=== PATIENT | female | born 1965 | race Caucasian/White ===

== ENCOUNTER 2018-01-02 17:20 | Emergency (ER) | payer MEDICAID, SELFPAY ==
[2018-01-02 17:21] VITALS: BP 106/41; PULSE 89; RESP 17; TEMP 37; O2SAT 95; BMI 21.5
--- NOTE | 2018-01-02 17:44 | CT_ITS ---
STUDY: CT ABDOMEN AND PELVIS WITHOUT CONTRAST REASON FOR EXAM: Female, 52 years old. Abdominal pain RADIATION DOSAGE (If Supplied By Facility): CTDIvol = ( 6.05 ) mGy, DLP = ( 257.03 ) mGycm TECHNIQUE: Transaxial images were obtained from the dome of the diaphragm to the symphysis pubis without oral contrast, and without intravenous contrast. Sagittal and coronal images were reconstructed. Individualized dose optimization techniques were used for this CT. COMPARISON: August 14, 2015. FINDINGS: The visualized lung bases are unremarkable. The visualized portions of the heart are within normal limits. Normal liver. Normal gallbladder and extrahepatic biliary system. Normal spleen. Normal pancreas. Normal bilateral adrenal glands. Normal right kidney. Stable cystic 1 cm nodule with calcification is noted in the left kidney. Normal visualized stomach. Normal small intestine. Normal colon. The appendix is visualized and appears normal. Normal abdominal aorta. Normal inferior vena cava. Normal retroperitoneum. Normal urinary bladder. Normal uterus. Normal abdominal wall. Normal osseous structures. CT/Abdomen/Pelvis without Cont IMPRESSION: Stable cystic nodule of the left kidney. No bowel obstruction. Electronically Signed: Romero Calvo DO at 19:01 EST Tel [phone], Service support ,
--- NOTE | 2018-01-02 17:48 | ED.VISSUMM ---
- ER Visit Summary Date of Service: 01/02/18 Chief Complaint: Cough and abdominal pain History of Present Illness: The patient is a 52 F reports waxing and waning, intermittent abdominal pain since last summer. She has not seen her doctor about this. She also complains of recurrent cough and URI symptoms for the last 3 months. She complains of congestion, fatigue, lightheadedness. Patient states last 2 days she felt pretty good but then woke up with symptoms again this morning. She felt warm but did not measure her temperature. Is not currently taking anything at home for her symptoms. Physical Examination: Vital signs are unremarkable. Patient is afebrile. Patient's sitting upright in bed no acute distress. She is nontoxic appearing. Head neck examination is unremarkable. Heart is regular rate and rhythm. Lung sounds are clear with good air movement bilaterally. Abdomen is soft with mild diffuse tenderness. There is no guarding or rebound. Hypoactive but present bowel sounds are noted. Patient has no focal neuro deficits. Test Results: CBC and chemistry studies are normal. LFTs and lipase are normal. TSH is normal. Urinalysis is normal. Two-view chest x-ray is unremarkable. CT flank shows stable cystic nodule on the left kidney. There is no evidence of bowel obstruction. Emergency Department Course and Treatment: Patient was given Toradol, Zofran, and IV fluids. Repeat evaluation she states she had been improved but her nausea was coming back. She is given additional dose of Zofran. Test results were discussed with her and friend at bedside. Given a prescription for Zofran as needed. She is to follow-up with her primary care physician for further testing and evaluation. Treatment Plan: [] Disposition: Discharge Impression: Viral syndrome This note was generated with Spinnakr dictation software. It may contain incorrect words, spelling, and punctuation that were not noted in review of the chart prior to signing ED Disposition - Plan for ED Patient: Disposition: Home or Assisted Living Chief Complaint: Cold Sx Instructions: ED Viral Syndrome Prescriptions: Ondansetron [Zofran Odt] 4 mg PO Q8H PRN PRN #10 tablet PRN Reason: Nausea Referrals: Oseas Allan MD [Primary Care Provider] - As soon as possible
[2018-01-02] MEDS: Ondansetron 4 MG/2 ML Vial IV ×2 (18:06→20:15)
[2018-01-02] MEDS: 0.9% Normal Saline 1,000 ML 150 ML IV (18:06)
[2018-01-02] MEDS: Ketorolac 30 MG/ML Syringe IV (18:06)
--- NOTE | 2018-01-02 18:20 | RAD_ITS ---
STUDY: X-RAY CHEST REASON FOR EXAM: Female, 52 years old. Cold symptoms TECHNIQUE: Frontal and lateral views COMPARISON: August 07, 2017 FINDINGS: The lungs are clear and expanded. There is no demonstrated pleural abnormality. Normal size heart. Normal mediastinum and paul. Normal visualized pulmonary arteries. Normal visualized aortic arch and descending thoracic aorta. Normal visualized thoracic spine. Normal visualized ribs, clavicles, and shoulders. There is no demonstrated abnormality of the visualized soft tissue structures of the upper abdomen. RAD/Chest PA and Lateral IMPRESSION: Normal x-ray examination of the chest. Electronically Signed: Romero Calvo DO at 19:11 EST Tel [phone], Service support ,
[2018-01-02 18:21] LABS: Absolute Lymphocyte Count 2.89 X10^3/ul (0.83-4.51); Absolute Neutrophil Count 2.9 X10^3/uL (2.0-7.7); Basophil# 0.02 X10^3/uL; Basophil% 0.3 % (0-1); Eosinophil# 0.07 X10^3/uL; Eosinophils% 1.1 % (0-5); Hematocrit 38.2 % (37-47); Hemoglobin 12.4 g/dl (12.0-15.0); Lymphocyte # 2.89 X10^3/ul (4.0); Lymphocyte % 45.4 % (19-41); Mean Corp Hgb Conc 32.5 g/gl (32-36); Mean Corpuscular Hgb 30.8 pg (27.0-32.0); Mean Platelet Vol. 9.7 fl (6.2-12.0); Monocyte# 0.51 X10^3/uL; Neutrophil # 2.87 X10^3/uL (2.7-7.7); Neutrophil % 45.2 % (47-70); Platelet Count 276 K/mm3 (150-450); Red Blood Count 4.02 M/mm3 (4.2-5.4); White Blood Count 6.4 K/mm3 (4.4-11.0)
[2018-01-02 18:53] LABS: POSITIVE COUNT NO; POSITIVE DIFFERENTIAL NO; POSITIVE MORPHOLOGY NO
[2018-01-02 19:13] LABS: AST(SGOT) 11 U/L (15-37); Alanine Aminotransfer ALT/SGPT 19 U/L (13-56); Albumin, Serum 3.2 g/dL (3.2-5.0); Alkaline Phosphatase 63 U/L (45-117); Anion Gap 8 (5-15); BUN 21 mg/dL (7-18); BUN/Creat Ratio 23.9 RATIO (10-20); Bilirubin, Direct 0.08 mg/dL (0.00-0.30); Calcium,Total 8.3 mg/dL (8.5-10.1); Chloride 109 mmol/L (98-107); Creatinine, Serum 0.88 mg/dL (0.55-1.02); EST Glomerular Filtration Rate 71 mL/min (>60); Est Glom Filt Rate - Afr Amer 86 mL/min (>60); Globulin 3.4 g/dL (2.2-4.2); Glucose 98 mg/dL (74-106); Lipase 318 U/L (73-393); Potassium 4.1 mmol/L (3.5-5.1); Protein, Total 6.6 g/dL (6.4-8.2); Sodium Level 143 mmol/L (136-145); Thyroid Stim Hormone (TSH) 1.64 uIU/mL (0.358-3.74)
[2018-01-02 19:40] LABS: Bacteria 0 SEEN /hpf (None Seen); Mucous, Urine 0 SEEN /hpf (<or=2+); Red Blood Cells-Urine 0 SEEN /hpf (0-5); Squamous Epithelial Cells - UA 0 SEEN /hpf (5-10); White Blood Cells 0 SEEN /hpf (0-5)
[2018-01-02 19:41] LABS: Color, Urine Yellow (Yellow); Glucose, Dipstick Normal (Normal); Ketone-Dipstick Negative (Negative); Leukocyte Esterase-Dipstick Negative /ul (Negative); Nitrite-Dipstick Negative (Negative); Occult Blood-Urine Negative /ul (Negative); Protein-Dipstick Negative (Negative); Urine Bilirubin Dipstick Negative (Negative); Urine Clarity Sl. Cloudy (Clear); Urine Urobilinogen Normal (Normal)
[2018-01-02 19:47] LABS: Amorphous Sediment 1+
--- NOTE | 2018-01-02 20:10 | ED.DEP ---
ED Disposition - Plan for ED Patient: Disposition: Home or Assisted Living Chief Complaint: Cold Sx Instructions: ED Viral Syndrome Prescriptions: Ondansetron [Zofran Odt] 4 mg PO Q8H PRN PRN #10 tablet PRN Reason: Nausea Referrals: Oseas Allan MD [Primary Care Provider] - As soon as possible
[2018-01-02 20:28] VITALS: BP 105/75; PULSE 71; RESP 16; O2SAT 99
== END 2018-01-02 20:28 | disposition home or self-care (01) ==
PROVIDERS: Emergency Provider Emergency Medicine; Family Provider Family Medicine; PCP Family Medicine
DX: B34.9 Viral infection, unspecified (principal)
CPT/HCPCS: 71046; 74176; 80048; 80076; 81001; 83690; 84443; 85025; 96361; 96374; 96375; 99283; J7030; A4216; J2405

== ENCOUNTER → 2018-01-25 15:51 | Outpatient (CLI) | payer MEDICAID, SELFPAY | PROVIDERS: Family Provider Family Medicine; PCP Family Medicine; Visit Provider Otolaryngology Otolaryngology/Facial Plastic Surgery | DX: J32.9 Chronic sinusitis, unspecified (principal); J02.9 Acute pharyngitis, unspecified | CPT/HCPCS: 87070; 87205 ==

== ENCOUNTER 2019-06-27 22:08 | Emergency (ER) | payer MEDICAID, SELFPAY ==
[2019-06-27 22:10] VITALS: BP 131/90; PULSE 96; RESP 18; TEMP 36.7; O2SAT 98; BMI 24.0
--- NOTE | 2019-06-27 22:39 | RAD_ITS ---
STUDY: X-RAY CHEST REASON FOR EXAM: Female, 53 years old. Chest pain. Shortness of breath. Headache. TECHNIQUE: PA and lateral views of the chest. COMPARISON: January 02, 2018. FINDINGS: The lungs are clear and expanded. There is no demonstrated pleural abnormality. Normal size heart. Normal mediastinum and paul. Normal visualized pulmonary arteries. Normal visualized aortic arch and descending thoracic aorta. Normal visualized thoracic spine. Normal visualized ribs, clavicles, and shoulders. There is no demonstrated abnormality of the visualized soft tissue structures of the upper abdomen. RAD/Chest PA and Lateral IMPRESSION: No acute cardiopulmonary disease or interval change. Electronically Signed: Tiburcio Berg DO at 23:32 EDT Tel [phone], Service support ,
--- NOTE | 2019-06-27 22:39 | EKG12_ITS ---
Test Reason : CP Blood Pressure : / mmHG Vent. Rate : 080 BPM Atrial Rate : 080 BPM P-R Int : 164 ms QRS Dur : 072 ms QT Int : 340 ms P-R-T Axes : 055 030 067 degrees QTc Int : 392 ms Normal sinus rhythm Low voltage QRS Borderline ECG Confirmed by ALLI LI ([id number]), book or script editor JOSÉ MIGUEL HOLLAND ([id number]) on 07/02/2019 1:25:55 PM Referred By: RYAN/DREA Confirmed By:ALLI LI
--- NOTE | 2019-06-27 22:39 | CT_ITS ---
STUDY: CT BRAIN WITHOUT CONTRAST REASON FOR EXAM: Female, 53 years old. Headache. Nausea. Shaking. Shortness of breath. RADIATION DOSAGE (If Supplied By Facility): CTDIvol = ( 44.99 ) mGy, DLP = ( 796.11 ) mGycm TECHNIQUE: Transaxial CT imaging of the brain was performed without administration of intravenous contrast material. Individualized dose optimization techniques were used for this CT. COMPARISON: January 15, 2015. FINDINGS: Normal soft tissue structures. Normal calvarium. Normal size ventricles and extra-axial spaces for the patient's age. Normal white matter tracts of the cerebral hemispheres. Normal basal ganglia and thalami. Normal brainstem. Normal cerebellum. There is no intracranial hemorrhage. There are no findings of an acute ischemic infarction. Normal visualized paranasal sinuses. CT/Brain/Head without Contrast IMPRESSION: Normal unenhanced CT scan of the brain. There is no interval change. Electronically Signed: Tiburcio Berg DO at 23:32 EDT Tel [phone], Service support ,
--- NOTE | 2019-06-27 22:49 | ED.DCSUM_ITS ---
History of Present Illness Chief Complaint: Chest Pain Informant: Patient, Significant Other Onset: Days - few Narrative: Patient here with other multiple complaints. States symptoms started few days ago with headache chest pain, nonproductive cough. States that dyspnea. States waxing and waning symptoms, no medications taken at home. States that symptoms previously similar however this is worse. States photophobia and phonophobia. Nausea without vomiting. No diarrhea. No urinary symptoms. Denies any radicular symptoms with chest discomfort. Symptoms worsen with cough. Does not have a PCP, states exposure medications for cholesterol. Denies hypertension diabetes history. Subjective fevers. No sore throat or ear pain. Prior similar symptoms: Yes Past Medical History - Allergies and Home Meds Allergies/Adverse Reactions: Allergies No Known Allergies Allergy (Verified 06/27/19 22:12) Primary Care Physician: Oseas Allan MD [STAFF PHYSICIAN] - Smoking Status: Never smoker Review of Systems General: Reports: Fever. Denies: Chills, Sweats Eyes: Denies: Visual changes - bilaterally, Diplopia ENT: Denies: Rhinorrhea, Sore throat Cardiovascular: Reports: Chest pain. Denies: Palpitations Respiratory: Reports: Cough. Denies: Dyspnea, Dyspnea on exertion Gastrointestinal: Reports: Nausea. Denies: Abdominal pain, Vomiting, Diarrhea, Melena, Hematochezia Genitourinary: Denies: Dysuria, Hematuria, Frequency Musculoskeletal: Denies: Back pain, Extremity Pain Skin: Denies: Rash, Wounds Neurological: Reports: Headache. Denies: Weakness, Numbness Physical Exam Vital Signs/Narrative: Vital Signs Temp Pulse Resp BP Pulse Ox 06/27/19 22:10 98.0 F 96 18 131/90 H 98 Inital Vital Signs reviewed: Yes General: Well nourished, Well developed, - - Covering eyes with shirt Head: Normocephalic, Atraumatic Eyes: Perrl, EOMI, - - No photophobia ENT: Moist mucous membranes, No rhinorrhea, TM's clear Neck: Supple, Nontender, - - No meningismus Cardiovascular: Regular rate, Regular rhythm, No murmurs Respiratory: No distress, CTA bilaterally, Chest nontender Abdomen: Soft, Nontender, Nondistended, Normal bowel sounds Back: Nontender, Normal Inspection Extremities: Nontender, No edema Skin: Normal color, No rash Neurological: Alert, Oriented x3, Cranial nerves II-XII grossly intact, Normal Strength, Normal Sensation Psychological: Normal affect, Normal Mood Diagnostic/Tx/Re-eval Chest X-Ray - ED: 2 View, Read by Radiologist, No Acute Disease Abnormal Lab Results 06/27/19 06/27/19 23:00 23:00 WBC 9.2 RBC 4.58 Hgb 14.6 Hct 42.7 MCV 93.2 MCH 31.9 MCHC 34.2 RDW Std Deviation 43.9 RDW Coeff of Servando 12.8 Plt Count 346 MPV 8.9 Immature Gran % (Auto) 0.200 Neut % (Auto) 47.9 Lymph % (Auto) 42.[address] [place] % (Auto) 8.1 Eos % (Auto) 1.3 Baso % (Auto) 0.3 Absolute Neuts (auto) 4.4 Absolute Lymphs (auto) 3.88 Nucleated RBC % 0 Sodium 140 Potassium 4.2 Chloride 106 Carbon Dioxide 29.0 Anion Gap 5 BUN 16 Creatinine 0.89 Estim Creat Clear Calc 56.49 Est GFR (MDRD) Af Amer 84 Est GFR (MDRD) Non-Af 70 BUN/Creatinine Ratio 17.9 Glucose 102 Calcium 9.5 Troponin I < 0.015 Clinical Impression(s) from Imaging Studies Brain CT 06/27/19 22:39 IMPRESSION: Normal unenhanced CT scan of the brain. There is no interval change. Electronically Signed: Tiburcio Berg DO at 23:32 EDT Tel [phone], Service support , Chest X-Ray 06/27/19 22:39 IMPRESSION: No acute cardiopulmonary disease or interval change. Electronically Signed: Tiburcio Berg DO at 23:32 EDT Tel [phone], Service support , - EKG Initial EKG Interpretation: Sinus Rhythm, - - Sinus rate of 80, no ST or T wave changes. - Medical Decision Making Patient appeared anxious, she had no focal neurological deficits. Present with migraine noted symptoms along with chest pain symptoms. EKG cardiac work-up negative. Patient heart score is a 2. CT head was negative. Reglan and Benadryl with fluids given reevaluation was feeling better. Per the discussion per nursing reports patient was taken off her anxiety medicines by new PCP. Discussed with patient, She was on Klonopin previously for anxiety written by her initial PCP Dr. Quarles who retired. She transitioned over Dr. Allan, reports she was taken off her medications put on Prozac stating antidepressants did not help her symptoms in the past. This was stopped 2 to 3 months ago. She is seeing a new physician in the next couple weeks. She has seen a counselor and psychiatrist in the past however none recently. Discussed with patient will write for Vistaril to use as needed, she was given follow-up with [facility] for outpatient evaluation and possible restart of medications that worked for her in the past. They understand and all questions were answered. ED Disposition - Plan for ED Patient: Disposition: Home or Assisted Living Diagnosis: Migraine headache, Atypical chest pain, Anxiety Instructions: CHEST PAIN, Uncertain Cause, ED, Migraine (Classical), Anxiety Reaction Prescriptions: Hydroxyzine Pamoate [Vistaril] 50 mg PO TID PRN PRN #12 capsule PRN Reason: stress Referrals: Oseas Allan MD [STAFF PHYSICIAN] - Behavioral,Health [facility] [GROUP OF PHYSICIANS] - 5-7 Days
[2019-06-27] MEDS: Metoclopramide 10 MG/2 ML Vial IV (22:54)
[2019-06-27] MEDS: DiphenhydrAMINE 50 MG/ML Syringe 25 MG IV (22:54)
[2019-06-27] MEDS: 0.9% Normal Saline 1,000 ML 1000 ML IV (22:54)
[2019-06-27 23:05] LABS: Absolute Lymphocyte Count 3.88 X10^3/uL (0.83-4.51); Absolute Neutrophil Count 4.4 X10^3/uL (2.0-7.7); Basophil# 0.03 X10^3/uL; Basophil% 0.3 % (0-1); Eosinophil# 0.12 X10^3/uL; Eosinophils% 1.3 % (0-5); Hematocrit 42.7 % (37-47); Hemoglobin 14.6 g/dL (12.0-15.0); Lymphocyte # 3.88 X10^3/ul (4.0); Lymphocyte % 42.2 % (19-41); Mean Corp Hgb Conc 34.2 g/dL (32-36); Mean Corpuscular Hgb 31.9 pg (27.0-32.0); Mean Corpuscular Volume 93.2 fL (81-99); Mean Platelet Vol. 8.9 fl (6.2-12.0); Monocyte# 0.74 X10^3/uL; Monocyte% 8.1 % (0-10); NRBC Flagged by Analyzer 0 % (0-5); Neutrophil % 47.9 % (47-70); Platelet Count 346 K/mm3 (150-450); RBC Distribution Width CV 12.8 % (11.6-14.6); RBC Distribution Width SD 43.9 fl (35.1-43.9); Red Blood Count 4.58 M/mm3 (4.2-5.4); White Blood Count 9.2 K/mm3 (4.4-11.0)
[2019-06-27 23:26] LABS: Anion Gap 5 (5-15); BUN 16 mg/dL (7-18); BUN/Creat Ratio 17.9 RATIO (10-20); Calcium,Total 9.5 mg/dL (8.5-10.1); Chloride 106 mmol/L (98-107); Creatinine, Serum 0.89 mg/dL (0.55-1.02); EST Glomerular Filtration Rate 70 mL/min (>60); Est Glom Filt Rate - Afr Amer 84 mL/min (>60); Estimated Creatinine Clearance 56.49 ml/min; Glucose 102 mg/dL (74-106); Potassium 4.2 mmol/L (3.5-5.1); Sodium Level 140 mmol/L (136-145)
[2019-06-27 23:43] VITALS: BP 122/92; PULSE 75; RESP 13; O2SAT 100
[2019-06-28] MEDS: hydrOXYzine PAM 25 MG Capsule 50 MG PO (00:11)
--- NOTE | 2019-06-28 00:19 | ED.RN ---
pamplets given for mental health services. Emotional support given. All questions answered no further concerns.
== END 2019-06-28 00:20 | disposition home or self-care (01) ==
PROVIDERS: Emergency Provider Emergency Medicine; Family Provider Pediatrics; PCP Pediatrics
DX: G43.909 Migraine, unspecified, not intractable, without status migrainosus (principal); R07.89 Other chest pain; F41.9 Anxiety disorder, unspecified
CPT/HCPCS: 70450; 71046; 80048; 84484; 85025; 93005; 99285; J7030

== ENCOUNTER → 2020-01-08 15:20 | Outpatient (CLI) | payer MEDICAID, SELFPAY ==
[2020-01-08 17:32] LABS: Absolute Lymphocyte Count 2.33 X10^3/uL (0.83-4.51); Absolute Neutrophil Count 5.1 X10^3/uL (2.0-7.7); Basophil# 0.04 X10^3/uL; Basophil% 0.5 % (0-1); Eosinophil# 0.06 X10^3/uL; Eosinophils% 0.7 % (0-5); Hematocrit 37.9 % (37-47); Hemoglobin 12.4 g/dL (12.0-15.0); Lymphocyte # 2.33 X10^3/ul (4.0); Lymphocyte % 28.1 % (19-41); Mean Corp Hgb Conc 32.7 g/dL (32-36); Mean Corpuscular Hgb 30.8 pg (27.0-32.0); Mean Corpuscular Volume 94.3 fL (81-99); Mean Platelet Vol. 9.3 fl (6.2-12.0); Monocyte# 0.72 X10^3/uL; Monocyte% 8.7 % (0-10); NRBC Flagged by Analyzer 0 % (0-5); Neutrophil # 5.12 X10^3/uL (2.7-7.7); Neutrophil % 61.6 % (47-70); Platelet Count 348 K/mm3 (150-450); RBC Distribution Width CV 14.1 % (11.6-14.6); RBC Distribution Width SD 48.6 fl (35.1-43.9); Red Blood Count 4.02 M/mm3 (4.2-5.4); White Blood Count 8.3 K/mm3 (4.4-11.0)
[2020-01-08 17:43] LABS: ALB/GLOB Ratio 1.2 RATIO (0.9-2.4); AST(SGOT) 20 U/L (15-37); Alanine Aminotransfer ALT/SGPT 40 U/L (13-56); Alkaline Phosphatase 91 U/L (45-117); Anion Gap 6 (5-15); BUN 14 mg/dL (7-18); BUN/Creat Ratio 13.9 RATIO (10-20); Calcium,Total 9.4 mg/dL (8.5-10.1); Chloride 105 mmol/L (98-107); Creatinine, Serum 1.01 mg/dL (0.55-1.02); EST Glomerular Filtration Rate 60 mL/min (>60); Est Glom Filt Rate - Afr Amer 73 mL/min (>60); Globulin 3.3 g/dL (2.2-4.2); Glucose 100 mg/dL (74-106); Potassium 4.1 mmol/L (3.5-5.1); Protein, Total 7.3 g/dL (6.4-8.2); Sodium Level 142 mmol/L (136-145)
== END ==
PROVIDERS: PCP Family Medicine Geriatric Medicine; Visit Provider Family Medicine Geriatric Medicine
DX: R53.83 Other fatigue (principal)
CPT/HCPCS: 36415; 80053; 84443; 85025

== ENCOUNTER → 2021-03-17 14:24 | Outpatient (CLI) | payer MEDICAID, SELFPAY ==
[2021-03-17 14:24] VITALS: BMI 24.0
[2021-03-17 15:22] LABS: Absolute Lymphocyte Count 2.67 X10^3/uL (0.83-4.51); Absolute Neutrophil Count 4.3 X10^3/uL (2.0-7.7); Basophil# 0.03 X10^3/uL; Basophil% 0.4 % (0-1); Eosinophil# 0.04 X10^3/uL; Eosinophils% 0.5 % (0-5); Hematocrit 39.3 % (37-47); Hemoglobin 12.8 g/dL (12.0-15.0); Lymphocyte # 2.67 X10^3/ul (0.83-4.51); Lymphocyte % 34.4 % (19-41); Mean Corp Hgb Conc 32.6 g/dL (32-36); Mean Corpuscular Hgb 30.9 pg (27.0-32.0); Mean Corpuscular Volume 94.9 fL (81-99); Mean Platelet Vol. 9.8 fl (6.2-12.0); NRBC Flagged by Analyzer 0 % (0-5); Neutrophil # 4.31 X10^3/uL (2.7-7.7); Neutrophil % 55.4 % (47-70); Platelet Count 375 K/mm3 (150-450); RBC Distribution Width CV 13.9 % (11.6-14.6); RBC Distribution Width SD 48.4 fl (35.1-43.9); Red Blood Count 4.14 M/mm3 (4.2-5.4); White Blood Count 7.8 K/mm3 (4.4-11.0)
--- NOTE | 2021-03-17 15:36 | RAD_ITS ---
STUDY: X-RAY - RIGHT KNEE REASON FOR EXAM: Female, 55 years old. KNEE PAIN TECHNIQUE: 3 view(s) of the knee. COMPARISON: None. FINDINGS: Normal visualized distal femur. Normal visualized proximal tibia and fibula. Normal proximal tibiofibular articulation. Normal medial femorotibial compartment. Normal lateral femorotibial compartment. Normal patellofemoral articulation. The soft tissue structures are unremarkable. RAD/Knee 3 Views IMPRESSION: Normal x-ray examination of the knee. Electronically Signed: Manpreet Hernandez MD at 16:05 EDT Tel , Service support ,
--- NOTE | 2021-03-17 15:36 | RAD_ITS ---
STUDY: X-RAY - LEFT KNEE REASON FOR EXAM: Female, 55 years old. KNEE PAIN TECHNIQUE: 3 view(s) of the knee. COMPARISON: None. FINDINGS: Normal visualized distal femur. Normal visualized proximal tibia and fibula. Normal proximal tibiofibular articulation. There is mild degenerative arthrosis of the medial femorotibial compartment. Normal lateral femorotibial compartment. Normal patellofemoral articulation. The soft tissue structures are unremarkable. RAD/Knee 3 Views IMPRESSION: Degenerative arthrosis. Electronically Signed: Manpreet Hernandez MD at 16:05 EDT Tel , Service support ,
--- NOTE | 2021-03-17 15:36 | RAD_ITS ---
STUDY: X-RAY - CERVICAL SPINE REASON FOR EXAM: Female, 55 years old. NECK PAIN TECHNIQUE: 3 view(s) of the cervical spine were obtained. COMPARISON: None FINDINGS: There is straightening of the normal cervical lordosis. There is multi-level endplate spondylosis. There is multi-level degenerative disc disease with multilevel disc space narrowing. The soft tissue structures are unremarkable. RAD/Cerv Spine 2 or 3 Views IMPRESSION: Degenerative changes of the spine. Electronically Signed: Jamil Mac MD at 13:35 EDT Tel , Service support ,
== END ==
LOC: POLAB3 14:26 → RAD 15:26
PROVIDERS: PCP Family Medicine Geriatric Medicine; Referring Provider Family Medicine Geriatric Medicine; Visit Provider Family Medicine Geriatric Medicine
DX: R53.83 Other fatigue (principal); M54.2 Cervicalgia; M25.569 Pain in unspecified knee
CPT/HCPCS: 36415; 72040; 73562; 80053; 84443; 85025

== ENCOUNTER → 2021-04-16 10:39 | Outpatient (CLI) | payer MEDICAID, SELFPAY ==
[2021-03-17 14:24] VITALS: BMI 24.0
--- NOTE | 2021-04-16 10:41 | BI_ITS ---
MAMMOGRAPHY - BILATERAL SCREENING REASON FOR EXAM: Female, 55 years old. Routine annual screening examination. PERTINENT HISTORY: Non-contributory. TECHNIQUE: Digital bilateral breast asya (3D mammographic acquisition) in the CC and MLO projections. 2-D mediolateral oblique (MLO) and craniocaudad (CC) views of both breasts were obtained. CAD: Full Field Digital Mammography with Computer Added Detection was performed. COMPARISON: Comparison is made with prior outside examination 03/20/2019. FINDINGS: Breast Composition: The breasts are heterogeneously dense, which may obscure small masses. There are no dominant masses or suspicious calcifications. No other significant abnormalities are identified. There has been no significant change since the prior study. BI/SCRN MAMM (CAD)W/ASYA BILAT IMPRESSION: Stable bilateral screening mammogram. Yearly follow-up mammogram recommended. (A) ASSESSMENT CATEGORY: BIRADS Category 1: Negative. A letter regarding these results will be sent to the patient by the facility within 30 days. Approximately 10% of breast cancers are not detected by mammography. A normal mammogram should not delay biopsy of a clinically suspicious abnormality. [id number] Electronically Signed: Mukesh Cardoza MD at 12:09 EDT , Service support ,
== END ==
PROVIDERS: PCP Family Medicine Geriatric Medicine; Referring Provider Family Medicine Geriatric Medicine; Visit Provider Family Medicine Geriatric Medicine
DX: Z12.31 Encounter for screening mammogram for malignant neoplasm of breast (principal)
CPT/HCPCS: 77063; 77067

== ENCOUNTER → 2021-04-17 08:36 | Outpatient (CLI) | payer MEDICAID, SELFPAY ==
[2021-03-17 14:24] VITALS: BMI 24.0
--- NOTE | 2021-04-17 08:38 | US_ITS ---
STUDY: ABDOMINAL ULTRASOUND REASON FOR EXAM: Female, 55 years old. ABD PAIN TECHNIQUE: Transabdominal ultrasound was performed with real-time and static kenyon scale imaging. TECHNICAL QUALITY: Adequate. COMPARISON: None. FINDINGS: Liver: The liver measures 15 cm. There is normal echogenicity of the liver. The bile ducts are within normal limits. There is hepatic color flow. The direction of portal flow is hepatopetal. There is no demonstrated mass lesion. Portal vein measurement: Gallbladder: Normal distended gallbladder. The gallbladder wall measures 1.1 mm. There is a negative sonographic Byers''s sign. There is no pericholecystic fluid. There are no gallstones. Common Bile Duct (C.B.D.): The common bile duct measures 6.8 mm. Pancreas: Normal size of the head, body and tail of the pancreas. There is increased echogenicity of the pancreas. There is no demonstrated pancreatic mass or cyst. Spleen: Normal size of the spleen. The spleen measures 8.5 cm. Right Kidney: Normal size of the right kidney. The right kidney measures 9.9 x 4.8 x 3.7 cm. Normal renal cortex. The right cortex measures 1.3 cm. There is no demonstrated renal mass or cyst. There is no right hydronephrosis. Left Kidney: Normal size of the left kidney. The left kidney measures 10.0 x 4.1 x 5.2 cm. Normal renal cortex. The left cortex measures 1.2 cm. There is a 1.0 cm cyst. There is no left hydronephrosis. Aorta: Tapers normally I.V.C.: The IVC is patent. There is no ascites. US/Abdomen Complete IMPRESSION: Simple left renal cysts, no specific follow-up needed Nonspecific echogenic pancreas Electronically Signed: Richard Hobbs MD at 14:24 EDT , Service support ,
== END ==
PROVIDERS: PCP Family Medicine Geriatric Medicine; Referring Provider Family Medicine Geriatric Medicine; Visit Provider Family Medicine Geriatric Medicine
DX: R10.9 Unspecified abdominal pain (principal)
CPT/HCPCS: 76700

== ENCOUNTER → 2021-08-07 13:33 | Outpatient (CLI) | payer MEDICAID, SELFPAY ==
[2021-08-06 17:59] LABS: Absolute Lymphocyte Count 3.53 X10^3/uL (0.83-4.51); Absolute Neutrophil Count 5.3 X10^3/uL (2.0-7.7); Basophil# 0.05 X10^3/uL; Basophil% 0.5 % (0-1); Eosinophil# 0.06 X10^3/uL; Eosinophils% 0.6 % (0-5); Hematocrit 41.3 % (37-47); Hemoglobin 13.9 g/dL (12.0-15.0); Lymphocyte # 3.53 X10^3/ul (0.83-4.51); Lymphocyte % 36.6 % (19-41); Mean Corp Hgb Conc 33.7 g/dL (32-36); Mean Corpuscular Hgb 31.3 pg (27.0-32.0); Mean Platelet Vol. 9.2 fl (6.2-12.0); Monocyte# 0.71 X10^3/uL; Monocyte% 7.4 % (0-10); NRBC Flagged by Analyzer 0 % (0-5); Neutrophil # 5.27 X10^3/uL (2.7-7.7); Neutrophil % 54.7 % (47-70); Platelet Count 343 K/mm3 (150-450); RBC Distribution Width CV 13.4 % (11.6-14.6); RBC Distribution Width SD 45.9 fl (35.1-43.9); Red Blood Count 4.44 M/mm3 (4.2-5.4); White Blood Count 9.6 K/mm3 (4.4-11.0)
[2021-08-06 18:51] LABS: Vitamin B12 697 pg/mL (211-911)
[2021-08-06 19:18] LABS: ALB/GLOB Ratio 1.1 RATIO (0.9-2.4); AST(SGOT) 18 U/L (15-37); Alanine Aminotransfer ALT/SGPT 26 U/L (13-56); Alkaline Phosphatase 84 U/L (45-117); Anion Gap 6 (5-15); BUN 14 mg/dL (7-18); BUN/Creat Ratio 14.3 RATIO (10-20); Calcium,Total 9.1 mg/dL (8.5-10.1); Chloride 105 mmol/L (98-107); Cholesterol 316 mg/dL (200); Creatinine, Serum 0.98 mg/dL (0.55-1.02); EST Glomerular Filtration Rate 62 mL/min (>60); Est Glom Filt Rate - Afr Amer 75 mL/min (>60); Globulin 3.8 g/dL (2.2-4.2); Glucose 81 mg/dL (74-106); High Density Lipoprotein 62 mg/dL; Potassium 3.5 mmol/L (3.5-5.1); Protein, Total 7.8 g/dL (6.4-8.2); Sodium Level 139 mmol/L (136-145); T4 Total, Thyroxin 8.9 ug/dL (4.8-13.9); Thyroid Stim Hormone (TSH) 5.88 uIU/mL (0.358-3.74); Triglycerides 152 mg/dL; Very Low Density Lipoprotein 30 mg/dL (5-40)
== END ==
PROVIDERS: PCP Family Medicine Geriatric Medicine
DX: F31.30 Bipolar disorder, current episode depressed, mild or moderate severity, unspecified (principal); Z79.899 Other long term (current) drug therapy
CPT/HCPCS: 36415; 80053; 80061; 82607; 82746; 84436; 84443; 84480; 85025

== ENCOUNTER → 2021-08-17 14:07 | Outpatient (CLI) | payer MEDICAID, SELFPAY ==
[2021-08-17 15:21] LABS: T3 Uptake 36 % (30-39); T4 Free Direct 1.02 ng/dL (0.76-1.46); Thyroid Stim Hormone (TSH) 4.49 uIU/mL (0.358-3.74)
[2021-08-17 20:46] LABS: T7 / Free Thyroxin Index 0.4 (1.4-4.5)
== END ==
PROVIDERS: PCP Family Medicine Geriatric Medicine; Referring Provider Family Medicine Geriatric Medicine; Visit Provider Family Medicine Geriatric Medicine
DX: E03.9 Hypothyroidism, unspecified (principal)
CPT/HCPCS: 36415; 84439; 84443; 84479

== ENCOUNTER → 2021-10-05 15:38 | Outpatient (CLI) | payer MEDICAID, SELFPAY ==
[2021-10-05 17:09] LABS: Thyroid Stim Hormone (TSH) 4.21 uIU/mL (0.358-3.74)
== END ==
PROVIDERS: PCP Family Medicine Geriatric Medicine; Referring Provider Family Medicine Geriatric Medicine; Visit Provider Family Medicine Geriatric Medicine
DX: E03.9 Hypothyroidism, unspecified (principal)
CPT/HCPCS: 36415; 84443

== ENCOUNTER 2021-10-12 12:10 | Emergency (ER) | payer MEDICAID, SELFPAY ==
[2021-10-12 12:11] VITALS: BP 120/90; PULSE 89; RESP 16; TEMP 36.5; O2SAT 96; BMI 22.3
[2021-10-12 12:29] VITALS: BP 141/91; PULSE 90; RESP 16; O2SAT 98
--- NOTE | 2021-10-12 12:53 | EDS_ITS ---
HPI History of Present Illness Chief Complaint: Palpitations Informant: patient Narrative Narrative: 55-year-old female states that her doctor or therapist or someone that she had a virtual visit with from a clinic in [place] that she is not sure what type of medicine they practice told her to come to the emergency room to get an EKG for heart problems to get to the bottom of it. She uses extremely vague answers to very specific questions like what specifically are your symptoms with your heart and then she goes on a tangent regarding how they killed my sister by not giving her her nerve pills. She denies any suicidal homicidal ideation. She states that she is intermittently dizzy and fears her heart thumping. She states all of her symptoms have been present for years ever since they took my nerve pills away to. Patient is disparaging to other roviders that she has seen for not giving her what she wants. [facility] Medical History Anxiety COPD (chronic obstructive pulmonary disease) DDD (degenerative disc disease), cervical Depression Former smoker Hypothyroidism PTSD (post-traumatic stress disorder) Rheumatoid arthritis Home Medications acyclovir 400 mg PO PRN PRN 08/07/17 [History Last Taken Unknown] levothyroxine 75 mcg PO DAILY 08/07/17 [History Last Taken Unknown] multivitamin with folic acid [Thera] 1 ea PO DAILY 08/07/17 [History Last Taken Unknown] quetiapine [Seroquel] 300 mg PO QHS 08/07/17 [History Last Taken Unknown] atorvastatin 10 mg PO QHS 06/27/19 [History Last Taken Unknown] conj estrog-medroxyprogest hazel 1 tab PO DAILY 06/27/19 [History Last Taken Unknown] hydroxyzine pamoate 50 mg PO TID PRN PRN #12 cap 06/27/19 [Rx Last Taken Unknown] ranitidine HCl 150 mg PO DAILY 06/27/19 [History Last Taken Unknown] Allergy/AdvReac Type Severity Reaction Status Date / Time amitriptyline Allergy Rash Verified 10/12/21 12:14 Social History (Updated 10/12/21 @ 12:[address] Roel Walker DO) Smoking Status: Never smoker substance use type: does not use ROS ROS ED Constitutional Constitutional ED: Denies chills, fever(s) or weight loss Eyes Eyes: Denies change in vision or diplopia ENT ENT ED: Denies ear pain, rhinorrhea or sore throat Cardiovascular Cardiovascular: Reports palpitations; Denies chest pain, orthopnea or racing heartbeat Respiratory/Chest Respiratory/Chest: Denies cough, dyspnea or orthopnea Gastrointestinal Gastrointestinal: Denies abdominal pain, diarrhea, nausea or vomiting Genitourinary Genitourinary ED: Denies dysuria, hematuria or urinary frequency Musculoskeletal Musculoskeletal: Denies arthralgias or myalgias Integumentary Denies abscess or rash Neurologic Neurologic: Reports headache(s) and other Details: Dizziness ; Denies weakness Psychiatric Psychiatric: Reports anxiety and depression; Denies suicidal ideation or suicida l thoughts Endocrine Endocrinology: Denies polydipsia, polyphagia or polyuria Allergic/Immunologic Allergic/Immunologic ED: Denies mouth swelling, tongue swelling or urticaria EXAM Physical Exam Const Vital Signs: 10/12/21 12:11 10/12/21 12:29 Temperature 97.7 F L Temperature Source Temporal Pulse Rate 89 90 Respiratory Rate 16 16 Respiratory Effort Normal Respiratory Pattern Normal Blood Pressure 120/90 H 141/91 H Blood Pressure Mean 100 107 Pulse Ox 96 98 Oxygen Delivery Method Room Air Room Air Positive well nourished and well developed General Appearance ED: well developed HEENT Reports normocephalic, head/scalp atraumatic, TM's clear and moist mucous membranes normocephalic and atraumatic Tympanic Membrane ED: Yes TM's clear Eyes PERRL and EOMs intact bilaterally Neck no lymphadenopathy, supple and no JVD Resp normal respiratory effort and clear to auscultation bilaterally Cardio regular rate, regular rhythm and no murmurs GI normal to inspection, nondistended, normoactive bowel sounds and non-tender Palpation: soft Back/Spine no CVA tenderness and normal ROM Extremity normal to inspection General Extremety ED: Negative for edema General Extremity: Negative for edema Neuro oriented x3 and CN's II-XII intact bilaterally Sensorium / Orientation: alert Motor Exam: strength 5/5 throughout Psych Mood & Affect: depressed, anxious and tearful Skin no rashes or lesions noted and no wounds MDM MDM MDM Narrative Medical decision making narrative: EKG demonstrates a normal sinus rhythm. Patient I believe has underlying [place] II disorder that is significantly affect ing her. She was seen by social work and given information on IOP. The patient needs to follow-up with her therapist. I do not see evidence of a acute emergent condition. EKG Initial EKG: Attestation: I personally reviewed and interpreted this EKG as follows: Comments: Sinus rhythm with sinus arrhythmia with a ventricular rate of 76 bpm Discharge Plan Triage Chief Complaint: Palpitations ED Provider: Roel Walker Dx/Rx/DC Orders Clinical Impression: Heart palpitations Instructions: ED Palpitations Prescriptions: No Action quetiapine [Seroquel] 200 MG tablet 300 mg PO QHS RF: 0 acyclovir 400 MG tablet 400 mg PO PRN PRN (Reason: COLD SORES) RF: 0 levothyroxine 50 MCG tablet 75 mcg PO DAILY RF: 0 multivitamin with folic acid [Thera] 400 MCG tablet 1 ea PO DAILY RF: 0 atorvastatin 10 MG tablet 10 mg PO QHS RF: 0 ranitidine HCl 150 MG tablet 150 mg PO DAILY RF: 0 conj estrog-medroxyprogest hazel 1 TAB tablet 1 tab PO DAILY RF: 0 hydroxyzine pamoate 50 MG capsule 50 mg PO TID PRN PRN (Reason: stress) Qty: 12 RF: 0 Primary Care Provider: Dandy Albarado Chi Referrals: Dandy Albarado Chi, MD [Primary Care Provider] - As soon as possible Disposition Disposition: Home, Self Care
--- NOTE | 2021-10-12 12:53 | EKG12_ITS ---
Test Reason : Blood Pressure : / mmHG Vent. Rate : 076 BPM Atrial Rate : 076 BPM P-R Int : 168 ms QRS Dur : 076 ms QT Int : 370 ms P-R-T Axes : 067 003 058 degrees QTc Int : 416 ms Normal sinus rhythm with sinus arrhythmia Normal ECG Confirmed by KANDY MICHELLE, NELSY ([id number]), restaurant expeditor JOSÉ MIGUEL HOLLAND ([id number]) on 10/19/2021 9:35:12 AM Referred By: NEREIDA Confirmed By:NELSY GAITAN MD
[2021-10-12 13:56] VITALS: BP 130/93; PULSE 76; RESP 18; O2SAT 100
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
== END 2021-10-12 13:56 | disposition home or self-care (01) ==
PROVIDERS: Emergency Provider Emergency Medicine; PCP Family Medicine Geriatric Medicine
DX: R00.2 Palpitations (principal); F41.9 Anxiety disorder, unspecified; F32.A Depression, unspecified; J44.9 Chronic obstructive pulmonary disease, unspecified; M06.9 Rheumatoid arthritis, unspecified; M50.30 Other cervical disc degeneration, unspecified cervical region; F43.10 Post-traumatic stress disorder, unspecified; E03.9 Hypothyroidism, unspecified; Z87.891 Personal history of nicotine dependence; Z79.899 Other long term (current) drug therapy
CPT/HCPCS: 93005; 99282

== ENCOUNTER 2021-12-24 10:57 | Outpatient (CLI) | payer MEDICAID, SELFPAY ==
[2021-12-24 12:56] LABS: Thyroid Stim Hormone (TSH) 2.49 uIU/mL (0.358-3.74)
== END 2021-12-24 23:59 | disposition short-term general hospital (02) ==
LOC: LAB 11:00
PROVIDERS: PCP Family Medicine Geriatric Medicine; Referring Provider Family Medicine Geriatric Medicine; Visit Provider Family Medicine Geriatric Medicine
DX: E03.9 Hypothyroidism, unspecified (principal)
CPT/HCPCS: 36415; 84443

== ENCOUNTER → 2022-03-25 | Outpatient (CLI) | payer MEDICAID, SELFPAY ==
[2022-03-25 15:02] LABS: Absolute Lymphocyte Count 3.23 X10^3/uL (0.83-4.51); Absolute Neutrophil Count 7.1 X10^3/uL (2.0-7.7); Basophil# 0.04 X10^3/uL; Basophil% 0.4 % (0-1); Eosinophil# 0.07 X10^3/uL; Eosinophils% 0.6 % (0-5); Hematocrit 41.7 % (37-47); Lymphocyte # 3.23 X10^3/ul (0.83-4.51); Lymphocyte % 28.6 % (19-41); Mean Corp Hgb Conc 33.6 g/dL (32-36); Mean Corpuscular Hgb 32.3 pg (27.0-32.0); Mean Corpuscular Volume 96.3 fL (81-99); Mean Platelet Vol. 9.2 fl (6.2-12.0); Monocyte# 0.83 X10^3/uL; Monocyte% 7.3 % (0-10); NRBC Flagged by Analyzer 0 % (0-5); Neutrophil % 62.7 % (47-70); Platelet Count 404 K/mm3 (150-450); RBC Distribution Width CV 14.8 % (11.6-14.6); RBC Distribution Width SD 52.8 fl (35.1-43.9); Red Blood Count 4.33 M/mm3 (4.2-5.4); White Blood Count 11.3 K/mm3 (4.4-11.0)
[2022-03-25 15:39] LABS: ALB/GLOB Ratio 1.1 RATIO (0.9-2.4); AST(SGOT) 12 U/L (15-37); Alanine Aminotransfer ALT/SGPT 25 U/L (13-56); Albumin, Serum 3.7 g/dL (3.2-5.0); Alkaline Phosphatase 73 U/L (45-117); Anion Gap 5 (5-15); BUN 12 mg/dL (7-18); BUN/Creat Ratio 15.8 RATIO (10-20); Calcium,Total 9.2 mg/dL (8.5-10.1); Chloride 109 mmol/L (98-107); Creatinine, Serum 0.76 mg/dL (0.55-1.02); EST Glomerular Filtration Rate 83 mL/min (>60); Est Glom Filt Rate - Afr Amer 100 mL/min (>60); Globulin 3.3 g/dL (2.2-4.2); Glucose 101 mg/dL (74-106); Potassium 3.8 mmol/L (3.5-5.1); Sodium Level 141 mmol/L (136-145)
== END | disposition home or self-care (01) ==
LOC: LAB 14:28
PROVIDERS: PCP Family Medicine Geriatric Medicine; Referring Provider Family Medicine Geriatric Medicine; Visit Provider Family Medicine Geriatric Medicine
DX: R53.83 Other fatigue (principal)
CPT/HCPCS: 36415; 80053; 84443; 85025

== ENCOUNTER → 2022-09-13 | Outpatient (CLI) | payer MEDICAID, SELFPAY ==
[2022-09-13 13:05] LABS: Absolute Lymphocyte Count 2.56 X10^3/uL (0.83-4.51); Absolute Neutrophil Count 15.1 X10^3/uL (2.0-7.7); Basophil# 0.06 X10^3/uL; Basophil% 0.3 % (0-1); Eosinophil# 0.05 X10^3/uL; Eosinophils% 0.3 % (0-5); Hematocrit 43.3 % (37-47); Hemoglobin 14.5 g/dL (12.0-15.0); Lymphocyte # 2.56 X10^3/ul (0.83-4.51); Lymphocyte % 13.3 % (19-41); Mean Corp Hgb Conc 33.5 g/dL (32-36); Mean Corpuscular Hgb 32.6 pg (27.0-32.0); Mean Corpuscular Volume 97.3 fL (81-99); Mean Platelet Vol. 9.3 fl (6.2-12.0); Monocyte# 1.48 X10^3/uL; Monocyte% 7.7 % (0-10); NRBC Flagged by Analyzer 0 % (0-5); Neutrophil # 15.06 X10^3/uL (2.7-7.7); Neutrophil % 77.9 % (47-70); Platelet Count 454 K/mm3 (150-450); RBC Distribution Width CV 13.3 % (11.6-14.6); RBC Distribution Width SD 48.1 fl (35.1-43.9); Red Blood Count 4.45 M/mm3 (4.2-5.4); White Blood Count 19.3 K/mm3 (4.4-11.0)
[2022-09-13 13:52] LABS: ALB/GLOB Ratio 1.1 RATIO (0.9-2.4); AST(SGOT) 15 U/L (15-37); Alanine Aminotransfer ALT/SGPT 23 U/L (13-56); Albumin, Serum 3.9 g/dL (3.2-5.0); Alkaline Phosphatase 84 U/L (45-117); Anion Gap 7 (5-15); BUN 10 mg/dL (7-18); BUN/Creat Ratio 12.9 RATIO (10-20); Calcium,Total 9.7 mg/dL (8.5-10.1); Chloride 108 mmol/L (98-107); Cholesterol 299 mg/dL (200); Creatinine, Serum 0.78 mg/dL (0.55-1.02); EST Glomerular Filtration Rate 81 mL/min (>60); Est Glom Filt Rate - Afr Amer 98 mL/min (>60); Free T3 2.7 pg/mL (2.18-3.98); Globulin 3.4 g/dL (2.2-4.2); Glucose 112 mg/dL (74-106); High Density Lipoprotein 66 mg/dL; Potassium 3.5 mmol/L (3.5-5.1); Protein, Total 7.3 g/dL (6.4-8.2); Sodium Level 142 mmol/L (136-145); T4 Free Direct 1.46 ng/dL (0.76-1.46); Thyroid Stim Hormone (TSH) 0.19 uIU/mL (0.358-3.74); Triglycerides 125 mg/dL; Very Low Density Lipoprotein 25 mg/dL (5-40)
[2022-09-13 14:03] LABS: Vitamin D,25 Hydroxy 33.5 ng/mL
== END | disposition home or self-care (01) ==
PROVIDERS: PCP Family Medicine Geriatric Medicine; Referring Provider Internal Medicine; Visit Provider Internal Medicine
DX: E03.9 Hypothyroidism, unspecified (principal); F43.10 Post-traumatic stress disorder, unspecified; F41.9 Anxiety disorder, unspecified
CPT/HCPCS: 36415; 80053; 80061; 82306; 84439; 84443; 84481; 85025

== ENCOUNTER → 2022-12-09 | Outpatient (CLI) | payer MEDICAID, SELFPAY ==
[2022-12-09 14:51] LABS: Absolute Lymphocyte Count 4.82 X10^3/uL (0.83-4.51); Absolute Neutrophil Count 8.3 X10^3/uL (2.0-7.7); Basophil# 0.07 X10^3/uL; Basophil% 0.5 % (0-1); Eosinophil# 0.15 X10^3/uL; Hematocrit 40.4 % (37-47); Hemoglobin 13.4 g/dL (12.0-15.0); Lymphocyte # 4.82 X10^3/ul (0.83-4.51); Lymphocyte % 32.8 % (19-41); Mean Corp Hgb Conc 33.2 g/dL (32-36); Mean Corpuscular Hgb 30.9 pg (27.0-32.0); Mean Corpuscular Volume 93.1 fL (81-99); Mean Platelet Vol. 9.8 fl (6.2-12.0); Monocyte# 1.29 X10^3/uL; Monocyte% 8.8 % (0-10); NRBC Flagged by Analyzer 0 % (0-5); Neutrophil # 8.31 X10^3/uL (2.7-7.7); Neutrophil % 56.6 % (47-70); POSITIVE MORPHOLOGY YES; Platelet Count 449 K/mm3 (150-450); RBC Distribution Width CV 14.4 % (11.6-14.6); RBC Distribution Width SD 49.2 fl (35.1-43.9); Red Blood Count 4.34 M/mm3 (4.2-5.4); White Blood Count 14.7 K/mm3 (4.4-11.0)
[2022-12-09 15:27] LABS: Reactive Lymphocyte RARE
[2022-12-09 15:30] LABS: Differential Indicated SCAN CRITERIA MET
[2022-12-09 15:39] LABS: Free T3 2.3 pg/mL (2.18-3.98); T4 Free Direct 1.21 ng/dL (0.76-1.46); Thyroid Stim Hormone (TSH) 1.86 uIU/mL (0.358-3.74)
== END | disposition home or self-care (01) ==
LOC: LAB 14:04
PROVIDERS: PCP Family Medicine Geriatric Medicine; Visit Provider Internal Medicine
DX: D72.829 Elevated white blood cell count, unspecified (principal); R79.89 Other specified abnormal findings of blood chemistry
CPT/HCPCS: 84439; 84443; 84481; 85025

== ENCOUNTER → 2023-02-02 | Outpatient (CLI) | payer MEDICAID, SELFPAY ==
[2023-02-02 12:20] LABS: Bacteria 0 SEEN /hpf (None Seen); Mucous, Urine 0 SEEN /hpf (<or=2+); Red Blood Cells-Urine 0 SEEN /hpf (0-5); Squamous Epithelial Cells - UA 0 SEEN /hpf (5-10); White Blood Cells 0 SEEN /hpf (0-5)
--- NOTE | 2023-02-02 12:32 | US_ITS ---
STUDY: RENAL ULTRASOUND - COMPLETE REASON FOR EXAM: Female, 57 years old. Flank pain TECHNIQUE: Ultrasound evaluation of the kidneys was performed with real-time and static jimenes-scale imaging. Study limited due to overlying bowel gas COMPARISON: None. FINDINGS: RIGHT KIDNEY: Normal location of the right kidney, which is normal in size. The right kidney measures 10.2 x 5.1 x 3.8 cm. There is a normal cortex of the right kidney. The renal cortex measures 1.4 cm. There is no right renal mass or cyst. There are no right renal calculi. There is no right hydronephrosis. DISTAL RIGHT URETER: There is non-visualization of the distal right ureter. There is no demonstrated right ureterovesical junction calculus. There is a visualized right ureteral jet. LEFT KIDNEY: Normal location of the left kidney, which is normal in size. The left kidney measures 10.1 x 4.3 x 5.1 cm. There is a normal cortex of the left kidney. The renal cortex measures 1.9 cm. There is no left renal mass or cyst. There are no left renal calculi. There is no left hydronephrosis. DISTAL LEFT URETER: There is non-visualization of the distal left ureter. There is no demonstrated left ureterovesical junction calculus. There is a visualized left ureteral jet. AORTA: There is no elongation or tortuosity of the abdominal aorta. I.V.C.: The IVC is patent. BLADDER: The bladder is sonographically normal US/Kidney and Bladder IMPRESSION: No suspicious sonographic findings Electronically Signed: Richard Hobbs MD at 14:53 EDT ,
[2023-02-02 12:39] LABS: Color, Urine Yellow (Yellow); Glucose, Dipstick Normal (Normal); Ketone-Dipstick Negative (Negative); Leukocyte Esterase-Dipstick Negative /ul (Negative); Nitrite-Dipstick Negative (Negative); Occult Blood-Urine Negative /ul (Negative); Protein-Dipstick Negative (Negative); Urine Bilirubin Dipstick Negative (Negative); Urine Clarity Clear (Clear); Urine Urobilinogen Normal (Normal)
--- NOTE | 2023-02-02 12:57 | BI_ITS ---
MAMMOGRAPHY - BILATERAL SCREENING 3-D TOMOSYNTHESIS REASON FOR EXAM: Female, 57 years old. Routine screening PERTINENT HISTORY: No significant family history. TECHNIQUE: 2-D mammograms and 3-D Tomosynthesis of the breast (s) were performed. CAD was performed. COMPARISON: 04/16/2021 FINDINGS: The breast composition is heterogeneously dense that can obscure small breast masses. Scattered benign calcifications are seen. No dense spiculated masses or suspicious microcalcifications are identified. No architectural distortion is identified. There is no skin thickening or retraction. There has been no significant change since the prior study. BI/SCRN MAMM (CAD)W/ASYA BILAT IMPRESSION: No mammographic signs of malignancy. Routine yearly mammograms recommended. ASSESSMENT CATEGORY: BIRADS Category 2: Benign. A letter regarding these results will be sent to the patient by the facility within 30 days. FOLLOW UP RECOMMENDATION: Yearly follow up mammogram recommended. (A) Approximately 10% of breast cancers are not detected by mammography. A normal mammogram should not delay biopsy of a clinically suspicious abnormality. Electronically Signed: Richard Hobbs MD at 14:03 EDT ,
[2023-02-02 13:03] LABS: ALB/GLOB Ratio 1.2 RATIO (0.9-2.4); AST(SGOT) 16 U/L (15-37); Alanine Aminotransfer ALT/SGPT 19 U/L (13-56); Albumin, Serum 3.8 g/dL (3.2-5.0); Alkaline Phosphatase 95 U/L (45-117); Anion Gap 9 (5-15); BUN 19 mg/dL (7-18); BUN/Creat Ratio 21.2 RATIO (10-20); Calcium,Total 9.6 mg/dL (8.5-10.1); Chloride 104 mmol/L (98-107); EST Glomerular Filtration Rate 69 mL/min (>60); Est Glom Filt Rate - Afr Amer 83 mL/min (>60); Globulin 3.2 g/dL (2.2-4.2); Glucose 124 mg/dL (74-106); Potassium 3.8 mmol/L (3.5-5.1); Sodium Level 140 mmol/L (136-145)
== END | disposition home or self-care (01) ==
PROVIDERS: PCP Internal Medicine; Referring Provider Internal Medicine; Visit Provider Internal Medicine
DX: Z12.31 Encounter for screening mammogram for malignant neoplasm of breast (principal); R10.9 Unspecified abdominal pain
CPT/HCPCS: 36415; 76770; 77063; 77067; 80053; 81001

== ENCOUNTER 2023-02-20 19:20 | Emergency (ER) | payer MEDICAID, SELFPAY ==
[2023-02-20 19:21] VITALS: BP 153/97; PULSE 95; RESP 15; TEMP 36.8; O2SAT 98; BMI 21.4
[2023-02-20 19:27] VITALS: O2SAT 98
--- NOTE | 2023-02-20 19:45 | CT_ITS ---
INDICATION: headache EXAMINATION: CT BRAIN - CT Head or Brain W/O Contrast Injection TECHNIQUE: Multiple axial images were obtained of the head without intravenous contrast. A radiation dose optimization technique was used for this scan. IV Contrast dosage and agent: None. COMPARISON: June 27, 2019 CT head FINDINGS: BRAIN PARENCHYMA: No intra- or extra-axial hemorrhage. No intracranial mass or mass effect. Nuñez/white matter differentiation is maintained and there is no blurring of the basal ganglia. There is no hyperdense vessel. Posterior fossa structures are unremarkable. CSF SPACES: Appropriate for age. No hydrocephalus. Basal cisterns are patent. CALVARIUM, SKULL BASE, PARANASAL SINUSES AND MASTOID AIR CELLS: Intact calvarium and skull base. No fracture or osseous lesion. Paranasal sinuses are clear. Mastoid air cells and middle ears are clear. ORBITS: Both globes, extraocular muscles, optic nerves and retrobulbar fat appear unremarkable. ASPECTS Score for Acute Strokes: 10 CT/Brain/Head without Contrast IMPRESSION: Negative Brain CT without contrast. Electronically Signed: Kei La DO at 20:39 EDT ,
--- NOTE | 2023-02-20 19:46 | EKG12_ITS ---
Test Reason : MENTAL STATUS CHANGE Blood Pressure : / mmHG Vent. Rate : 092 BPM Atrial Rate : 000 BPM P-R Int : 000 ms QRS Dur : 064 ms QT Int : 346 ms P-R-T Axes : 000 005 057 degrees QTc Int : 427 ms Sinus rhythm Abnormal ECG Confirmed by JESSIKA MICHELLE, CARLA ([id number]), editor department JOSÉ MIGUEL HOLLAND ([id number]) on 02/23/2023 10:01:57 AM Referred By: Confirmed By:HUANG ROSEN MD
--- NOTE | 2023-02-20 19:49 | EX.ED.DYSGE1 ---
HPI History of Present Illness Chief Complaint: Mental Status Change Narrative Narrative: Patient presenting with headache. She states she has had headaches for years. She states this was been present for most of the day. She states that Tuesday she had elevated carbon oxide in her house. Today it was tested and was negative but she still has headaches. She states has been smelling gas for 5 years or so. She has not had a fever or cough. She does feel short of breath sometimes. She is not coughing or producing sputum. She also states that her right great toe has been spasming. She states she drinks plenty of water, but not too much. She not have any chest pain. [facility] Medical History Anxiety Bleeding disorder Bone fracture Breast lump COPD (chronic obstructive pulmonary disease) DDD (degenerative disc disease), cervical Depression Ectopic Former smoker GERD (gastroesophageal reflux disease) Heart murmur Hypothyroidism Migraines PTSD (post-traumatic stress disorder) Rheumatoid arthritis Stroke Thyroid disease Home Medications acyclovir 400 mg tablet 400 mg PO PRN PRN COLD SORES 08/07/17 [History Last Taken Unknown] cholecalciferol (vitamin D3) 25 mcg (1,000 unit) capsule 25 mcg PO DAILY 06/09/22 [History Last Taken Unknown] melatonin 10 mg capsule 10 mg PO HS PRN 06/09/22 [History Last Taken Unknown] tumeric 100 mg-glenn 150 mg-olive 50 mg-oreg 150 mg-caprylate capsule cap PO 06/09/22 [History Last Taken Unknown] vitamin B complex 1 tab PO DAILY 06/09/22 [History Last Taken Unknown] albuterol sulfate 90 mcg/actuation aerosol inhaler 2 puff inhalation Q6H PRN shortness of breath or wheezing #8.5 grams 09/13/22 [Rx Last Taken Unknown] gabapentin 100 mg capsule 300 mg PO TID #270 caps 09/13/22 [Rx Last Taken Unknown] hydroxyzine pamoate 50 mg capsule 50 mg PO QHS PRN stress #30 caps 09/13/22 [Rx Last Taken Unknown] multivitamin with folic acid 400 mcg tablet (Thera) 1 tab PO DAILY #90 tabs 09/13/22 [Rx Last Taken Unknown] omeprazole 40 mg capsule,delayed release 40 mg PO DAILY #90 caps 09/13/22 [Rx Last Taken Unknown] levothyroxine 75 mcg tablet 75 mcg PO DAILY #90 tabs 12/22/22 [Rx Last Taken Unknown] Allergy/AdvReac Type Severity Reaction Status Date / Time amitriptyline Allergy Rash Verified 02/20/23 19:24 cigarette smoke AdvReac Upset Verified 02/20/23 19:24 Stomach perfumes Allergy Intermediate Other Uncoded 02/20/23 19:24 anitdepressants AdvReac Severe Other Uncoded 02/20/23 19:24 Family History Other Alcoholism Arthritis Cancer Colon cancer High cholesterol Mental disorder Parkinsons Surgical History H/O skin graft Social History Smoking Status: Never smoker substance use type: does not use ROS ROS ED Constitutional Constitutional ED: Denies chills or fever(s) Eyes Eyes: Denies change in vision or diplopia ENT ENT ED: Denies rhinorrhea or sore throat Cardiovascular Cardiovascular: Denies chest pain or palpitations Respiratory/Chest Respiratory/Chest: Reports dyspnea Gastrointestinal Gastrointestinal: Reports nausea; Denies abdominal pain or vomiting Genitourinary Genitourinary ED: Denies dysuria or hematuria Musculoskeletal Musculoskeletal: Denies arthralgias or back pain Integumentary Denies abscess Neurologic Neurologic: Reports headache(s); Denies paresthesias or weakness Psychiatric Psychiatric: Denies suicidal ideation or suicidal thoughts EXAM Physical Exam Const Vital Signs: 02/20/23 19:21 02/20/23 19:27 02/20/23 20:05 Temperature 98.2 F Temperature Source Temporal Pulse Rate 95 88 Respiratory Rate 15 17 Respiratory Effort Short of Breath Labored Respiratory Depth Shallow Respiratory Pattern Irregular Blood Pressure 153/97 H 127/84 H Blood Pressure Mean 115 98 Pulse Ox 98 97 Oxygen Delivery Method Room Air Room Air Room Air 02/20/23 21:36 Temperature Temperature Source Pulse Rate Respiratory Rate 16 Respiratory Effort Respiratory Depth Respiratory Pattern Blood Pressure 113/79 Blood Pressure Mean Pulse Ox Oxygen Delivery Method Positive well nourished General Appearance ED: NAD HEENT Reports moist mucous membranes Eyes PERRL and EOMs intact bilaterally Chest Wall inspection of chest normal Resp normal respiratory effort and clear to auscultation bilaterally Auscultation: Negative for rales, rhonchi or wheezes Cardio regular rate and regular rhythm GI normal to inspection, nondistended, normoactive bowel sounds Neuro oriented x3 and CN's II-XII intact bilaterally Motor Exam: strength 5/5 throughout Psych mental status grossly normal Skin no rashes or lesions noted and no wounds MDM MDM MDM Narrative Medical decision making narrative: 57-year-old female presenting with multiple complaints. She stated that she short of breath. She was concerned that that her CO2 might be high at home even though she had tested and it was negative. Obtained a chest x-ray because he was complaining of dyspnea this is negative for acute findings on my interpretation. EKG was not interpretable myself and shows sinus rhythm with a ventricular of 92 bpm outside of ischemic change or dysrhythmia. CBC and CMP Are unremarkable. EtOH negative. Drug abuse screen positive for cannabinoids and benzodiazepine. Urinalysis negative. CT brain shows no acute intracranial process. Patient's headache improved with Reglan and Benadryl. I did also do a carboxyhemoglobin today and this is 3.7. I do not believe this is the issue. Patient states she had her home checked today and her carbon oxide levels are normal. At this point feel the patient is safe for discharge. Return precautions discussed. Impression: 1. Headache 2. Dyspnea Lab Data Labs: Laboratory Results - last 24 hr 02/20/23 02/20/23 02/20/23 20:00 20:00 20:00 WBC 7.9 RBC 4.71 Hgb 14.1 Hct 42.6 MCV 90.4 MCH 29.9 MCHC 33.1 RDW Std Deviation 47.2 H RDW Coeff of Servando 14.4 Plt Count 447 MPV 8.9 Immature Gran % (Auto) 0.300 Neut % (Auto) 54.5 Lymph % (Auto) 34.5 Ritchie % (Auto) 9.6 Eos % (Auto) 0.6 Baso % (Auto) 0.5 Absolute Neuts (auto) 4.3 Absolute Lymphs (auto) 2.73 Nucleated RBC % 0 Sodium 139 Potassium 3.6 Chloride 107 Carbon Dioxide 27.0 Anion Gap 5 BUN 15 Creatinine 0.91 Estim Creat Clear Calc 52.65 Est GFR (MDRD) Af Amer 81 Est GFR (MDRD) Non-Af 67 BUN/Creatinine Ratio 16.5 Glucose 132 H Calcium 9.5 Total Bilirubin 0.40 AST 15 ALT 24 Alkaline Phosphatase 86 Troponin I High Sens 3 Total Protein 7.4 Albumin 4.2 Globulin 3.2 Albumin/Globulin Ratio 1.3 Urine Color Urine Clarity Urine pH Ur Specific [place] Urine Protein Urine Glucose (UA) Urine Ketones Urine Occult Blood Urine Nitrite Urine Bilirubin Urine Urobilinogen Ur Leukocyte Esterase Urine RBC Urine WBC Ur Squamous Epith Cells Urine Bacteria Urine Mucus Urine Opiates Screen Urine Methadone Screen Ur Barbiturates Screen Ur Phencyclidine Scrn Ur Amphetamines Screen MDMA (Ecstasy) Screen U Benzodiazepines Scrn Urine Cocaine Screen U Cannabinoids Screen Ur Drug Screen Comment Ethyl Alcohol < 3.0 02/20/23 02/20/23 20:40 20:40 WBC RBC Hgb Hct MCV MCH MCHC RDW Std Deviation RDW Coeff of Servando Plt Count MPV Immature Gran % (Auto) Neut % (Auto) Lymph % (Auto) Ritchie % (Auto) Eos % (Auto) Baso % (Auto) Absolute Neuts (auto) Absolute Lymphs (auto) Nucleated RBC % Sodium Potassium Chloride Carbon Dioxide Anion Gap BUN Creatinine Estim Creat Clear Calc Est GFR (MDRD) Af Amer Est GFR (MDRD) Non-Af BUN/Creatinine Ratio Glucose Calcium Total Bilirubin AST ALT Alkaline Phosphatase Troponin I High Sens Total Protein Albumin Globulin Albumin/Globulin Ratio Urine Color Yellow Urine Clarity Clear Urine pH 6.0 Ur Specific [place] 1.010 Urine Protein Negative Urine Glucose (UA) Normal Urine Ketones Negative Urine Occult Blood Negative Urine Nitrite Negative Urine Bilirubin Negative Urine Urobilinogen Normal Ur Leukocyte Esterase Negative Urine RBC 0 SEEN Urine WBC 0 SEEN Ur Squamous Epith Cells 0-5 SEEN Urine Bacteria 0 SEEN Urine Mucus 0 SEEN Urine Opiates Screen NEGATIVE Urine Methadone Screen NEGATIVE Ur Barbiturates Screen NEGATIVE Ur Phencyclidine Scrn NEGATIVE Ur Amphetamines Screen NEGATIVE MDMA (Ecstasy) Screen NEGATIVE U Benzodiazepines Scrn POSITIVE H Urine Cocaine Screen NEGATIVE U Cannabinoids Screen POSITIVE H Ur Drug Screen Comment Ethyl Alcohol ABG Data ABG results: ABG 02/20/23 20:00 VBG Carboxyhemoglobin 3.7 H Radiography Diagnostic Testing: Clinical Impression(s) from Imaging Studies Brain CT 02/20/23 19:45 IMPRESSION: Negative Brain CT without contrast. Electronically Signed: Kei La DO at 20:39 EDT , Chest X-Ray 02/20/23 20:25 IMPRESSION: 1. No radiographic evidence of acute cardiopulmonary disease. Electronically Signed: Kei Abhinav, at 20:40 EDT , Discharge Plan Triage Chief Complaint: Mental Status Change ED Provider: Aj Roper Dx/Rx/DC Orders Prescriptions: No Action cholecalciferol (vitamin D3) 25 mcg (1,000 unit) capsule 25 mcg PO DAILY vitamin B complex Tablet 1 tab PO DAILY zxtsezi-mnpd-oojnl-oreg-capryl 100 mg-150 mg- 50 mg-150 mg capsule PO melatonin 10 mg capsule 10 mg PO HS PRN omeprazole 40 mg capsule,delayed release(DR/EC) 40 mg PO DAILY Qty: 90 1RF albuterol sulfate 90 mcg/actuation HFA aerosol inhaler 2 puff inhalation Q6H PRN (Reason: shortness of breath or wheezing) Qty: 8.5 0RF gabapentin 100 mg capsule 300 mg PO TID Qty: 270 1RF hydroxyzine pamoate 50 mg capsule 50 mg PO QHS PRN (Reason: stress) Qty: 30 1RF multivitamin with folic acid [Thera] 400 mcg tablet 1 tab PO DAILY Qty: 90 3RF acyclovir 400 MG tablet 400 mg PO PRN PRN (Reason: COLD SORES) levothyroxine 75 mcg tablet 75 mcg PO DAILY Qty: 90 3RF Primary Care Provider: Jasmyn Phillips Referrals: Jasmyn Phillips MD [Primary Care Provider] -
[2023-02-20 20:05] VITALS: BP 127/84; PULSE 88; RESP 17; O2SAT 97
[2023-02-20] MEDS: 0.9% Normal Saline 1,000 ML 1000 ML IV (20:05)
[2023-02-20] MEDS: DiphenhydrAMINE 50 MG/ML Syringe 25 MG IV (20:06)
[2023-02-20] MEDS: Metoclopramide 10 MG/2 ML Vial IV (20:11)
--- NOTE | 2023-02-20 20:17 | ED.RN ---
PT TOLD THIS RN THAT SHE HAS MARIJUANA IN HER SYSTEM AND HAS HER LEGAL MARIJUANA CARD. THIS RN TOLD DR. JAMES PRIOR TO ADMINISTERING MEDICATONS (BENADRYL AND REGLAN). PER DR. JAMES OKAY TO GIVE MEDICATIONS.
[2023-02-20 20:18] LABS: Absolute Lymphocyte Count 2.73 X10^3/uL (0.83-4.51); Absolute Neutrophil Count 4.3 X10^3/uL (2.0-7.7); Basophil# 0.04 X10^3/uL; Basophil% 0.5 % (0-1); Eosinophil# 0.05 X10^3/uL; Eosinophils% 0.6 % (0-5); Hematocrit 42.6 % (37-47); Hemoglobin 14.1 g/dL (12.0-15.0); Lymphocyte # 2.73 X10^3/ul (0.83-4.51); Lymphocyte % 34.5 % (19-41); Mean Corp Hgb Conc 33.1 g/dL (32-36); Mean Corpuscular Hgb 29.9 pg (27.0-32.0); Mean Corpuscular Volume 90.4 fL (81-99); Mean Platelet Vol. 8.9 fl (6.2-12.0); Monocyte# 0.76 X10^3/uL; Monocyte% 9.6 % (0-10); NRBC Flagged by Analyzer 0 % (0-5); Neutrophil # 4.31 X10^3/uL (2.7-7.7); Neutrophil % 54.5 % (47-70); Platelet Count 447 K/mm3 (150-450); RBC Distribution Width CV 14.4 % (11.6-14.6); RBC Distribution Width SD 47.2 fl (35.1-43.9); Red Blood Count 4.71 M/mm3 (4.2-5.4); White Blood Count 7.9 K/mm3 (4.4-11.0)
--- NOTE | 2023-02-20 20:25 | RAD_ITS ---
INDICATION: cough EXAMINATION/TECHNIQUE: X-RAY - XR Chest 1 View COMPARISON: June 27, 2019 chest x-ray FINDINGS: LINES/DEVICES: None. LUNGS: Symmetric normal lung volumes. No airspace opacity or abnormal interstitial pattern. No nodule or mass. No pleural effusion or pneumothorax. MEDIASTINUM AND CARDIOVASCULAR STRUCTURES: Normal size and contour of the cardiomediastinal silhouette. No evidence of pulmonary vascular congestion. BONES AND SOFT TISSUES: No fracture or focal osseous lesion. RAD/Chest 1 View (Portable) IMPRESSION: 1. No radiographic evidence of acute cardiopulmonary disease. Electronically Signed: Kei La DO at 20:40 EDT ,
[2023-02-20 20:43] LABS: Bacteria 0 SEEN /hpf (None Seen); Mucous, Urine 0 SEEN /hpf (<or=2+); Red Blood Cells-Urine 0 SEEN /hpf (0-5); White Blood Cells 0 SEEN /hpf (0-5)
[2023-02-20 20:44] LABS: Color, Urine Yellow (Yellow); Glucose, Dipstick Normal (Normal); Ketone-Dipstick Negative (Negative); Leukocyte Esterase-Dipstick Negative /ul (Negative); Nitrite-Dipstick Negative (Negative); Occult Blood-Urine Negative /ul (Negative); Protein-Dipstick Negative (Negative); Urine Bilirubin Dipstick Negative (Negative); Urine Clarity Clear (Clear); Urine Urobilinogen Normal (Normal)
[2023-02-20 20:54] LABS: Alcohol, Blood (Medical)-Serum < 3.0 mg/dL
[2023-02-20 20:59] LABS: ALB/GLOB Ratio 1.3 RATIO (0.9-2.4); AST(SGOT) 15 U/L (15-37); Alanine Aminotransfer ALT/SGPT 24 U/L (13-56); Albumin, Serum 4.2 g/dL (3.2-5.0); Alkaline Phosphatase 86 U/L (45-117); Anion Gap 5 (5-15); BUN 15 mg/dL (7-18); BUN/Creat Ratio 16.5 RATIO (10-20); Calcium,Total 9.5 mg/dL (8.5-10.1); Chloride 107 mmol/L (98-107); Creatinine, Serum 0.91 mg/dL (0.55-1.02); EST Glomerular Filtration Rate 67 mL/min (>60); Est Glom Filt Rate - Afr Amer 81 mL/min (>60); Estimated Creatinine Clearance 52.65 ml/min; Globulin 3.2 g/dL (2.2-4.2); Glucose 132 mg/dL (74-106); Potassium 3.6 mmol/L (3.5-5.1); Protein, Total 7.4 g/dL (6.4-8.2); Sodium Level 139 mmol/L (136-145); Troponin-I HS 3 pg/mL (3.0-54.0)
[2023-02-20 21:00] LABS: Squamous Epithelial Cells - UA 0-5 SEEN /hpf (5-10)
[2023-02-20 21:18] LABS: Carboxyhemoglobin Frac (CO) 3.7 % (0.0-1.5)
[2023-02-20 21:24] LABS: Amphetamine Urine VISTA NEGATIVE (<1000 ng/mL); Barbiturate Urine VISTA NEGATIVE (< 200 ng/mL); Benzodiazepine Urine VISTA POSITIVE (< 200 ng/mL); Cocaine Urine VISTA NEGATIVE (< 300 ng/mL); Ecstacy Urine VISTA NEGATIVE (< 500 ng/mL); Methadone Urine VISTA NEGATIVE (< 300 ng/mL); PCP Urine VISTA NEGATIVE (< 25 ng/mL); THC Urine VISTA POSITIVE (< 50 ng/mL); Vista UDS pH Range 6
[2023-02-20 21:36] VITALS: BP 113/79; RESP 16
--- NOTE | 2023-02-20 21:51 | ED.RN ---
PATIENT HIT CALL LIGHT MULTIPLE TIMES REQUESTING TO BE DISCHARGED. PATIENT STATES SHE DOES NOT HAVE MONEY FOR A CAB AT THIS TIME. RN INFORMED PATIENT HER BROTHER HAS BEEN CALLED BUT DID NOT ANSWER. PT ALSO INFORMED THERE IS A CELL PHONE CHARGING STATION IN THE WAITING ROOM. PT GIVEN DISCHARGE PAPERWORK
== END 2023-02-20 21:54 | disposition home or self-care (01) ==
PROVIDERS: Emergency Provider Student in an Organized Health Care Education/Training Program; PCP Internal Medicine; Visit Provider Student in an Organized Health Care Education/Training Program
DX: R51.9 Headache, unspecified (principal); J44.9 Chronic obstructive pulmonary disease, unspecified; R41.82 Altered mental status, unspecified; R06.00 Dyspnea, unspecified; E03.9 Hypothyroidism, unspecified; K21.9 Gastro-esophageal reflux disease without esophagitis; Z79.899 Other long term (current) drug therapy
CPT/HCPCS: 70450; 71045; 80053; 80307; 81001; 82077; 82375; 84484; 85025; 93005; 96361; 96374; 96375; 99285; J7030

== ENCOUNTER → 2023-03-21 | Outpatient (CLI) | payer MEDICAID, SELFPAY ==
[2023-03-21 12:53] LABS: Absolute Lymphocyte Count 2.96 X10^3/uL (0.83-4.51); Absolute Neutrophil Count 4.5 X10^3/uL (2.0-7.7); Basophil# 0.05 X10^3/uL; Basophil% 0.6 % (0-1); Eosinophil# 0.07 X10^3/uL; Eosinophils% 0.8 % (0-5); Hemoglobin 13.5 g/dL (12.0-15.0); Lymphocyte # 2.96 X10^3/ul (0.83-4.51); Lymphocyte % 35.3 % (19-41); Mean Corp Hgb Conc 32.1 g/dL (32-36); Mean Corpuscular Hgb 29.6 pg (27.0-32.0); Mean Corpuscular Volume 92.1 fL (81-99); Mean Platelet Vol. 9.1 fl (6.2-12.0); Monocyte# 0.75 X10^3/uL; Monocyte% 8.9 % (0-10); NRBC Flagged by Analyzer 0 % (0-5); Neutrophil # 4.53 X10^3/uL (2.7-7.7); Neutrophil % 54.2 % (47-70); Platelet Count 373 K/mm3 (150-450); RBC Distribution Width CV 15.3 % (11.6-14.6); RBC Distribution Width SD 51.7 fl (35.1-43.9); Red Blood Count 4.56 M/mm3 (4.2-5.4); White Blood Count 8.4 K/mm3 (4.4-11.0)
[2023-03-21 13:40] LABS: Vitamin D,25 Hydroxy 47.4 ng/mL
[2023-03-21 13:45] LABS: ALB/GLOB Ratio 1.2 RATIO (0.9-2.4); AST(SGOT) 17 U/L (15-37); Alanine Aminotransfer ALT/SGPT 29 U/L (13-56); Alkaline Phosphatase 99 U/L (45-117); Anion Gap 6 (5-15); BUN 15 mg/dL (7-18); BUN/Creat Ratio 17.6 RATIO (10-20); Calcium,Total 9.4 mg/dL (8.5-10.1); Chloride 106 mmol/L (98-107); Cholesterol 288 mg/dL (200); Creatinine, Serum 0.85 mg/dL (0.55-1.02); EST Glomerular Filtration Rate 73 mL/min (>60); Est Glom Filt Rate - Afr Amer 88 mL/min (>60); Free T3 2.3 pg/mL (2.18-3.98); Globulin 3.3 g/dL (2.2-4.2); Glucose 112 mg/dL (74-106); High Density Lipoprotein 63 mg/dL; Potassium 3.9 mmol/L (3.5-5.1); Protein, Total 7.3 g/dL (6.4-8.2); Sodium Level 140 mmol/L (136-145); T4 Free Direct 0.95 ng/dL (0.76-1.46); Thyroid Stim Hormone (TSH) 6.84 uIU/mL (0.358-3.74); Triglycerides 160 mg/dL; Very Low Density Lipoprotein 32 mg/dL (5-40)
[2023-03-21 14:14] LABS: Hemoglobin A1c 5.3 % (3.8-5.6)
== END | disposition home or self-care (01) ==
LOC: LAB 12:36
PROVIDERS: PCP Internal Medicine; Referring Provider Internal Medicine; Visit Provider Internal Medicine
DX: R73.9 Hyperglycemia, unspecified (principal); E03.9 Hypothyroidism, unspecified; F43.10 Post-traumatic stress disorder, unspecified; F41.9 Anxiety disorder, unspecified; M54.2 Cervicalgia; E55.9 Vitamin D deficiency, unspecified
CPT/HCPCS: 36415; 80053; 80061; 82306; 83036; 84439; 84443; 84481; 85025

== ENCOUNTER 2023-05-28 16:39 | Emergency (ER) | payer MEDICAID, SELFPAY ==
[2023-05-28 16:39] VITALS: BP 144/91; PULSE 100; RESP 18; TEMP 36.7; O2SAT 98; BMI 19.5
--- NOTE | 2023-05-28 16:52 | ED.RN ---
Pt. insisted on walking back to her room from triage rather than taking a wheelchair. Pt. observed leaning onto mother and nearly falling several times, again pt. insisted on walking. Mother states pt. has been extremely anxious at home and not eating. Pt. tearful in room.
--- NOTE | 2023-05-28 16:54 | EKG12_ITS ---
Test Reason : CP Blood Pressure : / mmHG Vent. Rate : 095 BPM Atrial Rate : 095 BPM P-R Int : 164 ms QRS Dur : 066 ms QT Int : 336 ms P-R-T Axes : 075 014 070 degrees QTc Int : 422 ms Normal sinus rhythm Normal ECG Confirmed by JESSIKA MICHELLE, CARLA ([id number]), makeup editor JOSÉ MIGUEL HOLLAND ([id number]) on 05/30/2023 11:28:59 A M Referred By: [place] Confirmed By:HUANG ROSEN MD
--- NOTE | 2023-05-28 16:54 | EDS_ITS ---
HPI History of Present Illness Chief Complaint: Chest Pain Narrative Narrative: 57-year-old female past medical history of anxiety, PTSD, states she had a stroke when she was 13 years old presents with chest pain that she has had relatively constantly for the last few weeks. She states its getting worse. She does admit that it may be stress related and she is concerned about her heart because her sister 3 years ago from heart problems. She states that she has pain over her left chest and that her heart hurts. She denies any exacerbating or alleviating factors. She has had nausea and vomiting intermittently over the last few weeks, but none in the last 24 hours. She describes it as a sharp pain on the left side of her chest. No shortness of breath or diaphoresis. [facility] Medical History Anxiety Bleeding disorder Bone fracture Breast lump COPD (chronic obstructive pulmonary disease) DDD (degenerative disc disease), cervical Depression Ectopic Former smoker GERD (gastroesophageal reflux disease) Heart murmur Hypothyroidism Migraines PTSD (post-traumatic stress disorder) Rheumatoid arthritis Stroke Thyroid disease Home Medications tumeric 100 mg-glenn 150 mg-olive 50 mg-oreg 150 mg-caprylate capsule cap PO 06/09/22 [History Last Taken Unknown] vitamin B complex 1 tab PO DAILY 06/09/22 [History Last Taken Unknown] hydroxyzine pamoate 50 mg capsule 50 mg PO QHS PRN stress #30 caps 09/13/22 [Rx Last Taken Unknown] multivitamin with folic acid 400 mcg tablet (Thera) 1 tab PO DAILY #90 tabs 09/13/22 [Rx Last Taken Unknown] levothyroxine 75 mcg tablet 75 mcg PO DAILY #90 tabs 12/22/22 [Rx Last Taken Unknown] acyclovir 400 mg tablet 400 mg PO PRN PRN COLD SORES #30 tabs 03/21/23 [Rx Last Taken Unknown] albuterol sulfate 90 mcg/actuation aerosol inhaler 2 puff inhalation Q6H PRN shortness of breath or wheezing #8.5 grams 03/21/23 [Rx Last Taken Unknown] cholecalciferol (vitamin D3) 25 mcg (1,000 unit) capsule 25 mcg PO DAILY #90 caps 03/21/23 [Rx Last Taken Unknown] melatonin 10 mg capsule 10 mg PO HS 03/21/23 [History Last Taken Unknown] omeprazole 40 mg capsule,delayed release 40 mg PO DAILY #90 caps 03/21/23 [Rx Last Taken Unknown] rosuvastatin 40 mg tablet 40 mg PO DAILY #90 tabs 03/21/23 [Rx Last Taken Unknown] ondansetron 4 mg disintegrating tablet 4 mg PO Q6H PRN nausea and vomiting #12 tabs 05/28/23 [Rx Last Taken Unknown] Allergy/AdvReac Type Severity Reaction Status Date / Time amitriptyline Allergy Rash Verified 05/28/23 16:42 cigarette smoke AdvReac Upset Verified 05/28/23 16:42 Stomach perfume AdvReac Other Verified 05/28/23 16:42 Phenylpiperazine AdvReac PT UNABLE Verified 05/28/23 16:42 Antidepressant TO RESPOND-NEEDS F/U Tetracyclic Antidepressants AdvReac PT UNABLE Verified 05/28/23 16:42 TO RESPOND-NEEDS F/U Tricyclic Antidepressants AdvReac PT UNABLE Verified 05/28/23 16:42 and Tricy TO RESPOND-NEEDS F/U muscle relaxers Allergy Intermediate other Uncoded 03/21/23 11:03 Family History Other Alcoholism Arthritis Cancer Colon cancer High cholesterol Mental disorder Parkinsons Surgical History H/O skin graft Social History Smoking Status: Never smoker substance use type: does not use ROS ROS ED ROS Narrative Constitutional: No fever, no chills. HEENT: No sore throat. No neck pain. No loss of vision. No rhinorrhea. Cardiovascular: Left-sided chest pain. No palpitations. No pedal edema. Respiratory: No cough, no shortness of breath. Abdominal: No abdominal pain. Positive nausea and vomiting. Genitourinary: No dysuria. No hematuria. Musculoskeletal: No myalgias. No arthralgias. Neurologic: No headaches. No dizziness. No lightheadedness. Skin: No rash. No change in color. Psychiatric: No depression. No anxiety. Positive stress. EXAM Physical Exam Narrative Exam Narrative: Afebrile. Vital signs noted. HEENT: Normocephalic. Atraumatic. PERRL, EOMI. Neck soft and supple. No point tenderness or step off. Cardiovascular: Regular rate and rhythm with intermittent tachycardia. No murmurs, rubs, or gallops appreciated. Respiratory: No tachypnea. Lungs clear to auscultation bilaterally. Gastrointestinal: Abdomen soft, nontender, with normoactive bowel sounds. No rebound or guarding. Neurological: Awake. Alert. Nonfocal, nonlateralizing. Skin: No rash. Normal color. No pallor. Musculoskeletal: No pedal edema. Full range of motion extremities. Psychiatric: Tearful on examination. Const Vital Signs: 05/28/23 16:39 Temperature 98.0 F Temperature Source Temporal Pulse Rate 100 Respiratory Rate 18 Blood Pressure 144/91 H Blood Pressure Mean 108 Pulse Ox 98 Oxygen Delivery Method Room Air Heart Score History: Slightly/Non-Suspicious ECG: Normal Age: >45 - <65 years Risk Factors: 1 or 2 Risk Factors Score: 2 MDM MDM MDM Narrative Medical decision making narrative: I reviewed the patient's prior records. She has been seen previously for heart palpitations which she has had in the past. There was no signs of ischemia. I have low suspicion for acute coronary syndrome. I do feel that some of her chest pain may be related to anxiety. Regardless, comprehensive work-up was pursued to help with rule out ACS with serial troponins. Pulse ox is 98% on room air and I have low suspicion for pulmonary embolism as her history is not consistent with this. EKG was obtained and interpreted by myself independently as normal sinus rhythm at 95 bpm without ectopy or acute ST changes. No STEMI. I reviewed her l aboratory work and she has slightly elevated white count of 16.5 which I think may be demargination from her reported vomiting. Hemoglobin slightly hemoconcentrated at 15.2 with hematocrit 45.4 normal. Platelet count normal at 435. Review of her electrolytes show normal sodium of 136 with normal potassium of 4.1, chloride normal at 105, BUN slightly elevated at 20 with a normal creatinine of 0.9, while glucose is appropriately elevated at 128, she has a normal anion gap of 8, D-dimer normal at 0.36 and I have low suspicion for pulmonary embolism. High-sensitivity troponin initially is less than 3. Repeat is normal at 4 for a delta less than 7. I interpreted her x-ray independently and see no evidence of pneumothorax or pneumonia. I reviewed the radiology report which confirms my independent interpretation. I do not feel that she requires observation. She was reassured. She states she started having nausea again so she was written for Zofran and given a dose of Zofran 4 mg here in the emergency department. She states that she is stressed, so she will be given Ativan 0.5 mg intravenously here prior to discharge. I feel she be discharged safely home with follow-up. I feel a lot of her pain may be related to anxiety and PTSD. Regardless, she was referred to the threshing machine operator on-call for further outpatient evaluation and work-up. Return instructions to the emergency de partment were reviewed. Disposition is discharged home in stable condition. History & Record Review Discussion w/independent historian: Patient and Family Additional record(s) reviewed:: Prior ED visit and Prior labs Lab Data Attestation: I reviewed the patient's lab results. Labs: Laboratory Results - last 24 hr 05/28/23 05/28/23 16:50 19:05 WBC 16.5 H RBC 4.93 Hgb 15.2 H Hct 45.4 MCV 92.1 MCH 30.8 MCHC 33.5 RDW Std Deviation 55.1 H RDW Coeff of Servando 16.1 H Plt Count 435 MPV 9.2 Immature Gran % (Auto) 0.300 Neut % (Auto) 63.6 Lymph % (Auto) 26.9 [place] % (Auto) 8.4 Eos % (Auto) 0.4 Baso % (Auto) 0.4 Absolute Neuts (auto) 10.5 H Absolute Lymphs (auto) 4.45 Nucleated RBC % 0 D-Dimer Quant (PE/DVT) 0.36 Sodium 136 Potassium 4.1 Chloride 107 Carbon Dioxide 21.0 Anion Gap 8 BUN 20 H Creatinine 0.92 Estim Creat Clear Calc 50.41 Est GFR (MDRD) Af Amer 81 Est GFR (MDRD) Non-Af 67 BUN/Creatinine Ratio 21.8 H Glucose 128 H Calcium 9.6 Troponin I High Sens < 3 L 4 Radiography Diagnostic Testing: Clinical Impression(s) from Imaging Studies Chest X-Ray 05/28/23 16:55 IMPRESSION: Nonacute portable x-ray examination of the chest. Electronically Signed: Thaddeus Vargas ([place]oks), at 17:20 EDT , Discharge Plan Triage Chief Complaint: Chest Pain ED Provider: Dominguez Osman Dx/Rx/DC Orders Clinical Impression: Chest pain, Anxiety, Nausea Instructions: ED Anxiety Reaction, ED Chest Pain, Uncertain Cause, ED Pain, Acute, Uncertain Cause Prescriptions: New ondansetron 4 mg tablet,disintegrating 4 mg PO Q6H PRN (Reason: nausea and vomiting) Qty: 12 0RF No Action vitamin B complex Tablet 1 tab PO DAILY [id number]-oreg-capryl 100 mg-150 mg- 50 mg-150 mg capsule PO melatonin 10 mg capsule 10 mg PO HS hydroxyzine pamoate 50 mg capsule 50 mg PO QHS PRN (Reason: stress) Qty: 30 1RF multivitamin with folic acid [Thera] 400 mcg tablet 1 tab PO DAILY Qty: 90 3RF cholecalciferol (vitamin D3) 25 mcg (1,000 unit) capsule 25 mcg PO DAILY Qty: 90 3RF albuterol sulfate 90 mcg/actuation HFA aerosol inhaler 2 puff inhalation Q6H PRN (Reason: shortness of breath or wheezing) Qty: 8.5 3RF omeprazole 40 mg capsule,delayed release(DR/EC) 40 mg PO DAILY Qty: 90 3RF rosuvastatin 40 mg tablet 40 mg PO DAILY Qty: 90 3RF acyclovir 400 mg tablet 400 mg PO PRN PRN (Reason: COLD SORES) Qty: 30 1RF Rx Instructions: Take two tabs at the onset of cold sores, then one tab 8 hours later. levothyroxine 75 mcg tablet 75 mcg PO DAILY Qty: 90 3RF Primary Care Provider: Jasmyn Phillips Referrals: Jasmyn Phillips MD [Primary Care Provider] - 3-5 Days Taylor Sanchez MD [Med Staff - Active Staff] - As soon as possible Disposition Disposition: Home, Self Care
--- NOTE | 2023-05-28 16:55 | RAD_ITS ---
STUDY: X-RAY CHEST REASON FOR EXAM: Female, 57 years old. chest pain TECHNIQUE: AP COMPARISON: 02/20/2023 FINDINGS: The lungs are clear and expanded. There is no demonstrated pleural abnormality. Normal size heart. Normal mediastinum and paul. Normal visualized pulmonary arteries. Normal visualized aortic arch and descending thoracic aorta. Nonacute pulmonary process. There is no demonstrated abnormality of the visualized soft tissue structures of the upper abdomen. RAD/Chest 1 View (Portable) IMPRESSION: Nonacute portable x-ray examination of the chest. Electronically Signed: Thaddeus Vargas ([place]), at 17:20 EDT ,
[2023-05-28] MEDS: 0.9% Normal Saline 1,000 ML 1000 ML IV (17:03)
[2023-05-28] MEDS: Aspirin 81 MG TAB.CHEW 324 MG PO (17:03)
[2023-05-28 17:04] LABS: Absolute Lymphocyte Count 4.45 X10^3/uL (0.83-4.51); Absolute Neutrophil Count 10.5 X10^3/uL (2.0-7.7); Basophil# 0.07 X10^3/uL; Basophil% 0.4 % (0-1); Eosinophil# 0.06 X10^3/uL; Eosinophils% 0.4 % (0-5); Hematocrit 45.4 % (37-47); Hemoglobin 15.2 g/dL (12.0-15.0); Lymphocyte # 4.45 X10^3/ul (0.83-4.51); Lymphocyte % 26.9 % (19-41); Mean Corp Hgb Conc 33.5 g/dL (32-36); Mean Corpuscular Hgb 30.8 pg (27.0-32.0); Mean Corpuscular Volume 92.1 fL (81-99); Mean Platelet Vol. 9.2 fl (6.2-12.0); Monocyte# 1.39 X10^3/uL; Monocyte% 8.4 % (0-10); NRBC Flagged by Analyzer 0 % (0-5); Neutrophil % 63.6 % (47-70); Platelet Count 435 K/mm3 (150-450); RBC Distribution Width CV 16.1 % (11.6-14.6); RBC Distribution Width SD 55.1 fl (35.1-43.9); Red Blood Count 4.93 M/mm3 (4.2-5.4); White Blood Count 16.5 K/mm3 (4.4-11.0)
[2023-05-28 17:11] LABS: D-Dimer Quantitative (DVT/PE) 0.36 FEU/ug/m (0.27-0.49)
[2023-05-28 17:45] LABS: Anion Gap 8 (5-15); BUN 20 mg/dL (7-18); BUN/Creat Ratio 21.8 RATIO (10-20); Calcium,Total 9.6 mg/dL (8.5-10.1); Chloride 107 mmol/L (98-107); Creatinine, Serum 0.92 mg/dL (0.55-1.02); EST Glomerular Filtration Rate 67 mL/min (>60); Est Glom Filt Rate - Afr Amer 81 mL/min (>60); Estimated Creatinine Clearance 50.41 ml/min; Glucose 128 mg/dL (74-106); Potassium 4.1 mmol/L (3.5-5.1); Sodium Level 136 mmol/L (136-145); Troponin-I HS (w/2H Reflex) < 3 pg/mL (3.0-54.0)
[2023-05-28 19:00] LABS: Reflex Troponin-HS? (from REC) Y
[2023-05-28 19:36] LABS: Troponin-I HS 4 pg/mL (3.0-54.0)
[2023-05-28] MEDS: Ondansetron 4 MG/2 ML Vial IV (20:07)
[2023-05-28] MEDS: LORazepam 2 MG/ML Syringe 0.5 MG IV (20:08)
[2023-05-28 20:11] VITALS: BP 111/85; PULSE 83; RESP 18; O2SAT 99
== END 2023-05-28 20:51 | disposition home or self-care (01) ==
PROVIDERS: Emergency Provider Emergency Medicine; PCP Internal Medicine; Visit Provider Emergency Medicine
DX: R07.9 Chest pain, unspecified (principal); M06.9 Rheumatoid arthritis, unspecified; J44.9 Chronic obstructive pulmonary disease, unspecified; R11.0 Nausea; F41.9 Anxiety disorder, unspecified; Z86.73 Personal history of transient ischemic attack (TIA), and cerebral infarction without residual deficits; Z82.49 Family history of ischemic heart disease and other diseases of the circulatory system; E03.9 Hypothyroidism, unspecified; Z87.891 Personal history of nicotine dependence; F43.10 Post-traumatic stress disorder, unspecified
CPT/HCPCS: 71045; 80048; 84484; 85025; 85379; 93005; 96361; 96374; 96375; 99283; J7030; A4216; J2405

== ENCOUNTER → 2023-08-29 | Outpatient (CLI) | payer MEDICAID, SELFPAY ==
--- NOTE | 2023-08-29 14:30 | RAD_ITS ---
INDICATION: [id number] EXAMINATION/TECHNIQUE: X-RAY - XR Spine Cervical 2 or 3 Views COMPARISON: 03/17/2021 FINDINGS: No acute fracture or traumatic malalignment. Vertebral body heights maintained. There is straightening of the cervical spine. Small endplate osteophyte is present throughout the cervical spine with a complete loss of disc space height at C5-6 and C6-7, [id number]. Bulky hypertrophic facet arthropathy throughout the cervical spine. Paraspinal soft tissues unremarkable. RAD/Cerv Spine 2 or 3 Views IMPRESSION: No evidence of acute fracture or spondylolisthesis. Cervical spondylosis as described. Electronically Signed: Jr David MD at 19:47 EDT ,
== END | disposition home or self-care (01) ==
LOC: RAD 14:23
PROVIDERS: PCP Internal Medicine; Referring Provider Anesthesiology Pain Medicine; Visit Provider Anesthesiology Pain Medicine
DX: M47.12 Other spondylosis with myelopathy, cervical region (principal)
CPT/HCPCS: 72040

== ENCOUNTER 2023-11-02 02:28 | Emergency (ER) | payer MEDICAID, SELFPAY ==
[2023-11-02 02:28] VITALS: BP 142/95; PULSE 109; RESP 16; TEMP 36.5; O2SAT 98; BMI 21.2
--- NOTE | 2023-11-02 02:39 | EDS_ITS ---
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 They brought her to the emergency department after they had to intervene when she was out in the parking lot with her car, having a hallucination according to police that she saw somebody around her car that was not there and she was going to move her car to a different parking lot entirely in order to avoid the hallucination. There is a small hole in her wall, she states that is one of the cameras that they are using to spy on her. History is very limited from the patient due to her being very tangential, paranoid, and having flight of ideas. She has a hard time answering direct questions appropriately due to her thoughts being very tangential. [facility] Medical History Anxiety Bleeding disorder Bone fracture Breast cancer screening Breast lump Cervical cancer screening Colon cancer screening COPD (chronic obstructive pulmonary disease) DDD (degenerative disc disease), cervical Depression Ectopic Elevated WBC count Flank pain Former smoker Frequent headaches GERD (gastroesophageal reflux disease) Heart murmur History of abnormality of cervix History of colon polyps Hyperlipidemia Hypothyroidism Low TSH level Migraines Neck pain PTSD (post-traumatic stress disorder) Rheumatoid arthritis Stroke Thyroid disease Vitamin D deficiency Home Medications vitamin B complex 1 tab PO DAILY 06/09/22 [History Last Taken Unknown] multivitamin with folic acid 400 mcg tablet (Thera) 1 tab PO DAILY #90 tabs 09/13/22 [Rx Last Taken Unknown] levothyroxine 75 mcg tablet 75 mcg PO DAILY #90 tabs 12/22/22 [Rx Last Taken Unknown] acyclovir 400 mg tablet 400 mg PO PRN PRN COLD SORES #30 tabs 03/21/23 [Rx Last Taken Unknown] albuterol sulfate 90 mcg/actuation aerosol inhaler 2 puff inhalation Q6H PRN shortness of breath or wheezing #8.5 grams 03/21/23 [Rx Last Taken Unknown] cholecalciferol (vitamin D3) 25 mcg (1,000 unit) capsule 25 mcg PO DAILY #90 caps 03/21/23 [Rx Last Taken Unknown] melatonin 10 mg capsule 10 mg PO HS 03/21/23 [History Last Taken Unknown] omeprazole 40 mg capsule,delayed release 40 mg PO DAILY #90 caps 03/21/23 [Rx Last Taken Unknown] rosuvastatin 40 mg tablet 40 mg PO DAILY #90 tabs 03/21/23 [Rx Last Taken Unknown] ondansetron 4 mg disintegrating tablet 4 mg PO Q6H PRN nausea and vomiting #12 tabs 05/28/23 [Rx Last Taken Unknown] clonazepam 1 mg tablet 1 mg PO 4X/DAY PRN 06/20/23 [History Last Taken Unknown] tumeric 100 mg-glenn 150 mg-olive 50 mg-oreg 150 mg-caprylate capsule 1 cap PO DAILY 06/20/23 [History Last Taken Unknown] Allergy/AdvReac Type Severity Reaction Status Date / Time amitriptyline Allergy Rash Verified 11/02/23 02:29 cigarette smoke AdvReac Upset Verified 11/02/23 02:29 Stomach perfume AdvReac Other Verified 11/02/23 02:29 Phenylpiperazine AdvReac PT UNABLE Verified 11/02/23 02:29 Antidepressant TO RESPOND-NEEDS F/U Tetracyclic Antidepressants AdvReac PT UNABLE Verified 11/02/23 02:29 TO RESPOND-NEEDS F/U Tricyclic Antidepressants AdvReac PT UNABLE Verified 11/02/23 02:29 and Tricy TO RESPOND-NEEDS F/U muscle relaxers Allergy Intermediate other Uncoded 06/20/23 14:38 Family History Other Alcoholism Arthritis Cancer Colon cancer High cholesterol Mental disorder Parkinsons Surgical History H/O skin graft Social History Smoking Status: Never smoker substance use type: does not use ROS ROS ED Constitutional Constitutional ED: Denies chills or fever(s) Eyes Eyes: Denies change in vision or diplopia ENT ENT ED: Denies rhinorrhea or sore throat Cardiovascular Cardiovascular: Denies chest pain or palpitations Respiratory/Chest Respiratory/Chest: Denies cough or dyspnea Gastrointestinal Gastrointestinal: Denies abdominal pain, diarrhea, nausea or vomiting Genitourinary Genitourinary ED: Denies dysuria or hematuria Musculoskeletal Musculoskeletal: Denies back pain or neck pain Integumentary Denies abscess or rash Neurologic Neurologic: Denies headache(s), paresthesias or weakness Psychiatric Psychiatric: Reports as per HPI, anxiety and paranoia; Denies suicidal thoughts EXAM Physical Exam Const Vital Signs: 11/02/23 02:28 Temperature 97.7 F L Temperature Source Temporal Pulse Rate 109 H Respiratory Rate 16 Blood Pressure 142/95 H Blood Pressure Mean 110 Pulse Ox 98 Oxygen Delivery Method Room Air Positive well nourished and well developed General Appearance ED: well developed and NAD HEENT Reports moist mucous membranes normocephalic and atraumatic Eyes PERRL and EOMs intact bilaterally Neck full ROM, no lymphadenopathy and supple Neck Narrative: no thyromegaly or thyroid tenderness General: Negative for tenderness Resp normal respiratory effort and clear to auscultation bilaterally Cardio regular rate, regular rhythm and no murmurs GI non-tender and non-distended Auscultation: normoactive bowel sounds Palpation: soft Back/Spine no CVA tenderness General Back: other FROM Extremity normal to inspection General Extremety ED: Negative for edema, pulses abnormal or tenderness General Extremity: Negative for edema or pulses abnormal Neuro oriented x3, CN's II-XII intact bilaterally and no sensory deficits noted Sensorium / Orientation: awake and alert Motor Exam: strength 5/5 throughout Psych Attitude: paranoid Activity / Motor Behavior: appropriate eye contact Speech: normal speech Thought Process: flight of ideas, loose associations and tangential Thought Content: No suicidality, No homicidality and hallucination(s) Insight: poor Judgement: questionable Skin no rashes or lesions noted and no wounds MDM MDM MDM Narrative Medical decision making narrative: Patient seems to be having likely psychiatric illness. In ruling out medical/organic causes, basic labs, head CT, alcohol, drug screen, TSH were obtained. Her TSH is high, suggesting that she is hypothyroid, not hyperthyroid, the latter of which more commonly causes acute psychosis. Alcohol and drugs noted, she is medically cleared and I asked crisis to evaluate her. They agree she needs to be placed for urgent evaluation and treatment. Will seek psychiatric placement. Lab Data Attestation: I reviewed the patient's lab results. Labs: Laboratory Results - last 24 hr 11/02/23 11/02/23 02:49 04:25 WBC 10.1 RBC 4.50 Hgb 13.8 Hct 41.5 MCV 92.2 MCH 30.7 MCHC 33.3 RDW Std Deviation 46.4 H RDW Coeff of Servando 13.7 Plt Count 425 MPV 9.0 Immature Gran % (Auto) 0.200 Neut % (Auto) 38.2 L Lymph % (Auto) 50.5 H Will % (Auto) 9.3 Eos % (Auto) 1.2 Baso % (Auto) 0.6 Absolute Neuts (auto) 3.9 Absolute Lymphs (auto) 5.12 H Nucleated RBC % 0 Differential Comment SCANNED Sodium 140 Potassium 3.5 Chloride 106 Carbon Dioxide 25.0 Anion Gap 9 BUN 27 H Creatinine 1.04 H Estim Creat Clear Calc 46.07 Est GFR (MDRD) Af Amer 70 Est GFR (MDRD) Non-Af 58 L BUN/Creatinine Ratio 26.0 H Glucose 144 H Calcium 9.1 Total Bilirubin 0.40 AST 14 L ALT 23 Alkaline Phosphatase 97 Total Protein 7.2 Albumin 3.9 Globulin 3.3 Albumin/Globulin Ratio 1.2 TSH 12.50 H Urine Opiates Screen NEGATIVE Urine Methadone Screen NEGATIVE Ur Barbiturates Screen NEGATIVE Ur Phencyclidine Scrn NEGATIVE Ur Amphetamines Screen POSITIVE H MDMA (Ecstasy) Screen NEGATIVE U Benzodiazepines Scrn POSITIVE H Urine Cocaine Screen NEGATIVE U Cannabinoids Screen POSITIVE H Ur Drug Screen Comment Ethyl Alcohol < 3.0 Radiography Diagnostic Testing: Clinical Impression(s) from Imaging Studies Brain CT 11/02/23 02:39 IMPRESSION: No CT evidence for mass or acute intracranial hemorrhage. Electronically Signed: Julianna Sloan MD at 3:30 EST Reading Location ID and State: [facility] / [place] , Service support , CT of the head was obtained in order to rule out intracranial injury, I reviewed the images and report which I agree with, negative for anything acute. 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 Discharge Plan Triage Chief Complaint: Mental Health ED Provider: Juwan Lane Dx/Rx/DC Orders Clinical Impression: Acute psychogenic paranoid psychosis Prescriptions: No Action vitamin B complex Tablet 1 tab PO DAILY melatonin 10 mg capsule 10 mg PO HS [id number]-rbxp-mlspl-oreg-capryl 100 mg-150 mg- 50 mg-150 mg capsule 1 cap PO DAILY multivitamin with folic acid [Thera] 400 mcg tablet 1 tab PO DAILY Qty: 90 3RF cholecalciferol (vitamin D3) 25 mcg (1,000 unit) capsule 25 mcg PO DAILY Qty: 90 3RF albuterol sulfate 90 mcg/actuation HFA aerosol inhaler 2 puff inhalation Q6H PRN (Reason: shortness of breath or wheezing) Qty: 8.5 3RF omeprazole 40 mg capsule,delayed release(DR/EC) 40 mg PO DAILY Qty: 90 3RF rosuvastatin 40 mg tablet 40 mg PO DAILY Qty: 90 3RF acyclovir 400 mg tablet 400 mg PO PRN PRN (Reason: COLD SORES) Qty: 30 1RF Rx Instructions: Take two tabs at the onset of cold sores, then one tab 8 hours later. clonazepam 1 mg tablet 1 mg PO 4X/DAY PRN Patient Comments: TAKE 1 TABLET BY MOUTH up to FOUR TIMES DAILY NEEDED FOR ANXIETY ondansetron 4 mg tablet,disintegrating 4 mg PO Q6H PRN (Reason: nausea and vomiting) Qty: 12 0RF levothyroxine 75 mcg tablet 75 mcg PO DAILY Qty: 90 3RF Primary Care Provider: Jasmyn Phillips Referrals: Jasmyn Phillips MD [Primary Care Provider] - Disposition Disposition: Psychiatric Hospital or Unit
--- NOTE | 2023-11-02 02:39 | CT_ITS ---
STUDY: CT BRAIN WITHOUT CONTRAST REASON FOR EXAM: Female, 57 years old patient with change in mental status. RADIATION DOSAGE (If Supplied By Facility): CTDIvol = ( 44.99 ) mGy, DLP = ( 796.11 ) mGycm TECHNIQUE: Transaxial CT imaging of the brain was performed without administration of intravenous contrast material. Multiplanar reformations are submitted for interpretation. Individualized dose optimization techniques were used for this CT. COMPARISON: No relevant priors. FINDINGS: Normal soft tissue structures. Normal calvarium. Normal size ventricles and extra-axial spaces for the patient''s age. Normal white matter tracts of the cerebral hemispheres. Normal basal ganglia and thalami. Normal brainstem. Normal cerebellum. There is no intracranial hemorrhage. There are no findings of an acute ischemic infarction. Normal visualized paranasal sinuses. CT/Brain/Head without Contrast IMPRESSION: No CT evidence for mass or acute intracranial hemorrhage. Electronically Signed: Julianna Sloan MD at 3:30 EST ,
[2023-11-02 02:57] LABS: Absolute Lymphocyte Count 5.12 X10^3/uL (0.83-4.51); Absolute Neutrophil Count 3.9 X10^3/uL (2.0-7.7); Basophil# 0.06 X10^3/uL; Basophil% 0.6 % (0-1); Eosinophil# 0.12 X10^3/uL; Eosinophils% 1.2 % (0-5); Hematocrit 41.5 % (37-47); Hemoglobin 13.8 g/dL (12.0-15.0); Lymphocyte # 5.12 X10^3/ul (0.83-4.51); Lymphocyte % 50.5 % (19-41); Mean Corp Hgb Conc 33.3 g/dL (32-36); Mean Corpuscular Hgb 30.7 pg (27.0-32.0); Mean Corpuscular Volume 92.2 fL (81-99); Monocyte# 0.94 X10^3/uL; Monocyte% 9.3 % (0-10); NRBC Flagged by Analyzer 0 % (0-5); Neutrophil # 3.87 X10^3/uL (2.7-7.7); Neutrophil % 38.2 % (47-70); POSITIVE DIFFERENTIAL YES; Platelet Count 425 K/mm3 (150-450); RBC Distribution Width CV 13.7 % (11.6-14.6); RBC Distribution Width SD 46.4 fl (35.1-43.9); White Blood Count 10.1 K/mm3 (4.4-11.0)
[2023-11-02 03:02] LABS: Differential Indicated SCAN CRITERIA MET
[2023-11-02 03:23] LABS: ALB/GLOB Ratio 1.2 RATIO (0.9-2.4); AST(SGOT) 14 U/L (15-37); Alanine Aminotransfer ALT/SGPT 23 U/L (13-56); Albumin, Serum 3.9 g/dL (3.2-5.0); Alkaline Phosphatase 97 U/L (45-117); Anion Gap 9 (5-15); BUN 27 mg/dL (7-18); Calcium,Total 9.1 mg/dL (8.5-10.1); Chloride 106 mmol/L (98-107); Creatinine, Serum 1.04 mg/dL (0.55-1.02); EST Glomerular Filtration Rate 58 mL/min (>60); Est Glom Filt Rate - Afr Amer 70 mL/min (>60); Estimated Creatinine Clearance 46.07 ml/min; Globulin 3.3 g/dL (2.2-4.2); Glucose 144 mg/dL (74-106); Potassium 3.5 mmol/L (3.5-5.1); Protein, Total 7.2 g/dL (6.4-8.2); Sodium Level 140 mmol/L (136-145)
[2023-11-02 03:27] LABS: Alcohol, Blood (Medical)-Serum < 3.0 mg/dL
[2023-11-02 03:36] LABS: Differential Comment SCANNED
[2023-11-02 04:28] VITALS: RESP 15
[2023-11-02 05:00] LABS: Amphetamine Urine VISTA POSITIVE (<1000 ng/mL); Barbiturate Urine VISTA NEGATIVE (< 200 ng/mL); Benzodiazepine Urine VISTA POSITIVE (< 200 ng/mL); Cocaine Urine VISTA NEGATIVE (< 300 ng/mL); Ecstacy Urine VISTA NEGATIVE (< 500 ng/mL); Methadone Urine VISTA NEGATIVE (< 300 ng/mL); PCP Urine VISTA NEGATIVE (< 25 ng/mL); THC Urine VISTA POSITIVE (< 50 ng/mL); Vista UDS pH Range 4
[2023-11-02 06:00] VITALS: RESP 15
[2023-11-02] MEDS: Famotidine 20 MG Tablet 40 MG PO (07:58)
[2023-11-02 08:20] VITALS: RESP 18
[2023-11-02 09:28] VITALS: RESP 18
[2023-11-02 10:29] VITALS: BP 119/85; PULSE 82; RESP 14; O2SAT 96
--- NOTE | 2023-11-02 10:29 | NURSING ---
CALLED [facility], ETA IS 20 MIN
== END 2023-11-02 11:14 ==
PROVIDERS: Emergency Provider Emergency Medicine; PCP Internal Medicine; Visit Provider Emergency Medicine
DX: F23 Brief psychotic disorder (principal); M06.9 Rheumatoid arthritis, unspecified; J44.9 Chronic obstructive pulmonary disease, unspecified; E78.5 Hyperlipidemia, unspecified; F41.9 Anxiety disorder, unspecified; F32.9 Major depressive disorder, single episode, unspecified; E55.9 Vitamin D deficiency, unspecified; K21.9 Gastro-esophageal reflux disease without esophagitis; E03.9 Hypothyroidism, unspecified; F43.10 Post-traumatic stress disorder, unspecified; M50.30 Other cervical disc degeneration, unspecified cervical region; Z79.899 Other long term (current) drug therapy; Z87.891 Personal history of nicotine dependence; Z86.73 Personal history of transient ischemic attack (TIA), and cerebral infarction without residual deficits
CPT/HCPCS: 70450; 80053; 80307; 82077; 84443; 85025; 87811; 99284; A4216

== ENCOUNTER → 2024-01-09 | Outpatient (CLI) | payer MEDICAID, SELFPAY ==
--- OUTSIDE RECORDS SUMMARY | 2024-01-09 12:52 | XMS RPT_ITS | CCD ---
Demographics Address [address] [place] [address] Home Phone Mobile Phone Phone Preferred Language en Marital Status Single Uatsdin Affiliation Unknown Race White Ethnic Group Not or Lati no Author Name Unknown Address [address] [place] [address] Organization [facility] Care Team Providers Care Sales Development Associate Name Role Phone PerDandy [place]cho Primary Care Provider [phone] Allergies Allergy Classification Reported Allergen(s) Allergy Type Date of Onset Reaction(s) Facility (1 source) Amitriptyline Drug Allergy 9 Other: See Comments [facility] Medications Completed/Discontinued Medications Medication Drug Class(es) Dates Sig (Normalized) Sig (Original) [id number] 200 actuat albuterol 0.09 mg/actuat metered dose inhaler (1 source) beta2-Adrenergic Agonist Start: 04-28-2020 take 2 puff(s) by inhalation every six hours as needed albuterol HFA (PROVENTIL HFA, VENTOLIN HFA) 90 mcg/actuation inhaler Inhale 2 Puffs as instructed every 6 hours as needed. 2 Inhaler 3 04/28/2020 Active Problems Active Problems Problem Classification Problem Date Documented Date Episodic/Chronic Anxiety disorders (3 sources) Generalized anxiety disorder; Translations: [Generalized anxiety disorder] Onset: 06-06-2016 07-13-2019 Chronic Chronic obstructive pulmonary disease and bronchiectasis (1 source) Mild chronic obstructive pulmonary disease; Translations: [Chronic obstructive pulmonary disease, unspecified] Onset: 07-23-2019 07-23-2019 Chronic Disorders of lipid metabolism (2 sources) Mixed hyperlipidemia; Translations: [Mixed hyperlipidemia] Onset: 08-21-2010 07-13-2019 Chronic Esophageal disorders (1 source) Gastroesophageal reflux disease without esophagitis; Translations: [Gastro-esophageal reflux disease without esophagitis] Onset: 07-13-2019 07-13-2019 Chronic Mood disorders (4 sources) Depressive disorder; Translations: [Other specified depressive episodes] Onset: 12-09-2005 07-13-2019 Chronic Spondylosis; intervertebral disc disorders; other back problems (1 source) Degeneration of lumbar intervertebral disc; Translations: [Other intervertebral disc degeneration, lumbar region] Onset: 06-29-2013 07-13-2019 Chronic Thyroid disorders (1 source) Acquired hypothyroidism; Translations: [Hypothyroidism, unspecified] Onset: 03-08-2007 07-13-2019 Chronic Past or Other Problems Problem Classification Problem Date Documented Da te Episodic/Chronic Diabetes mellitus without complication (1 source) High hemoglobin A1c level; Translations: [Other abnormal glucose] Onset: 12-14-2019 12-14-2019 Episodic Headache; including migraine (1 source) Headache; Translations: [Headaches] Onset: 07-13-2019 07-13-2019 Episodic Other aftercare (1 source) Patient encounter status; Translations: [Other longterm (current) drug therapy] Onset: 07-13-2019 12-06-2019 Episodic Other and unspecified benign neoplasm (1 source) History of polyp of colon; Translations: [Personal history of colonic polyps] Onset: 02-27-2018 07-13-2019 Episodic Other connective tissue disease (1 source) Fibromyalgia; Translations: [Fibromyalgia] Onset: 02-22-2018 07-13-2019 Episodic Other screening for suspected conditions (not mental disorders or infectious disease) (1 source) Abnormal finding on screening procedure; Translations: [Abnormal level of other drugs, medicaments and biological substances in specimens from other organs, systems and tissues] Onset: 01-08-2019 12-06-2019 Episodic Residual codes; unclassified (1 source) Insomnia; Translations: [Insomnia, unspecified] Onset: 12-09-2005 07-13-2019 Episodic Screening and history of mental health and substance abuse codes (1 source) Ex-smoker; Translations: [Personal history of nicotine dependence] Onset: 07-13-2019 07-13-2019 Episodic Substance-related disorders (1 source) Marijuana user; Translations: [Cannabis use, unspecified, uncomplicated] Onset: 01-06-2017 07-13-2019 Episodic Viral infection (1 source) Recurrent herpes simplex labialis; Translations: [Herpesviral vesicular dermatitis] Onset: 02-06-2014 07-13-2019 Episodic Results Test Name Value Interpretation Reference Range Facil ity Encounters Encounter Date Encounter Type Care Provider Facility Start: 01-06-2024 Telephone encounter Josey Schlechty M SW Navigation Procedures Date Procedure Procedure Detail Performing Clinician Start: 08-20-2020 Lipid 1996 panel - S moose or Plasma Joseykirk Soto [facility] Start: 03-07-2018 Colonoscopy Jsoey Kevin aguirrebonny [facility] Plan of Treatment Date Care Activity Detail Author Start: 08-20-2025 Lipid panel Lipid Screening [facility] Start: 11-21-2023 Depression Assessment Depression Ass essment [facility] Start: 2023 RSV Vaccine (1 - 1-d ose 60+ series) RSV Vaccine (1 - 1-dose 60+ series) [facility] Start: 08-20-2023 Diabetes Screening Diabetes Screenin g [facility] Start: 07-22-2023 Influenza vaccination Influenza Vacc ine (#1) [facility] Start: 03-07-2021 Screening for malign ant neoplasm of colon [facility] Start: 03-20-2020 Screening for malign ant neoplasm of breast Mammogram Screening [facility] Start: 01-11-2020 Screening for malign ant neoplasm of cervix HPV Testing [facility] Start: 01-10-2020 Screening for malign ant neoplasm of cervix Pap Testing [facility] Start: 03-31-2019 Urine microalbumin profile DTa P,Tdap,Td Vaccine (2 - Td or Tdap) [facility] Start: 04-18-2018 Shingrix Vaccine (2 of 2) Arora grix Vaccine (2 of 2) [facility] Start: 2008 Screening for malign ant neoplasm of colon [facility] Start: 1981 Hepatitis C screening Hepatitis C Ok edil [facility] Start: 05-11-1964 Covid-19 Vaccine (#1) Covid-19 Vacci ne (#1) [facility] Immunizations Immunization Date Immunization Notes Care Provider Jose sharpe 08-13-2019 influenza, injectabl e, quadrivalent, contains preservative Josey Stoo [facility] 08-13-2019 influenza virus vacc ine, unspecified formulation Josey Soto [facility] 02-21-2018 pneumococcal polysaccharide vaccine, 23 valent Josey Soto [facility] 02-21-2018 zoster vaccine recombinant Josey Soto [facility] 09-26-2017 influenza, injectabl e, quadrivalent, contains preservative Josey Soto [facility] 09-14-2016 influenza, injectabl e, quadrivalent, contains preservative Josey Schlechty [facility] 09-29-2013 influenza virus vacc ine, unspecified formulation Josey Schleccarlosy [facility] 09-07-2012 influenza virus vacc ine, unspecified formulation Josey Schleccarlosy [facility] 08-21-2011 influenza virus vacc ine, unspecified formulation Josey Larrylecy [facility] 08-21-2010 influenza virus vacc ine, unspecified formulation Josey Schleccarlosy [facility] 03-31-2009 tetanus toxoid, redu alonzo diphtheria toxoid, and acellular pertussis vaccine, adsorbed [facility] 10-20-2007 influenza virus vacc ine, unspecified formulation [facility] Payers Date Payer Category Payer Medicaid [employer] [id number] 2022-Present [phone] [address] [place] [address] Medicaid [id number] Social History Date Type Detail Facility Start: 02-21-2018 Tobacco smoking stat us NHIS Ex-smoker [facility] End: 11-21-1998 History of tobacco use Current smoker [facility] End: 11-21-1998 History of tobacco use Cigarette Smoker [facility] Start: 02-21-2018 Tobacco use and exposure Smokeless tobacco non-user [facility] Start: 12-14-2019 Alcohol intake Current drinke r of alcohol (finding) [facility] Start: 12-14-2019 End: 10-26-2020 History of Social function [facility] Work Phone: Start: 12-14-2019 End: 10-26-2020 Tobacco use panel [facility] Work Phone: Adult Depression Screening Assessment 5 [facility] Work Phone: Start: 02-21-2018 Tobacco Comment States that luther edmonds quit when she was a teenager. [facility] Start: 06-11-2009 Alcohol Comment Occasionally ( to kill the pain of breast sore). [facility] Start: 1965 Sex Assigned At Not on file [facility] Note 01-06-2024 Telephone Encounter - Josey Soto MSW - 01/06/2024 3:02 PM EST Note Date & Type Note Facility 01-06-2024 Miscellaneous Notes Formattin g of this note is different from the original. Geno-SANDRA,MARTY called this Sw as above patient had called her and said that she sees [facility] [place] provider. Geno noted that above individual would not tell her who or what doctor she sees. This Sw did not confirm or deny patient seeing any [facility] provider. Geno notes below concerns of above individual thinking people are checking in on her and or watching her. Reports people watching her constantly on camera and they can even see through blankets. Thinks her messages go to daughters phone and not receiving them. Used gorilla glue to secure curtains/doors. Thinks people are seeing her messages and texts to daughter s phone. Can only take cold showers due to voices telling her that and now has colds. Does not want to contact police as she says they are not helpful and has been hog tied and taken out of home. Geno noted that she wanted us to be aware of this information. documented in this encounter [facility] History of Past illness Narrative 10-26-2013 Note Date & Type Note Facility documented as of this encounter (statuses as of 01/06/2024) [facility] Summary Purpose Family History No Family History Records FoundNo Family History Records FoundNo Family History Records Found Advance Directives No Advanced Directives Records FoundNo Advanced Directives Records FoundNo Advanced Directives Records Found Additional Source Comments INFORMATION SOURCE (unrecogn ized section and content) DATE CREATED AUTHOR AUTHOR'S ORGANIZ ATION 2019 [facility] DATE CREATED AUTHOR AUTHOR'S ORGANIZ ATION 01/08/2024 [facility] Source Comments (unrecognize d section and content) In the event this informatio n is protected by the Federal Confidentiality of Alcohol and Drug Abuse Patient Records regulations: The Federal rules restrict any use of the information to criminally investigate or prosecute any alcohol or drug abuse patient.[facility] Care Teams (unrecognized sec tion and content) FOR RECORDS PERTAINING TO PATIENTS WHO ARE OR HAVE BEEN ENROLLED IN A CHEMICAL DEPENDENCY/SUBSTANCEABUSE PROGRAM, SOME INFORMATION MAY BE OMITTED. This clinical summary was aggregated from multiple sources. Caution should be exercised in using it in the provision of clinical care. This summary normalizes information from multiple sources, and as a consequence, information in this document may materially change the coding, format and clinical context of patient data. In addition, data may be omitted in some cases. CLINICAL DECISIONS SHOULD BE BASED ON THE PRIMARY CLINICAL RECORDS. [facility]. provides no warranty or guarantee of the accuracy or completeness of information in this document.
[2024-01-09 13:03] LABS: Absolute Lymphocyte Count 3.45 X10^3/uL (0.83-4.51); Absolute Neutrophil Count 4.5 X10^3/uL (2.0-7.7); Basophil# 0.05 X10^3/uL; Basophil% 0.5 % (0-1); Eosinophil# 0.06 X10^3/uL; Eosinophils% 0.7 % (0-5); Hematocrit 44.2 % (37-47); Hemoglobin 14.4 g/dL (12.0-15.0); Lymphocyte # 3.45 X10^3/ul (0.83-4.51); Lymphocyte % 37.6 % (19-41); Mean Corp Hgb Conc 32.6 g/dL (32-36); Mean Corpuscular Hgb 30.3 pg (27.0-32.0); Mean Corpuscular Volume 93.1 fL (81-99); Mean Platelet Vol. 9.4 fl (6.2-12.0); Monocyte# 1.08 X10^3/uL; Monocyte% 11.8 % (0-10); NRBC Flagged by Analyzer 0 % (0-5); Neutrophil # 4.48 X10^3/uL (2.7-7.7); Neutrophil % 48.9 % (47-70); Platelet Count 461 K/mm3 (150-450); RBC Distribution Width CV 13.4 % (11.6-14.6); RBC Distribution Width SD 45.8 fl (35.1-43.9); Red Blood Count 4.75 M/mm3 (4.2-5.4); White Blood Count 9.2 K/mm3 (4.4-11.0)
[2024-01-09 13:33] LABS: Vitamin D,25 Hydroxy 36.2 ng/mL
[2024-01-09 13:41] LABS: ALB/GLOB Ratio 1.2 RATIO (0.9-2.4); AST(SGOT) 15 U/L (15-37); Alanine Aminotransfer ALT/SGPT 24 U/L (13-56); Albumin, Serum 4.2 g/dL (3.2-5.0); Alkaline Phosphatase 88 U/L (45-117); Anion Gap 4 (5-15); BUN 19 mg/dL (7-18); Calcium,Total 9.5 mg/dL (8.5-10.1); Chloride 107 mmol/L (98-107); Cholesterol 281 mg/dL (200); Creatinine, Serum 0.95 mg/dL (0.55-1.02); EST Glomerular Filtration Rate 64 mL/min (>60); Est Glom Filt Rate - Afr Amer 77 mL/min (>60); Free T3 2.1 pg/mL (2.18-3.98); Globulin 3.5 g/dL (2.2-4.2); Glucose 95 mg/dL (74-106); High Density Lipoprotein 61 mg/dL; Potassium 3.7 mmol/L (3.5-5.1); Protein, Total 7.7 g/dL (6.4-8.2); Sodium Level 139 mmol/L (136-145); T4 Free Direct 1.21 ng/dL (0.76-1.46); Thyroid Stim Hormone (TSH) 3.81 uIU/mL (0.358-3.74); Triglycerides 110 mg/dL; Very Low Density Lipoprotein 22 mg/dL (5-40)
[2024-01-09 15:35] LABS: Rheumatoid Factor < 10.0 IU/mL (<15)
== END | disposition home or self-care (01) ==
PROVIDERS: PCP Internal Medicine; Referring Provider Internal Medicine; Visit Provider Internal Medicine
DX: Z13.220 Encounter for screening for lipoid disorders (principal); M06.9 Rheumatoid arthritis, unspecified; E03.9 Hypothyroidism, unspecified; E78.5 Hyperlipidemia, unspecified; F43.10 Post-traumatic stress disorder, unspecified; F41.9 Anxiety disorder, unspecified; E55.9 Vitamin D deficiency, unspecified
CPT/HCPCS: 36415; 80053; 80061; 82306; 84439; 84443; 84481; 85025; 86431

== ENCOUNTER 2024-01-17 16:53 | Emergency (ER) | payer MEDICAID, SELFPAY ==
[2024-01-17 16:54] VITALS: BP 143/91; PULSE 97; RESP 16; TEMP 36.6; O2SAT 97; BMI 20.2
--- NOTE | 2024-01-17 17:59 | EX.ED.VIS.PS ---
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 Narrative Narrative: 58-year-old female history of COPD, PTSD marijuana use and mental health problems. She was admitted within the last several months to [facility] in [place]. Patient has been calling the police 5 times in the last 24 hours with paranoia and hallucinations and delusions of people getting in her apartment. She believes that her landlord has been part of this plan to get people in her apartment. She denies being suicidal or homicidal. She denies recent illness. Prior similar symptoms: Yes Recent Illness/Hospitalization: Yes PFSH PFS Medical History Anxiety Bleeding disorder Bone fracture Breast cancer screening Breast lump Cervical cancer screening Colon cancer screening COPD (chronic obstructive pulmonary disease) DDD (degenerative disc disease), cervical Depression Ectopic Elevated WBC count Flank pain Former smoker Frequent headaches GERD (gastroesophageal reflux disease) Heart murmur History of abnormality of cervix History of colon polyps Hyperlipidemia Hypothyroidism Low TSH level Migraines Neck pain PTSD (post-traumatic stress disorder) Rheumatoid arthritis Stroke Thyroid disease Vitamin D deficiency Home Medications vitamin B complex 1 tab PO DAILY 06/09/22 [History Last Taken Unknown] multivitamin with folic acid 400 mcg tablet (Thera) 1 tab PO DAILY #90 tabs 09/13/22 [Rx Last Taken Unknown] acyclovir 400 mg tablet 400 mg PO PRN PRN COLD SORES #30 tabs 03/21/23 [Rx Last Taken Unknown] albuterol sulfate 90 mcg/actuation aerosol inhaler 2 puff inhalation Q6H PRN shortness of breath or wheezing #8.5 grams 03/21/23 [Rx Last Taken Unknown] cholecalciferol (vitamin D3) 25 mcg (1,000 unit) capsule 25 mcg PO DAILY #90 caps 03/21/23 [Rx Last Taken Unknown] melatonin 10 mg capsule 10 mg PO HS 03/21/23 [History Last Taken Unknown] omeprazole 40 mg capsule,delayed release 40 mg PO DAILY #90 caps 03/21/23 [Rx Last Taken Unknown] ondansetron 4 mg disintegrating tablet 4 mg PO Q6H PRN nausea and vomiting #12 tabs 05/28/23 [Rx Last Taken Unknown] clonazepam 1 mg tablet 1 mg PO 4X/DAY PRN anxiety 06/20/23 [History Last Taken Unknown] turmeric 100 mg-glenn 150 mg-olive 50 mg-oreg 150 mg-capryl capsule 1 cap PO DAILY 06/20/23 [History Last Taken Unknown] duloxetine 30 mg capsule,delayed release 30 mg PO DAILY 01/09/24 [History Last Taken Unknown] hydroxyzine pamoate 50 mg capsule 50 mg PO TID PRN anxiety 01/09/24 [History Last Taken Unknown] levothyroxine 88 mcg tablet 88 mcg PO DAILY #90 tabs 01/09/24 [Rx Last Taken Unknown] meloxicam 7.5 mg tablet 7.5 mg PO DAILY 01/09/24 [History Last Taken Unknown] Allergy/AdvReac Type Severity Reaction Status Date / Time amitriptyline Allergy Rash Verified 01/17/24 16:58 cigarette smoke AdvReac Upset Verified 01/17/24 16:58 Stomach perfume AdvReac Other Verified 01/17/24 16:58 Phenylpiperazine AdvReac PT UNABLE Verified 01/17/24 16:58 Antidepressant TO RESPOND-NEEDS F/U Tetracyclic Antidepressants AdvReac PT UNABLE Verified 01/17/24 16:58 TO RESPOND-NEEDS F/U Tricyclic Antidepressants AdvReac PT UNABLE Verified 01/17/24 16:58 and Tricy TO RESPOND-NEEDS F/U Family History Other Alcoholism Arthritis Cancer Colon cancer High cholesterol Mental disorder Parkinsons Surgical History H/O skin graft Social History Smoking Status: Never smoker substance use type: does not use ROS ROS ED ROS Narrative Patient denies recent illness. Review of Systems ROS Unobtainable: Denies due to encephalopathy Constitutional Constitutional ED: Denies chills or fever(s) Eyes Eyes: Denies blurry vision ENT ENT ED: Denies ear pain Cardiovascular Cardiovascular: Denies chest pain Respiratory/Chest Respiratory/Chest: Denies cough or dyspnea Gastrointestinal Gastrointestinal: Denies abdominal pain Genitourinary Genitourinary ED: Denies dysuria Musculoskeletal Musculoskeletal: Denies arthralgias Integumentary Denies abscess Neurologic Neurologic: Denies headache(s) Psychiatric Psychiatric: Denies anxiety Endocrine Endocrinology: Denies polydipsia Hematologic/Lymphatic Hematologic/Lymphatic: Denies easy bleeding, easy bruising or lymphadenopathy Allergic/Immunologic Allergic/Immunologic ED: Denies mouth swelling, tongue swelling or urticaria EXAM Physical Exam Narrative Exam Narrative: 58-year-old female no acute distress vital signs stable afebrile. HEENT exam unremarkable atraumatic. Pupils round reactive light. No signs of trauma. Neck nontender no lymphadenopathy. Lungs clear to auscultation bilaterally. Heart regular rhythm no murmur. Rate about 90. Chest wall and ribs nontender. Abdomen soft nontender. Moving all 4 extremities. Nontender no edema. No signs of trauma. Neurologically she is awake and alert with no focal motor deficits. Const Vital Signs: 01/17/24 16:54 01/17/24 19:05 Temperature 98 F Temperature Source Temporal Pulse Rate 97 Respiratory Rate 16 16 Blood Pressure 143/91 H Blood Pressure Mean 108 Pulse Ox 97 Oxygen Delivery Method Room Air Positive well nourished and well developed; Negative for obese, cachectic, contractures or unkempt General Appearance ED: well developed and NAD; Negative for unkempt, cachectic, contractures or pallor Nutritional Appearance: Negative for cachectic or obese HEENT Reports moist mucous membranes normocephalic and atraumatic; Negative for trauma or tenderness Eyes PERRL and EOMs intact bilaterally General Eye ED: Negative for pale conjunctiva or scleral icterus Neck no lymphadenopathy, supple and no JVD General: Negative for tenderness Resp normal respiratory effort and clear to auscultation bilaterally Effort and Inspection: Negative for retractions Auscultation: Negative for rales, rhonchi, wheezes or diminished lung sounds Cardio S1 normal heart sound, S2 normal heart sound and no murmurs Palpation: Negative for other Rate: regular rate; Negative for bradycardia or tachycardic Rhythm: regular rhythm GI non-tender, non-distended and no masses Inspection: Negative for abdominal distention Auscultation: normoactive bowel sounds Palpation: soft; Negative for tender or guarding Back/Spine no CVA tenderness General Back: Negative for CVA tenderness Cervical Spine: Negative for cervical spine tenderness Thoracic Spine / Upper Back: Negative for thoracic spinal tenderness Lumbar Spine / Lower Back: Negative for lumbar spinal tenderness Coccyx: Negative for other Extremity normal to inspection General Extremety ED: Negative for edema or tenderness General Extremity: Negative for edema Neuro oriented x3 and CN's II-XII intact bilaterally Sensorium / Orientation: alert, oriented to person, oriented to place and oriented to time; Negative for orientation impaired, confused, lethargic or stuporous Motor Exam: strength 5/5 throughout Psych cooperative, affect normal, speech normal, denies homicidal ideation and denies suicidal ideation; Negative for mental status grossly normal, thought process normal, activity/motor behavior normal or denies hallucinations Appearance: grossly normal; Negative for unkempt Attitude: calm, engaged, paranoid, No withdrawn, No bizarre, No uncooperative, No evasive, No guarded, No belligerent and No agitated Activity / Motor Behavior: appropriate eye contact Speech: normal speech Mood & Affect: euthymic mood Thought Process: normal thought process Thought Content: normal thought content Attention / Concentration: attention grossly intact Memory / Cognition: memory grossly intact Insight: insight good Skin General Skin Exam: Negative for jaundice or pallor Lesions: no lesions Rashes: no rashes Trauma: Negative for abrasion Wounds: Negative for amputation MDM MDM MDM Narrative Medical decision making narrative: 58-year-old female underlying psychiatric illness has been calling the police multiple times today. Thinks was people getting into her apartment. Having hallucinations and delusions. ED mental health evaluation labs. She is clinically medically cleared at this time by myself. Our social workers evaluated her. spout worker evaluated the patient. She is not suicidal or homicidal but she is very paranoid and she is already called the police 5 times recently. spout worker is attempting at the patient admitted to mental health facility. Lab Data Attestation: I reviewed the patient's lab results. Lab results narrative: CBC normal. Chemistries unremarkable. Glucose 128. Urine tox screen positive for cannabis only. Alcohol level negative. Labs: Laboratory Results - last 24 hr 01/17/24 01/17/24 01/17/24 18:45 18:45 18:45 WBC RBC Hgb Hct MCV MCH MCHC RDW Std Deviation RDW Coeff of Servando Plt Count MPV Immature Gran % (Auto) Neut % (Auto) Lymph % (Auto) Republic % (Auto) Eos % (Auto) Baso % (Auto) Absolute Neuts (auto) Absolute Lymphs (auto) Nucleated RBC % Sodium Potassium Chloride Carbon Dioxide Anion Gap BUN Creatinine Estim Creat Clear Calc Est GFR (MDRD) Af Amer Est GFR (MDRD) Non-Af BUN/Creatinine Ratio Glucose Calcium Urine Opiates Screen Cancelled NEGATIVE Urine Methadone Screen Cancelled NEGATIVE Ur Barbiturates Screen Cancelled Ur Phencyclidine Scrn Ur Amphetamines Screen MDMA (Ecstasy) Screen U Benzodiazepines Scrn Urine Cocaine Screen U Cannabinoids Screen Ur Drug Screen Comment Ethyl Alcohol 01/17/24 01/17/24 01/17/24 18:45 18:45 18:45 WBC RBC Hgb Hct MCV MCH MCHC RDW Std Deviation RDW Coeff of Servando Plt Count MPV Immature Gran % (Auto) Neut % (Auto) Lymph % (Auto) Republic % (Auto) Eos % (Auto) Baso % (Auto) Absolute Neuts (auto) Absolute Lymphs (auto) Nucleated RBC % Sodium Potassium Chloride Carbon Dioxide Anion Gap BUN Creatinine Estim Creat Clear Calc Est GFR (MDRD) Af Amer Est GFR (MDRD) Non-Af BUN/Creatinine Ratio Glucose Calcium Urine Opiates Screen Urine Methadone Screen Ur Barbiturates Screen NEGATIVE Ur Phencyclidine Scrn Cancelled NEGATIVE Ur Amphetamines Screen Cancelled NEGATIVE MDMA (Ecstasy) Screen Cancelled U Benzodiazepines Scrn Urine Cocaine Screen U Cannabinoids Screen Ur Drug Screen Comment Ethyl Alcohol 01/17/24 01/17/24 01/17/24 18:45 18:45 18:45 WBC RBC Hgb Hct MCV MCH MCHC RDW Std Deviation RDW Coeff of Servando Plt Count MPV Immature Gran % (Auto) Neut % (Auto) Lymph % (Auto) Republic % (Auto) Eos % (Auto) Baso % (Auto) Absolute Neuts (auto) Absolute Lymphs (auto) Nucleated RBC % Sodium Potassium Chloride Carbon Dioxide Anion Gap BUN Creatinine Estim Creat Clear Calc Est GFR (MDRD) Af Amer Est GFR (MDRD) Non-Af BUN/Creatinine Ratio Glucose Calcium Urine Opiates Screen Urine Methadone Screen Ur Barbiturates Screen Ur Phencyclidine Scrn Ur Amphetamines Screen MDMA (Ecstasy) Screen NEGATIVE U Benzodiazepines Scrn Cancelled NEGATIVE Urine Cocaine Screen Cancelled NEGATIVE U Cannabinoids Screen Cancelled Ur Drug Screen Comment Ethyl Alcohol 01/17/24 01/17/24 01/17/24 18:45 18:45 19:17 WBC 11.3 H RBC 4.44 Hgb 13.5 Hct 40.5 MCV 91.2 MCH 30.4 MCHC 33.3 RDW Std Deviation 46.1 H RDW Coeff of Servando 13.7 Plt Count 486 H MPV 8.8 Immature Gran % (Auto) 0.300 Neut % (Auto) 68.4 Lymph % (Auto) 22.7 Republic % (Auto) 8.1 Eos % (Auto) 0.1 Baso % (Auto) 0.4 Absolute Neuts (auto) 7.7 Absolute Lymphs (auto) 2.56 Nucleated RBC % 0 Sodium 139 Potassium 3.7 Chloride 110 H Carbon Dioxide 22.0 Anion Gap 7 BUN 11 Creatinine 0.88 Estim Creat Clear Calc 53.77 Est GFR (MDRD) Af Amer 84 Est GFR (MDRD) Non-Af 69 BUN/Creatinine Ratio 12.4 Glucose 128 H Calcium 10.2 H Urine Opiates Screen Urine Methadone Screen Ur Barbiturates Screen Ur Phencyclidine Scrn Ur Amphetamines Screen MDMA (Ecstasy) Screen U Benzodiazepines Scrn Urine Cocaine Screen U Cannabinoids Screen POSITIVE H Ur Drug Screen Comment Cancelled Ethyl Alcohol 7.0 Discharge Plan Triage Chief Complaint: Mental Health ED Provider: Gonzalo Sorensen Dx/Rx/DC Orders Clinical Impression: Acute paranoia, Delusions, History of marijuana use, Hallucinations Prescriptions: No Action vitamin B complex Tablet 1 tab PO DAILY melatonin 10 mg capsule 10 mg PO HS [id number] 100 mg-150 mg- 50 mg-150 mg capsule 1 cap PO DAILY multivitamin with folic acid [Thera] 400 mcg tablet 1 tab PO DAILY Qty: 90 3RF cholecalciferol (vitamin D3) 25 mcg (1,000 unit) capsule 25 mcg PO DAILY Qty: 90 3RF albuterol sulfate 90 mcg/actuation HFA aerosol inhaler 2 puff inhalation Q6H PRN (Reason: shortness of breath or wheezing) Qty: 8.5 3RF omeprazole 40 mg capsule,delayed release(DR/EC) 40 mg PO DAILY Qty: 90 3RF acyclovir 400 mg tablet 400 mg PO PRN PRN (Reason: COLD SORES) Qty: 30 1RF Rx Instructions: Take two tabs at the onset of cold sores, then one tab 8 hours later. clonazepam 1 mg tablet 1 mg PO 4X/DAY PRN (Reason: anxiety) Patient Comments: TAKE 1 TABLET BY MOUTH up to FOUR TIMES DAILY NEEDED FOR ANXIETY meloxicam 7.5 mg tablet 7.5 mg PO DAILY Patient Comments: TAKE 1 TABLET BY MOUTH DAILY duloxetine 30 mg capsule,delayed release(DR/EC) 30 mg PO DAILY Patient Comments: TAKE 1 CAPSULE BY MOUTH ONCE DAILY hydroxyzine pamoate 50 mg capsule 50 mg PO TID PRN (Reason: anxiety) Patient Comments: Take 1 Capsule By Oral Route 3 times per day as needed,for anxiety ondansetron 4 mg tablet,disintegrating 4 mg PO Q6H PRN (Reason: nausea and vomiting) Qty: 12 0RF levothyroxine 88 mcg tablet 88 mcg PO DAILY Qty: 90 1RF Primary Care Provider: Jasmyn Phillips Referrals: Jasmyn Phillips MD [Primary Care Provider] - Disposition Disposition: Psychiatric Hospital or Unit
[2024-01-17 19:05] VITALS: RESP 16
[2024-01-17 19:07] LABS: Amphetamine Urine VISTA NEGATIVE (<1000 ng/mL); Barbiturate Urine VISTA NEGATIVE (< 200 ng/mL); Benzodiazepine Urine VISTA NEGATIVE (< 200 ng/mL); Cocaine Urine VISTA NEGATIVE (< 300 ng/mL); Ecstacy Urine VISTA NEGATIVE (< 500 ng/mL); Methadone Urine VISTA NEGATIVE (< 300 ng/mL); PCP Urine VISTA NEGATIVE (< 25 ng/mL); THC Urine VISTA POSITIVE (< 50 ng/mL); Vista UDS pH Range 5
[2024-01-17 19:23] LABS: Absolute Lymphocyte Count 2.56 X10^3/uL (0.83-4.51); Absolute Neutrophil Count 7.7 X10^3/uL (2.0-7.7); Basophil# 0.05 X10^3/uL; Basophil% 0.4 % (0-1); Eosinophil# 0.01 X10^3/uL; Eosinophils% 0.1 % (0-5); Hematocrit 40.5 % (37-47); Hemoglobin 13.5 g/dL (12.0-15.0); Lymphocyte # 2.56 X10^3/ul (0.83-4.51); Lymphocyte % 22.7 % (19-41); Mean Corp Hgb Conc 33.3 g/dL (32-36); Mean Corpuscular Hgb 30.4 pg (27.0-32.0); Mean Corpuscular Volume 91.2 fL (81-99); Mean Platelet Vol. 8.8 fl (6.2-12.0); Monocyte# 0.91 X10^3/uL; Monocyte% 8.1 % (0-10); NRBC Flagged by Analyzer 0 % (0-5); Neutrophil # 7.71 X10^3/uL (2.7-7.7); Neutrophil % 68.4 % (47-70); Platelet Count 486 K/mm3 (150-450); RBC Distribution Width CV 13.7 % (11.6-14.6); RBC Distribution Width SD 46.1 fl (35.1-43.9); Red Blood Count 4.44 M/mm3 (4.2-5.4); White Blood Count 11.3 K/mm3 (4.4-11.0)
[2024-01-17 19:43] LABS: Anion Gap 7 (5-15); BUN 11 mg/dL (7-18); BUN/Creat Ratio 12.4 RATIO (10-20); Calcium,Total 10.2 mg/dL (8.5-10.1); Chloride 110 mmol/L (98-107); Creatinine, Serum 0.88 mg/dL (0.55-1.02); EST Glomerular Filtration Rate 69 mL/min (>60); Est Glom Filt Rate - Afr Amer 84 mL/min (>60); Estimated Creatinine Clearance 53.77 ml/min; Glucose 128 mg/dL (74-106); Potassium 3.7 mmol/L (3.5-5.1); Sodium Level 139 mmol/L (136-145)
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
--- NOTE | 2024-01-17 20:28 | CM.ED ---
Social Work Patient accepted to [facility] by Dr. Orellana to [facility]. Nurse to nurse info given to nursing. Santiago slip made to facility will need faxed. Taisha Keane PEELER OPERATOR, GENERAL UTILITY MAINTENANCE REPAIRER
[2024-01-17 23:05] VITALS: BP 129/102; PULSE 92; RESP 16; TEMP 36.7; O2SAT 95
[2024-01-17] MEDS: clonazePAM 1 MG Tablet PO (23:51)
[2024-01-17] MEDS: MELATONIN 10 MG TABLET PO (23:51)
[2024-01-17] MEDS: hydrOXYzine PAM 25 MG Capsule 50 MG PO (23:51)
[2024-01-17] MEDS: Ondansetron ODT 4 MG Tablet PO (23:52)
[2024-01-18 04:30] VITALS: BP 110/75; PULSE 67; RESP 14; TEMP 36.4; O2SAT 98
--- NOTE | 2024-01-18 05:39 | ED.RN ---
Attempted to call report at this time. Nurse received voicemail and unable to give report.
--- NOTE | 2024-01-18 07:07 | NURSING ---
Nurse attempted to call provided number of . The number went to voicemail and the nurse was not able to call report at this time.
[2024-01-18 07:51] VITALS: BP 135/74; PULSE 62; RESP 15; TEMP 36.4; O2SAT 99
== END 2024-01-18 08:01 ==
PROVIDERS: Emergency Provider Emergency Medicine; PCP Internal Medicine; Visit Provider Emergency Medicine
DX: F22 Delusional disorders (principal); J44.9 Chronic obstructive pulmonary disease, unspecified; R44.3 Hallucinations, unspecified; Z86.73 Personal history of transient ischemic attack (TIA), and cerebral infarction without residual deficits; Z87.891 Personal history of nicotine dependence; K21.9 Gastro-esophageal reflux disease without esophagitis
CPT/HCPCS: 80048; 80307; 80320; 85025; 99285; G0480

== ENCOUNTER 2024-04-05 11:47 | Emergency (ER) | payer MEDICAID, SELFPAY ==
[2024-04-05 11:48] VITALS: BP 155/107; PULSE 94; RESP 16; TEMP 37.1; O2SAT 98; BMI 21.0
--- NOTE | 2024-04-05 12:08 | CT_ITS ---
STUDY: CT ABDOMEN AND PELVIS WITH CONTRAST REASON FOR EXAM: Female, 58 years old. Abdominal pain. RADIATION DOSAGE (If Supplied By Facility): CTDIvol = ( 4.47 ) mGy, DLP = ( 293.14 ) mGycm TECHNIQUE: Transaxial images were obtained from the dome of the diaphragm to the symphysis pubis without oral contrast. IV 85mL Isovue-300 was administered. Sagittal and coronal images were reconstructed. The study is limited due to patient motion. Individualized dose optimization techniques were used for this CT. COMPARISON: Comparison is made with prior study January 02, 2018. FINDINGS: The visualized lung bases are unremarkable. The visualized portions of the heart are within normal limits. There is decreased attenuation of the liver consistent with steatosis. Normal gallbladder and extrahepatic biliary system. Normal spleen. Normal pancreas. Normal bilateral adrenal glands. Normal right kidney. Normal left kidney. Normal visualized stomach. Normal small intestine. Normal colon. The appendix is visualized and appears normal. Normal abdominal aorta. Normal inferior vena cava. Normal retroperitoneum. Normal urinary bladder. Normal abdominal wall. Normal osseous structures. CT/Abdomen/Pelvis W IV Cont ONLY IMPRESSION: Fatty infiltration of the liver. Electronically Signed: Mukesh Cardoza MD at 13:34 EDT ,
--- NOTE | 2024-04-05 12:10 | EX.ED.VIS.PS ---
HPI HPI - Psych History of Present Illness Chief Complaint: Mental Health Detail of Chief Complaint: Hallucinations and delusions and paranoia Informant: patient Narrative Narrative: Patient presents to the emergency department via police escort. Patient was seen by the counseling center earlier this morning and was apparently lying on the floor screaming complaining of abdominal pain. Apparently she has been having a hard time caring for herself and not eating and sleeping. Patient was pink slipped however she fled and police had to track her down and bring her to the ER. Patient somewhat of a poor historian but does complain of abdominal pain has been caused by electric shocks that she is getting from walking at times across the floor. Complains of a difficult time starting her urine stream at times. She denies fevers or chills or sweats. She denies feeling suicidal or homicidal. To me she denied auditory or visual hallucinations. PFSH [facility] Medical History Anxiety Bleeding disorder Bone fracture Breast cancer screening Breast lump Cervical cancer screening Colon cancer screening COPD (chronic obstructive pulmonary disease) DDD (degenerative disc disease), cervical Depression Ectopic Elevated WBC count Flank pain Former smoker Frequent headaches GERD (gastroesophageal reflux disease) Heart murmur History of abnormality of cervix History of colon polyps Hyperlipidemia Hypothyroidism Low TSH level Migraines Neck pain PTSD (post-traumatic stress disorder) Rheumatoid arthritis Stroke Thyroid disease Vitamin D deficiency Home Medications ?Medication ?Instructions ?Recorded ?Last Taken ?Type vitamin B complex 1 tab PO DAILY 06/09/22 Unknown History multivitamin with folic acid 400 1 tab PO DAILY #90 tabs 09/13/22 Unknown Rx mcg tablet (Thera) albuterol sulfate 90 mcg/actuation 2 puff inhalation Q6H PRN 03/21/23 Unknown Rx aerosol inhaler shortness of breath or wheezing #8.5 grams cholecalciferol (vitamin D3) 25 25 mcg PO DAILY #90 caps 03/21/23 Unknown Rx mcg (1,000 unit) capsule melatonin 10 mg capsule 10 mg PO HS 03/21/23 Unknown History omeprazole 40 mg capsule,delayed 40 mg PO DAILY #90 caps 03/21/23 Unknown Rx release ondansetron 4 mg disintegrating 4 mg PO Q6H PRN nausea and 05/28/23 Unknown Rx tablet vomiting #12 tabs clonazepam 1 mg tablet 1 mg PO 4X/DAY PRN anxiety 06/20/23 Unknown History turmeric 100 mg-glenn 150 1 cap PO DAILY 06/20/23 Unknown History mg-olive 50 mg-oreg 150 mg-capryl capsule hydroxyzine pamoate 50 mg capsule 50 mg PO TID PRN anxiety 01/09/24 Unknown History levothyroxine 88 mcg tablet 88 mcg PO DAILY #90 tabs 01/09/24 Unknown Rx meloxicam 7.5 mg tablet 7.5 mg PO DAILY 01/09/24 Unknown History Allergy/AdvReac Type Severity Reaction Status Date / Time amitriptyline Allergy Rash Verified 04/05/24 11:48 cigarette smoke AdvReac Upset Verified 04/05/24 11:48 Stomach perfume AdvReac Other Verified 04/05/24 11:48 Phenylpiperazine AdvReac PT UNABLE Verified 04/05/24 11:48 Antidepressant TO RESPOND-NEEDS F/U Tetracyclic Antidepressants AdvReac PT UNABLE Verified 04/05/24 11:48 TO RESPOND-NEEDS F/U Tricyclic Antidepressants AdvReac PT UNABLE Verified 04/05/24 11:48 and Tricy TO RESPOND-NEEDS F/U Family History Other Alcoholism Arthritis Cancer Colon cancer High cholesterol Mental disorder Parkinsons Surgical History H/O skin graft Social History Smoking Status: Never smoker substance use type: does not use ROS ROS ED Review of Systems ROS Unobtainable: other Constitutional Constitutional ED: Reports lethargy; Denies chills, fever(s), sweats or weight loss Eyes Eyes: Denies blurry vision, change in vision or diplopia ENT ENT ED: Denies rhinorrhea or sore throat Cardiovascular Cardiovascular: Denies chest pain, orthopnea or racing heartbeat Respiratory/Chest Respiratory/Chest: Denies cough, dyspnea, dyspnea on exertion, orthopnea or sputum Gastrointestinal Gastrointestinal: Reports abdominal pain; Denies diarrhea, nausea or vomiting Genitourinary Genitourinary ED: Reports other Details: Difficulty starting urine stream ; Denies dysuria, hematuria or urinary frequency Musculoskeletal Musculoskeletal: Denies arthralgias, back pain, myalgias or neck pain Integumentary Denies abscess, Abrasions or rash Neurologic Neurologic: Denies headache(s) or weakness Psychiatric Psychiatric: Denies anxiety, depression or suicidal thoughts Endocrine Endocrinology: Denies polydipsia, polyphagia or polyuria Hematologic/Lymphatic Hematologic/Lymphatic: Denies easy bleeding, easy bruising or lymphadenopathy Allergic/Immunologic Allergic/Immunologic ED: Denies mouth swelling, tongue swelling or urticaria EXAM Physical Exam Const Vital Signs: 04/05/24 11:48 04/05/24 13:00 Temperature 98.7 F Temperature Source Temporal Pulse Rate 94 80 Respiratory Rate 16 20 H Blood Pressure 155/107 H 128/91 H Blood Pressure Mean 123 103 Pulse Ox 98 98 Oxygen Delivery Method Room Air Room Air Positive well nourished and well developed General Appearance ED: well developed and NAD HEENT Reports TM's clear and moist mucous membranes normocephalic and atraumatic; Negative for trauma or tenderness Tympanic Membrane ED: Yes TM's clear Eyes PERRL and EOMs intact bilaterally General Eye ED: Negative for pale conjunctiva or scleral icterus Neck no lymphadenopathy, supple and no JVD General: Negative for tenderness Chest Wall inspection of chest normal and palpation of chest normal Chest: Negative for tenderness Resp normal respiratory effort and clear to auscultation bilaterally Effort and Inspection: Negative for respiratory distress or pain with movement Auscultation: Negative for rhonchi, wheezes or diminished lung sounds Cardio regular rate, regular rhythm, S1 normal heart sound, S2 normal heart sound and no murmurs Peripheral Pulses: pulses 2+ throughout GI normal to inspection, nondistended, normoactive bowel sounds, soft to palpation, non-distended and no masses GI Narrative: Mild diffuse tenderness on exam. There is no rebound, rigidity, or pineal signs. No mass palpated. Back/Spine no CVA tenderness and no thoracic nor lumbar tenderness Extremity normal to inspection General Extremety ED: Negative for edema General Extremity: Negative for edema Neuro oriented x3, CN's II-XII intact bilaterally, no sensory deficits noted and gait normal Sensorium / Orientation: awake, alert, oriented to person, oriented to place and oriented to time Motor Exam: strength 5/5 throughout and strength abnormal Psych mental status grossly normal Skin no rashes or lesions noted and no wounds MDM MDM MDM Narrative Medical decision making narrative: Patient presents with complaint of abdominal pain and at request of counseling center who pink slipped patient for concern of severe delusions and hallucinations. Patient had an IV line established. CBC with differential white count of 8.4 with hemoglobin 13.4 and platelet count of 412. Chemistries unremarkable. LFTs were normal. Urinalysis normal. CT scan of the abdomen pelvis was unremarkable. Toxicology screen positive for marijuana and alcohol was less than 3. Patient became increasingly agitated and she was given Ativan 1 mg IV. Initially did get did give her morphine and Zofran for her abdominal pain. Patient continued to escalate and would not stay in her room and became somewhat combative and belligerent and therefore she was given Geodon 20 mg IM. Discussed with [facility] who will attempt to find placement to [facility] facility for definitive care. Care of patient will be turned over to evening physician awaiting placement and final disposition. Lab Data Attestation: I reviewed the patient's lab results. Labs: Laboratory Results - last 24 hr 04/05/24 04/05/24 12:16 12:25 WBC 8.4 RBC 4.33 Hgb 13.4 Hct 40.3 MCV 93.1 MCH 30.9 MCHC 33.3 RDW Std Deviation 47.8 H RDW Coeff of Servando 13.9 Plt Count 412 MPV 9.1 Immature Gran % (Auto) 0.200 Neut % (Auto) 66.7 Lymph % (Auto) 24.1 Harmon % (Auto) 8.1 Eos % (Auto) 0.2 Baso % (Auto) 0.7 Absolute Neuts (auto) 5.6 Absolute Lymphs (auto) 2.03 Nucleated RBC % 0 Sodium 138 Potassium 3.4 L Chloride 104 Carbon Dioxide 25.0 Anion Gap 9 BUN 10 Creatinine 0.76 Estim Creat Clear Calc 62.26 Est GFR (MDRD) Af Amer 100 Est GFR (MDRD) Non-Af 83 BUN/Creatinine Ratio 13.2 Glucose 107 H Calcium 9.5 Total Bilirubin 0.70 AST 35 ALT 36 Alkaline Phosphatase 94 Total Protein 7.4 Albumin 4.4 Globulin 3.0 Albumin/Globulin Ratio 1.5 Urine Color Straw Urine Clarity Clear Urine pH 6.0 Ur Specific Dexter 1.010 Urine Protein Negative Urine Glucose (UA) Normal Urine Ketones 50 H Urine Occult Blood Negative Urine Nitrite Negative Urine Bilirubin Negative Urine Urobilinogen Normal Ur Leukocyte Esterase Negative Urine RBC 0 SEEN Urine WBC 0 SEEN Ur Squamous Epith Cells 0 SEEN Urine Bacteria 0 SEEN Urine Mucus 0 SEEN Urine Opiates Screen NEGATIVE Urine Methadone Screen NEGATIVE Ur Barbiturates Screen NEGATIVE Ur Phencyclidine Scrn NEGATIVE Ur Amphetamines Screen NEGATIVE MDMA (Ecstasy) Screen NEGATIVE U Benzodiazepines Scrn NEGATIVE Urine Cocaine Screen NEGATIVE U Cannabinoids Screen POSITIVE H Ur Drug Screen Comment Ethyl Alcohol < 3.0 Radiography Diagnostic Testing: Clinical Impression(s) from Imaging Studies Abdomen/Pelvis CT 04/05/24 12:08 IMPRESSION: Fatty infiltration of the liver. Electronically Signed: Mukesh Cardoza MD at 13:34 EDT , Discharge Plan Triage Chief Complaint: Mental Health ED Provider: Imelda Zheng Dx/Rx/DC Orders Clinical Impression: Abdominal pain, Psychosis, Agitation Prescriptions: No Action vitamin B complex Tablet 1 tab PO DAILY melatonin 10 mg capsule 10 mg PO HS wzyduuoz-joxr-mcici-oreg-capry 100 mg-150 mg- 50 mg-150 mg capsule 1 cap PO DAILY multivitamin with folic acid [Thera] 400 mcg tablet 1 tab PO DAILY Qty: 90 3RF cholecalciferol (vitamin D3) 25 mcg (1,000 unit) capsule 25 mcg PO DAILY Qty: 90 3RF albuterol sulfate 90 mcg/actuation HFA aerosol inhaler 2 puff inhalation Q6H PRN (Reason: shortness of breath or wheezing) Qty: 8.5 3RF omeprazole 40 mg capsule,delayed release(DR/EC) 40 mg PO DAILY Qty: 90 3RF clonazepam 1 mg tablet 1 mg PO 4X/DAY PRN (Reason: anxiety) Patient Comments: TAKE 1 TABLET BY MOUTH up to FOUR TIMES DAILY NEEDED FOR ANXIETY meloxicam 7.5 mg tablet 7.5 mg PO DAILY Patient Comments: TAKE 1 TABLET BY MOUTH DAILY hydroxyzine pamoate 50 mg capsule 50 mg PO TID PRN (Reason: anxiety) Patient Comments: Take 1 Capsule By Oral Route 3 times per day as needed,for anxiety ondansetron 4 mg tablet,disintegrating 4 mg PO Q6H PRN (Reason: nausea and vomiting) Qty: 12 0RF levothyroxine 88 mcg tablet 88 mcg PO DAILY Qty: 90 1RF Primary Care Provider: Jasmyn Phillips Referrals: Jasmyn Phillips MD [Primary Care Provider] - Print Language: Micronesian
[2024-04-05 12:29] LABS: Absolute Lymphocyte Count 2.03 X10^3/uL (0.83-4.51); Absolute Neutrophil Count 5.6 X10^3/uL (2.0-7.7); Basophil# 0.06 X10^3/uL; Basophil% 0.7 % (0-1); Eosinophil# 0.02 X10^3/uL; Eosinophils% 0.2 % (0-5); Hematocrit 40.3 % (37-47); Hemoglobin 13.4 g/dL (12.0-15.0); Lymphocyte # 2.03 X10^3/ul (0.83-4.51); Lymphocyte % 24.1 % (19-41); Mean Corp Hgb Conc 33.3 g/dL (32-36); Mean Corpuscular Hgb 30.9 pg (27.0-32.0); Mean Corpuscular Volume 93.1 fL (81-99); Mean Platelet Vol. 9.1 fl (6.2-12.0); Monocyte# 0.68 X10^3/uL; Monocyte% 8.1 % (0-10); NRBC Flagged by Analyzer 0 % (0-5); Neutrophil # 5.62 X10^3/uL (2.7-7.7); Neutrophil % 66.7 % (47-70); Platelet Count 412 K/mm3 (150-450); RBC Distribution Width CV 13.9 % (11.6-14.6); RBC Distribution Width SD 47.8 fl (35.1-43.9); Red Blood Count 4.33 M/mm3 (4.2-5.4); White Blood Count 8.4 K/mm3 (4.4-11.0)
[2024-04-05 12:31] LABS: Bacteria 0 SEEN /hpf (None Seen); Mucous, Urine 0 SEEN /hpf (<or=2+); Red Blood Cells-Urine 0 SEEN /hpf (0-5); Squamous Epithelial Cells - UA 0 SEEN /hpf (5-10); White Blood Cells 0 SEEN /hpf (0-5)
[2024-04-05 12:32] LABS: Color, Urine Straw (Yellow); Glucose, Dipstick Normal (Normal); Ketone-Dipstick 50 mg/dl (Negative); Leukocyte Esterase-Dipstick Negative /ul (Negative); Nitrite-Dipstick Negative (Negative); Occult Blood-Urine Negative /ul (Negative); Protein-Dipstick Negative (Negative); Urine Bilirubin Dipstick Negative (Negative); Urine Clarity Clear (Clear); Urine Urobilinogen Normal (Normal)
[2024-04-05 12:46] LABS: Alcohol, Blood (Medical)-Serum < 3.0 mg/dL
[2024-04-05 12:48] LABS: ALB/GLOB Ratio 1.5 RATIO (0.9-2.4); AST(SGOT) 35 U/L (15-37); Alanine Aminotransfer ALT/SGPT 36 U/L (13-56); Albumin, Serum 4.4 g/dL (3.2-5.0); Alkaline Phosphatase 94 U/L (45-117); Anion Gap 9 (5-15); BUN 10 mg/dL (7-18); BUN/Creat Ratio 13.2 RATIO (10-20); Calcium,Total 9.5 mg/dL (8.5-10.1); Chloride 104 mmol/L (98-107); Creatinine, Serum 0.76 mg/dL (0.55-1.02); EST Glomerular Filtration Rate 83 mL/min (>60); Est Glom Filt Rate - Afr Amer 100 mL/min (>60); Estimated Creatinine Clearance 62.26 ml/min; Glucose 107 mg/dL (74-106); Potassium 3.4 mmol/L (3.5-5.1); Protein, Total 7.4 g/dL (6.4-8.2); Sodium Level 138 mmol/L (136-145)
[2024-04-05 12:58] LABS: Amphetamine Urine VISTA NEGATIVE (<1000 ng/mL); Barbiturate Urine VISTA NEGATIVE (< 200 ng/mL); Benzodiazepine Urine VISTA NEGATIVE (< 200 ng/mL); Cocaine Urine VISTA NEGATIVE (< 300 ng/mL); Ecstacy Urine VISTA NEGATIVE (< 500 ng/mL); Methadone Urine VISTA NEGATIVE (< 300 ng/mL); PCP Urine VISTA NEGATIVE (< 25 ng/mL); THC Urine VISTA POSITIVE (< 50 ng/mL); Vista UDS pH Range 6
[2024-04-05 13:00] VITALS: BP 128/91; PULSE 80; RESP 20; O2SAT 98
[2024-04-05] MEDS: Ondansetron 4 MG/2 ML Vial IV (13:39)
[2024-04-05] MEDS: Morphine 4 MG/ML Syringe IV (13:40)
[2024-04-05] MEDS: LORazepam 2 MG/ML Syringe 1 MG IV (13:40)
--- NOTE | 2024-04-05 14:02 | NURSING ---
FAXED CHART TO [facility]
[2024-04-05] MEDS: Ziprasidone IM 20 MG/ML VIAL IM (14:07)
--- NOTE | 2024-04-05 14:19 | EKG12_ITS ---
Test Reason : [facility] [place] Blood Pressure : / mmHG Vent. Rate : 104 BPM Atrial Rate : 104 BPM P-R Int : 168 ms QRS Dur : 074 ms QT Int : 350 ms P-R-T Axes : 078 -12 049 degrees QTc Int : 460 ms Sinus tachycardia Otherwise normal ECG Confirmed by Kei Viveros ([id number]), editor magazine JOSÉ MIGUEL HOLLAND ([id number]) on 04/09/2024 10:21:58 AM Referred By: JUANIS Confirmed By:Kei Viveros
--- NOTE | 2024-04-05 16:02 | NURSING ---
[facility] UNIT 1 NURSE TO NURSE [phone]
[2024-04-05 17:00] VITALS: BP 131/88; PULSE 91; RESP 18; O2SAT 92
[2024-04-05 19:56] VITALS: BP 127/81; PULSE 88; RESP 18; TEMP 36.2; O2SAT 95
== END 2024-04-05 20:05 ==
PROVIDERS: Emergency Provider Emergency Medicine; PCP Internal Medicine; Visit Provider Emergency Medicine
DX: R10.9 Unspecified abdominal pain (principal); F29 Unspecified psychosis not due to a substance or known physiological condition; J44.9 Chronic obstructive pulmonary disease, unspecified; E78.5 Hyperlipidemia, unspecified; Z86.73 Personal history of transient ischemic attack (TIA), and cerebral infarction without residual deficits; K21.9 Gastro-esophageal reflux disease without esophagitis; Z79.899 Other long term (current) drug therapy; F41.9 Anxiety disorder, unspecified; E03.9 Hypothyroidism, unspecified; R45.1 Restlessness and agitation
CPT/HCPCS: 74177; 80053; 80307; 80320; 81001; 85025; 93005; 96372; 96374; 96375; 99284; Q9967; A4216; G0480; J2405; J3486

== ENCOUNTER → 2024-04-20 | Outpatient (CLI) | payer MEDICAID, SELFPAY ==
[2024-04-20 15:23] LABS: Free T3 2.3 pg/mL (2.18-3.98); T4 Free Direct 0.99 ng/dL (0.76-1.46); Thyroid Stim Hormone (TSH) 1.76 uIU/mL (0.358-3.74)
== END | disposition home or self-care (01) ==
LOC: LAB 14:34
PROVIDERS: PCP Internal Medicine; Referring Provider Internal Medicine; Visit Provider Internal Medicine
DX: E03.9 Hypothyroidism, unspecified (principal)
CPT/HCPCS: 36415; 84439; 84443; 84481

== ENCOUNTER → 2024-04-30 | Outpatient (CLI) | payer MEDICAID, SELFPAY ==
--- NOTE | 2024-04-30 16:20 | RAD_ITS ---
STUDY: X-RAY - LUMBAR SPINE REASON FOR EXAM: Female, 58 years old. Spondylosis without myelopathy or radiculopathy, lumbar region TECHNIQUE: 3 view(s) of the lumbar spine were obtained. COMPARISON: None FINDINGS: Normal lumbar lordosis. There is no substantial scoliosis. Minimal anterior listhesis of L4 on L5 without spondylolysis. Normal vertebral bodies and endplates. Moderate degree of disc space narrowing at the L5-S1 level. The soft tissue structures are unremarkable. RAD/Lumbar Spine 2 or 3 Views IMPRESSION: Disc space narrowing at the L5-S1 level. Minimal anterior listhesis of L4 on L5 without spondylolysis. Most likely secondary to facet joint osteoarthritis. Electronically Signed: Mukesh Cardoza MD at 9:51 EDT ,
== END | disposition home or self-care (01) ==
LOC: RAD 16:06
PROVIDERS: PCP Internal Medicine; Referring Provider Anesthesiology Pain Medicine; Visit Provider Anesthesiology Pain Medicine
DX: M47.816 Spondylosis without myelopathy or radiculopathy, lumbar region (principal)
CPT/HCPCS: 72100

== ENCOUNTER 2024-07-04 14:06 | Outpatient (CLI) | payer MEDICAID, SELFPAY ==
[2024-07-04 15:24] LABS: Absolute Neutrophil Count 5.1 X10^3/uL (2.0-7.7); Basophil# 0.04 X10^3/uL; Basophil% 0.5 % (0-1); Eosinophil# 0.04 X10^3/uL; Eosinophils% 0.5 % (0-5); Hemoglobin 12.5 g/dL (12.0-15.0); Lymphocyte % 30.5 % (19-41); Mean Corp Hgb Conc 32.9 g/dL (32-36); Mean Corpuscular Hgb 29.9 pg (27.0-32.0); Mean Corpuscular Volume 90.9 fL (81-99); Mean Platelet Vol. 9.3 fl (6.2-12.0); Monocyte# 0.74 X10^3/uL; Monocyte% 8.7 % (0-10); NRBC Flagged by Analyzer 0 % (0-5); Neutrophil # 5.08 X10^3/uL (2.7-7.7); Neutrophil % 59.6 % (47-70); Platelet Count 487 K/mm3 (150-450); RBC Distribution Width CV 14.5 % (11.6-14.6); RBC Distribution Width SD 48.2 fl (35.1-43.9); Red Blood Count 4.18 M/mm3 (4.2-5.4); White Blood Count 8.5 K/mm3 (4.4-11.0)
[2024-07-04 15:51] LABS: Vitamin D,25 Hydroxy 36.7 ng/mL
[2024-07-04 15:54] LABS: ALB/GLOB Ratio 1.2 RATIO (0.9-2.4); AST(SGOT) 39 U/L (15-37); Alanine Aminotransfer ALT/SGPT 41 U/L (13-56); Alkaline Phosphatase 126 U/L (45-117); Anion Gap 8 (5-15); BUN 12 mg/dL (7-18); BUN/Creat Ratio 16.6 RATIO (10-20); Calcium,Total 9.5 mg/dL (8.5-10.1); Chloride 101 mmol/L (98-107); Creatinine, Serum 0.72 mg/dL (0.55-1.02); EST Glomerular Filtration Rate 87 mL/min (>60); Est Glom Filt Rate - Afr Amer 106 mL/min (>60); Free T3 2.4 pg/mL (2.18-3.98); Globulin 3.3 g/dL (2.2-4.2); Glucose 182 mg/dL (74-106); Magnesium 2.2 mg/dL (1.6-2.6); Potassium 3.5 mmol/L (3.5-5.1); Protein, Total 7.3 g/dL (6.4-8.2); Sodium Level 137 mmol/L (136-145); T4 Free Direct 1.22 ng/dL (0.76-1.46)
== END 2024-07-04 23:59 | disposition home or self-care (01) ==
LOC: LAB 14:14
PROVIDERS: PCP Internal Medicine; Referring Provider Internal Medicine; Visit Provider Internal Medicine
DX: R10.9 Unspecified abdominal pain (principal); R10.2 Pelvic and perineal pain; E55.9 Vitamin D deficiency, unspecified
CPT/HCPCS: 36415; 80053; 82306; 83735; 84439; 84443; 84481; 85025

== ENCOUNTER → 2024-08-03 | Outpatient (CLI) | payer MEDICAID, SELFPAY ==
--- NOTE | 2024-08-03 10:45 | US_ITS ---
STUDY: ABDOMINAL ULTRASOUND REASON FOR EXAM: Female, 58 years old. Diffuse abdominal pain TECHNIQUE: Transabdominal ultrasound was performed with real-time and static kenyon scale imaging. TECHNICAL QUALITY: Adequate. COMPARISON: None. FINDINGS: Liver: The liver measures 15.6 cm. There is increased echogenicity consistent with fatty infiltration. The bile ducts are within normal limits. There is hepatic color flow. The direction of portal flow is hepatopetal. There is no demonstrated mass lesion. Portal vein measurement: Gallbladder: Normal distended gallbladder. The gallbladder wall measures 1.5 mm. There is a negative sonographic Byers''s sign. There is no pericholecystic fluid. There are no gallstones. Common Bile Duct (C.B.D.): The common bile duct measures 6.5 mm. Pancreas: Normal size of the head, body and tail of the pancreas. There is normal echogenicity of the pancreas. There is no demonstrated pancreatic mass or cyst. Spleen: Normal size of the spleen. The spleen measures 7.7 cm. Right Kidney: Normal size of the right kidney. The right kidney measures 10.0 x 4.1 x 3.8 cm. Normal renal cortex. The right cortex measures 1.0 cm. There is no demonstrated renal mass or cyst. There is no right hydronephrosis. Left Kidney: Normal size of the left kidney. The left kidney measures 9.5 x 3.7 x 4.7 cm. Normal renal cortex. The left cortex measures 1.2 cm. There is no demonstrated renal mass or cyst. There is no left hydronephrosis. Aorta: Tapers normally I.V.C.: The IVC is patent. There is no ascites. US/Abdomen Complete IMPRESSION: Fatty liver, no discrete lesion Electronically Signed: Richard Hobbs MD at 13:39 EDT ,
--- NOTE | 2024-08-03 11:32 | BI_ITS ---
MAMMOGRAPHY - BILATERAL SCREENING REASON FOR EXAM: Female, 58 years old. Routine annual screening examination. PERTINENT HISTORY: Non-contributory. History of prior left excisional breast biopsy. TECHNIQUE: Digital bilateral breast asya (3D mammographic acquisition) in the CC and MLO projections. 2-D mediolateral oblique (MLO) and craniocaudad (CC) views of both breasts were obtained. CAD: Full Field Digital Mammography with Computer Added Detection was performed. COMPARISON: Comparison is made with prior study February 02, 2023 and April 16, 2021. FINDINGS: Breast Composition: The breasts are heterogeneously dense, which may obscure small masses. There are no dominant masses or suspicious calcifications. No other significant abnormalities are identified. There has been no significant change since the prior study. BI/SCRN MAMM (CAD)W/ASYA BILAT IMPRESSION: Stable bilateral screening mammogram. Yearly follow-up mammogram recommended. (A) ASSESSMENT CATEGORY: BIRADS Category 1: Negative. A letter regarding these results will be sent to the patient by the facility within 30 days. Approximately 10% of breast cancers are not detected by mammography. A normal mammogram should not delay biopsy of a clinically suspicious abnormality. [id number] Electronically Signed: Mukesh Cardoza MD at 8:21 EDT ,
== END | disposition home or self-care (01) ==
LOC: US 10:45 → OPBI 11:31
PROVIDERS: PCP Internal Medicine; Referring Provider Internal Medicine; Visit Provider Internal Medicine
DX: Z12.31 Encounter for screening mammogram for malignant neoplasm of breast (principal)
CPT/HCPCS: 76700; 77063; 77067

== ENCOUNTER 2025-01-14 12:53 | Outpatient (RCR) | payer MEDICAID, SELFPAY ==
--- NOTE | 2025-01-14 13:49 | HP.PTEVAL_ITS ---
Patient's Visit Information Visit Information Visit Information: DARYA DODD is a 59 year old F referred to Physical Therapy by Dr. Jasmyn Phillips MD with a diagnosis of RA Neck pain. Date of Evaluation: 01/14/25 Physical Therapist: Maximilian Panda, DPT, OCS, CSCS Visit Plan Frequency: 2x /Week Duration: 4-6 Weeks Plan: 2x/week for 4-6 weeks , I attempted to get aquatic therapy but she rfused and wants to try gymhome program first. Please teach gym ex for shoulder, back, abs, LE adn complement with home exercises so patient has choice with mcc compliance. Tach technique and progressions, get list, and get to I. Pt is anxiety prone. 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 Has been painful for long time. Worsening lately for no apparent reason. Has RA. Asked for referral to gt therapy. Pool therapy helped in the past. Shoulders Pain up to 10 with pulling cover over her and small movements. B R>L Knees both hurt, intrmittent without warning, stepping out of car 08/30 Neck hurts, 06/30, causes tension and stiffness ovr whole body. LB hurts also and for no apparent reason. No ortho, Geet injections from [facility] every 6 months but not lately. Ovrdue, they seem to help. Sleep is not great due to pain, 3-5 hours out of normal 7 Unemployed due to pain, diasability, mcc neck pain. Lives with a friend in one story no steps. Basic ADLS all I. Spends day coping , no activities given. used to love to swim and camp, not in a long time. No regualr exercises. Walks alot she says. Feels weak. Most walking is in house or yard. Objective Objective: Walks slowly back to PT with her friend. Hesitant and anxious. Transfrs beed and chair I. Walks I but slow. Posture is Forward head and kyphoitc thoracic spine. Flat lordosis. cervical AROM 55 ext and 60 B rotation with end range discomfort ipsilaterally. Flexion is full. Lumbar ROM is min limited ext and no limits flexion adn no limited SB, some pain with extension. hesitant and tearful to let me check patella reflexes but achilles, bi and tri are 1/3 and symmetrical. Sensation UE and LE WNL to gross light touch. strength ankles 4, knes 4-, hips 3 abd and ext and 3 flexion with ipsilateral pain. core is weak and unstable with LE testing. UE strength 3+/5, AROM shoulders 110 limited with discomfort R >L. elbows and wrists WFL. - slump adn - SLR, - c/s compression. 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 Balance/Special Test Scores Oswestry Neck Score: 25 Goals Goal 1:: I appropriate gym or home program for whole body to minimize pain Goal Time Frame: 4-6 Weeks Goal 2:: Pain 2-4/10 at worst and 50% better overall Goal Time Frame: 4-6 Weeks Goal 3:: 5 or less osweestry Goal Time Frame: 4-6 Weeks Goal 4:: Sleep 6 hours without waking Goal Time Frame: 4-6 Weeks Rehabilitation Potential Physical Therapy Diagnosis: widespread degenerative pain poorly managed Rehabilitation Potential: Questionable Anticipated Interventions Patient/Client Instruction: Educate patient on: Condition and Plan of Care For the Purpose of:: To decrease pain, To increase ROM, To improve nutrient delivery to tissue, To improve muscle performance and motor function and To increase tolerance to activity/condition/position Therapeutic Exercise to Include: Strength training and Postural training For the Purpose of:: To decrease pain, To increase ROM, To improve nutrient delivery to tissue and To increase tolerance to activity/condition/position Text: Thank you for the opportunity to evaluate your patient. For Medicare and Medicare HMO plans, please review the plan of care and approve it. It will need to be FAXED BACK to us at [phone] for Medicare purposes. For Medicare only, by signing this I certify the plan of care. Please let me know if there are questions or concerns regarding this plan of care. Physician Signature: Date:
--- NOTE | 2025-02-22 14:35 | HP.PT.NRP ---
Patient Information Patient Information: DARYA DODD was seen in my office for initial evaluation on 01/14/25. The following Plan of Care was established for this patient: POC Established Initial Frequency: 2x /Week Initial Duration: 4-6 Weeks Anticipated Interventions Patient/Client Instruction: Educate patient on: Condition and Plan of Care For the Purpose of:: To decrease pain, To increase ROM, To improve nutrient delivery to tissue, To improve muscle performance and motor function and To increase tolerance to activity/condition/position Therapeutic Exercise to Include: Strength training and Postural training For the Purpose of:: To decrease pain, To increase ROM, To improve nutrient delivery to tissue and To increase tolerance to activity/condition/position Last Seen Last Seen: This patient was last seen in our office 01/14/25. Pertinent comments regarding their Physical therapy will appear below: Pt seen for IE and POC established. Pt did not schedule or return for any further visits. At this point, it has been over 4 weeks and I will discontinue from my care. At this point I will be discontinuing this patient from physical therapy. I would be happy to see this patient again in the future if found appropriate by the physician. Thank you! Maximilian Panda, DPT, OCS, CSCS Balance/Gait/Functional tests Balance/Special Test Scores Oswestry Neck Score: 25
== END 2025-01-14 19:00 | disposition home or self-care (01) ==
LOC: PT 12:53
PROVIDERS: PCP Internal Medicine; Referring Provider Internal Medicine; Visit Provider Internal Medicine
DX: M54.2 Cervicalgia (principal); M06.9 Rheumatoid arthritis, unspecified
CPT/HCPCS: 97162

== ENCOUNTER → 2025-03-25 | Outpatient (CLI) | payer MEDICAID, SELFPAY ==
[2025-03-25 15:42] LABS: Absolute Neutrophil Count 7.1 X10^3/uL (2.0-7.7); Basophil# 0.05 X10^3/uL; Basophil% 0.4 % (0-1); Eosinophil# 0.05 X10^3/uL; Eosinophils% 0.4 % (0-5); Hematocrit 40.8 % (37-47); Hemoglobin 13.9 g/dL (12.0-15.0); Mean Corp Hgb Conc 34.1 g/dL (32-36); Mean Corpuscular Hgb 31.2 pg (27.0-32.0); Mean Corpuscular Volume 91.5 fL (81-99); Mean Platelet Vol. 9.8 fl (6.2-12.0); Monocyte# 0.84 X10^3/uL; Monocyte% 7.4 % (0-10); NRBC Flagged by Analyzer 0 % (0-5); Neutrophil # 7.12 X10^3/uL (2.7-7.7); Neutrophil % 62.5 % (47-70); Platelet Count 420 K/mm3 (150-450); RBC Distribution Width CV 13.6 % (11.6-14.6); RBC Distribution Width SD 46.3 fl (35.1-43.9); Red Blood Count 4.46 M/mm3 (4.2-5.4); White Blood Count 11.4 K/mm3 (4.4-11.0)
--- NOTE | 2025-03-25 16:15 | RAD_ITS ---
PROCEDURE: CERV SPINE 2 OR 3 VIEWS 03/25/2025 REASON FOR EXAM: SPONDYLOSIS WITHOUT MYELOPATHY OR RADICULOPATHY, CERVICAL REGION TECHNIQUE: 3 views of the cervical spine. COMPARISON: 08/29/2023 FINDINGS: The cervical spine is visualized on the lateral view from the skull base to T1. Straightening. No prevertebral soft tissue swelling. No fracture. Mild anterolisthesis C3 on C4 now seen. Moderate disc space narrowing C5-6 and severe at C6-7 again noted. There is appearance of disc space narrowing on the left side of C1-2 on the open-mouth odontoid view now seen. Visualized apices appear clear. RAD/Cerv Spine 2 or 3 Views IMPRESSION: Mild anterolisthesis C3 on C4 now seen. Moderate disc space narrowing C5-6 and severe at C6-7 again noted. There is appearance of disc space narrowing on the left side of C1-2 on the ope n-mouth odontoid view now seen. Reading Location: [id number]
[2025-03-25 16:24] LABS: ALB/GLOB Ratio 1.7 RATIO (0.9-2.4); AST(SGOT) 22 U/L (<=31); Alanine Aminotransfer ALT/SGPT 13 U/L (<=34); Albumin, Serum 4.4 g/dL (3.4-4.8); Alkaline Phosphatase 108 U/L (35-104); Anion Gap 13 (5-15); BUN 14 mg/dL (4-19); BUN/Creat Ratio 17.8 RATIO (10-20); Calcium,Total 9.6 mg/dL (7.6-11.0); Carbon Dioxide 23.5 mmol/L (21.0-32.0); Chloride 103 mmol/L (98-108); Cholesterol 242 mg/dL (<=200); EST Glomerular Filtration Rate 84 (>60); Globulin 2.7 g/dL (2.2-4.2); Glucose 122 mg/dL (70-99); High Density Lipoprotein 58 mg/dL; Low Density Lipoprotein Calc. 143 mg/dL; Potassium 3.7 mmol/L (3.3-5.1); Protein, Total 7.1 g/dL (5.9-8.4); Sodium Level 139 mmol/L (133-145); Total Bilirubin 0.16 mg/dL (0.00-1.30); Triglycerides 207 mg/dL; Very Low Density Lipoprotein 41 mg/dL (5-40); cholesterol:hdl ratio screen 4.21
[2025-03-25 17:39] LABS: Free T3 2.9 pg/mL (2.18-3.98); Vitamin B12 441 pg/mL (180-914); Vitamin D,25 Hydroxy 37.8 ng/mL (30-100)
== END | disposition home or self-care (01) ==
PROVIDERS: PCP Internal Medicine; Referring Provider Anesthesiology Pain Medicine; Visit Provider Anesthesiology Pain Medicine
DX: M47.812 Spondylosis without myelopathy or radiculopathy, cervical region (principal); M06.9 Rheumatoid arthritis, unspecified; K21.9 Gastro-esophageal reflux disease without esophagitis; E78.5 Hyperlipidemia, unspecified; F41.9 Anxiety disorder, unspecified; E03.9 Hypothyroidism, unspecified; E55.9 Vitamin D deficiency, unspecified
CPT/HCPCS: 36415; 72040; 80053; 80061; 82306; 82607; 84439; 84443; 84481; 85025

== ENCOUNTER 2025-05-07 09:48 | Day surgery (SDC) | payer MEDICAID, SELFPAY ==
--- NOTE | 2025-05-03 12:57 | PAT.ANESEVAL ---
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 When Was Last Pacemaker Check QUESTION #4 FULL TEXT: You/Your Family Experience fever (hyperthermia) with Anesthesia Last Oral Intake Last Oral intake: Last Oral Intake NPO since Meds taken in AM with sips of water? Meds patient instructed to take am of surgery PONV PONV - respiratory therapy manager: PONV - respiratory therapy manager Female HX of Motion Sickness HX of N/V After Surgery Non-Smoker Duration of Surgery greater than 60 minutes Number of Risk Factors PONV Score Height & Weight Height & Weight: Anesthesia: Height & Weight Height 5 ft 2 in 04/10/25 13:50 Respiratory Assessment Respiratory Assessment - respiratory therapy manager: Respiratory Tract Infection Hx - respiratory therapy manager Hx Respiratory Tract Infection STOP Sleep Apnea STOP Sleep Apnea - respiratory therapy manager: STOP Sleep Apnea - respiratory therapy manager Hx Hypertension No 01/14/25 12:56 Hx Sleep Apnea No 12/04/24 11:50 CPAP BIPAP Do you snore loudly (louder than talking or can be heard Do you often feel tired/ fatigued/ sleepy during daytime? Has anyone observed you stop breathing during sleep? STOP Results QUESTION #5 FULL TEXT : Do you snore loudly (louder than talking or can be heard through closed doors)? Tobacco Use History Tobacco Use History - respiratory therapy manager: Tobacco Use History - respiratory therapy manager Tobacco Use Smoking Status Never smoker 12/04/24 11:50 Hx Tobacco Use No 12/04/24 11:50 Years Smoking Packs Smoked per Day Smoking Cessation Date was within the last 15 years Hx Smoking Cessation Date Hx Smoking Cessation Counseling Hematologic Medial History Hematologic Hx - respiratory therapy manager: Hematologic Medical Hx - rn clinical documentation specialist Hx of Blood Transfusion Hx of Transfusion in last 3 Months Date of Last Transfusion (if within last 3 months) Ever experience any problems with transfusion(s)? Specify any problems Hx of Preganancy in last 3 Months Nurse Filling Out Transfusion & Questions: Date: Time: Patient unable to answer at this time (ie. confused, unrespo /Reproduction History /Reproductive History - respiratory therapy manager: /Reproductive Hx- respiratory therapy manager Hx Now Gestational Age (in weeks): EDC: Hx Hx Para Hx Section SAB No 12/04/24 11:50 PFSH Medical History Upper abdominal pain Vitamin D deficiency Hyperlipidemia Cervical cancer screening History of colon polyps Flank pain Elevated WBC count Low TSH level Frequent headaches Neck pain Colon cancer screening History of abnormality of cervix Breast cancer screening Ectopic Heart murmur Thyroid disease Stroke GERD (gastroesophageal reflux disease) Migraines Breast lump Bleeding disorder Bone fracture Hypothyroidism DDD (degenerative disc disease), cervical Rheumatoid arthritis Former smoker COPD (chronic obstructive pulmonary disease) PTSD (post-traumatic stress disorder) Anxiety Depression Home Medications ?Medication ?Instructions ?Recorded ?Last Taken ?Type clonazepam 1 mg tablet 1 mg PO 4X/DAY PRN anxiety 06/20/23 Unknown History turmeric 100 mg-glenn 150 1 cap PO DAILY 06/20/23 Unknown History mg-olive 50 mg-oreg 150 mg-capryl capsule hydroxyzine pamoate 50 mg capsule 50 mg PO TID PRN anxiety 01/09/24 Unknown History cholecalciferol (vitamin D3) 25 25 mcg PO DAILY #90 caps 09/27/24 Unknown Rx mcg (1,000 unit) capsule albuterol sulfate 90 mcg/actuation 2 puff inhalation Q6H PRN 12/04/24 Unknown Rx aerosol inhaler shortness of breath or wheezing #8.5 grams multivitamin with folic acid 400 1 tab PO DAILY #90 tabs 12/04/24 Unknown Rx mcg tablet (Thera) omeprazole 40 mg capsule,delayed 40 mg PO DAILY #90 caps 12/04/24 Unknown Rx release levothyroxine 88 mcg tablet 88 mcg PO DAILY #90 tabs 04/01/25 Unknown Rx melatonin 10 mg capsule 10 mg PO HS #90 caps 04/01/25 Unknown Rx meloxicam 7.5 mg tablet 7.5 mg PO DAILY #90 tabs 04/01/25 Unknown Rx ondansetron 4 mg disintegrating 4 mg PO Q6H PRN nausea and 04/01/25 Unknown Rx tablet vomiting #12 tabs vitamin B complex 1 tab PO DAILY #90 tabs 04/01/25 Unknown Rx acyclovir 400 mg tablet 400 mg PO PRN PRN COLD SORES #30 04/04/25 Unknown Rx tabs omega 2-jxu-uli-fish oil 1,200 mg 1 cap PO DAILY 05/03/25 Unknown History (144 mg-216 mg) capsule (Fish Oil) Allergy/AdvReac Type Severity Reaction Status Date / Time amitriptyline Allergy Rash Verified 05/03/25 11:36 cigarette smoke AdvReac Upset Verified 05/03/25 11:36 Stomach perfume AdvReac Other Verified 05/03/25 11:36 Phenylpiperazine AdvReac PT UNABLE Verified 05/03/25 11:36 Antidepressant TO RESPOND-NEEDS F/U Tetracyclic Antidepressants AdvReac PT UNABLE Verified 05/03/25 11:36 TO RESPOND-NEEDS F/U Tricyclic Antidepressants AdvReac PT UNABLE Verified 05/03/25 11:36 and Tricy TO RESPOND-NEEDS F/U Family History Other Alcoholism Arthritis Cancer Colon cancer High cholesterol Mental disorder Parkinsons Surgical History H/O skin graft Social History Smoking Status: Never smoker substance use type: does not use Audit: Pertinent Findings Pertinent Findings EKG Perinent findings: 04/05/2024. Sinus rhythm 104 bpm otherwise normal EKG Recommendation Anesthesia Recommendation Anesthesia recommendation: OPTIMIZED for anesthesia
[2025-05-07] VITALS (8 sets, daily range): BP systolic 93–117; BP diastolic 63–87; PULSE 67–80; RESP 16–18; TEMP 36.4–36.9; O2SAT 95–98; BMI 22.1
--- NOTE | 2025-05-07 10:10 | PCM.HP.BLA ---
History and Physical Date of Admission: 05/07/25 Intake Vital Signs 12/04/2510:50 04/10/2513:50 Height 5 ft 2 in 5 ft 2 in Weight: 116 lb BMI 21.2 BP 103/62 Blood Pressure Location Rt brachial Position Sitting Respiration 17 Pulse 79 Pulse Source Monitor Pulse Oximetry (%) 98 Oxygen Delivery Method room air Intake Visit Reasons: Gastroesophageal reflux disease (GERD) Chief Complaint: gerd/abdominal pain/bloatin Is patient in pain?: No Allergies amitriptyline Allergy (Verified 04/10/25 13:51) Rashcigarette smoke Adverse Reaction (Verified 04/10/25 13:51) Upset Stomachperfume Adverse Reaction (Verified 04/10/25 13:51) OtherPhenylpiperazine Antidepressant Adverse Reaction (Verified 04/10/25 13:51) PT UNABLE TO RESPOND-NEEDS F/UTetracyclic Antidepressants Adverse Reaction (Verified 04/10/25 13:51) PT UNABLE TO RESPOND-NEEDS F/UTricyclic Antidepressants and Tricy Adverse Reaction (Verified 04/10/25 13:51) PT UNABLE TO RESPOND-NEEDS F/U Medications ?Medication ?Instructions ?Recorded ?Confirmed ?Type clonazepam 1 mg tablet 1 mg PO 4X/DAY PRN anxiety 06/20/23 04/10/25 History turmeric 100 mg-glenn 150 1 cap PO DAILY 06/20/23 04/10/25 History mg-olive 50 mg-oreg 150 mg-capryl capsule hydroxyzine pamoate 50 mg capsule 50 mg PO TID PRN anxiety 01/09/24 04/10/25 History cholecalciferol (vitamin D3) 25 25 mcg PO DAILY #90 caps 09/27/24 04/10/25 Rx mcg (1,000 unit) capsule albuterol sulfate 90 mcg/actuation 2 puff inhalation Q6H PRN 12/04/24 04/10/25 Rx aerosol inhaler shortness of breath or wheezing #8.5 grams multivitamin with folic acid 400 1 tab PO DAILY #90 tabs 12/04/24 04/10/25 Rx mcg tablet (Thera) omeprazole 40 mg capsule,delayed 40 mg PO DAILY #90 caps 12/04/24 04/10/25 Rx release levothyroxine 88 mcg tablet 88 mcg PO DAILY #90 tabs 04/01/25 04/10/25 Rx melatonin 10 mg capsule 10 mg PO HS #90 caps 04/01/25 04/10/25 Rx meloxicam 7.5 mg tablet 7.5 mg PO DAILY #90 tabs 04/01/25 04/10/25 Rx ondansetron 4 mg disintegrating 4 mg PO Q6H PRN nausea and 04/01/25 04/10/25 Rx tablet vomiting #12 tabs vitamin B complex 1 tab PO DAILY #90 tabs 04/01/25 04/10/25 Rx acyclovir 400 mg tablet 400 mg PO PRN PRN COLD SORES #30 04/04/25 04/10/25 Rx tabs PFSH Medical History Upper abdominal pain Vitamin D deficiency Hyperlipidemia Cervical cancer screening History of colon polyps Flank pain Elevated WBC count Low TSH level Frequent headaches Neck pain Colon cancer screening History of abnormality of cervix Breast cancer screening Ectopic Heart murmur Thyroid disease Stroke GERD (gastroesophageal reflux disease) Migraines Breast lump Bleeding disorder Bone fracture Hypothyroidism DDD (degenerative disc disease), cervical Rheumatoid arthritis Former smoker COPD (chronic obstructive pulmonary disease) PTSD (post-traumatic stress disorder) Anxiety Depression Surgical History H/O skin graft Family History Other Alcoholism Arthritis Cancer Colon cancer High cholesterol Mental disorder Parkinsons Social History Smoking Status: Never smoker substance use type: does not use HPI HPI HPI: Patient is a 59-year-old female here for the epigastric pain. The patient reports that it is continuous. She reports that she has been on a PPI which help with the reflux but is not helping with her abdominal pain. ROS General General: Yes fatigue; No weight change, appetite, colon cancer, breast cancer or weakness HEENT HEENT: Yes difficulty swallowing and swollen glands; No eye injury, eye surgery or hoarseness Endo Endocrine: Yes thyroid disease; No diabetes mellitus, thyroid cancer, Hair loss, heat intolerance or cold intolerance Skin Skin: Yes changing moles; No rash Musc Musculoskeletal: Yes back problems, arthritis and rheumatoid arthritis; No gout or joint pain Cardio Cardiovascular: No murmur, pacemaker, heart disease, atrial fibrillation, high blood pressure, heart attack, heart stent, palpitations, shortness of breath with exertion or chest pain Psych Psychiatric: Yes anxiety; No depression or hearing voices Resp Respiratory: No shortness of breath, Yes sleep apnea, Yes cough, Yes COPD, No asthma, No emphysema and No wheezing Gastro Gastrointestinal: Yes abdominal pain, Yes nausea or vomiting, No diarrhea, No constipation, Yes blood in stool, Yes acid reflux, No hemorrhoids, Yes ulcers, No gallbladder problem and No black,tarry stools [place] Hematologic: No blood thinners, No blood disorders, No bleeding, No anemia and No blood clots Neuro Neurologic: No system reviewed and no additional complaints, except as documented, No as per HPI, No abnormal gait, No abnormal hearing, No abnormal movements, No abnormal speech, No behavioral changes, No burning sensations, No confusion, No convulsions, No disequilibrium, No dizziness, No localized weakness, No frequent falls, No headache(s), No lack of coordination, No loss of vision, No memory loss, No numbness, No other visual disturbances, No radicular pain, No restless legs, No sensory deficit, No syncope, No tingling, No tremor(s), No weakness and No other Exam Const General: cooperative Orientation: alert and oriented x3 HENMT Head: normal to inspection Neck Neck: normal visual inspection and full ROM Chest Chest palpation & inspection: normal inspection of the chest Resp Effort & Inspection: normal respiratory effort Auscultation: clear to auscultation bilaterally Cardio Rate: regular rate Rhythm: regular rhythm GI Inspection: non-distended Palpation: soft and nontender Skin General: no rashes or lesions noted Neuro General: patient alert and patient oriented x3 Extrem General: full ROM Psych Appearance: grossly normal Mental Status: mental status grossly normal Assessment and Plan Assessment and Plan (1) GERD (gastroesophageal reflux disease): Status: Acute Plan: The patient is having epigastric pain which she is concerned for stomach issues. She would like an EGD to evaluate. I discussed this with her in detail. I explained endoscopy in detail to the patient. I explained the risks including but not limited to stroke or heart attack with anesthesia, perforation of the GI tract, bleeding, infection. I explained that any of these could necessitate further emergency surgery. The patient understands and all questions were answered sufficiently. The patient wishes to proceed with procedure. Shahid Fontaine MD Pager: [facility] [address] [place] [address], [address] [place] [address] Office: I have examined the patient and the H&P has been reviewed. There are no clinical changes since date of exam.
--- NOTE | 2025-05-07 10:49 | PCM.PRE.AN2 ---
ASA Classification* ASA Classification ASA Classification: 2 (ACTIVE schizophrenic. RA, Thyroid, PTSD, depression, GERD) Assessment & Plan Anesthesia* Anesthesia Assessment Anesthesia Assessment: Discussed sedation and/or anesthesia options, risks, benefits, and alternatives with patient/parents/legal guardian/POA. Questions invited. The patient/parents/legal guardian/POA seems to understand and agrees to proceed with anesthesia plan. Reviewed the physical assessment, medical history, allergy history and patient home medications list prior to surgery/procedure/anesthetic and documented any changes. Performed airway and anesthesia risk assessments. Anesthesia Type Anesthesia Type: General History Source History Obtained from:: Patient and Chart Anesthesia Focused Assessment* Temperature: 98.4 F Pulse Rate: 80 Blood Pressure: 117/87 Respiratory Rate: 18 Pulse Ox: 98 Oxygen Delivery Method: Room Air Airway Assessment Mouth opens: >3 cm Mallampati Score: II Teeth Condition: Dentures Neck Range of motion (ROM): Full ROM Labs Anesthesia Preop lab: CBC WBC 11.4 K/mm3 (4.4-11.0) H 03/25/25 14:18 03/25/25 RBC 4.46 M/mm3 (4.2-5.4) 03/25/25 14:18 03/25/25 Hgb 13.9 g/dL (12.0-15.0) 03/25/25 14:18 03/25/25 Hct 40.8 % (37-47) 03/25/25 14:18 03/25/25 Plt Count 420 K/mm3 (150-450) 03/25/25 14:18 03/25/25 CHEMISTRY Potassium 3.7 mmol/L (3.3-5.1) 03/25/25 14:18 03/25/25 Sodium 139 mmol/L (133-145) 03/25/25 14:18 03/25/25 Magnesium 2.2 mg/dL (1.6-2.6) 07/04/24 14:16 07/04/24 BUN 14 mg/dL (4-19) 03/25/25 14:18 03/25/25 Creatinine 0.80 mg/dL (0.70-1.20) 03/25/25 14:18 03/25/25 Glucose 122 mg/dL (70-99) H 03/25/25 14:18 03/25/25 TSH 8.460 uIU/mL (0.300-4.200) H 03/25/25 14:18 03/25/25 COAG Pre-Assessment Diagnosis/Proposed Procedure Planned Operative Procedure(s): EGD Anesthesia History 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 When Was Last Pacemaker Check QUESTION #4 FULL TEXT: You/Your Family Experience fever (hyperthermia) with Anesthesia Last Oral Intake Last Oral intake: Last Oral Intake NPO since 00:00 05/07/25 10:44 Meds taken in AM with sips of No 05/07/25 10:44 water? Meds patient instructed to take am of surgery PONV PONV - construction technician: PONV - construction technician Female Yes 05/07/25 10:39 HX of Motion Sickness Yes 05/07/25 10:39 HX of N/V After Surgery No 05/07/25 10:39 Non-Smoker Yes 05/07/25 10:39 Duration of Surgery greater No 05/07/25 10:39 than 60 minutes Number of Risk Factors 3 05/07/25 10:39 PONV Score Moderate Risk 05/07/25 10:39 Height & Weight Height & Weight: Anesthesia: Height & Weight Height 5 ft 2 in 05/07/25 10:44 Weight: 55 kg 05/07/25 10:44 Body Mass Index (BMI) 22.1 05/07/25 10:44 Respiratory Assessment Respiratory Assessment - construction technician: Respiratory Tract Infection Hx - construction technician Hx Respiratory Tract Infection No 05/07/25 10:39 STOP Sleep Apnea STOP Sleep Apnea - construction technician: STOP Sleep Apnea - construction technician Hx Hypertension No 05/07/25 10:39 Hx Sleep Apnea No 05/07/25 10:39 CPAP BIPAP Do you snore loudly (louder No 05/07/25 10:39 than talking or can be heard Do you often feel tired/ Yes 05/07/25 10:39 fatigued/ sleepy during daytime? Has anyone observed you stop No 05/07/25 10:39 breathing during sleep? STOP Results Negative 05/07/25 10:39 QUESTION #5 FULL TEXT : Do you snore loudly (louder than talking or can be heard through closed doors)? Tobacco Use History Tobacco Use History - construction technician: Tobacco Use History - construction technician Tobacco Use Smoking Status Never smoker 05/07/25 10:39 Hx Tobacco Use No 05/07/25 10:39 Years Smoking Packs Smoked per Day Smoking Cessation Date was within the last 15 years Hx Smoking Cessation Date Hx Smoking Cessation Counseling Hematologic Medial History Hematologic Hx - construction technician: Hematologic Medical Hx - patient carrier Hx of Blood Transfusion No 05/07/25 10:39 Hx of Transfusion in last 3 No 05/07/25 10:39 Months Date of Last Transfusion (if within last 3 months) Ever experience any problems No 05/07/25 10:39 with transfusion(s)? Specify any problems Hx of Preganancy in last 3 No 05/07/25 10:39 Months Nurse Filling Out Transfusion [id number] 05/07/25 10:39 & Questions: Date: 05/07/25 05/07/25 10:39 Time: 10:42 05/07/25 10:39 Patient unable to answer at this time (ie. confused, unrespo /Reproduction History /Reproductive History - construction technician: /Reproductive Hx- construction technician Hx Now No 05/07/25 10:39 Gestational Age (in weeks): EDC: Hx Hx Para Hx Section SAB No 05/07/25 10:39 Active Medications Active Medications: Current Medications Generic Name Dose Route Start Last Admin Trade Name Freq PRN Reason Stop Dose Admin Lactated Ringer's 1,000 mls @ 15 mls/hr 05/07/25 10:15 IV .Q48H JEANETTE PFSH Medical History Upper abdominal pain Vitamin D deficiency Hyperlipidemia Cervical cancer screening History of colon polyps Flank pain Elevated WBC count Low TSH level Frequent headaches Neck pain Colon cancer screening History of abnormality of cervix Breast cancer screening Ectopic Heart murmur Thyroid disease Stroke GERD (gastroesophageal reflux disease) Migraines Breast lump Bleeding disorder Bone fracture Hypothyroidism DDD (degenerative disc disease), cervical Rheumatoid arthritis Former smoker COPD (chronic obstructive pulmonary disease) PTSD (post-traumatic stress disorder) Anxiety Depression Home Medications ?Medication ?Instructions ?Recorded ?Last Taken ?Type clonazepam 1 mg tablet 1 mg PO 4X/DAY PRN anxiety 06/20/23 Unknown History turmeric 100 mg-glenn 150 1 cap PO DAILY 06/20/23 Unknown History mg-olive 50 mg-oreg 150 mg-capryl capsule hydroxyzine pamoate 50 mg capsule 50 mg PO TID PRN anxiety 01/09/24 Unknown History cholecalciferol (vitamin D3) 25 25 mcg PO DAILY #90 caps 09/27/24 Unknown Rx mcg (1,000 unit) capsule albuterol sulfate 90 mcg/actuation 2 puff inhalation Q6H PRN 12/04/24 Unknown Rx aerosol inhaler shortness of breath or wheezing #8.5 grams multivitamin with folic acid 400 1 tab PO DAILY #90 tabs 12/04/24 Unknown Rx mcg tablet (Thera) omeprazole 40 mg capsule,delayed 40 mg PO DAILY #90 caps 12/04/24 Unknown Rx release levothyroxine 88 mcg tablet 88 mcg PO DAILY #90 tabs 04/01/25 Unknown Rx melatonin 10 mg capsule 10 mg PO HS #90 caps 04/01/25 Unknown Rx meloxicam 7.5 mg tablet 7.5 mg PO DAILY #90 tabs 04/01/25 Unknown Rx ondansetron 4 mg disintegrating 4 mg PO Q6H PRN nausea and 04/01/25 05/03/25 Rx tablet vomiting #12 tabs vitamin B complex 1 tab PO DAILY #90 tabs 04/01/25 Unknown Rx acyclovir 400 mg tablet 400 mg PO PRN PRN COLD SORES #30 04/04/25 Unknown Rx tabs omega 7-gkf-iex-fish oil 1,200 mg 1 cap PO DAILY 05/03/25 Unknown History (144 mg-216 mg) capsule (Fish Oil) Allergy/AdvReac Type Severity Reaction Status Date / Time amitriptyline Allergy Rash Verified 05/07/25 10:37 cigarette smoke AdvReac Upset Verified 05/07/25 10:37 Stomach perfume AdvReac Other Verified 05/07/25 10:37 Phenylpiperazine AdvReac PT UNABLE Verified 05/07/25 10:37 Antidepressant TO RESPOND-NEEDS F/U Tetracyclic Antidepressants AdvReac PT UNABLE Verified 05/07/25 10:37 TO RESPOND-NEEDS F/U Tricyclic Antidepressants AdvReac PT UNABLE Verified 05/07/25 10:37 and Tricy TO RESPOND-NEEDS F/U Family History Other Alcoholism Arthritis Cancer Colon cancer High cholesterol Mental disorder Parkinsons Surgical History H/O skin graft Social History Smoking Status: Never smoker substance use type: does not use Review of Systems (Anesthesia) ROS Narrative System reviewed and no additional complaints, except as documented. Physical Exam Const alert, oriented x3 and average body habitus Resp normal respiratory effort, normal air movement and clear to auscultation bilaterally Cardio regular rate, regular rhythm, no murmurs and diaphoretic
[2025-05-07] MEDS: Lactated Ringers 1,000 ML 15 ML IV (10:50)
--- NOTE | 2025-05-07 11:05 | OP.EGD_ITS ---
Patient Name: Tianna Mays Procedure Date: 05/07/2025 10:20 AM Date of : 1965 Age: 59 Procedure: Upper GI endoscopy Indications: Epigastric abdominal pain Providers: Shahid Fontaine MD Referring MD: Jasmyn Phillips Medicines: Propofol per Anesthesia Patient Profile: This is a 59 year old female. Refer to note in patient chart for documentation of history and physical. Complications: No immediate complications. Procedure: Pre-Anesthesia Assessment: - Prior to the procedure, a History and Physical was performed, and patient medications and allergies were reviewed. The patient's tolerance of previous anesthesia was also reviewed. The risks and benefits of the procedure and the sedation options and risks were discussed with the patient. All questions were answered, and informed consent was obtained. Prior Anticoagulants: The patient has taken no anticoagulant or antiplatelet agents. After reviewing the risks and benefits, the patient was deemed in satisfactory condition to undergo the procedure. After obtaining informed consent, the endoscope was passed under direct vision. Throughout the procedure, the patient's blood pressure, pulse, and oxygen saturations were monitored continuously. The gastroscope was introduced through the mouth, and advanced to the third part of duodenum. The upper GI endoscopy was accomplished without difficulty. The patient tolerated the procedure well. Scope In: 11:00:51 AM Scope Out: 11:03:10 AM Total Procedure Duration Time 0 hours 2 minutes 19 seconds Findings: The esophagus was normal. The stomach was normal. The examined duodenum was normal. Impression: - Normal esophagus. - Normal stomach. - Normal examined duodenum. - No specimens collected. Recommendation: - Discharge patient to home. - Resume previous diet. - Continue present medications. Procedure Code(s): --- Professional --- 91438, Esophagogastroduodenoscopy, flexible, transoral; diagnostic, including collection of specimen(s) by brushing or washing, when performed (separate procedure) Diagnosis Code(s): --- Professional --- R10.13, Epigastric pain CPT copyright 2021 [employer]. All rights reserved. The codes documented in this report are preliminary and upon industrial ecology technician review may be revised to meet current compliance requirements. Shahid Fontaine MD 05/07/2025 11:05:15 AM This report has been signed electronically. Number of Addenda: 0 Note Initiated On: 05/07/2025 10:20 AM
--- NOTE | 2025-05-07 11:06 | OP.CCLET_ITS ---
05/07/2025 Jasmyn Phillips [facility] [address] [place] [address] Re : Upper GI endoscopy procedure for Tiannanadeem Sultanaws Dear Dr. Phillips This procedure was performed on Wednesday, May 07, 2025. My impressions and recommendations are as follows: Impressions : - Normal esophagus. - Normal stomach. - Normal examined duodenum. - No specimens collected. Recommendations : - Discharge patient to home. - Resume previous diet. - Continue present medications. My findings are described in the full procedure note, which is enclosed. If I can be of further assistance, please feel free to contact me at Doctor phone number(s): , Work: . Sincerely, Shahid Fontaine MD 05/07/2025 11:05:15 AM This report has been signed electronically.
--- NOTE | 2025-05-07 11:12 | PCM.POST.ANE ---
Anesthesia: Postop Eval I Current Vital Signs Temperature: 97.7 F Pulse Rate: 67 Blood Pressure: 105/72 Respiratory Rate: 16 Pulse Ox: 97 Oxygen Delivery Method: Room Air Assessment Airway patent: Yes Spontaneous unlabored respirations: Yes Mental status: Asleep nausea: No Vomiting: No Anesthesia Complication: No Fluid Hydration Crystalloid volume administer (ml): 300 Total IV fluid infused: 300 Progress Note Anesthesia document: Postop Eval 1 completed: Yes
--- NOTE | 2025-05-07 11:53 | SUR.PHASEII ---
Phase 2: Patient sharing information during discharge process. Exhibiting paranoid conversations/ thoughts. Patient agrees to discharge instructions.
--- NOTE | 2025-05-07 18:34 | PCM.POSTANE2 ---
Anesthesia Postop Eval I Sum Postop Eval Completion status Anesthesia document: Postop Eval 1 completed: Yes Anesthesia Postop Eval I Summary Anesthesia Postop Eval I Summary: Anesthesia Postop Eval I: Assessment Summary Airway patent Yes 05/07/25 11:12 [email or web address] Spontaneous unlabored Yes 05/07/25 11:12 [email or web address] respirations Mental status Asleep 05/07/25 11:12 [email or web address] nausea No 05/07/25 11:12 [email or web address] Vomiting No 05/07/25 11:12 [email or web address] Anesthesia Postop Eval I: Fluid Summary Crystalloid volume administer 300 05/07/25 11:12 [email or web address] (ml) Colloids volume administered ( ml) Blood Product volume administered (ml) Total IV fluid infused 300 05/07/25 11:12 [email or web address] Anesthesia Postop Eval I: Summary Notes Anesthesia Complication No 05/07/25 11:12 [email or web address] Anesthesia Complication Comment: Post-operative progress note Anesthesia: Postop Eval II Evaluation Mental status: Awake Pain Level: 0 nausea: No Vomiting: No Complications Anesthesia Complication: No
== END 2025-05-07 11:59 | disposition home or self-care (01) ==
LOC: EN 09:51 → AC 09:53
PROVIDERS: PCP Internal Medicine; Referring Provider Internal Medicine; Visit Provider Surgery
PROC: 0DJ08ZZ Inspection of Upper Intestinal Tract, Via Natural or Artificial Opening Endoscopic (ICD-10-PCS; CPT 43235; principal; 2025-05-07 10:55)
DX: R10.13 Epigastric pain (principal); J44.9 Chronic obstructive pulmonary disease, unspecified; K21.9 Gastro-esophageal reflux disease without esophagitis; E78.5 Hyperlipidemia, unspecified; E03.9 Hypothyroidism, unspecified; Z86.0100 Personal history of colon polyps, unspecified; Z86.73 Personal history of transient ischemic attack (TIA), and cerebral infarction without residual deficits; R53.83 Other fatigue
CPT/HCPCS: 43235; 36415; 84439; 84443; 84481; J2405

== ENCOUNTER → 2025-05-07 | Outpatient (CLI) | payer MEDICAID, SELFPAY ==
[2025-05-07 13:46] LABS: Free T3 2.1 pg/mL (2.18-3.98)
[2025-05-10 09:08] LABS: Arsenic 7245 3 ug/L (0-9); Lead, Blood 1.1 ug/dL (0.0-3.4); Mercury, Blood 85324 < 1.0 ug/L (0.0-14.9)
== END | disposition home or self-care (01) ==
LOC: LAB 12:05
PROVIDERS: PCP Internal Medicine; Referring Provider Internal Medicine; Visit Provider Internal Medicine
DX: E03.9 Hypothyroidism, unspecified (principal)
CPT/HCPCS: 36415; 84439; 84443; 84481

== ENCOUNTER 2025-06-24 23:56 | Emergency (ER) | payer MEDICAID, SELFPAY ==
[2025-06-24 23:57] VITALS: BP 135/94; PULSE 72; RESP 16; TEMP 36.5; O2SAT 100; BMI 22.1
--- OUTSIDE RECORDS SUMMARY | 2025-06-25 00:32 | XMS RPT_ITS | CCD ---
Author Organization [facility] Care Team Providers Care Cartography Teacher Name Role Phone Dr. Dandy Albarado Chi Primary Care Provider [phone] Dr. Jasmyn Phillips Attending Provider Dr. Jasmyn Phillips Primary Care Provider Dr. Jasmyn Phillips Attending Provider [phone] Dr. Jasmyn Phillips Primary Care Provider Dr. Jasmyn Phillips Attending Provider [phone] Dandy Albarado Chi Primary Care Provider [phone] Dr. Jasmyn Phillips Primary Care Provider Dr. Jasmyn Phillips Attending Provider [phone] Jasmyn Phillips MD Primary Care Provider [phone] Dr. Jasmyn Phillips MD Attending Provider Dr. Jasmyn Phillips MD Referring Provider Travis MICHELLE, Dr. High Attending Provider Travis MICHELLE, Dr. High Referring Provider [phone] Minal MICHELLE, Dr. Key Attending Provider Minal MICHELLE, Dr. Key Other Provider Jasmyn Phillips Attending Unavailable Jasmyn Phillips Referring Unavailable Jasmyn Phillips Primary Care Unavailable Lennox Robles Referring Unavailable Lennox Robles Attending Unavailable Jasmyn Phillips Primary Care Unavailable Jasmyn Phillips Attending Unavailable Jasmyn Phillips Referring Unavailable Jasmyn Phillips Primary Care Unavailable Jacqueline, Jasmyn Primary Care Unavailable Jacqueline, Jasmyn Attending Unavailable Jacqueline, Jasmyn Referring Unavailable Jacqueline, Jasmyn Attending Unavailable Jacqueline, Jasmyn Referring Unavailable Jacqueline, Jasmyn Primary Care Unavailable Calabretta, Shahid Attending Unavailable Jacqueline, Jasmyn Primary Care Unavailable Jacqueline, Jasmyn Referring Unavailable Calabretta, Shahid Attending Unavailable Jacqueline, Jasmyn Primary Care Unavailable Jacqueline, Jasmyn Referring Unavailable Jacqueline, Jasmyn Primary Care Unavailable Jacqueline, Jasmyn Attending Unavailable Rhys Fontaineony Consulting Unavailable Calabretta, Shahid Attending Unavailable Jacqueline, Jasmyn Referring Unavailable Jacqueline, Jasmyn Primary Care Unavailable Jacqueline, Jasmyn Primary Care Unavailable Jacqueline, Jasmyn Attending Unavailable Wanek, Ronnie A Attending Unavailable Jacqueline, Jasmyn Referring Unavailable Jacqueline, Jasmyn Primary Care Unavailable Wanek, Ronnie A Attending Unavailable Jacqueline, Jasmyn Referring Unavailable Jacqueline, Jasmyn Primary Care Unavailable Jacqueline, Jasmyn Attending Unavailable Jacqueline, Jasmyn Primary Care Unavailable Allergies Allergy Classification Reported Allergen(s) Allergy Type Date of Onset Reaction(s) Facility (17 sources) Amitriptyline Drug Allergy 03-07-20 19 Other: See Comments [facility] (16 sources) cigarette smoke; Translations: [cigarette smoke] Propensity to adverse reactions 09-13-20 22 Upset Stomach [facility] (4 sources) perfumes Allergy to substance 09-13-20 22 Other [facility] (4 sources) anitdepressants Propensity to adverse reactions 09-13-20 22 Other [facility] (11 sources) traZODone Drug Allergy 03-21-20 23 PT UNABLE TO RESPOND-NEEDS F/U [facility] (12 sources) perfume; Translations: [perfume] Propensity to adverse reactions 03-21-20 23 Other [facility] Comment on above: headache (11 sources) Tetracyclic Antidepressants Propensity to adverse reactions 03-21-20 23 PT UNABLE TO RESPOND-NEEDS F/U [facility] (11 sources) Tricyclic Antidepressants and Tricy Propensity to adverse reactions 03-21-20 23 PT UNABLE TO RESPOND-NEEDS F/U [facility] (5 sources) muscle relaxers Allergy to substance 03-21-20 23 other [facility] (1 source) Amitriptyline Drug Allergy 05-07-20 [facility] (1 source) Tricyclic Antidepressants and Tricy Drug allergy (disorder) 05-07-20 [facility] (1 source) Tetracyclic Antidepressants Drug allergy (disorder) 05-07-20 [facility] (1 source) Phenylpiperazine Antidepressant Drug allergy (disorder) 05-07-20 [facility] Medications Current Medications Medication Drug Class(es) Dates Sig (Normalized) Sig (Original) acyclovir 400 mg oral tablet (20 sources) Herpesvirus Nucleoside Analog DNA Polymerase Inhibitor, Herpes Simplex Virus Nucleoside Analog DNA Polymerase Inhibitor, Herpes Zoster Virus Nucleoside Analog DNA Polymerase Inhibitor Start: 12-04-2024 End: 04-04-2025 Acyclovir 400 mg tablet Active 400 mg PO NEEDED as needed for COLD SORES April 04, 2025 9:58am Take two tabs at the onset of cold sores, then one tab 8 hours later. Start: 03-21-2023 End: 04-05-2024 Acyclovir 400 mg tablet Disc ontinued 400 mg PO NEEDED as needed for COLD SORES March 21, 2023 11:35am April 05, 2024 12:00pm Take two tabs at the onset of cold sores, then one tab 8 hours later. Start: 08-07-2017 End: 03-21-2023 Acyclovir 400 MG tablet Disc ontinued 400 mg PO NEEDED as needed for COLD SORES August 07, 2017 12:00am March 21, 2023 11:38am clonazePAM 1 mg oral tablet (20 sources) Benzodiazepine Start: 06-20-2023 take 1 tablet by mouth four times daily as needed for anxiety Clonazepam 1 mg tablet Active 1 mg PO 4 TIMES DAILY as needed for anxiety June 20, 2023 12:00am Start: 06-09-2022 End: 09-13-2022 take 1 tablet by mouth four times daily Clonazepam (Klonopin) 1 mg tablet Discontinued 1 mg PO .QID June 09, 2022 12:00am September 13, 2022 11:21am Start: 03-08-2019 clonazePAM (KL ONOPIN) 2 mg tablet Indications: Anxiety state Take no tablets of Klonopin during the day and only take 2 tablets prior to bedtime 60 tablet 0 03/08/2019 Active Comment on above: Take no tablets of K lonopin during the day and only take 2 tablets prior to bedtime hydrOXYzine pamoate 50 mg oral capsule (20 sources) Antihistamine Start: take 1 capsule by mouth three times daily as needed for anxiety Hydroxyzine Pamoate 50 mg capsule Active 50 mg PO THREE TIMES A DAY as needed for anxiety January 09, 2024 1:00am Start: 06-27-2019 End: 06-20-2023 take 1 capsule by mouth at bedtime as needed Hydroxyzine Pamoate 50 mg capsule Discontinued 50 mg PO AT BEDTIME as needed for stress September 13, 2022 11:30am June 20, 2023 2:45pm Multivitamin With Folic Acid (Thera) 400 MCG tablet (16 sources) Start: 08-07-2017 Multivitamin W ith Folic Acid (Thera) 400 MCG tablet Active 1 EACH PO DAILY August 07, 2017 6:14pm Start: 08-07-2017 End: 09-13-2022 Multivitamin With Folic Acid (Thera) 400 MCG tablet Discontinued 1 NMA PO DAILY August 07, 2017 12:00am September 13, 2022 11:35am Start: 08-07-2017 End: 09-13-2022 Multivitamin With Folic Acid (Thera) 400 MCG tablet Discontinued 1 EACH PO DAILY August 06, 2017 11:00pm September 13, 2022 10:35am Start: 08-07-2017 End: 09-13-2022 Multivitamin With Folic Acid (Thera) 400 MCG tablet Discontinued 1 EACH PO DAILY August 07, 2017 12:00am September 13, 2022 11:35am Multivitamin With Folic Acid (Thera) 400 mcg tablet (20 sources) Start: 12-04-2024 Multivitamin W ith Folic Acid (Thera) 400 mcg tablet Active 1 {tbl} PO DAILY December 04, 2024 11:37am Start: 09-27-2024 End: 12-04-2024 Multivitamin With Folic Acid (Thera) 400 mcg tablet Discontinued 1 {tbl} PO DAILY September 27, 2024 2:59pm December 04, 2024 11:37am Start: 07-17-2024 End: 09-27-2024 Multivitamin With Folic Acid (Thera) 400 mcg tablet Discontinued 1 {tbl} PO DAILY July 17, 2024 5:41pm September 27, 2024 2:59pm Start: 09-13-2022 End: 07-17-2024 Multivitamin With Folic Acid (Thera) 400 mcg tablet Discontinued 1 {tbl} PO DAILY September 13, 2022 11:30am July 17, 2024 5:41pm Start: 09-13-2022 take 1 tablet by marnie th once daily Multivitamin With Folic Acid (Thera) 400 mcg tablet Active 1 TABLET PO DAILY September 13, 2022 10:30am Start: 09-13-2022 take 1 tablet by marnie th once daily Multivitamin With Folic Acid (Thera) 400 mcg tablet Active 1 TABLET PO DAILY September 13, 2022 11:30am [place] 8-Oma-Otr-Fish Oil (Fish Oil) 1,200 (144-216) mg capsule (2 sources) Start: 05-03-2025 [place] 3-Dha-Ep a-Fish Oil (Fish Oil) 1,200 (144-216) mg capsule Active 1 NMA PO DAILY May 03, 2025 12:00am Mnmjqtl-Lole-Lweyc-Oreg- Capryl (10 sources) Start: 06-20-2023 take 1 capsule by mouth once daily Lbdmrht-Ncjt-Aaimg-Oreg- Capryl Active 1 CAP PO DAILY June 20, 2023 1:38pm Start: 06-20-2023 take 1 capsule by mouth once daily Oeknuvi-Jrdd-Mnrhz-Oreg-Capryl Active 1 CAP PO DAILY June 20, 2023 2:38pm Start: 06-09-2022 End: 06-20-2023 Vdsvhxx-Gdsv-Jfngz-Oreg-Capr yl Discontinued CAP PO June 08, 2022 11:00pm June 20, 2023 1:40pm Start: 06-09-2022 End: 06-20-2023 Ogidvzo-Qcdm-Kqnqe-Oreg-Capr yl Discontinued CAP PO June 09, 2022 12:00am June 20, 2023 2:40pm Start: 06-09-2022 Yuhctzq-Wafn-O nwed-Rbnl-Kvmykd Active CAP PO June 08, 2022 11:00pm Start: 06-09-2022 Jrzdngs-Bzmv-V xvdi-Nmah-Uoqctz Active CAP PO June 09, 2022 12:00am Annsvfbn-Tmqq-Cequx-Oreg-Cap ry (4 sources) Start: 06-20-2023 take 1 capsule by mouth once daily Kxiimtem-Nqzr-Lacjj-Oreg-Capry Active 1 CAP PO DAILY June 20, 2023 1:38pm Start: 06-09-2022 End: 06-20-2023 Zbrdthah-Frxx-Ldpzs-Oreg-Cap ry Discontinued CAP PO June 08, 2022 11:00pm June 20, 2023 1:40pm Nfnmwmzy-Oisg-Wxjlz-Oreg-Cap ry 100 mg-150 mg- 50 mg-150 mg capsule (10 sources) Start: 06-20-2023 take 1 capsule by mouth once daily Tfztsamp-Swfc-Avcln-Oreg-Capry 100 mg-150 mg- 50 mg-150 mg capsule Active 1 NMA PO DAILY June 20, 2023 2:38pm Start: 06-09-2022 End: 06-20-2023 Ngziyhoz-Onhg-Ttyfd-Oreg-Cap ry 100 mg-150 mg- 50 mg-150 mg capsule Discontinued NMA PO June 09, 2022 12:00am June 20, 2023 2:40pm Vitamin B Complex (10 sources) Start: 06-09-2022 take 1 tablet by marnie th once daily Vitamin B Complex Active 1 TABLET PO DAILY June 08, 2022 11:00pm Start: 06-09-2022 take 1 tablet by mouth once da teresa Vitamin B Complex Active 1 TABLET PO DAILY June 09, 2022 12:00am Vitamin B Complex tablet (20 sources) Start: 04-01-2025 Vitamin B Comp josiah tablet Active 1 {tbl} PO DAILY April 01, 2025 2:46pm Start: 12-04-2024 End: 04-01-2025 Vitamin B Complex tablet Dis continued 1 {tbl} PO DAILY December 04, 2024 11:37am April 01, 2025 2:47pm Start: 12-04-2024 Vitamin B Comp josiah tablet Active 1 {tbl} PO DAILY December 04, 2024 11:37am Start: 09-27-2024 End: 12-04-2024 Vitamin B Complex tablet Dis continued 1 {tbl} PO DAILY September 27, 2024 2:59pm December 04, 2024 11:37am Start: 07-17-2024 End: 09-27-2024 Vitamin B Complex tablet Dis continued 1 {tbl} PO DAILY July 17, 2024 5:41pm September 27, 2024 2:59pm Start: 06-09-2022 End: 07-17-2024 Vitamin B Complex tablet Dis continued 1 {tbl} PO DAILY June 09, 2022 12:00am July 17, 2024 5:41pm Completed/Discontinued Medications Medication Drug Class(es) Dates Sig (Normalized) Sig (Original) [id number] 200 actuat albuterol 0.09 mg/actuat metered dose inhaler (20 sources) beta2-Adrenergic Agonist Start: 09-13-2022 End: 12-04-2024 Albuterol Sulfate 90 mcg/actuation HFA aerosol inhaler Discontinued 2 NMA INHALATION EVERY 6 HOURS as needed for shortness of breath or wheezing 8.5 September 27, 2024 2:58pm December 04, 2024 11:37am Start: 09-13-2022 End: 03-21-2023 take 1 puff(s) by inhalation every six hours Albuterol Sulfate Active 2 PUFF INHALATION EVERY 6 HOURS 8.5 March 21, 2023 10:34am Start: 04-28-2020 take 2 puff(s) by in halation every six hours as needed albuterol HFA (PROVENTIL HFA, VENTOLIN HFA) 90 mcg/actuation inhaler Inhale 2 Puffs as instructed every 6 hours as needed. 2 Inhaler 3 04/28/2020 Active Comment on above: Inhale 2 Puffs as in structed every 6 hours as needed. atorvastatin 10 mg oral tablet (17 sources) HMG-CoA Reductase Inhibitor Start: 2018 End: 2021 take 1 tablet by mouth at bedtime Atorvastatin 10 MG tablet Discontinued 10 mg PO AT BEDTIME June 27, 2019 12:00am September 13, 2022 11:20am Comment on above: Take 1 tablet by marnie th once daily. cholecalciferol 0.025 mg oral capsule (20 sources) Vitamin D Start: 2021 End: 2023 take 1 capsule by mouth once daily Cholecalciferol (Vitamin D3) 25 mcg (1,000 unit) capsule Discontinued 25 ug PO DAILY 90 July 17, 2024 5:40pm September 27, 2024 2:59pm DULoxetine 30 mg delayed release oral capsule (7 sources) Serotonin and Norepinephrine Reuptake Inhibitor Start: 2023 End: 2023 take 1 capsule by mouth once daily Duloxetine 30 mg capsule,delayed release(DR/EC) Discontinued 30 mg PO DAILY January 09, 2024 1:00am April 05, 2024 12:01pm Estrogens, Conjugated (SKILLED NURSING) / medroxyPROGESTERone (17 sources) Progestin, Estrogen Start: 2019 PREMPRO 0.625-2.5 mg per tablet TAKE 1 TABLET ONCE DAILY 90 tablet 0 07/03/2020 Active Start: 06-27-2019 take 1 tablet by marnie th once daily Conj Estrog-Medroxyprogest Sunday Active 1 TABLET PO DAILY June 27, 2019 10:23pm Start: 06-27-2019 End: 06-09-2022 Conj Estrog-Medroxyprogest A ce 1 TAB tablet Discontinued 1 {tbl} PO DAILY June 27, 2019 12:00am June 09, 2022 1:32pm Start: 06-27-2019 End: 06-09-2022 take 1 tablet by mouth once daily Conj Estrog-Medroxyprogest Sunday Discontinued 1 TABLET PO DAILY June 26, 2019 11:00pm June 09, 2022 12:32pm Start: 06-27-2019 End: 06-09-2022 take 1 tablet by mouth once daily Conj Estrog-Medroxyprogest Sunday Discontinued 1 TABLET PO DAILY June 27, 2019 12:00am June 09, 2022 1:32pm Comment on above: TAKE 1 TABLET ONCE D AILY fluticasone (1 source) Corticosteroid Start: 11-08-20 take 1 puff(s) by inhalation once daily, then take 1 puff(s) by inhalation once daily fluticasone furoate (ARNUITY ELLIPTA) 100 mcg/actuation dsdv Inhale 1 Puff as instructed once daily. Inhale one puff once daily. DO NOT CLICK OPEN UNTIL READY FOR DOSE 1 Inhaler 0 11/08/2019 Active Comment on above: Inhale 1 Puff as ins tructed once daily. Inhale one puff once daily. DO NOT CLICK OPEN UNTIL READY FOR DOSE gabapentin 100 mg oral capsule (20 sources) Anti-epileptic Agent Start: 09-13-20 End: 03-21-20 take 3 capsules by mouth three times daily Gabapentin 100 mg capsule Discontinued 300 mg PO THREE TIMES A DAY September 13, 2022 11:29am March 21, 2023 11:05am Start: 09-13-2022 End: 03-21-2023 take 300 mg by mouth three times daily Gabapentin Discontinued 300 MG PO THREE TIMES A DAY September 13, 2022 10:29am March 21, 2023 10:05am Start: 06-09-2022 End: 09-13-2022 take 1 capsule by mouth three times daily Gabapentin 100 mg capsule Discontinued 100 mg PO THREE TIMES A DAY June 09, 2022 12:00am September 13, 2022 11:03am 12 hr guaiFENesin 600 mg extended release oral tablet (1 source) Start: 01-08-2020 take 1 tablet by mouth twice daily as needed guaiFENesin (MUCINEX) 600 mg 12 hr tablet Take 1 tablet by mouth twice daily. As needed for sinus 60 tablet 5 01/08/2020 Active Comment on above: Take 1 tablet by marnie twice daily. As needed for sinus levothyroxine sodium 0.088 mg oral tablet (20 sources) l-Thyroxine Start: 01-09-2024 End: 04-01-2025 take 1 tablet by mouth once daily Levothyroxine 88 mcg tablet Discontinued 88 ug PO DAILY December 04, 2024 11:36am April 01, 2025 2:47pm Start: 12-06-2019 End: 01-09-2024 take 1 tablet by mouth once daily Levothyroxine 75 mcg tablet Discontinued 75 ug PO DAILY December 22, 2022 1:55pm January 09, 2024 2:44pm Start: 08-07-2017 End: 09-13-2022 Levothyroxine 50 mcg tablet Discontinued 75 ug PO DAILY September 13, 2022 11:30am September 13, 2022 12:04pm Start: 08-07-2017 End: 09-13-2022 take 75 ug by mouth once daily Levothyroxine Discontin ued 75 MCG PO DAILY September 13, 2022 10:30am September 13, 2022 11:04am Comment on above: [facility] mel[facility] 10 mg oral capsule (20 sources) Start: 06-09-20 End: 04-01-20 take 1 capsule by mouth at bedtime Melatonin 10 mg capsule Discontinued 10 mg PO BEDTIME December 04, 2024 11:36am April 01, 2025 2:47pm meloxicam 7.5 mg oral tablet (20 sources) Nonsteroidal Anti-inflammatory Drug Start: 01-09-20 End: 04-01-20 take 1 tablet by mouth once daily Meloxicam 7.5 mg tablet Discontinued 7.5 mg PO DAILY December 04, 2024 11:36am April 01, 2025 2:47pm mirtazapine 7.5 mg oral tablet (15 sources) Start: 06-09-20 End: 09-13-20 take 1 tablet by mouth at bedtime Mirtazapine 7.5 mg tablet Discontinued 7.5 mg PO AT BEDTIME June 09, 2022 12:00am September 13, 2022 11:26am multivitamin with folic acid (THERA) 400 mcg (1 source) Start: 02-06-20 take 1 tablet by mouth once daily multivitamin with folic acid (THERA) 400 mcg Take 1 tablet by mouth once daily. 90 tablet 3 02/06/2020 Active Comment on above: Take 1 tablet by [facility] once daily. omeprazole 40 mg delayed release oral capsule (20 sources) Proton Pump Inhibitor Start: 01-08-20 End: 12-04-19 take 1 capsule by mouth once daily Omeprazole 40 mg capsule,delayed release(DR/EC) Discontinued 40 mg PO DAILY September 27, 2024 2:59pm December 04, 2024 11:37am Comment on above: Take 1 capsule by mo [facility] once daily. ondansetron 4 mg disintegrating oral tablet (20 sources) Serotonin-3 Receptor Antagonist Start: 05-28-20 End: 04-01-20 take 1 tablet by mouth every six hours as needed for nausea and vomiting Ondansetron 4 mg tablet,disintegrati ng Discontinued 4 mg PO EVERY 6 HOURS as needed for nausea and vomiting December 04, 2024 11:37am April 01, 2025 2:47pm QUEtiapine 100 mg oral tablet (17 sources) Atypical Antipsychotic Start: 08-08-20 19 take 3 tablets by mouth once daily at bedtime QUEtiapine (SEROQUEL) 100 mg tablet Indications: Anxiety state , SIOBHAN (generalized anxiety disorder) Take 3 tablets by mouth daily at bedtime. 90 tablet 0 08/08/2019 Active Start: 08-07-2017 End: 06-09-2022 Quetiapine (Seroquel) 200 MG tablet Discontinued 300 mg PO AT BEDTIME August 07, 2017 12:00am June 09, 2022 1:32pm Comment on above: Take 3 tablets by mo [facility] daily at bedtime. raNITIdine 150 mg oral tablet (16 sources) Histamine-2 Receptor Antagonist Start: 9 End: 2 take 1 tablet by mouth once daily Ranitidine Hcl 150 MG tablet Discontinued 150 mg PO DAILY June 27, 2019 12:00am June 09, 2022 1:33pm rosuvastatin calcium 40 mg oral tablet (20 sources) HMG-CoA Reductase Inhibitor Start: 3 End: 4 take 1 tablet by mouth once daily Rosuvastatin 40 mg tablet Discontinued 40 mg PO DAILY March 21, 2023 11:35am January 09, 2024 12:34pm sucralfate 1000 mg oral tablet (10 sources) Aluminum Complex Start: 4 End: 4 take 1 tablet by mouth at bedtime Sucralfate (Carafate) 1 gram tablet Discontinued 1 g PO before meals and at bedtime July 17, 2024 5:41pm September 27, 2024 2:59pm valACYclovir 1000 mg oral tablet (1 source) Herpesvirus Nucleoside Analog DNA Polymerase Inhibitor, Herpes Simplex Virus Nucleoside Analog DNA Polymerase Inhibitor, Herpes Zoster Virus Nucleoside Analog DNA Polymerase Inhibitor Start: 0 take 1 tablet by mouth once daily valACYclovir (VALTREX) 1 gram Take 1 tablet by mouth once daily. 30 tablet 2 05/09/2020 Active Comment on above: Take 1 tablet by marnie once daily. Problems Active Problems Problem Classification Problem Date Documented Date Episodic/Chronic Abdominal pain (20 sources) Flank pain; Translations: [Unspecified abdominal pain] Onset: 07-26-2024 01-27-2023 Episodic Anxiety disorders (20 sources) Anxiety; Translations: [Anxiety disorder, unspecified] Onset: 06-06-2016 Chronic Cardiac dysrhythmias (16 sources) Palpitations; Translations: [Palpitations] 10-20-2021 Episodic Chronic obstructive pulmonary disease and bronchiectasis (1 source) Mild chronic obstructive pulmonary disease; Translations: [Chronic obstructive pulmonary disease, unspecified] Onset: 07-23-2019 07-23-2019 Chronic Diseases of white blood cells (15 sources) Leukocytosis; Translations: [Elevated white blood cell count, unspecified] 09-15-2022 Chronic Disorders of lipid metabolism (17 sources) Hyperlipidemia; Translations: [Hyperlipidemia, unspecified] Onset: 08-21-2010 03-21-2023 Chronic Esophageal disorders (10 sources) Gastroesophageal reflux disease without esophagitis; Translations: [Gastro-esophageal reflux disease without esophagitis] Onset: 07-13-2019 07-13-2019 Chronic Headache; including migraine (16 sources) Migraine; Translations: [Migraine, unspecified, not intractable, without status migrainosus] 06-29-2019 Chronic Headache; including migraine (16 sources) Frequent headache; Translations: [Frequent headaches] Onset: 07-13-2019 09-13-2022 Episodic Mood disorders (4 sources) Depressive disorder; Translations: [Other specified depressive episodes] Onset: 12-09-2005 07-13-2019 Chronic Nausea and vomiting (10 sources) Nausea; Translations: [Nausea] 05-28-2023 Episodic Nonspecific chest pain (20 sources) Atypical chest pain; Translations: [Other chest pain] 06-29-2019 Episodic Nutritional deficiencies (13 sources) Vitamin D deficiency; Translations: [Vitamin D deficiency, unspecified] 03-21-2023 Chronic Other and unspecified benign neoplasm (12 sources) History of polyp of colon; Translations: [Personal history of colonic polyps] Onset: 02-27-2018 03-21-2023 Episodic Other female genital disorders (15 sources) H/O: Disorder; Translations: [Personal history of other diseases of the female genital tract] 09-13-2022 Episodic Residual codes; unclassified (5 sources) Restlessness and agitation; Translations: [Restlessness and agitation] 04-13-2024 Chronic Residual codes; unclassified (6 sources) Hallucinations; Translations: [Hallucinations, unspecified] 01-17-2024 Episodic Rheumatoid arthritis and related disease (7 sources) Rheumatoid arthritis; Translations: [Rheumatoid arthritis, unspecified] 01-09-2024 Chronic Schizophrenia and other psychotic disorders (17 sources) Paranoid disorder; Translations: [Delusional disorders] 01-17-2024 Chronic Schizophrenia and other psychotic disorders (8 sources) Psychogenic paranoid psychosis; 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] 11-02-2023 Episodic Spondylosis; intervertebral disc disorders; other back problems (2 sources) Degeneration of lumbar intervertebral disc; Translations: [Other intervertebral disc degeneration, lumbar region] Onset: 06-29-2013 07-13-2019 Chronic Spondylosis; intervertebral disc disorders; other back problems (20 sources) Neck pain; Translations: [Cervicalgia] 09-13-2022 Episodic Substance-related disorders (6 sources) History of clinical finding in subject; Translations: [History of marijuana use] 01-17-2024 Chronic Thyroid disorders (20 sources) Hypothyroidism; Translations: [Hypothyroidism, unspecified] Onset: 03-08-2007 Chronic Past or Other Problems Problem Classification Problem Date Documented Da te Episodic/Chronic Diabetes mellitus without complication (1 source) High hemoglobin A1c level; Translations: [Other abnormal glucose] Onset: 12-14-2019 12-14-2019 Episodic Other connective tissue disease (1 source) Fibromyalgia; Translations: [Fibromyalgia] Onset: 02-22-2018 07-13-2019 Episodic Other screening for suspected conditions (not mental disorders or infectious disease) (20 sources) Patient encounter status; Translations: [Encounter for screening for malignant neoplasm of colon] Onset: 01-08-2019 Episodic Residual codes; unclassified (1 source) Insomnia; [...] Results Test Name Value Interpretation Reference Range Facility WC Heavy Metals Bld Profileo n 05-10-2025 ARSENIC,BLOOD 3 ug/L Normal 0-9 [facility] Comment on above: Order Comment: Test( s) [id number], Blood; [id number], Blood; [id number], Blood; [id number], Bloodwas developed and its performance characteristicsdetermined by [employer]. It has not been cleared or approvedby the Food and Drug Administration. Result Comment: Dete ction Limit = 1 Performed By: #### L 500.4050, L501.5200, L506.0400, L100.0100, L501.82823, L501.9520, L506.1000 #### [facility] [address] [place], [address] CADMIUM BLOOD < 0.5 Normal 0.0-1.2 [facility] Comment on above: Order Comment: Test( s) [id number], Blood; [id number], Blood; [id number], Blood; [id number], Bloodwas developed and its performance characteristicsdetermined by [facility]. It has not been cleared or approvedby the Food and Drug Administration. Result Comment: Envi ronmental Exposure: Nonsmokers 0.3 - 1.2 Smokers 0.6 - 3.9 Occupational Exposure: OSHA Cadmium Std 5.0 CATHRYN 5.0 Detection Limit = 0.5 Performed at: [address] [id number] Citizenship Teacher: Bartolome Sandoval MD, Phone: [phone] Performed By: #### L 500.4050, L501.5200, L506.0400, L100.0100, L501.03016, L501.9520, L506.1000 #### [facility] [address] [facility] [place], [address] LEAD, BLOOD 1.1 ug/dL Normal 0.0-3.4 [facility] Comment on above: Order Comment: Test( s) 679082-Zhnh, Blood; 284870-Puivnwn, Blood; 593464-Ulsmpht, Blood; 545713-Vxlefiy, Bloodwas developed and its performance characteristicsdetermined by [employer]. It has not been cleared or approvedby the Food and Drug Administration. Result Comment: Test ing performed by Inductively coupled plasma/Mass Spectrometry. Environmental Exposure: WHO Recommendation <5.0 Occupational Exposure: OSHA Lead Std 40.0 CATHRYN 30.0 Detection Limit = 1.0 Performed By: #### L 500.4050, L501.5200, L506.0400, L100.0100, L501.60593, L501.9520, L506.1000 #### [facility] [address] [place], [place], [id number] MERCURY,BLOOD < 1.0 Normal 0.0-14.9 [facility] Comment on above: Order Comment: Test( s) 406459-Rsrh, Blood; 105885-Znsleqs, Blood; 960232-Uvtuwqx, Blood; 567202-Xwbnpkz, Bloodwas developed and its performance characteristicsdetermined by [employer]. It has not been cleared or approvedby the Food and Drug Administration. Result Comment: Dete ction Limit = 1.0 Performed By: #### L 500.4050, L501.5200, L506.0400, L100.0100, L501.98659, L501.9520, L506.1000 #### [facility] [address] [facility] [place], [place], [id number] Blood cadmium measurement (m ass/volume)Ordered By: Jasmyn Phillips on 05-07-2025 Cadmium (Bld) [Mass/Vol] < 0.5 ug/L 0.0-1.2 [facility] Comment on above: Environmental Exposu re: Nonsmokers 0.3 - 1.2 Smokers 0.6 - 3.9 Occupational Exposure: OSHA Cadmium Std 5.0 CATHRYN 5.0 Detection Limit = 0.5Performed at: [address] [id number] Director: Bartolome Sandoval MD, Phone: [phone] Blood mercury measurement (m ass/volume)Ordered By: Jasmyn Phillips on 05-07-2025 Mercury (Bld) [Mass/Vol] < 1.0 ug/L 0.0-14.9 [facility] Comment on above: Detection Limit = 1. 0 EGD Reporton 05-07-2025 EGD Report [facility] Medical Records Department [address] [place] [address] EGD Report MR#: [id number] Acct: [id number] Name: TIANNA MAYS Rep #: [id number] : 1965 59 From: Shahid Fontaine MD PCP: Dr. Jasmyn Phillips MD Status:REG [facility] Patient Name: Tianna Mays Procedure Date: 05/07/2025 10:20 AM Date of : 1965 Age: 59 Procedure: Upper GI endoscopy Indications: Epigastric abdominal pain Providers: Shahid Fontaine MD Referring MD: Jasmyn Phillips Medicines: Propofol per Anesthesia Patient Profile: This is a 59 year old female. Refer to note in patient chart for documentation of history and physical. Complications: No immediate complications. Procedure: Pre-Anesthesia Assessment: - Prior to the procedure, a History and Physical was performed, and patient medications and allergies were reviewed. The patient's tolerance of previous anesthesia was also reviewed. The risks and benefits of the procedure and the sedation options and risks were discussed with the patient. All questions were answered, and informed consent was obtained. Prior Anticoagulants: The patient has taken no anticoagulant or antiplatelet agents. After reviewing the risks and benefits, the patient was deemed in satisfactory condition to undergo the procedure. After obtaining informed consent, the endoscope was passed under direct vision. Throughout the procedure, the patient's blood pressure, pulse, and oxygen saturations were monitored continuously. The gastroscope was introduced through the mouth, and advanced to the third part of duodenum. The upper GI endoscopy was accomplished without difficulty. The patient tolerated the procedure well. Scope In: 11:00:51 AM Scope Out: 11:03:10 AM Total Procedure Duration Time 0 hours 2 minutes 19 seconds Findings: The esophagus was normal. The stomach was normal. The examined duodenum was normal. Impression: - Normal esophagus. - Normal stomach. - Normal examined duodenum. - No specimens collected. Recommendation: - Discharge patient to home. - Resume previous diet. - Continue present medications. Procedure Code(s): --- Professional --- 59552, Esophagogastroduodenoscop y, flexible, transoral; diagnostic, including collection of specimen(s) by brushing or washing, when performed (separate procedure) Diagnosis Code(s): --- Professional --- R10.13, Epigastric pain CPT copyright 2021 [employer]. All rights reserved. The codes documented in this report are preliminary and upon pig casting machine operator review may be revised to meet current compliance requirements. Shahid Fontaine MD 05/07/2025 11:05:15 AM This report has been signed electronically. Number of Addenda: 0 Note Initiated On: 05/07/2025 10:20 AM 05/07/25 1105 Date Shahid Fontaine MD Cosigner Signature: Date (if indicated) CC: Dr. Shahid Fontaine MD; Dr. Jasmyn Phillips MD Date Dictated: 05/07/25 1020 Date Transcribed: Hot Room Attendant: NILESH Signed Normal [facility] Free T3on 05-07-2025 Free T3 [Mass/Vol] 2.1 pg/mL Low 2.18-3.98 [facility] Comment on above: Order Comment: PT KED ME NOT TO BRUISE HER, I EXPLAINED TO PT I DONT HAVECONTROL ON IF YOU BRUISE OR NOT IT CAN HAPPEN TO ANYONE.-SWRIGHT Performed By: #### L 501.9520, L3100.6427, L506.0400, L501.60181 ####[facility] [id number] [place], [address] Free [id number] By: Jasmyn brannon on 05-07-2025 Free T3 [Mass/Vol] 2.1 pg/mL Low 2.18-3.98 [facility] MR/POSTOP.ANEon 05-07-2025 MR/POSTOP.[facility] Medical Records Department [address] [place] [address] Anesthesia Postop Eval I 05/07/25 1112 MR#: [id number] Acct: [id number] Name: TIANNA MAYS Rep #: [id number] : 1965 59 From: Delroy Marquez PCP: Dr. Jasmyn Phillips MD Status:[facility] Y Race: C Location: [place] [address] Anesthesia: Postop Eval I Current Vital Signs Temperature: 97.7 F Pulse Rate: 67 Blood Pressure: 105/72 Respiratory Rate: 16 Pulse Ox: 97 Oxygen Delivery Method: Room Air Assessment Airway patent: Yes Spontaneous unlabored respirations: Yes Mental status: Asleep nausea: No Vomiting: No Anesthesia Complication: No Fluid Hydration Crystalloid volume administer (ml): 300 Total IV fluid infused: 300 Progress Note Anesthesia document: Postop Eval 1 completed: Yes 05/07/25 111 Date Delroy Montesinos Signature: Date CC: Signed Normal [facility] MR/[id number] 05-07-2025 /POST[address] Medical Records Department [address] [place] [address] Anesthesia Postop Eval II 05/07/25 1834 MR#: [id number] Acct: [id number] Name: TIANNA MAYS Rep #: [id number] : 1965 59 From: Aubrey Duran MD PCP: Dr. Jasmyn Phillips MD Status:[facility] Y Race: C Location: [place] Anesthesia Postop Eval I Sum Postop Eval Completion status Anesthesia document: Postop Eval 1 completed: Yes Anesthesia Postop Eval I Summary Anesthesia Postop Eval I Summary: Anesthesia Postop Eval I: Assessment Summary Airway patent Yes 05/07/25 11:12 [email or web address] Spontaneous unlabored Yes 05/07/25 11:12 [email or web address] respirations Mental status Asleep 05/07/25 11:12 [email or web address] nausea No 05/07/25 11:12 [email or web address] Vomiting No 05/07/25 11:12 [email or web address] Anesthesia Postop Eval I: Fluid Summary Crystalloid volume administer 300 05/07/25 11:12 [email or web address] (ml) Colloids volume administered ( ml) Blood Product volume administered (ml) Total IV fluid infused 300 05/07/25 11:12 [email or web address] Anesthesia Postop Eval I: Summary Notes Anesthesia Complication No 05/07/25 11:12 [email or web address] Anesthesia Complication Comment: Post-operative progress note Anesthesia: Postop Eval II Evaluation Mental status: Awake Pain Level: 0 nausea: No Vomiting: No Complications Anesthesia Complication: No 05/07/251834 Date Aubrey Duran MD Cosigner Signature: Date CC: Signed Normal [facility] T4 Free Directon 05-07-2025 T4 FREE DIRECT 1.10 ng/dL Normal 0.76-1.46 [facility] Comment on above: Order Comment: PT KED ME NOT TO BRUISE HER, I EXPLAINED TO PT I DONT HAVECONTROL ON IF YOU BRUISE OR NOT IT CAN HAPPEN TO ANYONE.-SWRIGHT Performed By: #### L 501.9520, L3100.6427, L506.0400, L501.29152 ####[facility] [id number] [place], [address] T4 freeOrdered By: Jasmyn brannon on 05-07-2025 Free T4 [Mass/Vol] 1.10 ng/dL 0.76-1.46 [facility] TSH DL <= 0.005 mIU/L QnOrde red By: Jasmyn Phillips on 05-07-2025 TSH Qn 1.740 uIU/mL 0.300-4.20 0 [facility] Thyroid Stim Hormone (TSH)on 05-07-2025 TSH 1.740 uIU/mL Normal 0.300-4.20 0 [facility] Comment on above: Order Comment: PT KED ME NOT TO BRUISE HER, I EXPLAINED TO PT I DONT HAVECONTROL ON IF YOU BRUISE OR NOT IT CAN HAPPEN TO ANYONE.-SWRIGHT Performed By: #### L 501.9520, L3100.6427, L506.0400, L501.12474 ####[facility] [address] [place], [address] Whole blood lead detectionOr dered By: Jasmyn Phillips on 05-07-2025 Lead Ql (Bld) 1.1 ug/dL 0.0-3.4 [facility] Comment on above: Testing performed by Inductively coupled plasma/MassSpectrometry. Environmental Exposure: WHO Recommendation <5.0 Occupational Exposure: OSHA Lead Std 40.0 CATHRYN 30.0 Detection Limit = 1.0 MR/PATPRATIMAon 05-03-2025 MR/PAT.ANE [facility] Medical Records Department [address] [place] [address] PAT - Anesthesia 05/03/25 1257 MR#: [id number] Acct: [id number] Name: TIANNA MAYS Rep #: [id number] : 1965 59 From: Pedro Norton MD PCP: Dr. 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 When Was Last Pacemaker Check QUESTION #4 FULL TEXT: You/Your Family Experience fever (hyperthermia) with Anesthesia Last Oral Intake Last Oral intake: Last Oral Intake NPO since Meds taken in AM with sips of water? Meds patient instructed to take am of surgery PONV PONV - ground wood supervisor: PONV - ground wood supervisor Female HX of Motion Sickness HX of N/V After Surgery Non-Smoker Duration of Surgery greater than 60 minutes Number of Risk Factors PONV Score Height Weight Height Weight: Anesthesia: Height Weight Height 5 ft 2 in 04/10/25 13:50 Respiratory Assessment Respiratory Assessment - ground wood supervisor: Respiratory Tract Infection Hx - ground wood supervisor Hx Respiratory Tract Infection STOP Sleep Apnea STOP Sleep Apnea - ground wood supervisor: STOP Sleep Apnea - ground wood supervisor Hx Hypertension No 01/14/25 12:56 Hx Sleep Apnea No 12/04/24 11:50 CPAP BIPAP Do you snore loudly (louder than talking or can be heard Do you often feel tired/ fatigued/ sleepy during daytime? Has anyone observed you stop breathing during sleep? STOP Results QUESTION #5 FULL TEXT : Do you snore loudly (louder than talking or can be heard through closed doors)? 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 Specify any problems Hx of Preganancy in last 3 Months Nurse Filling Out Transfusion Questions: Date: Time: Patient unable to answer at this time (ie. confused, unrespo /Reproduction History /Reproductive History - ground wood supervisor: /Reproductive Hx- ground wood supervisor Hx Now Gestational Age (in weeks): EDC: Hx Hx Para Hx Section SAB No 12/04/24 11:50 PFSH Medical History Upper abdominal pain Vitamin D deficiency Hyperlipidemia Cervical cancer screening History of colon polyps Flank pain Elevated WBC count Low TSH level Frequent headaches Neck pain Colon cancer screening History of abnormality of cervix Breast cancer screening Ectopic Heart murmur Thyroid disease Stroke GERD (gastroesophageal reflux disease) Migraines Breast lump Bleeding disorder Bone fracture Hypothyroidism DDD (degenerative disc disease), cervical Rheumatoid arthritis Former smoker COPD (chronic obstructive pulmonary disease) PTSD (post-traumatic stress disorder) Anxiety Depression Home Medications ???Medication ???Instructions ???Recorded ???Last Taken ???Type clonazepam 1 mg tablet 1 mg PO 4X/DAY PRN anxiety 3 Unknown History turmeric 100 mg-glenn 150 1 cap PO DAILY 06/20/23 Unknown Hi story mg-olive 50 mg-oreg 150 mg-capryl capsule hydroxyzine pamoate 50 mg capsule 50 mg PO TID PRN anxiety 01/09/24 Unknown History cholecalciferol (vitamin D3) 25 25 mcg PO DAILY #90 caps 09/27/24 Unknown Rx mcg (1,000 unit) capsule albuterol sulfate 90 mcg/actuation 2 puff inhalation Q6H PRN Unknown Rx aerosol inhaler shortness of breath or wheezing #8.5 grams multivitamin with folic acid 400 1 tab PO DAILY #90 tabs 12/04/24 U nknown Rx mcg tablet (Thera) omeprazole 40 mg capsule,delayed 40 mg (more content not included)... Normal [facility] Surgery Visit Reporton 04-10 Surgery Visit Report [facility] [address] [place] [address]. [address] [place] [address] OFFICE VISIT Date of Service: 04/10/25 MR#: [id number] Acct: [id number] Name: TIANNA MAYS Rep #: [id number] : 1965 Provider: Dr. Shahid martinez MD Age/Sex: 59/F Location: [facility] Status: Signed Intake Vital Signs 12/04/24 11:50 04/10/25 13:50 Height 5 ft 2 in 5 ft 2 in Weight: 116 lb BMI 21.2 BP 103/62 Blood Pressure Location Rt brachial Position Sitting Respiration 17 Pulse 79 Pulse Source Monitor Pulse Oximetry (%) 98 Oxygen Delivery Method room air Intake Visit Reasons: Gastroesophageal reflux disease (GERD) Chief Complaint: gerd/abdominal pain/bloatin Is patient in pain?: No Allergies amitriptyline Allergy (Verified 04/10/25 13:51) Rash cigarette smoke Adverse Reaction (Verified 04/10/25 13:51) Upset Stomach perfume Adverse Reaction (Verified 04/10/25 13:51) Other Phenylpiperazine Antidepressant Adverse Reaction (Verified 04/10/25 13:51) PT UNABLE TO RESPOND-NEEDS F/U Tetracyclic Antidepressants Adverse Reaction (Verified 04/10/25 13:51) PT UNABLE TO RESPOND-NEEDS F/U Tricyclic Antidepressants and Tricy Adverse Reaction (Verified 04/10/25 13:51) PT UNABLE TO RESPOND-NEEDS F/U Medications ???Medication ???Instructions ???Recorded ???Confirmed ???Type clonazepam 1 mg tablet 1 mg PO 4X/DAY PRN anxiety 3 04/10/25 History turmeric 100 mg-glenn 150 1 cap PO DAILY 06/20/23 04/10/25 H istory mg-olive 50 mg-oreg 150 mg-capryl capsule hydroxyzine pamoate 50 mg capsule 50 mg PO TID PRN anxiety 01/09/24 04/10/25 History cholecalciferol (vitamin D3) 25 25 mcg PO DAILY #90 caps 09/27/24 04/10/25 Rx mcg (1,000 unit) capsule albuterol sulfate 90 mcg/actuation 2 puff inhalation Q6H PRN 04/10/25 Rx aerosol inhaler shortness of breath or wheezing #8.5 grams multivitamin with folic acid 400 1 tab PO DAILY #90 tabs 12/04/24 0 04/10/25 Rx mcg tablet (Thera) omeprazole 40 mg capsule,delayed 40 mg PO DAILY #90 caps 12/04/24 0 04/10/25 Rx release levothyroxine 88 mcg tablet 88 mcg PO DAILY #90 tabs 04/01/25 04/10/25 Rx melatonin 10 mg capsule 10 mg PO HS #90 caps 04/01/2503/22 Rx meloxicam 7.5 mg tablet 7.5 mg PO DAILY #90 tabs 04/01/25 04/10/25 Rx ondansetron 4 mg disintegrating 4 mg PO Q6H PRN nausea and 5 04/10/25 Rx tablet vomiting #12 tabs vitamin B complex 1 tab PO DAILY #90 tabs 04/01/25 0 04/10/25 Rx acyclovir 400 mg tablet 400 mg PO PRN PRN COLD SORES #30 0 04/04/25 04/10/25 Rx tabs PFSH Medical History Upper abdominal pain Vitamin D deficiency Hyperlipidemia Cervical cancer screening History of colon polyps Flank pain Elevated WBC count Low TSH level Frequent headaches Neck pain Colon cancer screening History of abnormality of cervix Breast cancer screening Ectopic Heart murmur Thyroid disease Stroke GERD (gastroesophageal reflux disease) Migraines Breast lump Bleeding disorder Bone fracture Hypothyroidism DDD (degenerative disc disease), cervical Rheumatoid arthritis Former smoker COPD (chronic obstructive pulmonary disease) PTSD (post-traumatic stress disorder) Anxiety Depression Surgical History H/O skin graft Family History Other Alcoholism Arthritis Cancer Colon cancer High cholesterol Mental disorder Parkinsons Social History Smoking Status: Never smoker substance use type: does not use HPI HPI HPI: Patient is a 59-year-old female here for the epigastric pain. The patient reports that it is continuous. She reports that she has been on a PPI which help with the reflux but is not helping with her abdominal pain. ROS General General: Yes fatigue; No weight change, appetite, colon cancer, breast cancer or weakness HEENT HEENT: Yes difficulty swallowing and swollen glands; No eye injury, eye surgery or hoarseness Endo Endocrine: Yes thyroid disease; No diabetes mellitus, thyroid cancer, Hair loss, heat intolerance or cold intolerance Skin Skin: Yes changing moles; No rash Musc Musculoskeletal: Yes back problems, arthritis and rheumatoid arthritis; No gout or joint pain Cardio Cardiovascular: No murmur, pacemaker, heart disease, atrial fibrillation, high blood pressure, heart attack, heart stent, palpitations, shortness of breath with exertion or chest pain Psych Psychiatric: Yes anxiety; No depression or hearing voices Resp Respiratory: No shortness of breath, Yes sleep apnea, Yes cough, Yes COPD, No asthma, N (more content not included)... Normal [facility] Absolute lymphocyte countOrd ered By: Jasmyn Phillips on 03-25-2025 Lymphocytes Auto (Unsp spec) [#/Vol] 3.30 10*3/uL 0.83-4.51 [facility] Absolute neutrophil countOrd ered By: Jasmyn Phillips on 03-25-2025 Neutrophils (Bld) [#/Vol] 7.1 10*3/uL 2.0-7.7 [facility] Anion gap in Serum or Plasma Ordered By: Jasmyn Phillips on 03-25-2025 Anion gap [Moles/Vol] 13 mmol/L 5- [facility] Automated lymphocyte count a s percentage of total leukocytesOrdered By: Jasmyn Phillips on 03-25-2025 Lymphocytes/100 WBC Auto (Unsp spec) 29.0 % - [facility] BUN/creatinine ratioOrdered By: Jasmyn Phillips on 03-25-2025 Urea nitrogen/Creatinine [Mass ratio] 17.8 mg/mg 10- [facility] Basophil percentageOrdered B y: Jasmyn Phillips on 03-25-2025 Basophils/100 WBC (Bld) 0.4 % 0-[address] [facility] Bilirubin, totalOrdered By: Jasmyn Phillips on 03-25-2025 Bilirubin [Mass/Vol] 0.16 mg/dL 0.00-1.30 [facility] CBC W/Diff, Automatedon Absolute Lymph 3.30 X10 3/uL Normal 0.83-4.51 [facility] Comment on above: Performed By: #### L 501.72327, L503.0106, L501.9520, L506.0400, L500.4100, L506.1001, L500.4050, L100.0100 #### [facility] [address] [place], [address] Absolute Neut 7.1 X10 3/uL Normal 2.0-7.7 [facility] Comment on above: Performed By: #### L 501.61369, L503.0106, L501.9520, L506.0400, L500.4100, L506.1001, L500.4050, L100.0100 #### [facility] [address] [place], [address] Basophils/100 WBC (Bld) 0.4 % Normal 0-[address] [facility] Comment on above: Performed By: #### L 501.96355, L503.0106, L501.9520, L506.0400, L500.4100, L506.1001, L500.4050, L100.0100 #### [facility] [address] [place], [address] Eosinophils/100 WBC (Bld) 0.4 % Normal 0-5 [facility] Comment on above: Performed By: #### L 501.11680, L503.0106, L501.9520, L506.0400, L500.4100, L506.1001, L500.4050, L100.0100 #### [facility] [address] [place], [address] Erythrocyte distribution width (RBC) [Ratio] 13.6 % Normal 11.6-14.6 [facility] Comment on above: Performed By: #### L 501.90754, L503.0106, L501.9520, L506.0400, L500.4100, L506.1001, L500.4050, L100.0100 #### [facility] [address] [place], [address] Hematocrit (Bld) [Volume fraction] 40.8 % Normal 37-47 [facility] Comment on above: Performed By: #### L 501.38011, L503.0106, L501.9520, L506.0400, L500.4100, L506.1001, L500.4050, L100.0100 #### [facility] [address] [place], [address] Hemoglobin (Bld) [Mass/Vol] 13.9 g/dL Normal 12.0-15.0 [facility] Comment on above: Performed By: #### L 501.40858, L503.0106, L501.9520, L506.0400, L500.4100, L506.1001, L500.4050, L100.0100 #### [facility] [address] [place], [address] IG% 0.300 Normal 0.0-0.9 [facility] Comment on above: Result Comment: IG% - Immature Granulocytes (promyelocytes, myelocytes and metamyelocytes) > 1% indicates that a LEFT SHIFT is Present. Performed By: #### L 501.91275, L503.0106, L501.9520, L506.0400, L500.4100, L506.1001, L500.4050, L100.0100 #### [facility] [address] [place], [address] Lymphocytes/100 WBC (Bld) 29.0 % Normal 19-41 [facility] Comment on above: Performed By: #### L 501.57295, L503.0106, L501.9520, L506.0400, L500.4100, L506.1001, L500.4050, L100.0100 #### [facility] [address] [place], [address] MCH (RBC) [Entitic mass] 31.2 pg Normal 27.0-32.0 [facility] Comment on above: Performed By: #### L 501.23267, L503.0106, L501.9520, L506.0400, L500.4100, L506.1001, L500.4050, L100.0100 #### [facility] [address] [place], [address] MCHC (RBC) [Mass/Vol] 34.1 g/dL Normal 32-36 [facility] Comment on above: Performed By: #### L 501.00122, L503.0106, L501.9520, L506.0400, L500.4100, L506.1001, L500.4050, L100.0100 #### [facility] [address] [place], [address] MCV (RBC) [Entitic vol] 91.5 fL Normal 81-[address] [facility] Comment on above: Performed By: #### L 501.83966, L503.0106, L501.9520, L506.0400, L500.4100, L506.1001, L500.4050, L100.0100 #### [facility] [address] [place], [address] Monocytes/100 WBC (Bld) 7.4 % Normal 0-[address] [facility] Comment on above: Performed By: #### L 501.07143, L503.0106, L501.9520, L506.0400, L500.4100, L506.1001, L500.4050, L100.0100 #### [facility] [address] [place], [place], [address] Neutrophils/100 WBC (Bld) 62.5 % Normal 47-70 [facility] Comment on above: Performed By: #### L 501.59226, L503.0106, L501.9520, L506.0400, L500.4100, L506.1001, L500.4050, L100.0100 #### [facility] Laboratory [address] [place], [address] Nucleated RBC (Bld) [#/Vol] 0 10*3/uL Normal 0-5 [facility] Comment on above: Performed By: #### L 501.70453, L503.0106, L501.9520, L506.0400, L500.4100, L506.1001, L500.4050, L100.0100 #### [facility] Laboratory [address] [place], [address] Platelet mean volume (Bld) [Entitic vol] 9.8 fL Normal 6.2-12.0 [facility] Comment on above: Performed By: #### L 501.53530, L503.0106, L501.9520, L506.0400, L500.4100, L506.1001, L500.4050, L100.0100 #### [facility] [address] [place], [address] Platelets (Bld) [#/Vol] 420 10*3/uL Normal 150-450 [facility] Comment on above: Performed By: #### L 501.46358, L503.0106, L501.9520, L506.0400, L500.4100, L506.1001, L500.4050, L100.0100 #### [facility] [address] [place], [address] RBC (Bld) [#/Vol] 4.46 10*6/uL Normal 4.2-5.4 [facility] Comment on above: Performed By: #### L 501.89676, L503.0106, L501.9520, L506.0400, L500.4100, L506.1001, L500.4050, L100.0100 #### [facility] [address] [place], [address] RDW SD 46.3 fl High 35.1-43.9 [facility] Comment on above: Performed By: #### L 501.81764, L503.0106, L501.9520, L506.0400, L500.4100, L506.1001, L500.4050, L100.0100 #### [facility] [address] [place], [address] WBC (Bld) [#/Vol] 11.4 10*3/uL High 4.4-11.0 [facility] Comment on above: Performed By: #### L 501.55613, L503.0106, L501.9520, L506.0400, L500.4100, L506.1001, L500.4050, L100.0100 #### [facility] [address] [facility] [place], [place], [address] Calculated very low density lipoprotein (VLDL) cholesterol measurementOrdered By: Jasmyn Phillips on 03-25-2025 Calculated very low density lipoprotein (VLDL) cholesterol measurement 41 mg/dL High 5-40 [facility] Carbon dioxide, total [Moles /volume] in Central venous bloodOrdered By: Jasmyn Phillips on 03-25-2025 CO2 [Moles/Vol] 23.5 mmol/L 21.0-32.0 [facility] Cerv Spine 2 or 3 Viewson Cerv Spine 2 or 3 Views [facility] Imaging Services [address] [place], [place] [address] Cerv Spine 2 or 3 Views MR#: [id number] Acct: [id number] Name: TIANNA MAYS Rep #: [id number] : 1965 F 59 From: Justus Pritchard MD PCP: Dr. Jasmyn Phillips MD Status: REG CLI Study: Cerv Spine 2 or 3 Views Date of Exam: 03/25/25 Exam# [id number] Ordering Dr: Jasmyn Phillips MD PROCEDURE: CERV SPINE 2 OR 3 VIEWS 03/25/2025 REASON FOR EXAM: SPONDYLOSIS WITHOUT MYELOPATHY OR RADICULOPATHY, CERVICAL REGION TECHNIQUE: 3 views of the cervical spine. COMPARISON: 08/29/2023 FINDINGS: The cervical spine is visualized on the lateral view from the skull base to T1. Straightening. No prevertebral soft tissue swelling. No fracture. Mild anterolisthesis C3 on C4 now seen. Moderate disc space narrowing C5-6 and severe at C6-7 again noted. There is appearance of disc space narrowing on the left side of C1-2 on the open-mouth odontoid view now seen. Visualized apices appear clear. RAD/Cerv Spine 2 or 3 Views IMPRESSION: Mild anterolisthesis C3 on C4 now seen. Moderate disc space narrowing C5-6 and severe at C6-7 again noted. There is appearance of disc space narrowing on the left side of C1-2 on the open-mouth odontoid view now seen. Reading Location: [id number] CC: Dr. Jasmyn Phillips MD Hot Room Attendant: Signed Normal [facility] Chloride assayOrdered By: Deborah Phillips on 03-25-2025 Chloride [Moles/Vol] 103 mmol/L 98-108 [facility] Comprehensive Metabolic Prof ilon 03-25-2025 Albumin [Mass/Vol] 4.4 g/dL Normal 3.4-4.8 [facility] Comment on above: Performed By: #### L 501.52108, L503.0106, L501.9520, L506.0400, L500.4100, L506.1001, L500.4050, L100.0100 ####[facility] [address] [place], [address] Albumin/Globulin [Mass ratio] 1.7 {ratio} Normal 0.9-2.4 [facility] Comment on above: Performed By: #### L 501.48080, L503.0106, L501.9520, L506.0400, L500.4100, L506.1001, L500.4050, L100.0100 ####[facility] [address] [place], [address] ALK PHOS 108 U/L High 35-104 [facility] Comment on above: Performed By: #### L 501.33976, L503.0106, L501.9520, L506.0400, L500.4100, L506.1001, L500.4050, L100.0100 ####[facility] [address] [place], [address] ALT [Catalytic activity/Vol] 13 U/L Normal <=34 [facility] Comment on above: Performed By: #### L 501.93191, L503.0106, L501.9520, L506.0400, L500.4100, L506.1001, L500.4050, L100.0100 ####[facility] [address] [place], [address] AST [Catalytic activity/Vol] 22 U/L Normal <=31 [facility] Comment on above: Performed By: #### L 501.02626, L503.0106, L501.9520, L506.0400, L500.4100, L506.1001, L500.4050, L100.0100 ####[facility] [address] [place], [place], [phone]) Bilirubin [Mass/Vol] 0.16 mg/dL Normal 0.00-1.30 [facility] Comment on above: Performed By: #### L 501.65245, L503.0106, L501.9520, L506.0400, L500.4100, L506.1001, L500.4050, L100.0100 ####[facility] [address] [place], [address] BUN/CRE 17.8 RATIO Normal 10-20 [facility] Comment on above: Performed By: #### L 501.52292, L503.0106, L501.9520, L506.0400, L500.4100, L506.1001, L500.4050, L100.0100 ####[facility] [address] [place], [address] Calcium [Mass/Vol] 9.6 mg/dL Normal 7.6-11.0 [facility] Comment on above: Performed By: #### L 501.49085, L503.0106, L501.9520, L506.0400, L500.4100, L506.1001, L500.4050, L100.0100 ####[facility] [address] [place], [address] Chloride [Moles/Vol] 103 mmol/L Normal 98-108 [facility] Comment on above: Performed By: #### L 501.75735, L503.0106, L501.9520, L506.0400, L500.4100, L506.1001, L500.4050, L100.0100 ####[facility] [address] [place], [address] CO2 [Moles/Vol] 23.5 mmol/L Normal 21.0-32.0 [facility] Comment on above: Performed By: #### L 501.42250, L503.0106, L501.9520, L506.0400, L500.4100, L506.1001, L500.4050, L100.0100 ####[facility] [address] [place], [address] Creatinine [Mass/Vol] 0.80 mg/dL Normal 0.70-1.20 [facility] Comment on above: Performed By: #### L 501.59003, L503.0106, L501.9520, L506.0400, L500.4100, L506.1001, L500.4050, L100.0100 ####[facility] [address] [place], [address] GAP 13 Normal 5-15 [facility] Comment on above: Performed By: #### L 501.04173, L503.0106, L501.9520, L506.0400, L500.4100, L506.1001, L500.4050, L100.0100 ####[facility] [address] [place], [address] GFR/1.73 sq M.predicted among non-blacks MDRD (S/P/Bld) [Vol rate/Area] 84 mL/min/{1.73_m2} Normal >60 [facility] Comment on above: Result Comment: mL/m in/1.73m2 CKD-EPI Creatinine Equation (2020) Performed By: #### L 501.23017, L503.0106, L501.9520, L506.0400, L500.4100, L506.1001, L500.4050, L100.0100 ####[facility] [address] [place], [address] Globulin (S) [Mass/Vol] 2.7 g/dL Normal 2.2-4.2 [facility] Comment on above: Performed By: #### L 501.89796, L503.0106, L501.9520, L506.0400, L500.4100, L506.1001, L500.4050, L100.0100 ####[facility] [address] [place], [place], [phone] Glucose [Mass/Vol] 122 mg/dL High 70-99 [facility] Comment on above: Performed By: #### L 501.21011, L503.0106, L501.9520, L506.0400, L500.4100, L506.1001, L500.4050, L100.0100 ####[facility] [address] [place], [address] Potassium [Moles/Vol] 3.7 mmol/L Normal 3.3-5.1 [facility] Comment on above: Performed By: #### L 501.09637, L503.0106, L501.9520, L506.0400, L500.4100, L506.1001, L500.4050, L100.0100 ####[facility] [address] [place], [place], [phone] Sodium [Moles/Vol] 139 mmol/L Normal 133-145 [facility] Comment on above: Performed By: #### L 501.05672, L503.0106, L501.9520, L506.0400, L500.4100, L506.1001, L500.4050, L100.0100 ####[facility] [address] [place], [place], [phone] T PROT 7.1 g/dL Normal 5.9-8.4 [facility] Comment on above: Performed By: #### L 501.56591, L503.0106, L501.9520, L506.0400, L500.4100, L506.1001, L500.4050, L100.0100 ####[facility] [address] [place], [place], [phone] Urea nitrogen [Mass/Vol] 14 mg/dL Normal 4-19 [facility] Comment on above: Performed By: #### L 501.54238, L503.0106, L501.9520, L506.0400, L500.4100, L506.1001, L500.4050, L100.0100 ####[facility] [address] [place], [place], [phone] Eosinophil percentageOrdered By: Jasmyn Phillips on 03-25-2025 Eosinophils/100 WBC (Bld) 0.4 % 0-5 [facility] Erythrocyte distribution wid th ratioOrdered By: Jasmyn Phillips on 03-25-2025 Erythrocyte distribution width (RBC) [Ratio] 13.6 % 11.6-14.6 [facility] Erythrocyte distribution wid th standard deviationOrdered By: Jasmyn Phillips on 03-25-2025 Erythrocyte distribution width (RBC) [Ratio] 46.3 fl High 35.1-43.9 [facility] Free T3on 03-25-2025 Free T3 [Mass/Vol] 2.9 pg/mL Normal 2.18-3.98 [facility] Comment on above: Performed By: #### L 501.36955, L503.0106, L501.9520, L506.0400, L500.4100, L506.1001, L500.4050, L100.0100 ####[facility] [address] [place], [address] Free H2Wmikqhn By: Jasmyn brannon on 03-25-2025 Free T3 [Mass/Vol] 2.9 pg/mL 2.18-3.98 [facility] Glomerular filtration rate ( GFR) estimation/1.73 sq m using serum, plasma, or whole bOrdered By: Jasmyn Phillips on 03-25-2025 GFR/1.73 sq M.predicted among non-blacks MDRD (S/P/Bld) [Vol rate/Area] 84 mL/min/{1.73_m2} >60 [facility] Comment on above: mL/min/1.73m2 CKD-EP I Creatinine Equation (2020) Hematocrit Auto (Bld) [Volum e fraction]Ordered By: Jasmyn Phillips on 03-25-2025 Hematocrit (Bld) [Volume fraction] 40.8 % 37-47 [facility] Hemoglobin measurementOrdere d By: Jasmyn Phillips on 03-25-2025 Hemoglobin (Bld) [Mass/Vol] 13.9 g/dL 12.0-15.0 [facility] Immature granulocytes/100 WB C Auto (Bld)Ordered By: Jasmyn Phillips on 03-25-2025 Immature granulocytes/100 WBC (Bld) 0.300 % 0.0-0.9 [facility] Comment on above: IG% - Immature Granu locytes (promyelocytes, myelocytes and metamyelocytes) > 1% indicates that a LEFT SHIFT is Present. LDL calc ser/plasOrdered By: Jasmyn Phillips on 03-25-2025 Cholesterol in LDL [Mass/Vol] 143 mg/dL [facility] Comment on above: Bmpvhvjokd=525-520 m g/dL & Higher Sjkp=754 mg/dL or greater Laboratory - Chemistry and C hemistry - challengeOrdered By: Jasmyn Phillips on 03-25-2025 AST [Catalytic activity/Vol] 22 U/L <32 [facility] Lipid Profileon 03-25-2025 CHOL:HDL 4.21 Normal [facility] Comment on above: Performed By: #### L 501.68496, L503.0106, L501.9520, L506.0400, L500.4100, L506.1001, L500.4050, L100.0100 ####[facility] [address] [place], [address] Cholesterol [Mass/Vol] 242 mg/dL High <=200 [facility] Comment on above: Result Comment: Chol esterol level, Desirable <200 mg/dL Borderline high cholesterol 200-239 mg/dL High cholesterol >=240 mg/dL Recommendations of the NCEP Adult Treatment Panel for the following risk-cutoff thresholds for the [place] population. Performed By: #### L 501.74898, L503.0106, L501.9520, L506.0400, L500.4100, L506.1001, L500.4050, L100.0100 ####[facility] [address] [place], [address] Cholesterol in HDL [Mass/Vol] 58 mg/dL Normal [facility] Comment on above: Result Comment: Halima onal Cholesterol Education Program (NCEP) guidelines: <40 mg/dL: Low HDL-cholesterol (major risk factor for CHD) >= 60 mg/dL: High HDL-cholesterol (negative risk factor for CHD) HDL-cholesterol is affected by a number of factors, e.g. smoking, exercise, hormones, sex and age. Performed By: #### L 501.43031, L503.0106, L501.9520, L506.0400, L500.4100, L506.1001, L500.4050, L100.0100 ####[facility] [address] [place], [address] Cholesterol in LDL [Mass/Vol] 143 mg/dL Normal [facility] Comment on above: Result Comment: Bord ktfwje=906-953 mg/dL Higher Cfbp=063 mg/dL or greater Performed By: #### L 501.20777, L503.0106, L501.9520, L506.0400, L500.4100, L506.1001, L500.4050, L100.0100 ####[facility] [address] [place], [place], [phone]) Cholesterol in VLDL [Mass/Vol] 41 mg/dL High 5-40 [facility] Comment on above: Performed By: #### L 501.31134, L503.0106, L501.9520, L506.0400, L500.4100, L506.1001, L500.4050, L100.0100 ####[facility] [address] [place], [place], [phone]) Triglyceride [Mass/Vol] 207 mg/dL High [facility] Comment on above: Result Comment: The drugs N-Acetylcysteine and Metamizole may falsely depress this assay. Normal range: <150 mg/dL Borderline High: 150-199 mg/dL High: 200-499 mg/dL Very High: >500 mg/dL Performed By: #### L 501.29481, L503.0106, L501.9520, L506.0400, L500.4100, L506.1001, L500.4050, L100.0100 ####[facility] [address] [place], [place], [id number] MCV (mean corpuscular volume ) determinationOrdered By: Jasmyn Phillips on 03-25-2025 MCV (RBC) [Entitic vol] 91.5 fL 81-[address] [facility] Mean corpuscular hemoglobin (MCH) determinationOrdered By: Jasmyn Phillips on 03-25-2025 MCH (RBC) [Entitic mass] 31.2 pg 27.0-32.0 [facility] Mean corpuscular hemoglobin concentration (MCHC) determinationOrdered By: Jasmyn Phillips on 03-25-2025 MCHC (RBC) [Mass/Vol] 34.1 g/dL 32-36 [facility] Mean platelet volume determi nationOrdered By: Jasmyn Phillips on 03-25-2025 Platelet mean volume (Bld) [Entitic vol] 9.8 fL 6.2-12.0 [facility] Monocyte percentageOrdered B y: Jasmyn Phillips on 03-25-2025 Monocytes/100 WBC (Bld) 7.4 % 0-[address] [facility] Neutrophil percentageOrdered By: Jasmyn Phillips on 03-25-2025 Neutrophils/100 WBC (Bld) 62.5 % 47-70 [facility] Nucleated red blood cell per centageOrdered By: Jasmyn Phillips on 03-25-2025 Nucleated RBC/100 WBC (Bld) [Ratio] 0 % 0-5 [facility] Platelet countOrdered By: Deborah Phillips on 03-25-2025 Platelets (Bld) [#/Vol] 420 10*3/uL 150-450 [facility] Potassium measurement (mass/ volume)Ordered By: Jasmyn Phillips on 03-25-2025 Potassium (Unsp spec) [Mass/Vol] 3.7 mmol/L 3.3-5.1 [facility] RBC Auto (Bld) [#/Vol]Ordere d By: Jasmyn Phillips on 03-25-2025 RBC (Bld) [#/Vol] 4.46 10*6/uL 4.2-5.4 [facility] Screening total cholesterol/ high density lipoprotein (HDL) cholesterol ratioOrdered By: Jasmyn Phillips on 03-25-2025 Cholesterol.total/Cholest manuela in HDL [Mass ratio] 4.21 {ratio} [facility] Serum creatinine measurement (mass/volume)Ordered By: Jasmyn Phillips on 03-25-2025 Creatinine [Mass/Vol] 0.80 mg/dL 0.70-1.20 [facility] Serum globulin measurementOr dered By: Jasmyn Phillips on 03-25-2025 Globulin (S) [Mass/Vol] 2.7 g/dL 2.2-4.[address] [facility] Serum glucose measurement (m ass/volume)Ordered By: Jasmyn Phillips on 03-25-2025 Glucose [Mass/Vol] 122 mg/dL High 70-99 [facility] Serum or plasma alanine quintana otransferase (ALT) measurementOrdered By: Jasmyn Phillips on 03-25-2025 ALT [Catalytic activity/Vol] 13 U/L <35 [facility] Serum or plasma albumin leon urement (mass/volume)Ordered By: Jasmyn Phillips on 03-25-2025 Albumin [Mass/Vol] 4.4 g/dL 3.4-4.8 [facility] Serum or plasma albumin/glob ulin mass ratioOrdered By: Jasmyn Phillips on 03-25-2025 Albumin/Globulin [Mass ratio] 1.7 {ratio} 0.9-2.4 [facility] Serum or plasma alkaline kwan sphatase measurementOrdered By: Jasmyn Phillips on 03-25-2025 ALP [Catalytic activity/Vol] 108 U/L High 35-104 [facility] Serum or plasma calcium leon urement (mass/volume)Ordered By: Jasmyn Phillips on 03-25-2025 Calcium [Mass/Vol] 9.6 mg/dL 7.6-11.0 [facility] Serum or plasma cholesterol in HDL measurement (mass/volume)Ordered By: Jasmyn Phillips on 03-25-2025 Cholesterol in HDL [Mass/Vol] 58 mg/dL >40 [facility] Comment on above: National Cholesterol Education Program (NCEP) guidelines:<40 mg/dL: Low HDL-cholesterol (major risk factor for CHD)>= 60 mg/dL: High HDL-cholesterol (negative risk factor for CHD)HDL-cholesterol is affected by a number of factors, e.g. smoking, exercise, hormones, sex and age. Serum or plasma cholesterol measurement (mass/volume)Ordered By: Jasmyn Phillips on 03-25-2025 Cholesterol [Mass/Vol] 242 mg/dL High <201 [facility] Comment on above: Cholesterol level, D esirable <200 mg/dLBorderline high cholesterol 200-239 mg/dLHigh cholesterol >=240 mg/dLRecommendations of the NCEP Adult Treatment Panel for the following risk-cutoff thresholds for the [place] population. Serum or plasma urea nitroge n measurement (mass/volume)Ordered By: Jasmyn Phillips on 03-25-2025 Urea nitrogen [Mass/Vol] 14 mg/dL 4-19 [facility] Sodium levelOrdered By: Yaritza Phillips on 03-25-2025 Sodium [Moles/Vol] 139 mmol/L 133-145 [facility] T4 Free Directon 03-25-2025 T4 FREE DIRECT 0.90 ng/dL Normal 0.76-1.46 [facility] Comment on above: Performed By: #### L 501.94944, L503.0106, L501.9520, L506.0400, L500.4100, L506.1001, L500.4050, L100.0100 ####[facility] [address] [place], [address] T4 freeOrdered By: Jasmyn brannon on 03-25-2025 Free T4 [Mass/Vol] 0.90 ng/dL 0.76-1.46 [facility] TSH DL <= 0.005 mIU/L QnOrde red By: Jasmyn Phillips on 03-25-2025 TSH Qn 8.460 uIU/mL High 0.300-4.20 0 [facility] Thyroid Stim Hormone (TSH)on 03-25-2025 TSH 8.460 uIU/mL High 0.300-4.20 0 [facility] Comment on above: Performed By: #### L 501.48846, L503.0106, L501.9520, L506.0400, L500.4100, L506.1001, L500.4050, L100.0100 ####[facility] [address] [place], [address] Total proteinOrdered By: Berta Phillips on 03-25-2025 Protein [Mass/Vol] 7.1 g/dL 5.9-8.4 [facility] Triglycerides measurementOrd ered By: Jasmyn Phillips on 03-25-2025 Triglyceride [Mass/Vol] 207 mg/dL High <[address] [facility] Comment on above: The drugs N-Acetylcy steine and Metamizole may falsely depress this assay. Normal range: <150 mg/dLBorderline High: 150-199 mg/dLHigh: 200-499 mg/dLVery High: >500 mg/dL Vitamin B12on 03-25-2025 Cobalamin (Vitamin B12) [Mass/Vol] 441 pg/mL Normal 180-914 [facility] Comment on above: Performed By: #### L 501.35826, L503.0106, L501.9520, L506.0400, L500.4100, L506.1001, L500.4050, L100.0100 ####[facility] [address] [place], [address] Vitamin B12 ser/plasOrdered By: Jasmyn Phillips on 03-25-2025 Cobalamin (Vitamin B12) [Mass/Vol] 441 pg/mL 180-914 [facility] Vitamin D,25 Hydroxyon 03-25 Vitamin D 25-OH 37.8 ng/mL Normal 30-100 [facility] Comment on above: Result Comment: Lore min D Status Deficiency: <20 ng/mL (50nmol/L) Insufficiency: 20-30 ng/mL (50-75 nmol/L) Sufficiency: 30-100 ng/mL (75-250 nmol/L) Toxicity: >100 ng/mL (>250 nmol/L) Performed By: #### L 501.21637, L503.0106, L501.9520, L506.0400, L500.4100, L506.1001, L500.4050, L100.0100 ####[facility] [address] [place], [address] White blood cell (WBC) count Ordered By: Jasmyn Phillips on 03-25-2025 WBC (Bld) [#/Vol] 11.4 10*3/uL High 4.4-11.0 [facility] Inital Evaluation (1) - PTon 01-14-2025 Inital Evaluation (1) - PT [facility] Physical Therapy [address] [place] [address] / REHABILITATION SERVICES INITIAL EVALUATION MR#: [id number] Acct: [id number] Name: TIANNA MAYS Rep #: [id number] : 1965 59 From: Maximilian Panda DPT, OCS, CSCS Referring Dr.: Dr. Jasmyn Phillips MD Status: R EG RCR Insurance: [facility] S[employer]URANCE Patient's Visit Information Visit Information Visit Information: TIANNA MAYS is a 59 year old F referred to Physical Therapy by Dr. Jasmyn Phillips MD with a diagnosis of RA Neck pain. Date of Evaluation: 01/14/25 Physical Therapist: Maximilian Panda DPT, OCS, CSCS Visit Plan Frequency: 2x /Week Duration: 4-6 Weeks Plan: 2x/week for 4-6 weeks , I attempted to get aquatic therapy but she rfused and wants to try gymhome program first. 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 Tach technique and progressions, get list, and get to I. Pt is anxiety prone. 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 Has been painful for long time. Worsening lately for no apparent reason. Has RA. Asked for referral to gt therapy. Pool therapy helped in the past. Shoulders Pain up to 10 with pulling cover over her and small movements. B R>L Knees both hurt, intrmittent without warning, stepping out of car 08/30 Neck hurts, /, causes tension and stiffness ovr whole body. LB hurts also and for no apparent reason. No ortho, Geet injections from [facility] every 6 months but not lately. Ovrdue, they seem to help. Sleep is not great due to pain, 3-5 hours out of normal 7 Unemployed due to pain, diasability, [facility] neck pain. Lives with a friend in one story no steps. Basic ADLS all I. Spends day coping , no activities given. used to love to swim and camp, not in a long time. No regualr exercises. Walks alot she says. Feels weak. Most walking is in house or yard. Objective Objective: Walks slowly back to PT with her friend. Hesitant and anxious. Transfrs beed and chair I. Walks I but slow. Posture is Forward head and kyphoitc thoracic spine. Flat lordosis. cervical AROM 55 ext and 60 B rotation with end range discomfort ipsilaterally. Flexion is full. Lumbar ROM is min limited ext and no limits flexion adn no limited SB, some pain with extension. hesitant and tearful to let me check patella reflexes but achilles, bi and tri are 1/3 and symmetrical. Sensation UE and LE WNL to gross light touch. strength ankles 4, knes 4-, hips 3 abd and ext and 3 flexion with ipsilateral pain. core is weak and unstable with LE testing. UE strength 3+/5, AROM shoulders 110 limited with discomfort R >L. elbows and wrists WFL. - slump adn - SLR, - c/s compression. Overall poorly managed widespread pain that may benefit from some ex but [place] [facility] compliance will be questionable Balance/Special Test Scores Oswestry Neck Score: 25 Goals Goal 1:: I appropriate gym or home program for whole body to minimize pain Goal Time Frame: 4-6 Weeks Goal 2:: Pain 2-4/10 at worst and 50% better overall Goal Time Frame: 4-6 Weeks Goal 3:: 5 or less osweestry Goal Time Frame: 4-6 Weeks Goal 4:: Sleep 6 hours without waking Goal Time Frame: 4-6 Weeks Rehabilitation Potential Physical Therapy Diagnosis: widespread degenerative pain poorly managed Rehabilitation Potential: Questionable Anticipated Interventions Patient/Client Instruction: Educate patient on: Condition and Plan of Care For the Purpose of:: To decrease pain, To increase ROM, To improve nutrient delivery to tissue, To improve muscle performance and motor function and To increase tolerance to activity/condition/positi on Therapeutic Exercise to Include: Strength training and Postural training For the Purpose of:: To decrease pain, To increase ROM, To improve nutrient delivery to tissue and To increase tolerance to activity/condition/positi on Text: Thank you for the opportunity to evaluate your patient. For Medicare and Medicare HMO plans, please review the plan of care and approve it. It will need to be FAXED BACK to us at [phone] for Medicare purposes. For Medicare only, by signing this I certify the plan of care. Please let me know if there are questions or concerns regarding this plan of care. Physician Signature: Date: _ 01/14/25 1349 CC: Dr. Jasmyn Phillips MD EBG Signed Normal [facility] Abdomen Completeon 4 Abdomen Complete [facility] Imaging Services [address] [place] [address] Abdomen Complete MR#: [id number] Acct: [id number] Name: TIANNA MAYS Rep #: [id number] : 1965 F 58 From: Asael Hobbs MD PCP: Dr. Jasmyn Phillips MD Status: REG CLI Study: Abdomen Complete Date of Exam: 08/03/24 Exam# [id number] Ordering Dr: Jasmyn Phillips MD [id number] STUDY: ABDOMINAL ULTRASOUND REASON FOR EXAM: Female, 58 years old. Diffuse abdominal pain TECHNIQUE: Transabdominal ultrasound was performed with real-time and static kenyon scale imaging. TECHNICAL QUALITY: Adequate. COMPARISON: None. FINDINGS: Liver: The liver measures 15.6 cm. There is increased echogenicity consistent with fatty infiltration. The bile ducts are within normal limits. There is hepatic color flow. The direction of portal flow is hepatopetal. There is no demonstrated mass lesion. Portal vein measurement: Gallbladder: Normal distended gallbladder. The gallbladder wall measures 1.5 mm. There is a negative sonographic Byers''s sign. There is no pericholecystic fluid. There are no gallstones. Common Bile Duct (C.B.D.): The common bile duct measures 6.5 mm. Pancreas: Normal size of the head, body and tail of the pancreas. There is normal echogenicity of the pancreas. There is no demonstrated pancreatic mass or cyst. Spleen: Normal size of the spleen. The spleen measures 7.7 cm. Right Kidney: Normal size of the right kidney. The right kidney measures 10.0 x 4.1 x 3.8 cm. Normal renal cortex. The right cortex measures 1.0 cm. There is no demonstrated renal mass or cyst. There is no right hydronephrosis. Left Kidney: Normal size of the left kidney. The left kidney measures 9.5 x 3.7 x 4.7 cm. Normal renal cortex. The left cortex measures 1.2 cm. There is no demonstrated renal mass or cyst. There is no left hydronephrosis. Aorta: Tapers normally I.V.C.: The IVC is patent. There is no ascites. US/Abdomen Complete IMPRESSION: Fatty liver, no discrete lesion Electronically Signed: Richard Hobbs MD at 13:39 EDT Reading Location ID and State: [facility] / [place] , Service support , CC: Dr. Jasmyn Phillips MD Hot Room Attendant: Signed Normal [facility] SCRN MAMM (CAD)W/ASYA BILATo n 08-03-2024 SCRN MAMM (CAD)W/ASYA BILAT [facility] Imaging Services [address] [place] [address] [id number] SCRN MAMM (CAD)W/ASYA BILAT MR#: [id number] Acct: [id number] Name: TIANNA MAYS Rep #: [id number] : 1965 F 58 From: Mukesh beaver MD PCP: Dr. Jasmyn Phillips MD Status: REG [facility] Study: SCRN MAMM (CAD)W/ASYA BILAT Date of Exam: 07/22 02/11 Exam# [id number] Ordering Dr: Jasmyn Phillips MD [id number] MAMMOGRAPHY - BILATERAL SCREENING REASON FOR EXAM: Female, 58 years old. Routine annual screening examination. PERTINENT HISTORY: Non-contributory. History of prior left excisional breast biopsy. TECHNIQUE: Digital bilateral breast asya (3D mammographic acquisition) in the CC and MLO projections. 2-D mediolateral oblique (MLO) and craniocaudad (CC) views of both breasts were obtained. CAD: Full Field Digital Mammography with Computer Added Detection was performed. COMPARISON: Comparison is made with prior study February 02, 2023 and April 16, 2021. FINDINGS: Breast Composition: The breasts are heterogeneously dense, which may obscure small masses. There are no dominant masses or suspicious calcifications. No other significant abnormalities are identified. There has been no significant change since the prior study. BI/SCRN MAMM (CAD)W/ASYA BILAT IMPRESSION: Stable bilateral screening mammogram. Yearly follow-up mammogram recommended. (A) ASSESSMENT CATEGORY: BIRADS Category 1: Negative. A letter regarding these results will be sent to the patient by the facility within 30 days. Approximately 10% of breast cancers are not detected by mammography. A normal mammogram should not delay biopsy of a clinically suspicious abnormality. [id number] Electronically Signed: Mukesh Cardoza MD at 8:21 EDT Reading Location ID and State: [facility] / [place] , Service support , CC: Dr. Jasmyn Phillips MD Hot Room Attendant: Signed Normal [facility] MR/BMS.Hua 07-26-2024 MR/MOHAN.CHIN [facility] [facility] [place] [address] OFFICE VISIT Date of Service: 07/26/24 MR#: [id number] Acct: [id number] Name: TIANNA MAYS Rep #: [id number] : 1965 Provider: Dr. 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: No Accompanied by: Self Is patient in pain?: Yes Allergies amitriptyline Allergy (Verified 07/26/24 11:27) Rash cigarette smoke Adverse Reaction (Verified 07/26/24 11:27) Upset Stomach perfume Adverse Reaction (Verified 07/26/24 11:27) Other Phenylpiperazine Antidepressant Adverse Reaction (Verified 07/26/24 11:27) PT UNABLE TO RESPOND-NEEDS F/U Tetracyclic Antidepressants Adverse Reaction (Verified 07/26/24 11:27) PT UNABLE TO RESPOND-NEEDS F/U Tricyclic Antidepressants and Tricy Adverse Reaction (Verified 07/26/24 11:27) PT UNABLE TO RESPOND-NEEDS F/U Medications ???Medication ???Instructions ???Recorded ???Confirmed ???Type clonazepam 1 mg tablet 1 mg PO 4X/DAY PRN anxiety 06/20/23 07/26/24 History turmeric 100 mg-glenn 150 1 cap PO DAILY 06/20/23 07/26/24 History mg-olive 50 mg-oreg 150 mg-capryl capsule hydroxyzine pamoate 50 mg capsule 50 mg PO TID PRN anxiety 01/09/24 07/26/24 History albuterol sulfate 90 mcg/actuation 2 puff inhalation Q6H PRN 07/17/24 07/26/24 Rx aerosol inhaler shortness of breath or wheezing #8.5 grams cholecalciferol (vitamin D3) 25 25 mcg PO DAILY #90 caps 07/17/24 07/26/24 Rx mcg (1,000 unit) capsule levothyroxine 88 mcg tablet 88 mcg PO DAILY #90 tabs 07/17/24 07/26/24 Rx melatonin 10 mg capsule 10 mg PO HS #90 caps 07/17/24 07/26/24 Rx meloxicam 7.5 mg tablet 7.5 mg PO DAILY #90 tabs 07/17/24 07/26/24 Rx multivitamin with folic acid 400 1 tab PO DAILY #90 tabs 07/17/24 07/26/24 Rx mcg tablet (Thera) omeprazole 40 mg capsule,delayed 40 mg PO DAILY #90 caps 07/17/24 07/26/24 Rx release ondansetron 4 mg disintegrating 4 mg PO Q6H PRN nausea and 07/17/24 07/26/24 Rx tablet vomiting #12 tabs sucralfate 1 gram tablet (Carafate) 1 g PO QACHS #30 tabs 07/17/24 07/26/24 Rx vitamin B complex 1 tab PO DAILY #90 tabs 07/17/24 07/26/24 Rx Nurse's Note: reconciled pt medications twice , pt asking for all medications to be refilled. attempted to show pt her med list along with reading them off to her pt refused. when going over medications pt did not want me to say the mg or dosing instruction. pt states there is an impersonator trying to make and take her apt times PFSH Medical History (Updated 07/26/24 @ 12:[address] Jasmyn Phillips MD) Upper abdominal pain Vitamin D deficiency Hyperlipidemia Cervical cancer screening History of colon polyps Flank pain Elevated WBC count Low TSH level Frequent headaches Neck pain Colon cancer screening History of abnormality of cervix Breast cancer screening Ectopic Heart murmur Thyroid disease Stroke GERD (gastroesophageal reflux disease) Migraines Breast lump Bleeding disorder Bone fracture Hypothyroidism DDD (degenerative disc disease), cervical Rheumatoid arthritis Former smoker COPD (chronic obstructive pulmonary disease) PTSD (post-traumatic stress disorder) Anxiety Depression Surgical History H/O skin graft Family History Other Alcoholism Arthritis Cancer Colon cancer High cholesterol Mental disorder Parkinsons Social History Smoking Status: Never smoker substance use type: does not use HPI HPI Chief Complaint: abd pain Details: TIANNA MAYS, is a 58 F who presents to the office today for short-term follow-up. At last visit we tried to do a CAT scan of the abdomen and pelvis due to abdominal pain that was both upper and lower. CAT scan was denied by her insurance company as she had a CAT scan that was done in March of this year that did not show any significant findings. This was ordered through the ER. We reviewed that in detail that visit but due to the change of condition is why we opted for CAT scan and given that the abdominal pain was more diffuse, not localized that made the most sense. She continues to have abdominal pain, largely upper abdomen, at t (more content not included)... Normal [facility] CBC W/Diff, Automatedon 06-21 Absolute Lymph 2.60 X10 3/uL Normal 0.83-4.51 [facility] Comment on above: Performed By: #### L 500.4050, L501.5200, L506.0400, L100.0100, L501.84632, L501.9520, L506.1000 #### [facility] Laboratory [address] [place], [address] Absolute Neut 5.1 X10 3/uL Normal 2.0-7.7 [facility] Comment on above: Performed By: #### L 500.4050, L501.5200, L506.0400, L100.0100, L501.69667, L501.9520, L506.1000 #### [facility] [address] [place], [address] Basophils/100 WBC (Bld) 0.5 % Normal 0-[address] [facility] Comment on above: Performed By: #### L 500.4050, L501.5200, L506.0400, L100.0100, L501.67911, L501.9520, L506.1000 #### [facility] [address] [place], [address] Eosinophils/100 WBC (Bld) 0.5 % Normal 0-5 [facility] Comment on above: Performed By: #### L 500.4050, L501.5200, L506.0400, L100.0100, L501.32985, L501.9520, L506.1000 #### [facility] [address] [place], [address] Erythrocyte distribution width (RBC) [Ratio] 14.5 % Normal 11.6-14.6 [facility] Comment on above: Performed By: #### L 500.4050, L501.5200, L506.0400, L100.0100, L501.87381, L501.9520, L506.1000 #### [facility] [address] [facility] [place], [address] Hematocrit (Bld) [Volume fraction] 38.0 % Normal 37-47 [facility] Comment on above: Performed By: #### L 500.4050, L501.5200, L506.0400, L100.0100, L501.98242, L501.9520, L506.1000 #### [facility] [address] [place], [address] Hemoglobin (Bld) [Mass/Vol] 12.5 g/dL Normal 12.0-15.0 [facility] Comment on above: Performed By: #### L 500.4050, L501.5200, L506.0400, L100.0100, L501.67060, L501.9520, L506.1000 #### [facility] [address] [place], [address] IG% 0.200 Normal 0.0-0.9 [facility] Comment on above: Result Comment: IG% - Immature Granulocytes (promyelocytes, myelocytes and metamyelocytes) > 1% indicates that a LEFT SHIFT is Present. Performed By: #### L 500.4050, L501.5200, L506.0400, L100.0100, L501.04048, L501.9520, L506.1000 #### [facility] [address] [place], [address] Lymphocytes/100 WBC (Bld) 30.5 % Normal 19-41 [facility] Comment on above: Performed By: #### L 500.4050, L501.5200, L506.0400, L100.0100, L501.98166, L501.9520, L506.1000 #### [facility] [address] [place], [address] MCH (RBC) [Entitic mass] 29.9 pg Normal 27.0-32.0 [facility] Comment on above: Performed By: #### L 500.4050, L501.5200, L506.0400, L100.0100, L501.34656, L501.9520, L506.1000 #### [facility] [address] [place], [address] MCHC (RBC) [Mass/Vol] 32.9 g/dL Normal 32-36 [facility] Comment on above: Performed By: #### L 500.4050, L501.5200, L506.0400, L100.0100, L501.32441, L501.9520, L506.1000 #### [facility] [address] [place], [address] MCV (RBC) [Entitic vol] 90.9 fL Normal 81-[address] [facility] Comment on above: Performed By: #### L 500.4050, L501.5200, L506.0400, L100.0100, L501.03371, L501.9520, L506.1000 #### [facility] [address] [place], [address] Monocytes/100 WBC (Bld) 8.7 % Normal 0-[address] [facility] Comment on above: Performed By: #### L 500.4050, L501.5200, L506.0400, L100.0100, L501.85423, L501.9520, L506.1000 #### [facility] [address] [place], [address] Neutrophils/100 WBC (Bld) 59.6 % Normal 47-70 [facility] Comment on above: Performed By: #### L 500.4050, L501.5200, L506.0400, L100.0100, L501.14859, L501.9520, L506.1000 #### [facility] [address] [place], [address] Nucleated RBC (Bld) [#/Vol] 0 10*3/uL Normal 0-5 [facility] Comment on above: Performed By: #### L 500.4050, L501.5200, L506.0400, L100.0100, L501.73126, L501.9520, L506.1000 #### [facility] [address] [facility] [place], [address] Platelet mean volume (Bld) [Entitic vol] 9.3 fL Normal 6.2-12.0 [facility] Comment on above: Performed By: #### L 500.4050, L501.5200, L506.0400, L100.0100, L501.66083, L501.9520, L506.1000 #### [facility] [address] [place], [address] Platelets (Bld) [#/Vol] 487 10*3/uL High 150-450 [facility] Comment on above: Performed By: #### L 500.4050, L501.5200, L506.0400, L100.0100, L501.86559, L501.9520, L506.1000 #### [facility] [address] [place], [address] RBC (Bld) [#/Vol] 4.18 10*6/uL Low 4.2-5.4 [facility] Comment on above: Performed By: #### L 500.4050, L501.5200, L506.0400, L100.0100, L501.65816, L501.9520, L506.1000 #### [facility] [address] [place], [address] RDW SD 48.2 fl High 35.1-43.9 [facility] Comment on above: Performed By: #### L 500.4050, L501.5200, L506.0400, L100.0100, L501.50535, L501.9520, L506.1000 #### [facility] [address] [place], [address] WBC (Bld) [#/Vol] 8.5 10*3/uL Normal 4.4-11.0 [facility] Comment on above: Performed By: #### L 500.4050, L501.5200, L506.0400, L100.0100, L501.90480, L501.9520, L506.1000 #### [facility] [address] [place], [address] Comprehensive Metabolic [facility] 07-04-2024 Albumin [Mass/Vol] 4.0 g/dL Normal 3.2-5.0 [facility] Comment on above: Performed By: #### L 500.4050, L501.5200, L506.0400, L100.0100, L501.56582, L501.9520, L506.1000 #### [facility] [address] [place], [address] Albumin/Globulin [Mass ratio] 1.2 {ratio} Normal 0.9-2.4 [facility] Comment on above: Performed By: #### L 500.4050, L501.5200, L506.0400, L100.0100, L501.04532, L501.9520, L506.1000 #### [facility] [address] [place], [address] ALK P 126 U/L High 45-117 [facility] Comment on above: Performed By: #### L 500.4050, L501.5200, L506.0400, L100.0100, L501.03021, L501.9520, L506.1000 #### [facility] [address] [place], [address] ALT [Catalytic activity/Vol] 41 U/L Normal 13-56 [facility] Comment on above: Performed By: #### L 500.4050, L501.5200, L506.0400, L100.0100, L501.65358, L501.9520, L506.1000 #### [facility] [address] [place], [address] AST [Catalytic activity/Vol] 39 U/L High 15-37 [facility] Comment on above: Performed By: #### L 500.4050, L501.5200, L506.0400, L100.0100, L501.81755, L501.9520, L506.1000 #### [facility] [address] [place], [address] Bilirubin [Mass/Vol] 0.50 mg/dL Normal 0.20-1.00 [facility] Comment on above: Result Comment: For patients on eltrombopag therapy, use of Dimension [place] TBIL is not recommended. Performed By: #### L 500.4050, L501.5200, L506.0400, L100.0100, L501.66755, L501.9520, L506.1000 #### [facility] [address] [place], [address] BUN/CRE 16.6 RATIO Normal 10-20 [facility] Comment on above: Performed By: #### L 500.4050, L501.5200, L506.0400, L100.0100, L501.56426, L501.9520, L506.1000 #### [facility] [address] [place], [address] CA,Total 9.5 mg/dL Normal 8.5-10.1 [facility] Comment on above: Performed By: #### L 500.4050, L501.5200, L506.0400, L100.0100, L501.21850, L501.9520, L506.1000 #### [facility] [address] [place], [address] Chloride [Moles/Vol] 101 mmol/L Normal 98-107 [facility] Comment on above: Performed By: #### L 500.4050, L501.5200, L506.0400, L100.0100, L501.24180, L501.9520, L506.1000 #### [facility] [address] [place], [address] CO2 [Moles/Vol] 28.0 mmol/L Normal 21.0-32.0 [facility] Comment on above: Performed By: #### L 500.4050, L501.5200, L506.0400, L100.0100, L501.82012, L501.9520, L506.1000 #### [facility] [address] [place], [address] Creatinine [Mass/Vol] 0.72 mg/dL Normal 0.55-1.02 [facility] Comment on above: Result Comment: The validity of the calculated GFR GFRAA in patients over 70 years has not been determined. Clinical correlation is essential. Performed By: #### L 500.4050, L501.5200, L506.0400, L100.0100, L501.01726, L501.9520, L506.1000 #### [facility] [address] [place], [address] EST GFR - AA 106 mL/min Normal >60 [facility] Comment on above: Result Comment: Afri can Norwegian GFR Calc Performed By: #### L 500.4050, L501.5200, L506.0400, L100.0100, L501.15982, L501.9520, L506.1000 #### [facility] [address] [place], [address] GAP 8 Normal 5-15 [facility] Comment on above: Performed By: #### L 500.4050, L501.5200, L506.0400, L100.0100, L501.20038, L501.9520, L506.1000 #### [facility] [address] [place], [address] GFR/1.73 sq M.predicted among non-blacks MDRD (S/P/Bld) [Vol rate/Area] 87 mL/min/{1.73_m2} Normal >60 [facility] Comment on above: Result Comment: Non- GFR Calc Performed By: #### L 500.4050, L501.5200, L506.0400, L100.0100, L501.57831, L501.9520, L506.1000 #### [facility] [address] [place], [address] Globulin (S) [Mass/Vol] 3.3 g/dL Normal 2.2-4.[address] [facility] Comment on above: Performed By: #### L 500.4050, L501.5200, L506.0400, L100.0100, L501.79803, L501.9520, L506.1000 #### [facility] [address] [place], [address] Glucose [Mass/Vol] 182 mg/dL High 74-106 [facility] Comment on above: Result Comment: Fast ing Glucose result greater than or equal to 126 mg/dL suggests DIABETES MELLITUS per A.D.A. criteria. Performed By: #### L 500.4050, L501.5200, L506.0400, L100.0100, L501.46687, L501.9520, L506.1000 #### [facility] [address] [place], [address] Potassium [Moles/Vol] 3.5 mmol/L Normal 3.5-5.1 [facility] Comment on above: Performed By: #### L 500.4050, L501.5200, L506.0400, L100.0100, L501.84513, L501.9520, L506.1000 #### [facility] [address] [place], [address] Sodium [Moles/Vol] 137 mmol/L Normal 136-145 [facility] Comment on above: Performed By: #### L 500.4050, L501.5200, L506.0400, L100.0100, L501.72210, L501.9520, L506.1000 #### [facility] [address] [place], [address] T PROT 7.3 g/dL Normal 6.4-8.2 [facility] Comment on above: Performed By: #### L 500.4050, L501.5200, L506.0400, L100.0100, L501.82217, L501.9520, L506.1000 #### [facility] [address] [place], [address] Urea nitrogen [Mass/Vol] 12 mg/dL Normal 7-18 [facility] Comment on above: Performed By: #### L 500.4050, L501.5200, L506.0400, L100.0100, L501.88172, L501.9520, L506.1000 #### [facility] [address] [place], [address] Free T3on 07-04-2024 Free T3 [Mass/Vol] 2.4 pg/mL Normal 2.18-3.98 [facility] Comment on above: Performed By: #### L 500.4050, L501.5200, L506.0400, L100.0100, L501.27947, L501.9520, L506.1000 #### [facility] [address] [place], [address] MR/Elio 07-04-2024 MR/MOHAN.Rick [facility] [address] [facility] [address] [place], [place] [address] OFFICE VISIT Date of Service: 07/04/24 MR#: [id number] Acct: [id number] Name: TIANNA MAYS Rep #: [id number] : 1965 Provider: Dr. Jasmyn sarkar MD Age/Sex: 58/F Location: [facility] Status: Signed Intake Vital Signs 04/05/24 11:48 07/04/24 12:56 Height 5 ft 2 in 5 ft 2 in Weight: 124 lb BMI 22.6 BP 138/84 H Blood Pressure Location Lt brachial Position Sitting Respiration 18 Pulse 104 H Pulse Source Monitor Temp 98.7 F Temp Source Temporal Pulse Oximetry (%) 94 Oxygen Delivery Method room air Intake Visit Reasons: 6 M FU Chief Complaint: Routine FU Accompanied by: Mother Is patient in pain?: Yes (abdomen, coccyx) Pain scale (1-10): 10 Allergies amitriptyline Allergy (Verified 07/04/24 12:53) Rash cigarette smoke Adverse Reaction (Verified 07/04/24 12:53) Upset Stomach perfume Adverse Reaction (Verified 07/04/24 12:53) Other Phenylpiperazine Antidepressant Adverse Reaction (Verified 07/04/24 12:53) PT UNABLE TO RESPOND-NEEDS F/U Tetracyclic Antidepressants Adverse Reaction (Verified 07/04/24 12:53) PT UNABLE TO RESPOND-NEEDS F/U Tricyclic Antidepressants and Tricy Adverse Reaction (Verified 07/04/24 12:53) PT UNABLE TO RESPOND-NEEDS F/U Medications ???Medication ???Instructions ???Recorded ???Confirmed ???Type vitamin B complex 1 tab PO DAILY 06/09/22 07/04/24 History multivitamin with folic acid 400 1 tab PO DAILY #90 tabs 09/13/22 07/04/24 Rx mcg tablet (Thera) albuterol sulfate 90 mcg/actuation 2 puff inhalation Q6H PRN 03/21/23 07/04/24 Rx aerosol inhaler shortness of breath or wheezing #8.5 grams cholecalciferol (vitamin D3) 25 25 mcg PO DAILY #90 caps 03/21/23 07/04/24 Rx mcg (1,000 unit) capsule melatonin 10 mg capsule 10 mg PO HS 03/21/23 07/04/24 History omeprazole 40 mg capsule,delayed 40 mg PO DAILY #90 caps 03/21/23 07/04/24 Rx release ondansetron 4 mg disintegrating 4 mg PO Q6H PRN nausea and 05/28/23 07/04/24 Rx tablet vomiting #12 tabs clonazepam 1 mg tablet 1 mg PO 4X/DAY PRN anxiety 06/20/23 07/04/24 History turmeric 100 mg-glenn 150 1 cap PO DAILY 06/20/23 07/04/24 History mg-olive 50 mg-oreg 150 mg-capryl capsule hydroxyzine pamoate 50 mg capsule 50 mg PO TID PRN anxiety 01/09/24 07/04/24 History levothyroxine 88 mcg tablet 88 mcg PO DAILY #90 tabs 01/09/24 07/04/24 Rx meloxicam 7.5 mg tablet 7.5 mg PO DAILY 01/09/24 07/04/24 History sucralfate 1 gram tablet (Carafate) 1 g PO QACHS #30 tabs 07/04/24 07/04/24 Rx PFSH Medical History Vitamin D deficiency Hyperlipidemia Cervical cancer screening History of colon polyps Flank pain Elevated WBC count Low TSH level Frequent headaches Neck pain Colon cancer screening History of abnormality of cervix Breast cancer screening Ectopic Heart murmur Thyroid disease Stroke GERD (gastroesophageal reflux disease) Migraines Breast lump Bleeding disorder Bone fracture Hypothyroidism DDD (degenerative disc disease), cervical Rheumatoid arthritis Former smoker COPD (chronic obstructive pulmonary disease) PTSD (post-traumatic stress disorder) Anxiety Depression Surgical History H/O skin graft Family History Other Alcoholism Arthritis Cancer Colon cancer High cholesterol Mental disorder Parkinsons Social History Smoking Status: Never smoker substance use type: does not use HPI HPI Chief Complaint: Routine FU Details: TIANNA MAYS, is a 58 F who presents to the office today for an acute care follow-up visit. 58-year-old female. Has a history of chronic anxiety, PTSD, hypothyroidism. She follows with psychiatry.. She has been on long-term benzodiazepine. She states she has been having a lot of low to mid abdominal pain, some upper. She has chronic reflux. She states this is clearly different. She has not had black stool or blood in the stool. No dysuria, urgency or frequency. Denies vaginal discharge. Remote history of tubal with surgical treatment remotely. She describes having a couple of falls recently in the bathtub because of the pain. She landed on her buttocks a couple of times she states and has coccyx area pain. No nausea or vomiting. Has been able to eat. Denies shortness of breath or chest pain or chest tightness. Pretty much lifelong non-smoker. Review of systems per chart. Physical exam. Vital signs on chart. Sclera are clear. No cervical or supraclavicular lymph nodes enlarged or tender. No clear thyromegaly. No thyroid nodules readily palpa (more content not included)... Normal [facility] Magnesiumon 07-04-2024 Magnesium [Mass/Vol] 2.2 mg/dL Normal 1.6-2.6 [facility] Comment on above: Performed By: #### L 500.4050, L501.5200, L506.0400, L100.0100, L501.07685, L501.9520, L506.1000 #### [facility] [address] [place], [address] T4 Free Directon 07-04-2024 T4 FREE DIRECT 1.22 ng/dL Normal 0.76-1.46 [facility] Comment on above: Performed By: #### L 500.4050, L501.5200, L506.0400, L100.0100, L501.43347, L501.9520, L506.1000 #### [facility] [address] [place], [address] Thyroid Stim Hormone (TSH)on 07-04-2024 TSH 4.010 uIU/mL High 0.358-3.74 0 [facility] Comment on above: Performed By: #### L 500.4050, L501.5200, L506.0400, L100.0100, L501.12119, L501.9520, L506.1000 #### [facility] [address] [place], [address] Vitamin D,25 Hydroxyon 07-04 Vitamin D 25-OH 36.7 ng/mL Normal [facility] Comment on above: Result Comment: Lore min D 25(OH) Status Range Deficiency <20 ng/mL (50nmol/L) Insufficiency 20 - 30 ng/mL (50 - 75 nmol/L) Sufficiency 30 - 100 ng/mL (75 - 250 nmol/L) Toxicity >100 ng/mL (>250 nmol/L) Performed By: #### L 500.4050, L501.5200, L506.0400, L100.0100, L501.23080, L501.9520, L506.1000 #### [facility] [address] [place], [address] Absolute lymphocyte countOrd ered By: Gonzalo Sorensen on 01-17-2024 Lymphocytes Auto (Unsp spec) [#/Vol] 2.56 10*3/uL 0.83-4.51 [facility] Automated lymphocyte count a s percentage of total leukocytesOrdered By: Gonzalo Sorensen on 01-17-2024 Lymphocytes/100 WBC Auto (Unsp spec) 22.7 % 19-41 [facility] Basophil percentageOrdered B y: Gonzalo Sorensen on 01-17-2024 Basophils/100 WBC (Bld) 0.4 % 0-[address] [facility] Chloride [Moles/Vol] 110 mmol/L 98-107 [facility] Eosinophils/100 WBC (Bld) 0.1 % 0-5 [facility] Glucose [Mass/Vol] 128 mg/dL 74-106 [facility] Comment on above: Fasting Glucose resu lt greater than or equal to 126 mg/dL suggests DIABETES MELLITUS per A.D.A. criteria. Hemoglobin (Bld) [Mass/Vol] 13.5 g/dL 12.0-15.0 [facility] Monocytes/100 WBC (Bld) 8.1 % 0-[address] [facility] Neutrophils (Bld) [#/Vol] 7.7 10*3/uL 2.0-7.7 [facility] Neutrophils/100 WBC (Bld) 68.4 % 47-70 [facility] Potassium [Moles/Vol] 3.7 mmol/L 3.5-5.1 [facility] Sodium [Moles/Vol] 139 mmol/L 136-145 [facility] WBC (Bld) [#/Vol] 11.3 10*3/uL 4.4-11.0 [facility] Determination of erythrocyte mean corpuscular volume (MCV)Ordered By: Gonzalo Sorensen on 01-17-2024 MCV (RBC) [Entitic vol] 91.2 fL 81-[address] [facility] Erythrocyte distribution wid th ratioOrdered By: Gonzalo Sorensen on 01-17-2024 Erythrocyte distribution width (RBC) [Ratio] 13.7 % 11.6-14.6 [facility] Erythrocyte distribution wid th standard deviationOrdered By: Gonzalo Sorensen on 01-17-2024 Erythrocyte distribution width (RBC) [Entitic vol] 46.1 fL 35.1-43.9 [facility] Hematocrit Auto (Bld) [Volum e fraction]Ordered By: Gonzalo Sorensen on 01-17-2024 Hematocrit (Bld) [Volume fraction] 40.5 % 37-47 [facility] Immature granulocytes/100 WB C Auto (Bld)Ordered By: Gonzalo Sorensen on 01-17-2024 Immature granulocytes/100 WBC (Bld) 0.300 % 0.0-0.9 [facility] Comment on above: IG% - Immature Granu locytes (promyelocytes, myelocytes and metamyelocytes) > 1% indicates that a LEFT SHIFT is Present. Laboratory - Chemistry and C hemistry - challengeOrdered By: Gonzalo Sorensen on 01-17-2024 CO2 [Moles/Vol] 22.0 mmol/L 21.0-32.0 [facility] Urea nitrogen/Creatinine [Mass ratio] 12.4 mg/mg 10-20 [facility] Laboratory - Drug toxicology Ordered By: Gonzalo Sorensen on 01-17-2024 Amphetamines Ql (U) Negative <1000 ng/mL [facility] Benzodiazepines Ql (U) Negative < 200 ng/mL [facility] Cannabinoids Screen Ql (U) Positive < 50 ng/mL [facility] Cocaine Ql (U) Negative < 300 ng/mL [facility] Opiates Ql (U) Negative < 300 ng/mL [facility] Laboratory - Hematology and Cell countsOrdered By: Gonzalo Sorensen on 01-17-2024 MCH (RBC) [Entitic mass] 30.4 pg 27.0-32.0 [facility] MCHC (RBC) [Mass/Vol] 33.3 g/dL 32-36 [facility] Nucleated RBC/100 WBC (Bld) [Ratio] 0 % 0-5 [facility] Platelet mean volume (Bld) [Entitic vol] 8.8 fL 6.2-12.0 [facility] Platelets (Bld) [#/Vol] 486 10*3/uL 150-450 [facility] No Panel InformationOrdered By: Gonzalo Sorensen on 01-17-2024 Estimated Creatinine Clearance Calc 53.77 ml/min [facility] Estimated GFR (MDRD) Amer 84 mL/min >60 [facility] Comment on above: GFR Calc Estimated GFR (MDRD) Non-Af Amer 69 mL/min >60 [facility] Comment on above: Non- GFR Calc Ethyl Alcohol Level 7.0 mg/dL [facility] Comment on above: The serum:whole bloo d ethanol ratio is approximately 1.14and varies slightly with hematocrit. Medical Alcohol reference interval and critical value innon-tolerant individuals; 50 - 100 Impairment 100 Intoxication 100 - 250 Severe Poisoning 250 - 400 Deep/possible fatal coma MDMA (Ecstasy) Screen Negative < 500 ng/mL [facility] Urine Barbiturates Screen Negative < 200 ng/mL [facility] Urine Drug Screen Comment [facility] Comment on above: CONFIRMATORY TESTING FOR ALL POSITIVE URINE DRUG SCREENRESULTS WILL ONLY BE SENT OUT UPON PHYSICIAN ORDER. VISTA Urine Drug Screen methods provide only preliminaryanalytical test results. A more specific alternate chemicalmethod must be used in order to obtain a confirmedanalytical result. Gas chromatography/mass spectrometery(GC/MS) is the preferred confirmatory method. Clinicalconsideration and professional judgement should be appliedto any drug of abuse test result, particularly whenpreliminary positive results are used. URINE TCA TESTING MUST BE ORDERED SEPARATELY. USE TESTMNEMONIC: [facility] Urine Methadone Screen Negative < 300 ng/mL [facility] RBC Auto (Bld) [#/Vol]Ordere d By: Gonzalo Sorensen on 01-17-2024 RBC (Bld) [#/Vol] 4.44 10*6/uL 4.2-5.4 [facility] Serum or plasma calcium leon urement (mass/volume)Ordered By: Gonzalo Sorensen on 01-17-2024 Calcium [Mass/Vol] 10.2 mg/dL 8.5-10.1 [facility] Serum or plasma creatinine m easurement (mass/volume)Ordered By: Gonzalo Sorensen on 01-17-2024 Creatinine [Mass/Vol] 0.88 mg/dL 0.55-1.02 [facility] Comment on above: The validity of the calculated GFR & GFRAA in patients over 70 years has not been determined. Clinical correlation is essential. Serum or plasma urea nitroge n measurement (mass/volume)Ordered By: Gonzalo Sorensen on 01-17-2024 Urea nitrogen [Mass/Vol] 11 mg/dL 7-18 [facility] Thin prep Papanicolaou smear with manual screeningOrdered By: Gonzalo Sorensen on 01-17-2024 Thin prep Papanicolaou smear with manual screening 7 5-15 [facility] Urine phencyclidine (PCP) de tectionOrdered By: Gonzalo Sorensen on 01-17-2024 Phencyclidine Ql (U) Negative < 25 ng/mL [facility] Absolute lymphocyte countOrd ered By: Jasmyn Sanderschner on 01-09-2024 Lymphocytes Auto (Unsp spec) [#/Vol] 3.45 10*3/uL 0.83-4.51 [facility] Automated lymphocyte count a s percentage of total leukocytesOrdered By: Jasmyn Phillips on 01-09-2024 Lymphocytes/100 WBC Auto (Unsp spec) 37.6 % 19-41 [facility] Basophil percentageOrdered B y: Jasmyn Phillips on 01-09-2024 Basophil percentage < 10.0 IU/mL <15 [facility] Basophils/100 WBC (Bld) 0.5 % 0-[address] [facility] Bilirubin [Mass/Vol] 0.50 mg/dL 0.20-1.00 [facility] Comment on above: For patients on eltr ombopag therapy, use of Dimension [place] TBIL is not recommended. Chloride [Moles/Vol] 107 mmol/L 98-107 [facility] Cholesterol [Mass/Vol] 281 mg/dL <200 [facility] Comment on above: <200 mg/dL Desirable 200-240 mg/dL Borderline >240 mg/dL High Risk Eosinophils/100 WBC (Bld) 0.7 % 0-5 [facility] Glucose [Mass/Vol] 95 mg/dL 74-106 [facility] Hemoglobin (Bld) [Mass/Vol] 14.4 g/dL 12.0-15.0 [facility] Monocytes/100 WBC (Bld) 11.8 % 0-[address] [facility] Neutrophils (Bld) [#/Vol] 4.5 10*3/uL 2.0-7.7 [facility] Neutrophils/100 WBC (Bld) 48.9 % 47-70 [facility] Potassium [Moles/Vol] 3.7 mmol/L 3.5-5.1 [facility] Protein [Mass/Vol] 7.7 g/dL 6.4-8.2 [facility] Sodium [Moles/Vol] 139 mmol/L 136-145 [facility] Triglyceride [Mass/Vol] 110 mg/dL <199 [facility] Comment on above: The drugs N-Acetylcy steine and Metamizole may falsely depress this assay.Serum Triglycerides Reference Interval Normal <150 mg/dL Borderline high 150 - 199 mg/dL High 200 - 499 mg/dL Very High > or = 500 mg/dL WBC (Bld) [#/Vol] 9.2 10*3/uL 4.4-11.0 [facility] Determination of erythrocyte mean corpuscular volume (MCV)Ordered By: Jasmyn Phillips on 01-09-2024 MCV (RBC) [Entitic vol] 93.1 fL 81-[address] [facility] Erythrocyte distribution wid th ratioOrdered By: Jasmyn Phillips on 01-09-2024 Erythrocyte distribution width (RBC) [Ratio] 13.4 % 11.6-14.6 [facility] Erythrocyte distribution wid th standard deviationOrdered By: Jasmyn Phillips on 01-09-2024 Erythrocyte distribution width (RBC) [Entitic vol] 45.8 fL 35.1-43.9 [facility] Hematocrit Auto (Bld) [Volum e fraction]Ordered By: Jasmyn Phillips on 01-09-2024 Hematocrit (Bld) [Volume fraction] 44.2 % 37-47 [facility] Immature granulocytes/100 WB C Auto (Bld)Ordered By: Jasmyn Phillips on 01-09-2024 Immature granulocytes/100 WBC (Bld) 0.500 % 0.0-0.9 [facility] Comment on above: IG% - Immature Granu locytes (promyelocytes, myelocytes and metamyelocytes) > 1% indicates that a LEFT SHIFT is Present. Laboratory - Chemistry and C hemistry - challengeOrdered By: Jasmyn Phillips on 01-09-2024 Albumin/Globulin [Mass ratio] 1.2 {ratio} 0.9-2.4 [facility] ALP [Catalytic activity/Vol] 88 U/L 45-117 [facility] ALT [Catalytic activity/Vol] 24 U/L 13-56 [facility] Cholesterol in HDL [Mass/Vol] 61 mg/dL >40 [facility] Comment on above: The drugs N-Acetylcy steine and Metamizole may falsely depress this assay. Reference Range HDL <40 mg/dL Low HDL Cholesterol HDL >or= 60 mg/dL High HDL Cholesterol Cholesterol in LDL [Mass/Vol] 198 mg/dL 0-130 [facility] CO2 [Moles/Vol] 28.0 mmol/L 21.0-32.0 [facility] Globulin (S) [Mass/Vol] 3.5 g/dL 2.2-4.[address] [facility] Urea nitrogen/Creatinine [Mass ratio] 20.0 mg/mg 10-20 [facility] Laboratory - Hematology and Cell countsOrdered By: Jasmyn Phillips on 01-09-2024 MCH (RBC) [Entitic mass] 30.3 pg 27.0-32.0 [facility] MCHC (RBC) [Mass/Vol] 32.6 g/dL 32-36 [facility] Nucleated RBC/100 WBC (Bld) [Ratio] 0 % 0-5 [facility] Platelet mean volume (Bld) [Entitic vol] 9.4 fL 6.2-12.0 [facility] Platelets (Bld) [#/Vol] 461 10*3/uL 150-450 [facility] No Panel InformationOrdered By: Jasmyn Phillips on 01-09-2024 Estimated GFR (MDRD) Amer 77 mL/min >60 [facility] Comment on above: GFR Calc Estimated GFR (MDRD) Non-Af Amer 64 mL/min >60 [facility] Comment on above: Non- GFR Calc Free Triiodothyronine (T3) pg/dL 2.1 pg/mL 2.18-3.98 [facility] Vitamin D 25-Hydroxy 36.2 ng/mL [facility] Comment on above: Vitamin D 25(OH) Sta tus Range Deficiency <20 ng/mL (50nmol/L) Insufficiency 20 - 30 ng/mL (50 - 75 nmol/L) Sufficiency 30 - 100 ng/mL (75 - 250 nmol/L) Toxicity >100 ng/mL (>250 nmol/L) VLDL Cholesterol 22 mg/dL 5-40 [facility] RBC Auto (Bld) [#/Vol]Ordere d By: Jasmyn Phillips on 01-09-2024 RBC (Bld) [#/Vol] 4.75 10*6/uL 4.2-5.4 [facility] Serum or plasma calcium leon urement (mass/volume)Ordered By: Jasmyn Phillips on 01-09-2024 Calcium [Mass/Vol] 9.5 mg/dL 8.5-10.1 [facility] Serum or plasma creatinine m easurement (mass/volume)Ordered By: Jasmyn Phillips on 01-09-2024 Creatinine [Mass/Vol] 0.95 mg/dL 0.55-1.02 [facility] Comment on above: The validity of the calculated GFR & GFRAA in patients over 70 years has not been determined. Clinical correlation is essential. Serum or plasma thyroid stim ulating hormone (TSH) measurement (units/volume)Ordered By: Jasmyn Phillips on 01-09-2024 TSH Qn 3.81 uIU/mL 0.358-3.74 [facility] Serum or plasma urea nitroge n measurement (mass/volume)Ordered By: Jasmyn Phillips on 01-09-2024 Urea nitrogen [Mass/Vol] 19 mg/dL 7-18 [facility] Thin prep Papanicolaou smear with manual screeningOrdered By: Jasmyn Phillips on 01-09-2024 Thin prep Papanicolaou smear with manual screening 4.2 g/dL 3.2-5.0 [facility] Thin prep Papanicolaou smear with manual screening 15 U/L 15-37 [facility] Thin prep Papanicolaou smear with manual screening 4 5-15 [facility] Thin prep Papanicolaou smear with manual screening 1.21 ng/dL 0.76-1.46 [facility]20[facility] TIANNA MAYS ([id number]) 1965 F Date Time Provider Department 01/06/24 NICOLAS SOTO During your visit today, we recorded the following information about you: Nicolas Soto, APPELLATE LAW CLERK 01/06/2024 3:05 PM Signed Farhad,[facility] called this Sw as above patient had called her and said that she sees ?[facility] [place]? provider. Geno noted that above individual would [...] through blankets. Thinks her messages go to daughters? phone and not receiving them. Used gorilla glue to secure curtains/doors. Thinks people are seeing her messages and texts to daughter?s phone. Can only take cold showers due to voices telling her that and now has colds. Does not want to contact police as she says they are not helpful and ?has been hog tied? and taken out of home. Geno noted that she wanted us to be aware of this information. Allergies As of Date: 01/06/2024 Noted Allergy Reaction AMITRIPTYLINE 03/07/2019 14 - Other: See Comments Comments: Swelling, lip swelling, blisters, nausea, itching, fever, pouring sweat, decreased appetite and worsening depression Pt agreed on 03/07/19 that she never wants this medication again and to list it as a medication with SE. Date Reviewed: 12/13/2019 Reviewed by: Hernandez Roberts - Fully Assessed Prescriptions as of 01/06/2024 - PREMPRO 0.625-2.5 mg per tablet TAKE 1 TABLET ONCE DAILY - valACYclovir (VALTREX) 1 gram Take 1 tablet by mouth once daily. - albuterol HFA (PROVENTIL HFA, VENTOLIN HFA) 90 mcg/actuation inhaler Inhale 2 Puffs as instructed every 6 hours as needed. - multivitamin with folic acid (THERA) 400 mcg Take 1 tablet by mouth once daily. - atorvastatin (LIPITOR) 10 mg tablet Take 1 tablet by mouth once daily. - guaiFENesin (MUCINEX) 600 mg 12 hr tablet Take 1 tablet by mouth twice daily. As needed for sinus - Omeprazole 40 mg capsule Take 1 capsule by mouth once daily. - levothyroxine (SYNTHROID) 75 mcg tablet Take 1 tablet by mouth once daily. - fluticasone furoate (ARNUITY ELLIPTA) 100 mcg/actuation dsdv Inhale 1 Puff as instructed once daily. Inhale one puff once daily. DO NOT CLICK OPEN UNTIL READY FOR DOSE - QUEtiapine (SEROQUEL) 100 mg tablet Take 3 tablets by mouth daily at bedtime. 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] 07/12/2011 Bursitis of left shoulder [M75.52] 08/12/2011 08/27/2016 Onychia and paronychia of toe [L03.039] 05/01/2012 08/27/2016 Cramping of hands [R25.2] 12/05/2012 08/27/2016 DDD (degenerative disc disease), lumbar [M51.36]06/29/2013 Lumbago with sciatica [M54.40] 06/29/2013 01/06/2017 External hemorrhoid [K64.4] 10/10/2013 01/06/2017 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] 10/24/2013 Myalgia [M79.10] 10/26/2013 08/27/2016 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] 02/06/2014 Bipolar disorder, in partial remission, most re*06/06/2016 SIOBHAN (generalized anxiety disorder) [F41.1] 06/06/2016 Marijuana use [F12.90] 01/06/2017 Fibromyalgia [M79.7] 02/22/2018 Personal history of colonic polyps [Z86.010] 02/27/2018 Abnormal drug screen [R89.2] 01/08/2019 GERD without esophagitis [K21.9] 07/13/2019 Ex-smoker [Z87.891] 07/13/2019 PTSD (post-traumatic stress disorder) [F43.10] 07/13/2019 Panic attacks [F41.0] 07/13/2019 Headaches [R51.9] 07/13/2019 Medication management [Z79.899] 07/13/2019 COPD, 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 Bilirubin [Mass/Vol] 0.40 mg/dL 0.20-1.00 [facility] Comment on above: For patients on eltr ombopag therapy, use of Dimension [place] TBIL is not recommended. Chloride [Moles/Vol] 106 mmol/L 98-107 [facility] Eosinophils/100 WBC (Bld) 1.2 % 0-5 [facility] Glucose [Mass/Vol] 144 mg/dL 74-106 [facility] Comment on above: Fasting Glucose resu lt greater than or equal to 126 mg/dL suggests DIABETES MELLITUS per A.D.A. criteria. Neutrophils (Bld) [#/Vol] 3.9 10*3/uL 2.0-7.7 [facility] Neutrophils/100 WBC (Bld) 38.2 % 47-70 [facility] Potassium [Moles/Vol] 3.5 mmol/L 3.5-5.1 [facility] Protein [Mass/Vol] 7.2 g/dL 6.4-8.2 [facility] Sodium [Moles/Vol] 140 mmol/L 136-145 [facility] WBC (Bld) [#/Vol] 10.1 10*3/uL 4.4-11.0 [facility] Blood erythrocytes count (nu mber/volume)Ordered By: Juwan Lane on 11-02-2023 RBC (Bld) [#/Vol] 4.50 10*6/uL 4.2-5.4 [facility] Blood hemoglobin measurement (mass/volume)Ordered By: Juwan Lane on 11-02-2023 Hemoglobin (Bld) [Mass/Vol] 13.8 g/dL 12.0-15.0 [facility] Blood lymphocytes/100 leukoc ytesOrdered By: Juwan Lane on 11-02-2023 Lymphocytes/100 WBC (Bld) 50.5 % 19-41 [facility] Blood manual differential co mment interpretation (narrative result)Ordered By: uJwan Lane on 11-02-2023 Manual differential comment Nikos (Bld) [Interp] SCANNED [facility] Blood monocytes/100 leukocyt esOrdered By: Juwan Lane on 11-02-2023 Monocytes/100 WBC (Bld) 9.3 % 0-[address] [facility] Blood platelet mean volumeOr dered By: Juwan Lane on 11-02-2023 Platelet mean volume (Bld) [Entitic vol] 9.0 fL 6.2-12.0 [facility] COVID-19 virus antigen assay Ordered By: Juwan Lane on 11-02-2023 SARS-CoV-2 (COVID-19) Ag IA.rapid Ql (Resp) [facility] Determination of erythrocyte mean corpuscular volume (MCV)Ordered By: Juwan Lane on 11-02-2023 MCV (RBC) [Entitic vol] 92.2 fL 81-[address] [facility] Hematocrit Auto (Bld) [Volum e fraction]Ordered By: Juwan Lane on 11-02-2023 Hematocrit (Bld) [Volume fraction] 41.5 % 37-47 [facility] Laboratory - Chemistry and C hemistry - challengeOrdered By: Juwan Lane on 11-02-2023 ALP [Catalytic activity/Vol] 97 U/L 45-117 [facility] ALT [Catalytic activity/Vol] 23 U/L 13-56 [facility] CO2 [Moles/Vol] 25.0 mmol/L 21.0-32.0 [facility] Globulin (S) [Mass/Vol] 3.3 g/dL 2.2-4.[address] [facility] Urea nitrogen/Creatinine [Mass ratio] 26.0 mg/mg 10-20 [facility] Laboratory - Drug toxicology Ordered By: Juwan Lane on 11-02-2023 Amphetamines Ql (U) Positive <1000 ng/mL [facility] Benzodiazepines Ql (U) Positive < 200 ng/mL [facility] Cannabinoids Screen Ql (U) Positive < 50 ng/mL [facility] Cocaine Ql (U) Negative < 300 ng/mL [facility] Opiates Ql (U) Negative < 300 ng/mL [facility] Laboratory - Hematology and Cell countsOrdered By: Juwan Lane on 11-02-2023 Erythrocyte distribution width (RBC) [Entitic vol] 46.4 fL 35.1-43.9 [facility] Erythrocyte distribution width (RBC) [Ratio] 13.7 % 11.6-14.6 [facility] Immature granulocytes/100 WBC (Bld) 0.200 % 0.0-0.9 [facility] Comment on above: IG% - Immature Granu locytes (promyelocytes, myelocytes and metamyelocytes) > 1% indicates that a LEFT SHIFT is Present. MCH (RBC) [Entitic mass] 30.7 pg 27.0-32.0 [facility] Nucleated RBC/100 WBC (Bld) [Ratio] 0 % 0-5 [facility] MCHC Auto (RBC) [Mass/Vol]Or dered By: Juwan Lane on 11-02-2023 MCHC (RBC) [Mass/Vol] 33.3 g/dL 32-36 [facility] No Panel InformationOrdered By: Juwan Lane on 11-02-2023 MDMA (Ecstasy) Screen Negative < 500 ng/mL [facility] Urine Barbiturates Screen Negative < 200 ng/mL [facility] Urine Drug Screen Comment [facility] Comment on above: CONFIRMATORY TESTING FOR ALL POSITIVE URINE DRUG SCREENRESULTS WILL ONLY BE SENT OUT UPON PHYSICIAN ORDER. VISTA Urine Drug Screen methods provide only preliminaryanalytical test results. A more specific alternate chemicalmethod must be used in order to obtain a confirmedanalytical result. Gas chromatography/mass spectrometery(GC/MS) is the preferred confirmatory method. Clinicalconsideration and professional judgement should be appliedto any drug of abuse test result, particularly whenpreliminary positive results are used. URINE TCA TESTING MUST BE ORDERED SEPARATELY. USE TESTMNEMONIC: [facility] Urine Methadone Screen Negative < 300 ng/mL [facility] Estimated Creatinine Clearance Calc 46.07 ml/min [facility] Estimated GFR (MDRD) Amer 70 mL/min >60 [facility] Comment on above: GFR Calc Estimated GFR (MDRD) Non-Af Amer 58 mL/min >60 [facility] Comment on above: Non- GFR Calc Ethyl Alcohol Level < 3.0 mg/dL [facility] Comment on above: The serum:whole bloo d ethanol ratio is approximately 1.14and varies slightly with hematocrit. Medical Alcohol reference interval and critical value innon-tolerant individuals; 50 - 100 Impairment 100 Intoxication 100 - 250 Severe Poisoning 250 - 400 Deep/possible fatal coma Thyroid Stimulating Hormone (TSH) 12.50 uIU/mL 0.358-3.74 [facility] Platelets bldOrdered By: Marcial Lane on 11-02-2023 Platelets (Bld) [#/Vol] 425 10*3/uL 150-450 [facility] Serum or plasma albumin leon urement (mass/volume)Ordered By: Juwan Lane on 11-02-2023 Albumin [Mass/Vol] 3.9 g/dL 3.2-5.0 [facility] Serum or plasma albumin/glob ulin mass ratioOrdered By: Juwan Lane on 11-02-2023 Albumin/Globulin [Mass ratio] 1.2 {ratio} 0.9-2.4 [facility] Serum or plasma calcium leon urement (mass/volume)Ordered By: Juwan Lane on 11-02-2023 Calcium [Mass/Vol] 9.1 mg/dL 8.5-10.1 [facility] Serum or plasma creatinine m easurement (mass/volume)Ordered By: Juwan Lane on 11-02-2023 Creatinine [Mass/Vol] 1.04 mg/dL 0.55-1.02 [facility] Comment on above: The validity of the calculated GFR & GFRAA in patients over 70 years has not been determined. Clinical correlation is essential. Serum or plasma urea nitroge n measurement (mass/volume)Ordered By: Juwan Lane on 11-02-2023 Urea nitrogen [Mass/Vol] 27 mg/dL 7-18 [facility] Thin prep Papanicolaou smear with manual screeningOrdered By: [place] Domingo on 11-02-2023 Thin prep Papanicolaou smear with manual screening 14 U/L 15-37 [facility] Thin prep Papanicolaou smear with manual screening 9 5-15 [facility] Urine phencyclidine (PCP) de tectionOrdered By: Juwan Lane on 11-02-2023 Phencyclidine Ql (U) Negative < 25 ng/mL [facility] Absolute lymphocyte countOrd ered By: Dominguez Osman on 05-28-2023 Lymphocytes Auto (Unsp spec) [#/Vol] 4.45 10*3/uL 0.83-4.51 [facility] Basophil percentageOrdered B y: Dominguez Osman on 05-28-2023 Basophils/100 WBC (Bld) 0.4 % 0-[address] [facility] Chloride [Moles/Vol] 107 mmol/L 98-107 [facility] Eosinophils/100 WBC (Bld) 0.4 % 0-5 [facility] Glucose [Mass/Vol] 128 mg/dL 74-106 [facility] Comment on above: Fasting Glucose resu lt greater than or equal to 126 mg/dL suggests DIABETES MELLITUS per A.D.A. criteria. Neutrophils (Bld) [#/Vol] 10.5 10*3/uL 2.0-7.7 [facility] Neutrophils/100 WBC (Bld) 63.6 % 47-70 [facility] Potassium [Moles/Vol] 4.1 mmol/L 3.5-5.1 [facility] Sodium [Moles/Vol] 136 mmol/L 136-145 [facility] WBC (Bld) [#/Vol] 16.5 10*3/uL 4.4-11.0 [facility] Blood erythrocytes count (nu mber/volume)Ordered By: Dominguez Osman on 05-28-2023 RBC (Bld) [#/Vol] 4.93 10*6/uL 4.2-5.4 [facility] Blood hemoglobin measurement (mass/volume)Ordered By: Dominguez Osman on 05-28-2023 Hemoglobin (Bld) [Mass/Vol] 15.2 g/dL 12.0-15.0 [facility] Blood lymphocytes/100 leukoc ytesOrdered By: Dominguez Osman on 05-28-2023 Lymphocytes/100 WBC (Bld) 26.9 % 19-41 [facility] Blood monocytes/100 leukocyt esOrdered By: Dominguez Osman on 05-28-2023 Monocytes/100 WBC (Bld) 8.4 % 0-[address] [facility] Blood platelet mean volumeOr dered By: Dominguez Osman on 05-28-2023 Platelet mean volume (Bld) [Entitic vol] 9.2 fL 6.2-12.0 [facility] Determination of erythrocyte mean corpuscular volume (MCV)Ordered By: Dominguez Osman on 05-28-2023 MCV (RBC) [Entitic vol] 92.1 fL 81-[address] [facility] Hematocrit Auto (Bld) [Volum e fraction]Ordered By: Dominguez Osman on 05-28-2023 Hematocrit (Bld) [Volume fraction] 45.4 % 37-47 [facility] Laboratory - Chemistry and C hemistry - challengeOrdered By: Dominguez Osman on 05-28-2023 CO2 [Moles/Vol] 21.0 mmol/L 21.0-32.0 [facility] Urea nitrogen/Creatinine [Mass ratio] 21.8 mg/mg 10-20 [facility] Laboratory - Hematology and Cell countsOrdered By: Dominguez Osman on 05-28-2023 Erythrocyte distribution width (RBC) [Entitic vol] 55.1 fL 35.1-43.9 [facility] Erythrocyte distribution width (RBC) [Ratio] 16.1 % 11.6-14.6 [facility] Immature granulocytes/100 WBC (Bld) 0.300 % 0.0-0.9 [facility] Comment on above: IG% - Immature Granu locytes (promyelocytes, myelocytes and metamyelocytes) > 1% indicates that a LEFT SHIFT is Present. MCH (RBC) [Entitic mass] 30.8 pg 27.0-32.0 [facility] Nucleated RBC/100 WBC (Bld) [Ratio] 0 % 0-5 [facility] MCHC Auto (RBC) [Mass/Vol]Or dered By: Dominguez Osman on 05-28-2023 MCHC (RBC) [Mass/Vol] 33.5 g/dL 32-36 [facility] No Panel InformationOrdered By: Dominguez Osman on 05-28-2023 Troponin I High Sensitivity 4 pg/mL 3.0-54.0 [facility] Comment on above: Please Note: New Carlene t Units and Gender Specific Reference Ranges. For more information see Policy Stat Procedure [place] High Sensitivity Troponin (TNIH) and attachments. D-Dimer Quantitative (PE/DVT) 0.36 FEU/ug/m 0.27-0.49 [facility] Comment on above: NORMAL D-Dimer level (<0.50) indicates no DVT or PE. Estimated Creatinine Clearance Calc 50.41 ml/min [facility] Estimated GFR (MDRD) Amer 81 mL/min >60 [facility] Comment on above: GFR Calc Estimated GFR (MDRD) Non-Af Amer 67 mL/min >60 [facility] Comment on above: Non- GFR Calc Platelets bldOrdered By: Cathy Osman on 05-28-2023 Platelets (Bld) [#/Vol] 435 10*3/uL 150-450 [facility] Serum or plasma calcium leon urement (mass/volume)Ordered By: Dominguez Osman on 05-28-2023 Calcium [Mass/Vol] 9.6 mg/dL 8.5-10.1 [facility] Serum or plasma creatinine m easurement (mass/volume)Ordered By: Dominguez Osman on 05-28-2023 Creatinine [Mass/Vol] 0.92 mg/dL 0.55-1.02 [facility] Comment on above: The validity of the calculated GFR & GFRAA in patients over 70 years has not been determined. Clinical correlation is essential. Serum or plasma urea nitroge n measurement (mass/volume)Ordered By: Dominguez Osman on 05-28-2023 Urea nitrogen [Mass/Vol] 20 mg/dL 7-18 [facility] Thin prep Papanicolaou smear with manual screeningOrdered By: Dominguez Osman on 05-28-2023 Thin prep Papanicolaou smear with manual screening 8 5-15 [facility] Absolute lymphocyte countOrd ered By: Dr. Phillips on 03-21-2023 Lymphocytes Auto (Unsp spec) [#/Vol] 2.96 10*3/uL 0.83-4.51 [facility] Basophil percentageOrdered B y: Dr. Phillips on 03-21-2023 Basophils/100 WBC (Bld) 0.6 % 0-[address] [facility] Bilirubin [Mass/Vol] 0.20 mg/dL 0.20-1.00 [facility] Comment on above: For patients on eltr ombopag therapy, use of Dimension [place] TBIL is not recommended. Chloride [Moles/Vol] 106 mmol/L 98-107 [facility] Cholesterol [Mass/Vol] 288 mg/dL <200 [facility] Comment on above: <200 mg/dL Desirable 200-240 mg/dL Borderline >240 mg/dL High Risk Eosinophils/100 WBC (Bld) 0.8 % 0-5 [facility] Glucose [Mass/Vol] 112 mg/dL 74-106 [facility] Comment on above: Fasting Glucose resu lt from 100 to 125 mg/dL suggests IMPAIRED HOMEOSTASIS per A.D.A. criteria. Neutrophils (Bld) [#/Vol] 4.5 10*3/uL 2.0-7.7 [facility] Neutrophils/100 WBC (Bld) 54.2 % 47-70 [facility] Potassium [Moles/Vol] 3.9 mmol/L 3.5-5.1 [facility] Protein [Mass/Vol] 7.3 g/dL 6.4-8.2 [facility] Sodium [Moles/Vol] 140 mmol/L 136-145 [facility] Triglyceride [Mass/Vol] 160 mg/dL <[address] [facility] Comment on above: The drugs N-Acetylcy steine and Metamizole may falsely depress this assay.Serum Triglycerides Reference Interval Normal <150 mg/dL Borderline high 150 - 199 mg/dL High 200 - 499 mg/dL Very High > or = 500 mg/dL WBC (Bld) [#/Vol] 8.4 10*3/uL 4.4-11.0 [facility] Blood erythrocytes count (nu mber/volume)Ordered By: Dr. Phillips on 03-21-2023 RBC (Bld) [#/Vol] 4.56 10*6/uL 4.2-5.4 [facility] Blood hemoglobin measurement (mass/volume)Ordered By: Dr. Phillips on 03-21-2023 Hemoglobin (Bld) [Mass/Vol] 13.5 g/dL 12.0-15.0 [facility] Blood lymphocytes/100 leukoc ytesOrdered By: Dr. Phillips on 03-21-2023 Lymphocytes/100 WBC (Bld) 35.3 % 19-41 [facility] Blood monocytes/100 leukocyt esOrdered By: Dr. Phillips on 03-21-2023 Monocytes/100 WBC (Bld) 8.9 % 0-10 [facility] Blood platelet mean volumeOr dered By: Dr. Phillips on 03-21-2023 Platelet mean volume (Bld) [Entitic vol] 9.1 fL 6.2-12.0 [facility] Determination of erythrocyte mean corpuscular volume (MCV)Ordered By: Dr. Phillips on 03-21-2023 MCV (RBC) [Entitic vol] 92.1 fL 81-99 [facility] Hematocrit Auto (Bld) [Volum e fraction]Ordered By: Dr. Phillips on 03-21-2023 Hematocrit (Bld) [Volume fraction] 42.0 % 37-47 [facility] Laboratory - Chemistry and C hemistry - challengeOrdered By: Dr. Phillips on 03-21-2023 ALP [Catalytic activity/Vol] 99 U/L 45-117 [facility] ALT [Catalytic activity/Vol] 29 U/L 13-56 [facility] CO2 [Moles/Vol] 28.0 mmol/L 21.0-32.0 [facility] Free T4 [Mass/Vol] 0.95 ng/dL 0.76-1.46 [facility] Globulin (S) [Mass/Vol] 3.3 g/dL 2.2-4.[address] [facility] Urea nitrogen/Creatinine [Mass ratio] 17.6 mg/mg 10-20 [facility] Laboratory - Hematology and Cell countsOrdered By: Dr. Phillips on 03-21-2023 Erythrocyte distribution width (RBC) [Entitic vol] 51.7 fL 35.1-43.9 [facility] Erythrocyte distribution width (RBC) [Ratio] 15.3 % 11.6-14.6 [facility] Immature granulocytes/100 WBC (Bld) 0.200 % 0.0-0.9 [facility] Comment on above: IG% - Immature Granu locytes (promyelocytes, myelocytes and metamyelocytes) > 1% indicates that a LEFT SHIFT is Present. MCH (RBC) [Entitic mass] 29.6 pg 27.0-32.0 [facility] Nucleated RBC/100 WBC (Bld) [Ratio] 0 % 0-5 [facility] MCHC Auto (RBC) [Mass/Vol]Or dered By: Dr. Phillips on 03-21-2023 MCHC (RBC) [Mass/Vol] 32.1 g/dL 32-36 [facility] No Panel InformationOrdered By: Dr. Phillips on 03-21-2023 Estimated GFR (MDRD) Amer 88 mL/min >60 [facility] Comment on above: GFR Calc Estimated GFR (MDRD) Non-Af Amer 73 mL/min >60 [facility] Comment on above: Non- GFR Calc Free Triiodothyronine (T3) pg/dL 2.3 pg/mL 2.18-3.98 [facility] Thyroid Stimulating Hormone (TSH) 6.84 uIU/mL 0.358-3.74 [facility] Vitamin D 25-Hydroxy 47.4 ng/mL [facility] Comment on above: Vitamin D 25(OH) Sta tus Range Deficiency <20 ng/mL (50nmol/L) Insufficiency 20 - 30 ng/mL (50 - 75 nmol/L) Sufficiency 30 - 100 ng/mL (75 - 250 nmol/L) Toxicity >100 ng/mL (>250 nmol/L) Platelets bldOrdered By: Dr. Phillips on 03-21-2023 Platelets (Bld) [#/Vol] 373 10*3/uL 150-450 [facility] Serum or plasma albumin leon urement (mass/volume)Ordered By: Dr. Phillips on 03-21-2023 Albumin [Mass/Vol] 4.0 g/dL 3.2-5.0 [facility] Serum or plasma albumin/glob ulin mass ratioOrdered By: Dr. Phillips on 03-21-2023 Albumin/Globulin [Mass ratio] 1.2 {ratio} 0.9-2.4 [facility] Serum or plasma calcium leon urement (mass/volume)Ordered By: Dr. Phillips on 03-21-2023 Calcium [Mass/Vol] 9.4 mg/dL 8.5-10.1 [facility] Serum or plasma cholesterol in HDL measurement (mass/volume)Ordered By: Dr. Phillips on 03-21-2023 Cholesterol in HDL [Mass/Vol] 63 mg/dL >40 [facility] Comment on above: The drugs N-Acetylcy steine and Metamizole may falsely depress this assay. Reference Range HDL <40 mg/dL Low HDL Cholesterol HDL >or= 60 mg/dL High HDL Cholesterol Serum or plasma cholesterol in VLDL measurement (mass/volume)Ordered By: Dr. Phillips on 03-21-2023 Cholesterol in VLDL [Mass/Vol] 32 mg/dL 5-40 [facility] Serum or plasma creatinine m easurement (mass/volume)Ordered By: Dr. Phillips on 03-21-2023 Creatinine [Mass/Vol] 0.85 mg/dL 0.55-1.02 [facility] Comment on above: The validity of the calculated GFR & GFRAA in patients over 70 years has not been determined. Clinical correlation is essential. Serum or plasma low density lipoprotein (LDL) cholesterol measurement (mass/volume)Ordered By: Dr. Phillips on 03-21-2023 Cholesterol in LDL [Mass/Vol] 193 mg/dL 0-130 [facility] Serum or plasma urea nitroge n measurement (mass/volume)Ordered By: Dr. Phillips on 03-21-2023 Urea nitrogen [Mass/Vol] 15 mg/dL 7-18 [facility] Thin prep Papanicolaou smear with manual screeningOrdered By: Dr. Phillips on 03-21-2023 Thin prep Papanicolaou smear with manual screening 17 U/L 15-37 [facility] Thin prep Papanicolaou smear with manual screening 6 5-15 [facility] Whole blood hemoglobin A1c/t otal hemoglobin ratio (mass fraction)Ordered By: Dr. Phillips on 03-21-2023 HbA1c (Bld) [Mass fraction] 5.3 % 3.8-5.6 [facility] Comment on above: Normal < 5.7 % Predi abetic 5.7 - 6.4 % Diabetic >or= 6.5 % Please note range changes. Absolute lymphocyte countOrd ered By: Dr. Roper on 02-20-2023 Lymphocytes Auto (Unsp spec) [#/Vol] 2.73 10*3/uL 0.83-4.51 [facility] Basophil percentageOrdered B y: Dr. Roper on 02-20-2023 Basophil percentage 0 SEEN /hpf 0-5 [facility] Basophils/100 WBC (Bld) 0.5 % 0-1 [facility] Bilirubin [Mass/Vol] 0.40 mg/dL 0.20-1.00 [facility] Comment on above: For patients on eltr ombopag therapy, use of Dimension [place] TBIL is not recommended. Chloride [Moles/Vol] 107 mmol/L 98-107 [facility] Eosinophils/100 WBC (Bld) 0.6 % 0-5 [facility] Glucose [Mass/Vol] 132 mg/dL 74-106 [facility] Comment on above: Fasting Glucose resu lt greater than or equal to 126 mg/dL suggests DIABETES MELLITUS per A.D.A. criteria. Neutrophils (Bld) [#/Vol] 4.3 10*3/uL 2.0-7.7 [facility] Neutrophils/100 WBC (Bld) 54.5 % 47-70 [facility] Potassium [Moles/Vol] 3.6 mmol/L 3.5-5.1 [facility] Protein [Mass/Vol] 7.4 g/dL 6.4-8.2 [facility] Sodium [Moles/Vol] 139 mmol/L 136-145 [facility] WBC (Bld) [#/Vol] 7.9 10*3/uL 4.4-11.0 [facility] Bilirubin Test strip Ql (U)O rdered By: Dr. Roper on 02-20-2023 Bilirubin Ql (U) Negative Negative [facility] Blood erythrocytes count (nu mber/volume)Ordered By: Dr. Roper on 02-20-2023 RBC (Bld) [#/Vol] 4.71 10*6/uL 4.2-5.4 [facility] Blood hemoglobin measurement (mass/volume)Ordered By: Dr. Roper on 02-20-2023 Hemoglobin (Bld) [Mass/Vol] 14.1 g/dL 12.0-15.0 [facility] Blood lymphocytes/100 leukoc ytesOrdered By: Dr. Roper on 02-20-2023 Lymphocytes/100 WBC (Bld) 34.5 % 19-41 [facility] Blood monocytes/100 leukocyt esOrdered By: Dr. Roper on 02-20-2023 Monocytes/100 WBC (Bld) 9.6 % 0-[address] [facility] Blood platelet mean volumeOr dered By: Dr. Roper on 02-20-2023 Platelet mean volume (Bld) [Entitic vol] 8.9 fL 6.2-12.0 [facility] CarboxyhemoglobinOrdered By: Dr. Roper on 02-20-2023 Carboxyhemoglobin (Bld) [Mass/Vol] 3.7 % 0.0-1.5 [facility] Comment on above: * NON-SMOKER RANGE 1 .6 - 5.0% * LIGHT SMOKER RANGE 5.1 - 9.0% * HEAVY SMOKER RANGE Determination of erythrocyte mean corpuscular volume (MCV)Ordered By: Dr. Roper on 02-20-2023 MCV (RBC) [Entitic vol] 90.4 fL 81-[address] [facility] Hematocrit Auto (Bld) [Volum e fraction]Ordered By: Dr. Roper on 02-20-2023 Hematocrit (Bld) [Volume fraction] 42.6 % 37-47 [facility] Ketones Test strip Ql (U)Ord ered By: Dr. Roper on 02-20-2023 Ketones Ql (U) Negative Negative [facility] Laboratory - Chemistry and C hemistry - challengeOrdered By: Dr. Roper on 02-20-2023 ALP [Catalytic activity/Vol] 86 U/L 45-117 [facility] ALT [Catalytic activity/Vol] 24 U/L 13-56 [facility] CO2 [Moles/Vol] 27.0 mmol/L 21.0-32.0 [facility] Globulin (S) [Mass/Vol] 3.2 g/dL 2.2-4.[address] [facility] Urea nitrogen/Creatinine [Mass ratio] 16.5 mg/mg 10-20 [facility] Laboratory - Drug toxicology Ordered By: Dr. Roper on 02-20-2023 Amphetamines Ql (U) Negative <1000 ng/mL [facility] Benzodiazepines Ql (U) Positive < 200 ng/mL [facility] Cannabinoids Screen Ql (U) Positive < 50 ng/mL [facility] Cocaine Ql (U) Negative < 300 ng/mL [facility] Opiates Ql (U) Negative < 300 ng/mL [facility] Laboratory - Hematology and Cell countsOrdered By: Dr. Roper on 02-20-2023 Erythrocyte distribution width (RBC) [Entitic vol] 47.2 fL 35.1-43.9 [facility] Erythrocyte distribution width (RBC) [Ratio] 14.4 % 11.6-14.6 [facility] Immature granulocytes/100 WBC (Bld) 0.300 % 0.0-0.9 [facility] Comment on above: IG% - Immature Granu locytes (promyelocytes, myelocytes and metamyelocytes) > 1% indicates that a LEFT SHIFT is Present. MCH (RBC) [Entitic mass] 29.9 pg 27.0-32.0 [facility] Nucleated RBC/100 WBC (Bld) [Ratio] 0 % 0-5 [facility] [facility] MCHC Auto (RBC) [Mass/Vol]Or dered By: Dr. Roper on 02-20-2023 MCHC (RBC) [Mass/Vol] 33.1 g/dL 32-36 [facility] Mucus LM Ql (Urine sed)Order ed By: Dr. Roper on 02-20-2023 Mucus Ql (Urine sed) 0 SEEN /hpf [facility] Nitrite Test strip Ql (U)Ord ered By: Dr. Roper on 02-20-2023 Nitrite Ql (U) Negative Negative [facility] No Panel InformationOrdered By: Dr. Roper on 02-20-2023 MDMA (Ecstasy) Screen Negative < 500 ng/mL [facility] Urine Barbiturates Screen Negative < 200 ng/mL [facility] Urine Drug Screen Comment [facility] Comment on above: CONFIRMATORY TESTING FOR ALL POSITIVE URINE DRUG SCREENRESULTS WILL ONLY BE SENT OUT UPON PHYSICIAN ORDER. VISTA Urine Drug Screen methods provide only preliminaryanalytical test results. A more specific alternate chemicalmethod must be used in order to obtain a confirmedanalytical result. Gas chromatography/mass spectrometery(GC/MS) is the preferred confirmatory method. Clinicalconsideration and professional judgement should be appliedto any drug of abuse test result, particularly whenpreliminary positive results are used. URINE TCA TESTING MUST BE ORDERED SEPARATELY. USE TESTMNEMONIC: [facility] Urine Methadone Screen Negative < 300 ng/mL [facility] Estimated Creatinine Clearance Calc 52.65 ml/min [facility] Estimated GFR (MDRD) Amer 81 mL/min >60 [facility] Comment on above: GFR Calc Estimated GFR (MDRD) Non-Af Amer 67 mL/min >60 [facility] Comment on above: Non- GFR Calc Ethyl Alcohol Level < 3.0 mg/dL [facility] Comment on above: The serum:whole bloo d ethanol ratio is approximately 1.14and varies slightly with hematocrit. Medical Alcohol reference interval and critical value innon-tolerant individuals; 50 - 100 Impairment 100 Intoxication 100 - 250 Severe Poisoning 250 - 400 Deep/possible fatal coma Troponin I High Sensitivity 3 pg/mL 3.0-54.0 [facility] Comment on above: Please Note: New Carlene t Units and Gender Specific Reference Ranges. For more information see Policy Stat Procedure [place] High Sensitivity Troponin (TNIH) and attachments. Platelets bldOrdered By: Dr. Roper on 02-20-2023 Platelets (Bld) [#/Vol] 447 10*3/uL 150-450 [facility] Protein Test strip Ql (U)Ord ered By: Dr. Roper on 02-20-2023 Protein Ql (U) Negative Negative [facility] Serum or plasma albumin leon urement (mass/volume)Ordered By: Dr. Roper on 02-20-2023 Albumin [Mass/Vol] 4.2 g/dL 3.2-5.0 [facility] Serum or plasma albumin/glob ulin mass ratioOrdered By: Dr. Roper on 02-20-2023 Albumin/Globulin [Mass ratio] 1.3 {ratio} 0.9-2.4 [facility] Serum or plasma calcium leon urement (mass/volume)Ordered By: Dr. Roper on 02-20-2023 Calcium [Mass/Vol] 9.5 mg/dL 8.5-10.1 [facility] Serum or plasma creatinine m easurement (mass/volume)Ordered By: Dr. Roper on 02-20-2023 Creatinine [Mass/Vol] 0.91 mg/dL 0.55-1.02 [facility] Comment on above: The validity of the calculated GFR & GFRAA in patients over 70 years has not been determined. Clinical correlation is essential. Serum or plasma urea nitroge n measurement (mass/volume)Ordered By: Dr. Roper on 02-20-2023 Urea nitrogen [Mass/Vol] 15 mg/dL 7-18 [facility] Squamous epithelial cells de tection in urine sediment by light microscopyOrdered By: Dr. Roper on 02-20-2023 Epithelial cells.squamous LM Ql (Urine sed) 0-5 SEEN /hpf 5-10 [facility] Thin prep Papanicolaou smear with manual screeningOrdered By: Dr. Roper on 02-20-2023 Thin prep Papanicolaou smear with manual screening 15 U/L 15-37 [facility] Thin prep Papanicolaou smear with manual screening 5 5-15 [facility] Urine blood detectionOrdered By: Dr. Roper on 02-20-2023 RBC Ql (U) Negative Negative [facility] RBC Ql (U) 0 SEEN /hpf 0-5 [facility] Urine clarityOrdered By: Dr. Roper on 02-20-2023 Clarity (U) Clear Clear [facility] Urine color determinationOrd ered By: Dr. Roper on 02-20-2023 Color (U) Yellow Yellow [facility] Urine glucose detectionOrder ed By: Dr. Roper on 02-20-2023 Glucose Ql (U) Normal mg/dl Normal [facility] Urine leukocyte esterase det ection by dipstickOrdered By: Dr. Roper on 02-20-2023 Leukocyte esterase Test strip Ql (U) Negative Negative [facility] Urine pHOrdered By: Dr. Carmine meeks on 02-20-2023 pH (U) 6.0 [pH] 5.0 - 8.0 [facility] Urine phencyclidine (PCP) de tectionOrdered By: Dr. Roper on 02-20-2023 Phencyclidine Ql (U) Negative < 25 ng/mL [facility] Urine sediment bacteria coun t by microscopy (number/high power field)Ordered By: Dr. Roper on 02-20-2023 Bacteria LM.HPF (Urine sed) [#/Area] 0 /[HPF] None Seen [facility] Urine specific gravity measu rementOrdered By: Dr. Roper on 02-20-2023 Specific gravity (U) [Rel density] 1.010 1.002-1.03 0 [facility] Urobilinogen Auto test strip Ql (U)Ordered By: Dr. Roper on 02-20-2023 Urobilinogen Ql (U) Normal mg/dl Normal [facility] Basophil percentageOrdered B y: Dr. Phillips on 02-02-2023 Basophil percentage 0 SEEN /hpf 0-5 [facility] Bilirubin [Mass/Vol] 0.30 mg/dL 0.20-1.00 [facility] Comment on above: For patients on eltr ombopag therapy, use of Dimension [place] TBIL is not recommended. Chloride [Moles/Vol] 104 mmol/L 98-107 [facility] Glucose [Mass/Vol] 124 mg/dL 74-106 [facility] Comment on above: Fasting Glucose resu lt from 100 to 125 mg/dL suggests IMPAIRED HOMEOSTASIS per A.D.A. criteria. Potassium [Moles/Vol] 3.8 mmol/L 3.5-5.1 [facility] Protein [Mass/Vol] 7.0 g/dL 6.4-8.2 [facility] Sodium [Moles/Vol] 140 mmol/L 136-145 [facility] Bilirubin Test strip Ql (U)O rdered By: Dr. Phillips on 02-02-2023 Bilirubin Ql (U) Negative Negative [facility] Ketones Test strip Ql (U)Ord ered By: Dr. Phillips on 02-02-2023 Ketones Ql (U) Negative Negative [facility] Laboratory - Chemistry and C hemistry - challengeOrdered By: Dr. Phillips on 02-02-2023 ALP [Catalytic activity/Vol] 95 U/L 45-117 [facility] ALT [Catalytic activity/Vol] 19 U/L 13-56 [facility] CO2 [Moles/Vol] 27.0 mmol/L 21.0-32.0 [facility] Globulin (S) [Mass/Vol] 3.2 g/dL 2.2-4.2 [facility] Urea nitrogen/Creatinine [Mass ratio] 21.2 mg/mg 10-20 [facility] Mucus LM Ql (Urine sed)Order ed By: Dr. Phillips on 02-02-2023 Mucus Ql (Urine sed) 0 SEEN /hpf [facility] Nitrite Test strip Ql (U)Ord ered By: Dr. Phillips on 02-02-2023 Nitrite Ql (U) Negative Negative [facility] No Panel InformationOrdered By: Dr. Phillips on 02-02-2023 Estimated GFR (MDRD) Amer 83 mL/min >60 [facility] Comment on above: GFR Calc Estimated GFR (MDRD) Non-Af Amer 69 mL/min >60 [facility] Comment on above: Non- GFR Calc Protein Test strip Ql (U)Ord ered By: Dr. Phillips on 02-02-2023 Protein Ql (U) Negative Negative [facility] Serum or plasma albumin leon urement (mass/volume)Ordered By: Dr. hPillips on 02-02-2023 Albumin [Mass/Vol] 3.8 g/dL 3.2-5.0 [facility] Serum or plasma albumin/glob ulin mass ratioOrdered By: Dr. Phillips on 02-02-2023 Albumin/Globulin [Mass ratio] 1.2 {ratio} 0.9-2.4 [facility] Serum or plasma calcium leon urement (mass/volume)Ordered By: Dr. Phillips on 02-02-2023 Calcium [Mass/Vol] 9.6 mg/dL 8.5-10.1 [facility] Serum or plasma creatinine m easurement (mass/volume)Ordered By: Dr. Phillips on 02-02-2023 Creatinine [Mass/Vol] 0.90 mg/dL 0.55-1.02 [facility] Comment on above: The validity of the calculated GFR & GFRAA in patients over 70 years has not been determined. Clinical correlation is essential. Serum or plasma urea nitroge n measurement (mass/volume)Ordered By: Dr. Phillips on 02-02-2023 Urea nitrogen [Mass/Vol] 19 mg/dL 7-18 [facility] Squamous epithelial cells de tection in urine sediment by light microscopyOrdered By: Dr. Phillips on 02-02-2023 Epithelial cells.squamous LM Ql (Urine sed) 0 SEEN /hpf 5-10 [facility] Thin prep Papanicolaou smear with manual screeningOrdered By: Dr. Phillips on 02-02-2023 Thin prep Papanicolaou smear with manual screening 16 U/L 15-37 [facility] Thin prep Papanicolaou smear with manual screening 9 5-15 [facility] Urine blood detectionOrdered By: Dr. Phillips on 02-02-2023 RBC Ql (U) Negative Negative [facility] RBC Ql (U) 0 SEEN /hpf 0-5 [facility] Urine clarityOrdered By: Dr. Phillips on 02-02-2023 Clarity (U) Clear Clear [facility] Urine color determinationOrd ered By: Dr. Phillips on 02-02-2023 Color (U) Yellow Yellow [facility] Urine glucose detectionOrder ed By: Dr. Phillips on 02-02-2023 Glucose Ql (U) Normal mg/dl Normal [facility] Urine leukocyte esterase det ection by dipstickOrdered By: Dr. Phillips on 02-02-2023 Leukocyte esterase Test strip Ql (U) Negative Negative [facility] Urine pHOrdered By: Dr. Dye hner on 02-02-2023 pH (U) 6.0 [pH] 5.0 - 8.0 [facility] Urine sediment bacteria coun t by microscopy (number/high power field)Ordered By: Dr. Phillips on 02-02-2023 Bacteria LM.HPF (Urine sed) [#/Area] 0 /[HPF] None Seen [facility] Urine specific gravity measu rementOrdered By: Dr. Phillips on 02-02-2023 Specific gravity (U) [Rel density] 1.010 1.002-1.03 0 [facility] Urobilinogen Auto test strip Ql (U)Ordered By: Dr. Phillips on 02-02-2023 Urobilinogen Ql (U) Normal mg/dl Normal [facility] Absolute lymphocyte countOrd ered By: Dr. Phillips on 12-09-2022 Lymphocytes Auto (Unsp spec) [#/Vol] 4.82 10*3/uL 0.83-4.51 [facility] Basophil percentageOrdered B y: Dr. Phillips on 12-09-2022 Basophils/100 WBC (Bld) 0.5 % 0-[address] [facility] Eosinophils/100 WBC (Bld) 1.0 % 0-5 [facility] Neutrophils (Bld) [#/Vol] 8.3 10*3/uL 2.0-7.7 [facility] Neutrophils/100 WBC (Bld) 56.6 % 47-70 [facility] WBC (Bld) [#/Vol] 14.7 10*3/uL 4.4-11.0 [facility] Blood erythrocytes count (nu mber/volume)Ordered By: Dr. Phililps on 12-09-2022 RBC (Bld) [#/Vol] 4.34 10*6/uL 4.2-5.4 [facility] Blood hemoglobin measurement (mass/volume)Ordered By: Dr. Phillips on 12-09-2022 Hemoglobin (Bld) [Mass/Vol] 13.4 g/dL 12.0-15.0 [facility] Blood lymphocytes/100 leukoc ytesOrdered By: Dr. Phillips on 12-09-2022 Lymphocytes/100 WBC (Bld) 32.8 % 19-41 [facility] Blood monocytes/100 leukocyt esOrdered By: Dr. Phillips on 12-09-2022 Monocytes/100 WBC (Bld) 8.8 % 0-[address] [facility] Blood platelet mean volumeOr dered By: Dr. Phillips on 12-09-2022 Platelet mean volume (Bld) [Entitic vol] 9.8 fL 6.2-12.0 [facility] Determination of erythrocyte mean corpuscular volume (MCV)Ordered By: Dr. Phillips on 12-09-2022 MCV (RBC) [Entitic vol] 93.1 fL 81-[address] [facility] Hematocrit Auto (Bld) [Volum e fraction]Ordered By: Dr. Phillips on 12-09-2022 Hematocrit (Bld) [Volume fraction] 40.4 % 37-47 [facility] Laboratory - Chemistry and C hemistry - challengeOrdered By: Dr. Phillips on 12-09-2022 Free T4 [Mass/Vol] 1.21 ng/dL 0.76-1.46 [facility] Laboratory - Hematology and Cell countsOrdered By: Dr. Phillips on 12-09-2022 Erythrocyte distribution width (RBC) [Entitic vol] 49.2 fL 35.1-43.9 [facility] Erythrocyte distribution width (RBC) [Ratio] 14.4 % 11.6-14.6 [facility] Immature granulocytes/100 WBC (Bld) 0.300 % 0.0-0.9 [facility] Comment on above: IG% - Immature Granu locytes (promyelocytes, myelocytes and metamyelocytes) > 1% indicates that a LEFT SHIFT is Present. MCH (RBC) [Entitic mass] 30.9 pg 27.0-32.0 [facility] Nucleated RBC/100 WBC (Bld) [Ratio] 0 % 0-5 [facility] MCHC Auto (RBC) [Mass/Vol]Or dered By: Dr. Phillips on 12-09-2022 MCHC (RBC) [Mass/Vol] 33.2 g/dL 32-36 [facility] No Panel InformationOrdered By: Dr. Phillips on 12-09-2022 Free Triiodothyronine (T3) pg/dL 2.3 pg/mL 2.18-3.98 [facility] Reactive Lymphocytes RARE [facility] Thyroid Stimulating Hormone (TSH) 1.86 uIU/mL 0.358-3.74 [facility] Platelets bldOrdered By: Dr. Phillips on 12-09-2022 Platelets (Bld) [#/Vol] 449 10*3/uL 150-450 [facility] Absolute lymphocyte countOrd ered By: Dr. Phillips on 09-13-2022 Lymphocytes Auto (Unsp spec) [#/Vol] 2.56 10*3/uL 0.83-4.51 [facility] Basophil percentageOrdered B y: Dr. Phillips on 09-13-2022 Basophils/100 WBC (Bld) 0.3 % 0-[address] [facility] Bilirubin [Mass/Vol] 0.50 mg/dL 0.20-1.00 [facility] Comment on above: For patients on eltr ombopag therapy, use of Dimension [place] TBIL is not recommended. Chloride [Moles/Vol] 108 mmol/L 98-107 [facility] Cholesterol [Mass/Vol] 299 mg/dL <200 [facility] Comment on above: <200 mg/dL Desirable 200-240 mg/dL Borderline >240 mg/dL High Risk Eosinophils/100 WBC (Bld) 0.3 % 0-5 [facility] Glucose [Mass/Vol] 112 mg/dL 74-106 [facility] Comment on above: Fasting Glucose resu lt from 100 to 125 mg/dL suggests IMPAIRED HOMEOSTASIS per A.D.A. criteria. Neutrophils (Bld) [#/Vol] 15.1 10*3/uL 2.0-7.7 [facility] Neutrophils/100 WBC (Bld) 77.9 % 47-70 [facility] Potassium [Moles/Vol] 3.5 mmol/L 3.5-5.1 [facility] Protein [Mass/Vol] 7.3 g/dL 6.4-8.2 [facility] Sodium [Moles/Vol] 142 mmol/L 136-145 [facility] Triglyceride [Mass/Vol] 125 mg/dL <[address] [facility] Comment on above: The drugs N-Acetylcy steine and Metamizole may falsely depress this assay.Serum Triglycerides Reference Interval Normal <150 mg/dL Borderline high 150 - 199 mg/dL High 200 - 499 mg/dL Very High > or = 500 mg/dL WBC (Bld) [#/Vol] 19.3 10*3/uL 4.4-11.0 [facility] Blood erythrocytes count (nu mber/volume)Ordered By: Dr. Phillips on 09-13-2022 RBC (Bld) [#/Vol] 4.45 10*6/uL 4.2-5.4 [facility] Blood hemoglobin measurement (mass/volume)Ordered By: Dr. Phillips on 09-13-2022 Hemoglobin (Bld) [Mass/Vol] 14.5 g/dL 12.0-15.0 [facility] Blood lymphocytes/100 leukoc ytesOrdered By: Dr. Phillips on 09-13-2022 Lymphocytes/100 WBC (Bld) 13.3 % 19-41 [facility] Blood monocytes/100 leukocyt esOrdered By: Dr. Phillips on 09-13-2022 Monocytes/100 WBC (Bld) 7.7 % 0-[address] [facility] Blood platelet mean volumeOr dered By: Dr. Phillips on 09-13-2022 Platelet mean volume (Bld) [Entitic vol] 9.3 fL 6.2-12.0 [facility] Determination of erythrocyte mean corpuscular volume (MCV)Ordered By: Dr. Phillips on 09-13-2022 MCV (RBC) [Entitic vol] 97.3 fL 81-[address] [facility] Hematocrit Auto (Bld) [Volum e fraction]Ordered By: Dr. Phillips on 09-13-2022 Hematocrit (Bld) [Volume fraction] 43.3 % 37-47 [facility] Laboratory - Chemistry and C hemistry - challengeOrdered By: Dr. Phillips on 09-13-2022 ALP [Catalytic activity/Vol] 84 U/L 45-117 [facility] ALT [Catalytic activity/Vol] 23 U/L 13-56 [facility] CO2 [Moles/Vol] 27.0 mmol/L 21.0-32.0 [facility] Free T4 [Mass/Vol] 1.46 ng/dL 0.76-1.46 [facility] Globulin (S) [Mass/Vol] 3.4 g/dL 2.2-4.[address] [facility] Urea nitrogen/Creatinine [Mass ratio] 12.9 mg/mg - [facility] Laboratory - Hematology and Cell countsOrdered By: Dr. Phillips on 09-13-2022 Erythrocyte distribution width (RBC) [Entitic vol] 48.1 fL 35.1-43.9 [facility] Erythrocyte distribution width (RBC) [Ratio] 13.3 % 11.6-14.6 [facility] Immature granulocytes/100 WBC (Bld) 0.500 % 0.0-0.9 [facility] Comment on above: IG% - Immature Granu locytes (promyelocytes, myelocytes and metamyelocytes) > 1% indicates that a LEFT SHIFT is Present. MCH (RBC) [Entitic mass] 32.6 pg 27.0-32.0 [facility] Nucleated RBC/100 WBC (Bld) [Ratio] 0 % 0-5 [facility] MCHC Auto (RBC) [Mass/Vol]Or dered By: Dr. Phillips on 09-13-2022 MCHC (RBC) [Mass/Vol] 33.5 g/dL 32-36 [facility] No Panel InformationOrdered By: Dr. Phillips on 09-13-2022 Estimated GFR (MDRD) Amer 98 mL/min >60 [facility] Comment on above: GFR Calc Estimated GFR (MDRD) Non-Af Amer 81 mL/min >60 [facility] Comment on above: Non- GFR Calc Free Triiodothyronine (T3) pg/dL 2.7 pg/mL 2.18-3.98 [facility] Thyroid Stimulating Hormone (TSH) 0.19 uIU/mL 0.358-3.74 [facility] Vitamin D 25-Hydroxy 33.5 ng/mL [facility] Comment on above: Vitamin D 25(OH) Sta tus Range Deficiency <20 ng/mL (50nmol/L) Insufficiency 20 - 30 ng/mL (50 - 75 nmol/L) Sufficiency 30 - 100 ng/mL (75 - 250 nmol/L) Toxicity >100 ng/mL (>250 nmol/L) Platelets bldOrdered By: Dr. Phillips on 09-13-2022 Platelets (Bld) [#/Vol] 454 10*3/uL 150-450 [facility] Serum or plasma albumin leon urement (mass/volume)Ordered By: Dr. Phillips on 09-13-2022 Albumin [Mass/Vol] 3.9 g/dL 3.2-5.0 [facility] Serum or plasma albumin/glob ulin mass ratioOrdered By: Dr. Phillips on 09-13-2022 Albumin/Globulin [Mass ratio] 1.1 {ratio} 0.9-2.4 [facility] Serum or plasma calcium leon urement (mass/volume)Ordered By: Dr. Phillips on 09-13-2022 Calcium [Mass/Vol] 9.7 mg/dL 8.5-10.1 [facility] Serum or plasma cholesterol in HDL measurement (mass/volume)Ordered By: Dr. Phillips on 09-13-2022 Cholesterol in HDL [Mass/Vol] 66 mg/dL >40 [facility] Comment on above: The drugs N-Acetylcy steine and Metamizole may falsely depress this assay. Reference Range HDL <40 mg/dL Low HDL Cholesterol HDL >or= 60 mg/dL High HDL Cholesterol Serum or plasma cholesterol in VLDL measurement (mass/volume)Ordered By: Dr. Phillips on 09-13-2022 Cholesterol in VLDL [Mass/Vol] 25 mg/dL 5-40 [facility] Serum or plasma creatinine m easurement (mass/volume)Ordered By: Dr. Phillips on 09-13-2022 Creatinine [Mass/Vol] 0.78 mg/dL 0.55-1.02 [facility] Comment on above: The validity of the calculated GFR & GFRAA in patients over 70 years has not been determined. Clinical correlation is essential. Serum or plasma low density lipoprotein (LDL) cholesterol measurement (mass/volume)Ordered By: Dr. Phillips on 09-13-2022 Cholesterol in LDL [Mass/Vol] 208 mg/dL 0-130 [facility] Serum or plasma urea nitroge n measurement (mass/volume)Ordered By: Dr. Phillips on 09-13-2022 Urea nitrogen [Mass/Vol] 10 mg/dL 7-18 [facility] Thin prep Papanicolaou smear with manual screeningOrdered By: Dr. Phillips on 09-13-2022 Thin prep Papanicolaou smear with manual screening 15 U/L 15-37 [facility] Thin prep Papanicolaou smear with manual screening 7 5-15 [facility] Absolute lymphocyte counton 03-25-2022 Lymphocytes Auto (Unsp spec) [#/Vol] 3.23 10*3/uL 0.83-4.51 [facility] Work Phone: [phone] Basophil percentageon 2021 Basophils/100 WBC (Bld) 0.4 % 0-[address] [facility] Work Phone: [phone] Bilirubin [Mass/Vol] 0.30 mg/dL 0.20-1.00 [facility] Work Phone: [phone] Comment on above: For patients on eltr ombopag therapy, use of Dimension [place] TBIL is not recommended. Chloride [Moles/Vol] 109 mmol/L 98-107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 mm[Hg] Dr. Jasmyn Phillips Work Phone: [facility] 11-02-2023 10:29-0500 Diastolic blood pressure 85 mm[Hg] [facility] 11-02-2023 10:29-0500 Heart rate 82 /min [facility] 11-02-2023 10:29-0500 Respiratory rate 14 /min [facility] 11-02-2023 10:29-0500 SaO2% (BldA) [Mass fraction] 96 % [facility] 11-02-2023 10:29-0500 Systolic blood pressure 119 mm[Hg] [facility] 11-02-2023 02:28-0500 Body height 157.48 cm [facility] 11-02-2023 02:28-0500 Body mass index (BMI) [Ratio] 21.2 kg/m2 [facility] 11-02-2023 02:28-0500 Body temperature 97.7 [degF] [facility] 11-02-2023 02:28-0500 Body weight 52.8 kg [facility] 05-28-2023 20:11-0400 Diastolic blood pressure 85 mm[Hg] Dr. Jasmyn Phillips Work Phone: [facility] 05-28-2023 20:11-0400 Heart rate 83 /min Dr. Jasmyn Phillips Work Phone: [facility] 05-28-2023 20:11-0400 Respiratory rate 18 /min Dr. Jasmyn Phillips Work Phone: [facility] 05-28-2023 20:11-0400 SaO2% (BldA) [Mass fraction] 99 % Dr. Jasmyn Phillips Work Phone: [facility] 05-28-2023 20:11-0400 Systolic blood pressure 111 mm[Hg] Dr. Jasmyn Phillips Work Phone: [facility] 05-28-2023 16:39-0400 Body height 157.[address] Jasmyn Phillips Work Phone: [facility] 05-28-2023 16:39-0400 Body mass index (BMI) [Ratio] 19.5 kg/m2 Dr. Jasmyn Phillips Work Phone: [facility] 05-28-2023 16:39-0400 Body temperature 98 [degF] Dr. Jasmyn Phillips Work Phone: [facility] 05-28-2023 16:39-0400 Body weight 48.[address] Jasmyn Phillips Work Phone: [facility] 03-21-2023 11:00-0400 Body height 157.[address] Jasmyn Phillips Work Phone: [facility] 03-21-2023 11:00-0400 Body mass index (BMI) [Ratio] 21.9 kg/m2 Dr. Jasmyn Phillips Work Phone: [facility] 03-21-2023 11:00-0400 Body temperature 98.6 [degF] Dr. Jasmyn Phillips Work Phone: [facility] 03-21-2023 11:00-0400 Body weight 54.[address] Jasmyn Phillips Work Phone: [facility] 03-21-2023 11:00-0400 Diastolic blood pressure 77 mm[Hg] Dr. Jasmyn Phillips Work Phone: [facility] 03-21-2023 11:00-0400 Heart rate 92 /min Dr. Jasmyn Phillips Work Phone: [facility] 03-21-2023 11:00-0400 Respiratory rate 16 /min Dr. Jasmyn Phillips Work Phone: [facility] 03-21-2023 11:00-0400 SaO2% (BldA) [Mass fraction] 98 % Dr. Jasmyn Phillips Work Phone: [facility] 03-21-2023 11:00-0400 Systolic blood pressure 113 mm[Hg] Dr. Jasmyn Phillips Work Phone: [facility] 02-20-2023 21:36-0400 Diastolic blood pressure 79 mm[Hg] [facility] 02-20-2023 21:36-0400 Respiratory rate 16 /min [facility] 02-20-2023 21:36-0400 Systolic blood pressure 113 mm[Hg] [facility] 02-20-2023 20:05-0400 Heart rate 88 /min [facility] 02-20-2023 20:05-0400 SaO2% (BldA) [Mass fraction] 97 % [facility] 02-20-2023 19:21-0400 Body height 157.48 cm [facility] 02-20-2023 19:21-0400 Body mass index (BMI) [Ratio] 21.4 kg/m2 [facility] 02-20-2023 19:21-0400 Body temperature 98.2 [degF] [facility] 02-20-2023 19:21-0400 Body weight 53.2 kg [facility] 09-13-2022 11:01-0400 Body temperature 97.9 [degF] Dr. Dandy Albarado Work Phone: [facility] 09-13-2022 11:01-0400 Body weight 54.[address] Dandy Albarado Work Phone: [facility] 09-13-2022 11:01-0400 Diastolic blood pressure 93 mm[Hg] Dr. Dandy Albarado Work Phone: [facility] 09-13-2022 11:01-0400 Heart rate 130 /min Dr. Dandy Albarado Work Phone: [facility] 09-13-2022 11:01-0400 Respiratory rate 18 /min Dr. Dandy Albarado Work Phone: [facility] 09-13-2022 11:01-0400 SaO2% (BldA) [Mass fraction] 91 % Dr. Dandy Albarado Work Phone: [facility] 09-13-2022 11:01-0400 Systolic blood pressure 164 mm[Hg] Dr. Dandy Albarado Work Phone: [facility] 07-30-2022 11:59-0400 Body height 157.[address] Dandy Albarado Work Phone: [facility] Encounters Encounter Date Encounter Type Care Provider Facility Start: 05-07-2025 End: 05-07-[address] Jasmyn Phillips MD Work Phone: [facility] Work Phone: Start: 05-07-2025 End: 05-07-[address] Jasmyn Phillips MD -Laboratory Work Phone: Start: 05-07-2025 Non-patient / Non-visit Dr. Shahid Fontaine MD -[facility] Start: 05-07-2025 End: 05-07-2025 Admission to same day surgery center Dr. Shahid Fontaine MD -Endoscopy Work Phone: Start: 05-07-2025 End: 05-07-[address] Jasmyn Phillips MD Work Phone: [facility] Work Phone: Start: 05-07-2025 End: 05-07-2025 ambulatory Jasmyn Phillips Facility:[facility] Start: 04-10-2025 End: 04-10-[address] Shahid Fontaine MD -[facility] Work Phone: Start: 04-10-2025 End: 04-10-[address] Jasmyn Phillips MD Work Phone: [facility] Work Phone: Start: 03-25-2025 End: 03-25-[address] Jasmyn Phillips MD Work Phone: [facility] Work Phone: Start: 03-25-2025 End: 03-25-[address] Lennox Robles MD -Laboratory Work Phone: Start: 03-25-2025 End: 03-25-2025 ambulatory Lennox Robles Facility:[facility] Start: 01-14-2025 End: 01-14-[address] Jasmyn Phillips MD -Physical Therapy Work Phone: Start: 01-14-2025 End: 01-14-[address] Jasmyn Phillips MD Work Phone: [facility] Work Phone: Start: 01-03-2025 ambulatory Ronnie Lewis Facility :[facility] Start: 08-07-2024 ambulatory Ronnie Lewis Facility :[facility] Start: 08-03-2024 End: 08-03-2024 ambulatory Jasmyn Phillips Facility:[facility] Start: 07-26-2024 End: 07-26-2024 ambulatory Jasmyn Phillips Facility:[facility] Start: 07-18-2024 ambulatory Jasmyn Phillips Facility :[facility] Start: 07-04-2024 End: 07-04-2024 ambulatory [facility] Jacqueline [facility] Start: 07-04-2024 End: 07-04-2024 ambulatory Jasmynhoang Phillips Facility:[facility] Start: 01-17-2024 End: 01-18-2024 Emergency department patient visit Dr. Jasmyn Phillips Work Phone: [facility]-Emergency Department Work Phone: Start: 01-09-2024 End: 01-09-[address] Jasmyn Phillips Work Phone: [facility] Work Phone: Start: 01-09-2024 End: 01-09-[address] Jasmyn Phillips Work Phone: [facility]-Laboratory Work Phone: Start: 01-09-2024 End: 01-09-[address] Jasmyn Phillips Work Phone: [facility] Work Phone: Start: 01-06-2024 Telephone encounter Nicolas Silva Start: 11-02-2023 End: 11-02-2023 Emergency department patient visit [facility]-Emergency Department Work Phone: Start: 08-29-2023 End: 08-29-2023 ambulatory [facility] Work Phone: Start: 08-29-2023 End: 08-29-2023 Patient encounter procedure [facility]-Radiology, [facility] Work Phone: Start: 05-28-2023 End: 05-28-2023 Emergency department patient visit Dr. Jasmyn Phillips Work Phone: [facility]-Emergency Department Work Phone: Start: 03-21-2023 End: 03-21-[address] Jasmyn Phillips Work Phone: [facility] Work Phone: Start: 03-21-2023 End: 03-21-[address] Jasmyn Phillips Work Phone: [facility]-Laboratory Start: 03-21-2023 End: 03-21-[address] Jasmyn Phillips Work Phone: [facility] [place] Start: 02-20-2023 End: 02-20-2023 Emergency department patient visit [facility]-Emergency Department Start: 02-02-2023 End: 02-02-2023 ambulatory [facility] Work Phone: Start: 02-02-2023 End: 02-02-2023 Patient encounter procedure [facility]-Ultrasound, [facility] Start: 12-09-2022 End: 12-09-[address] Dandy Albarado Work Phone: [facility] Work Phone: Start: 12-09-2022 End: 12-09-[address] [facility] Start: 09-13-2022 End: 09-13-[address] Dandy Albarado Work Phone: [facility] Work Phone: Start: 09-13-2022 End: 09-13-[address] Dandy Albarado Work Phone: [facility]-Laboratory Start: 09-13-2022 End: 09-13-[address] Dandy Albarado Work Phone: [facility] [place] Start: 03-25-2022 End: 03-25-2022 Patient encounter procedure [facility]-Laboratory Start: 12-24-2021 End: 12-24-2021 [facility] Date Procedure Procedure Detail Performing Clinician Start: 05-07-[address] Jasmyn Phillips MD Work Phone: Comment on above: Detection Limit = 1 Start: 05-07-[address] Jasmyn brannon MD Work Phone: Start: 03-25-2025 X-ray of cervical spine Dr. Jasmyn sarkar MD Work Phone: Start: 03-25-2025 Vitamin D, 25-hydroxy measurement Dr. Deborah Phillips MD Work Phone: Comment on above: Vitamin D StatusDeficiency: <20 ng/mL (5 0nmol/L)Insufficiency: 20-30 ng/mL (50-75 nmol/L)Sufficiency: 30-100 ng/mL (75-250 nmol/L)Toxicity: >100 ng/mL (>250 nmol/L) Start: 11-02-2023 Viral antigen assay Start: 11-02-2023 CT of head without contrast Start: 08-29-2023 X-ray of cervical spine Start: 05-28-2023 Plain chest X-ray Dr. Jasmyn Phillips Work Phone: Start: 02-20-2023 Plain chest X-ray Start: 02-20-2023 CT of head without contrast Start: 02-02-2023 Screening mammography Start: 02-02-2023 US urinary tract Start: 08-20-2020 Lipid 1996 panel - Serum or Plasma Nicolas Soto [employer]ATE [employer] CLERK Start: 03-07-2018 Colonoscopy Nicolas Soto APPE[employer]ATE [employer] CLERK Plan of Treatment Date Care Activity Detail Author Start: 08-20-2025 Lipid panel Lipid Screening [facility] Start: 05-07-2025 Assay of free thyroxine ASSAY OF FREE THYROXINE [facility] Start: 05-07-2025 Assay of thyroid stimulating hormone tsh ASSAY THYROID STIM HORMONE [facility] Start: 05-07-2025 Assay of triiodothyronine t3 free FREE ASSAY (FT-3) [facility] Start: 05-07-2025 Collection venous blood venipuncture EDIE VENOUS BLD VENIPUNCTURE [facility] Start: 05-07-2025 Esophagogastroduodenoscopy transoral diagnostic EGD DIAGNOSTIC BRUSH WASH [facility] Start: 05-07-2025 Patient discharge [facility] Start: 01-17-2024 [facility] Start: 01-17-2024 Suicide precautions [facility] Start: 11-21-2023 Depression Assessment Depression Assessment [facility] Start: 2023 RSV Vaccine (1 - 1-dose 60+ series) RSV Vaccine (1 - 1-dose 60+ series) [facility] Start: 11-02-2023 [facility] Start: 11-02-2023 Suicide precautions [facility] Start: 08-20-2023 Diabetes Screening Diabetes Screening [facility] Start: 07-22-2023 Influenza vaccination Influenza Vaccine (#1) [facility] Start: 05-28-2023 [facility] Start: 03-21-2023 Patient referral [facility] Work Phone: Start: 09-13-2022 Patient referral [facility] Work Phone: Start: 03-07-2021 Screening for malignant neoplasm of colon [facility] Start: 03-20-2020 Screening for malignant neoplasm of breast Mammogram Screening [facility] Start: 01-11-2020 Screening for malignant neoplasm of cervix HPV Testing [facility] Start: 01-10-2020 Screening for malignant neoplasm of cervix Pap Testing [facility] Start: 03-31-2019 Urine microalbumin profile DTaP,Tdap,Td Vaccine (2 - Td or Tdap) [facility] Start: 04-18-2018 Shingrix Vaccine (2 of 2) Shingrix Vaccine (2 of 2) [facility] Start: 2008 Screening for malignant neoplasm of colon [facility] Start: 1981 Hepatitis C screening Hepatitis C Screening [facility] Start: 05-11-1964 Covid-19 Vaccine (#1) Covid-19 Vaccine (#1) [facility] MG Breast - bilateral Screening [facility] Work Phone: MG Breast - bilateral Screening [facility] MG Breast - bilateral Screening [facility] Patient Education [facility] Work Phone: [facility] referral [facility] Work Phone: Procedure [facility] Immunizations Immunization Date Immunization Notes Care Provider Fa cility 08-13-2019 influenza, injectabl e, quadrivalent, contains preservative Nicolas Charles [facility] 08-13-2019 influenza virus vacc ine, unspecified formulation Nicolas Mayury [facility] 02-21-2018 pneumococcal polysaccharide vaccine, 23 valent Nicolas [facility] 02-21-2018 zoster vaccine recombinant Nicolas [facility] 09-26-2017 influenza, injectabl e, quadrivalent, contains preservative Nicolas Jeanettelecy [facility] 09-14-2016 influenza, injectabl e, quadrivalent, contains preservative Nicolas [facility]ur[facility]lali [facility] 09-29-2013 influenza virus vacc ine, unspecified formulation Nicolas [facility] 09-07-2012 influenza virus vacc ine, unspecified formulation Nicolas [facility] 08-21-2011 influenza virus vacc ine, unspecified formulation [facility] 08-21-2010 influenza virus vacc ine, unspecified formulation Nicolaskirk [facility] 03-31-2009 tetanus toxoid, redu alonzo diphtheria toxoid, and acellular pertussis vaccine, adsorbed [facility] 10-20-2007 influenza virus vacc ine, unspecified formulation [facility] Payers Date Payer Category Payer Self-pay [id number] 2022 Medicaid [employer] [id number] 2022-Present [phone] [address] [place] [address] Medicaid [id number] 2008 Unknown [id number] 2008 Unknown [id number] Unknown [id number] Unknown [id number] Unknown [id number] Unknown [id number] Unknown [id number] Unknown [id number] Unknown [id number] Unknown [id number] Unknown [id number] Unknown [id number] Unknown [id number] Unknown [id number] Unknown [id number] Social History Date Type Detail Facility Start: 10-12-2021 End: 01-17-2024 Tobacco smoking status [facility] Unknown if ever smoked [facility] Start: 1965 Sex Assigned At Female [facility] Start: 02-21-2018 Tobacco smoking status TNIS Ex-smoker [facility] End: 11-21-1998 History of tobacco use Current smoker [facility] End: 11-21-1998 History of tobacco use Cigarette Smoker [facility] Start: 02-21-2018 Tobacco use and exposure Smokeless tobacco non-user [facility] Start: 12-14-2019 Alcohol intake Current drinke r of alcohol (finding) [facility] Start: 12-14-2019 End: 10-26-2020 History of Social function [facility] Work Phone: Start: 12-14-2019 End: 10-26-2020 Tobacco use panel [facility] Work Phone: Adult Depression Screening Assessment 5 [facility] Work Phone: Start: 02-21-2018 Tobacco Comment States that luther edmonds quit when she was a teenager. [facility] Start: 06-11-2009 Alcohol Comment Occasionally ( to kill the pain of breast sore). [facility] Start: 1965 Sex Assigned At Not on file [facility] Start: 12-04-2024 End: 05-07-2025 Tobacco smoking status NHIS Never smoked tobacco (finding) [facility] Start: 02-25-2025 Sex Female (finding) [facility] NEGATED: Highlighted row Not [facility] Goals Date Patient Goal Desired Activity /State Mental Status Date Assessment Result Facility 05-07-2025 Cognitive function Light Pain [facility] Work Phone: 05-28-2023 Cognitive function Level Of Cons ciousness Awake;Alert [facility] Work Phone: 02-20-2023 Cognitive function Voice/Name [facility] Work Phone: Clinical Notes 10-26-2013 to 05-07-2025 Note Date & Type Note Facility 05-07-2025 Consult note [facility] 05-07-2025 Procedure note [facility] 05-07-2025 Procedure note [facility] 05-07-2025 Consult note [facility] 05-07-2025 History and physi nisa note [facility] 05-07-2025 Note [facility] Medical Records Department [address] [place] [address] History Physical Exam 05/07/25 1010 MR#: [id number] Acct: [id number] Name: TIANNA MAYS Rep #: [id number] : 1965 59 From: Shahid Fontaine MD PCP: Dr. Jasmyn Phillips MD Status:[facility] Location: [place] [address] History and Physical Date of Admission: 05/07/25 Intake Vital Signs 12/04/2510:50 04/10/2513:50 Height 5 ft 2 in 5 ft 2 in Weight: 116 lb BMI 21.2 BP 103/62 Blood Pressure Location Rt brachial Position Sitting Respiration 17 Pulse 79 Pulse Source Monitor Pulse Oximetry (%) 98 Oxygen Delivery Method room air Intake Visit Reasons: Gastroesophageal reflux disease (GERD) Chief Complaint: gerd/abdominal pain/bloatin Is patient in pain?: No Allergies amitriptyline Allergy (Verified 04/10/25 13:51) Rashcigarette smoke Adverse Reaction (Verified 04/10/25 13:51) Upset Stomachperfume Adverse Reaction (Verified 04/10/25 13:51) OtherPhenylpiperazine Antidepressant Adverse Reaction (Verified 04/10/25 13:51) PT UNABLE TO RESPOND-NEEDS F/UTetracyclic Antidepressants Adverse Reaction (Verified 04/10/25 13:51) PT UNABLE TO RESPOND-NEEDS F/UTricyclic Antidepressants and Tricy Adverse Reaction (Verified 04/10/25 13:51) PT UNABLE TO RESPOND-NEEDS F/U Medications ???Medication ???Instructions ???Recorded ???Confirmed ???Type clonazepam 1 mg tablet 1 mg PO 4X/DAY PRN anxiety 06/20/23 04/10/25 Histo ry turmeric 100 mg-glenn 150 1 cap PO DAILY 06/20/23 04/10/25 History mg-olive 50 mg-oreg 150 mg-capryl capsule hydroxyzine pamoate 50 mg capsule 50 mg PO TID PRN anxiety 01/09/24 04/10/25 History cholecalciferol (vitamin D3) 25 25 mcg PO DAILY #90 caps 09/27/24 04/10/25 Rx mcg (1,000 unit) capsule albuterol sulfate 90 mcg/actuation 2 puff inhalation Q6H PRN 12/04/24 04/10/25 Rx aerosol inhaler shortness of breath or wheezing #8.5 grams multivitamin with folic acid 400 1 tab PO DAILY #90 tabs 12/04/24 04/10/25 Rx mcg tablet (Thera) omeprazole 40 mg capsule,delayed 40 mg PO DAILY #90 caps 12/04/24 04/10/25 Rx release levothyroxine 88 mcg tablet 88 mcg PO DAILY #90 tabs 04/01/25 04/10/25 Rx melatonin 10 mg capsule 10 mg PO HS #90 caps 04/01/25 04/10/25 Rx meloxicam 7.5 mg tablet 7.5 mg PO DAILY #90 tabs 04/01/25 04/10/25 Rx ondansetron 4 mg disintegrating 4 mg PO Q6H PRN nausea and 04/01/25 04/10/25 Rx tablet vomiting #12 tabs vitamin B complex 1 tab PO DAILY #90 tabs 04/01/25 04/10/25 Rx acyclovir 400 mg tablet 400 mg PO PRN PRN COLD SORES #30 04/04/25 04/10/25 Rx tabs PFSH Medical History Upper abdominal pain Vitamin D deficiency Hyperlipidemia Cervical cancer screening History of colon polyps Flank pain Elevated WBC count Low TSH level Frequent headaches Neck pain Colon cancer screening History of abnormality of cervix Breast cancer screening Ectopic Heart murmur Thyroid disease Stroke GERD (gastroesophageal reflux disease) Migraines Breast lump Bleeding disorder Bone fracture Hypothyroidism DDD (degenerative disc disease), cervical Rheumatoid arthritis Former smoker COPD (chronic obstructive pulmonary disease) PTSD (post-traumatic stress disorder) Anxiety Depression Surgical History H/O skin graft Family History Other Alcoholism Arthritis Cancer Colon cancer High cholesterol Mental disorder Parkinsons Social History Smoking Status: Never smoker substance use type: does not use HPI HPI HPI: Patient is a 59-year-old female here for the epigastric pain. The patient reports that it is continuous. She reports that she has been on a PPI which help with the reflux but is not helping with her abdominal pain. ROS General General: Yes fatigue; No weight change, appetite, colon cancer, breast cancer or weakness HEENT HEENT: Yes difficulty swallowing and swollen glands; No eye injury, eye surgery or hoarseness Endo Endocrine: Yes thyroid disease; No diabetes mellitus, thyroid cancer, Hair loss, heat intolerance or cold intolerance Skin Skin: Yes changing moles; No rash Musc Musculoskeletal: Yes back problems, arthritis and rheumatoid arthritis; No gout or joint pain Cardio Cardiovascular: No murmur, pacemaker, heart disease, atrial fibrillation, high blood pressure, heart attack, heart stent, palpitations, shortness of breath with exertion or chest pain Psych Psychiatric: Yes anxiety; No depression or hearing voices Resp Respiratory: No shortness of breath, Yes sleep apnea, Yes cough, Yes COPD, No asthma, No emphysema and No wheez (more content not included)... [facility] 04-10-2025 Evaluation note Diagnosis Onset Date Resolution GERD (gastroesophageal reflux disease) acute April 10, 2025 1 :27pm [facility] Work Phone: 1(834) 854-378105-07-2025 Radiology Diagnostic study note [facility] Imaging Services [address] [place], [place] [address] Cerv Spine 2 or 3 Views MR#: [id number] Acct: [id number] Name: TIANNA MAYS Rep #: [id number] : 1965 F 59 From: Jose Miguel Pritchard MD PCP: Dr. Jasmyn Phillips MD Status: REG CLI Study:Cerv Spine 2 or 3 Views Date of Exam: 03/25/25 Exam# [id number] Ordering Dr: Jasmyn Phillips MD PROCEDURE: CERV SPINE 2 OR 3 VIEWS 03/25/2025 REASON FOR EXAM: SPONDYLOSIS WITHOUT MYELOPATHY OR RADICULOPATHY, CERVICAL REGION TECHNIQUE: 3 views of the cervical spine. COMPARISON: 08/29/2023 FINDINGS: The cervical spine is visualized on the lateral view from the skull base to T1. Straightening. No prevertebral soft tissue swelling. No fracture. Mild anterolisthesis C3 on C4 now seen. Moderate disc space narrowing C5-6 and severe at C6-7 again noted. There is appearance of disc space narrowing on the left side of C1-2 on the open-mouth odontoid view now seen. Visualized apices appear clear. RAD/Cerv Spine 2 or 3 Views IMPRESSION: Mild anterolisthesis C3 on C4 now seen. Moderate disc space narrowing C5-6 and severe at C6-7 again noted. There is appearance of disc space narrowing on the left side of C1-2 on the open-mouth odontoid view now seen. Reading Location: [id number] CC: Dr. Jasmyn Phillips MD ~ Hot Room Attendant: Signed [facility]04-04-2025 Discharge summary Author Maximilian Panda [facility] Note Date/Time February 22, 2025 2:35 pm [facility] Physical Therapy [facility] [address] [place] [address] / REHABILITATION SERVICES DISCHARGE SUMMARY MR#: [id number] Acct: [id number] Name: TIANNA MAYS Rep #: [id number] : 1965 59 From: Maximilian Panda DPT, NEDRA, CSCS Referring Dr.: Dr. Jasmyn Phillips MD Status: REG RCR Insurance: [facility] [employer] Patient Information Patient Information: TIANNA MAYS was seen in my office for initial evaluation on 01/14/25. The following Plan of Care was established for this patient: POC Established Initial Frequency: 2x /Week Initial Duration: 4-6 Weeks Anticipated Interventions Patient/Client Instruction: Educate patient on: Condition and Plan of Care For the Purpose of:: To decrease pain, To increase ROM, To improve nutrient delivery to tissue, To improve muscle performance and motor function and To increase tolerance to activity/condition/position Therapeutic Exercise to Include: Strength training and Postural training For the Purpose of:: To decrease pain, To increase ROM, To improve nutrient delivery to tissue and To increase tolerance to activity/condition/position Last Seen Last Seen: This patient was last seen in our office 01/14/25. Pertinent comments regardingtheir Physical therapy will appear below: Pt seen for IE and POC established. Pt did not schedule or return for any further visits. At this point, it has been over 4 weeks and I will discontinue from my care. At this point I will be discontinuing this patient from physical therapy. I would be happy to see this patient again in the future if found appropriate by the physician. Thank you! Maximilian Panda DPT, OCS, CSCS Balance/Gait/Functional tests Balance/Special Test Scores Oswestry Neck Score: 25 <Electronically signed by Maximilian Panda DPT, NEDRA, CSCS> 02/22/25 2795 CC: Dr. Jasmyn Phillips MD ~ EBG Signed [facility] Work Phone: [phone]) 232-527504-04-2025 Discharge summary [facility] Physical Therapy [facility] [address] [place] [address] / REHABILITATION SERVICES DISCHARGE SUMMARY MR#: [id number] Acct: [id number] Name: TIANNA MAYS Rep #: [id number] : 1965 59 From: Maximilian JENKINST, OCS, CSCS Referring Dr.: Dr. Jasmyn Phillips MD Status: REG R Insurance: [facility] [employer] Patient Information Patient Information: TIANNA MAYS was seen in my office for initial evaluation on 01/14/25. The following Plan of Care was established for this patient: POC Established Initial Frequency: 2x /Week Initial Duration: 4-6 Weeks Anticipated Interventions Patient/Client Instruction: Educate patient on: Condition and Plan of Care For the Purpose of:: To decrease pain, To increase ROM, To improve nutrient delivery to tissue, To improve muscle performance and motor function and To increase tolerance to activity/condition/position Therapeutic Exercise to Include: Strength training and Postural training For the Purpose of:: To decrease pain, To increase ROM, To improve nutrient delivery to tissue and To increase tolerance to activity/condition/position Last Seen Last Seen: This patient was last seen in our office 01/14/25. Pertinent comments regardingtheir Physical therapy will appear below: Pt seen for IE and POC established. Pt did not schedule or return for any further visits. At this point, it has been over 4 weeks and I will discontinue from my care. At this point I will be discontinuing this patient from physical therapy. I would be happy to see this patient again in the future if found appropriate by the physician. Thank you! Maximilian Panad DPT, OCS, CSCS Balance/Gait/Functional tests Balance/Special Test Scores Oswestry Neck Score: 25 02/22/25 1435 CC: Dr. Jasmyn Phillips MD ~ EBG Signed [facility]02-28-2024 Discharge summary Author Gonzalo Sorensen [facility] January 17, 2024 11:39pm Note Date/Time January 17, 2024 6:03pm [facility] Medical Records Department [address] [place] [address] Emergency Department Summary 01/17/24 MR#: [id number] Acct: [id number] Name: TIANNA MAYS Rep #:[id number] : 1965 58 From: Gonzalo Sorensen MD PCP: Dr. 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 Narrative Narrative: 58-year-old female history of COPD, PTSD marijuana use and mental health problems. She was admitted within the last several months to [facility] in [place]. Patient has been calling the police 5 times in the last 24 hours withparanoia and hallucinations and delusions of people getting in her apartment. She believes that her landlord has been part of this plan to get people in her apartment. She denies being suicidal or homicidal. She denies recent illness. Prior similar symptoms: Yes Recent Illness/Hospitalization: Yes PFSH PFSH Medical History Anxiety Bleeding disorder Bone fracture Breast cancer screening Breast lump Cervical cancer screening Colon cancer screening COPD (chronic obstructive pulmonary disease) DDD (degenerative disc disease), cervical Depression Ectopic Elevated WBC count Flank pain Former smoker Frequent headaches GERD (gastroesophageal reflux disease) Heart murmur History of abnormality of cervix History of colon polyps Hyperlipidemia Hypothyroidism Low TSH level Migraines Neck pain PTSD (post-traumatic stress disorder) Rheumatoid arthritis Stroke Thyroid disease Vitamin D deficiency Home Medications vitamin B complex 1 tab PO DAILY 06/09/22 [History Last Taken Unknown] multivitamin with folic acid 400 mcg tablet (Thera) 1 tab PO DAILY #90 tabs 09/13/22 [Rx Last Taken Unknown] acyclovir 400 mg tablet 400 mg PO PRN PRN COLD SORES #30 tabs 03/21/23 [Rx Last Taken Unknown] albuterol sulfate 90 mcg/actuation aerosol inhaler 2 puff inhalation Q6H PRN shortness of breath or wheezing #8.5 grams 03/21/23 [Rx Last Taken Unknown] cholecalciferol (vitamin D3) 25 mcg (1,000 unit) capsule 25 mcg PO DAILY #90 caps 03/21/23 [Rx Last Taken Unknown] melatonin 10 mg capsule 10 mg PO HS 03/21/23 [History Last Taken Unknown] omeprazole 40 mg capsule,delayed release 40 mg PO DAILY #90 caps 03/21/23 [Rx Last Taken Unknown] ondansetron 4 mg disintegrating tablet 4 mg PO Q6H PRN nausea and vomiting #12 tabs 05/28/23 [Rx Last Taken Unknown] clonazepam 1 mg tablet 1 mg PO 4X/DAY PRN anxiety 06/20/23 [History Last Taken Unknown] turmeric 100 mg-glenn 150 mg-olive 50 mg-oreg 150 mg-capryl capsule 1 cap PO DAILY 06/20/23 [History Last Taken Unknown] duloxetine 30 mg capsule,delayed release 30 mg PO DAILY 01/09/24 [History Last Taken Unknown] hydroxyzine pamoate 50 mg capsule 50 mg PO TID PRN anxiety 01/09/24 [History Last Taken Unknown] levothyroxine 88 mcg tablet 88 mcg PO DAILY #90 tabs 01/09/24 [Rx Last Taken Unknown] meloxicam 7.5 mg tablet 7.5 mg PO DAILY 01/09/24 [History Last Taken Unknown] Allergy/AdvReac Type Severity Reaction Status Date / Time amitriptyline Allergy Rash Verified 01/17/24 16:58 cigarette smoke AdvReac Upset Verified 01/17/24 16:58 Stomach perfume AdvReac Other Verified 01/17/24 16:58 Phenylpiperazine AdvReac PT UNABLE Verified 01/17/24 16:58 Antidepressant TO RESPOND-NEEDS F/U Tetracyclic Antidepressants AdvReac PT UNABLE Verified 01/17/24 16:58 TO RESPOND-NEEDS F/U Tricyclic Antidepressants AdvReac PT UNABLE Verified 01/17/24 16:58 and Tricy TO RESPOND-NEEDS F/U Family History Other Alcoholism Arthritis Cancer Colon cancer High cholesterol Mental disorder Parkinsons Surgical History H/O skin graft Social History Smoking Status: Never smoker substance use type: does not use ROS ROS ED ROS Narrative Patient denies recent illness. Review of Systems ROS Unobtainable: Denies due to encephalopathy Constitutional Constitutional ED: Denies chills or fever(s) Eyes Eyes: Denies blurry vision ENT ENT ED: Denies ear pain Cardiovascular Cardiovascular: Denies chest pain Respiratory/Chest Respiratory/Chest: Denies cough or dyspnea Gastrointestinal Gastrointestinal: Denies abdominal pain Genitourinary Genitourinary ED: Denies dysuria Musculoskeletal Musculoskeletal: Denies arthralgias Integumentary Denies abscess Neurologic Neurologic: Denies headache(s) Psychiatric Psychiatric: Denies anxiety Endocrine Endocrinology: Denies polydipsia Hematologic/Lymphatic Hematologic/Lymphatic: Denies easy bleeding, easy bruising or lymphadenopathy Allergic/Immunologic Allergic/Immunologic ED: Denies mouth swelling, tongue swelling or urticaria EXAM Physical Exam Narrative Exam Narrative: 58-year-old female no acute distress vital signs stable afebrile. HEENT exam unremarkable atraumatic. Pupils round reactive light. No signs of trauma. Neck nontender no lymphadenopathy. Lungs clear to auscultation bilaterally. Heart regular rhythm no murmur. Rate about 90. Chest wall and ribs nontender. Abdomen soft nontender. Moving all 4 extremities. Nontender no edema. No signs of trauma. Neurologically she is awake and alert with no focal motor deficits. Const Vital Signs: 01/17/24 16:54 01/17/24 19:05 Temperature 98 F Temperature Source Temporal Pulse Rate 97 Respiratory Rate 16 16 Blood Pressure 143/91 H Blood Pressure Mean 108 Pulse Ox 97 Oxygen Delivery Method Room Air Positive well nourished and well developed; Negative for obese, cachectic, contractures or unkempt General Appearance ED: well developed and NAD; Negative for unkempt, cachectic, contractures or pallor Nutritional Appearance: Negative for cachectic or obese HEENT Reports moist mucous membranes normocephalic and atraumatic; Negative for trauma or tenderness Eyes PERRL and EOMs intact bilaterally General Eye ED: Negative for pale conjunctiva or scleral icterus Neck no lymphadenopathy, supple and no JVD General: Negative for tenderness Resp normal respiratory effort and clear to auscultation bilaterally Effort and Inspection: Negative for retractions Auscultation: Negative for rales, rhonchi, wheezes or diminished lung sounds Cardio S1 normal heart sound, S2 normal heart sound and no murmurs Palpation: Negative for other Rate: regular rate; Negative for bradycardia or tachycardic Rhythm: regular rhythm GI non-tender, non-distended and no masses Inspection: Negative for abdominal distention Auscultation: normoactive bowel sounds Palpation: soft; Negative for tender or guarding Back/Spine no CVA tenderness General Back: Negative for CVA tenderness Cervical Spine: Negative for cervical spine tenderness Thoracic Spine / Upper Back: Negative for thoracic spinal tenderness Lumbar Spine / Lower Back: Negative for lumbar spinal tenderness Coccyx: Negative for other Extremity normal to inspection General Extremety ED: Negative for edema or tenderness General Extremity: Negative for edema Neuro oriented x3 and CN's II-XII intact bilaterally Sensorium / Orientation: alert, oriented to person, oriented to place and oriented to time; Negative for orientation impaired, confused, lethargic or stuporous Motor Exam: strength 5/5 throughout Psych cooperative, affect normal, speech normal, denies homicidal ideation and denies suicidal ideation; Negative for mental status grossly normal, thought process normal, activity/motor behavior normal or denies hallucinations Appearance: grossly normal; Negative for unkempt Attitude: calm, engaged, paranoid, No withdrawn, No bizarre, No uncooperative, No evasive, No guarded, No belligerent and No agitated Activity / Motor Behavior: appropriate eye contact Speech: normal speech Mood & Affect: euthymic mood Thought Process: normal thought process Thought Content: normal thought content Attention / Concentration: attention grossly intact Memory / Cognition: memory grossly intact Insight: insight good Skin General Skin Exam: Negative for jaundice or pallor Lesions: no lesions Rashes: no rashes Trauma: Negative for abrasion Wounds: Negative for amputation MDM MDM MDM Narrative Medical decision making narrative: 58-year-old female underlying psychiatric illness has been calling the police multiple times today. Thinks was people getting into her apartment. Having hallucinations and delusions. ED mental health evaluation labs. She is clinically medically cleared at this time by myself. Our social workers evaluated her. order worker evaluated the patient. She is not suicidal or homicidal but she is very paranoid and she is already called the police 5 times recently. order worker is attempting at the patient admitted to mental health facility. Lab Data Attestation: I reviewed the patient's lab results. Lab results narrative: CBC normal. Chemistries unremarkable. Glucose 128. Urine tox screen positive for cannabis only. Alcohol level negative. Labs: Laboratory Results - last 24 hr 01/17/24 01/17/24 01/17/24 18:45 18:45 18:45 WBC RBC Hgb Hct MCV MCH MCHC RDW Std Deviation RDW Coeff of Servando Plt Count MPV Immature Gran % (Auto) Neut % (Auto) Lymph % (Auto) [place] % (Auto) Eos % (Auto) Baso % (Auto) Absolute Neuts (auto) Absolute Lymphs (auto) Nucleated RBC % Sodium Potassium Chloride Carbon Dioxide Anion Gap BUN Creatinine Estim Creat Clear Calc Est GFR (MDRD) Af Amer Est GFR (MDRD) Non-Af BUN/Creatinine Ratio Glucose Calcium Urine Opiates Screen Cancelled NEGATIVE Urine Methadone Screen Cancelled NEGATIVE Ur Barbiturates Screen Cancelled Ur Phencyclidine Scrn Ur Amphetamines Screen MDMA (Ecstasy) Screen U Benzodiazepines Scrn Urine Cocaine Screen U Cannabinoids Screen Ur Drug Screen Comment Ethyl Alcohol 01/17/24 01/17/24 01/17/24 18:45 18:45 18:45 WBC RBC Hgb Hct MCV MCH MCHC RDW Std Deviation RDW Coeff of Servando Plt Count MPV Immature Gran % (Auto) Neut % (Auto) Lymph % (Auto) [place] % (Auto) Eos % (Auto) Baso % (Auto) Absolute Neuts (auto) Absolute Lymphs (auto) Nucleated RBC % Sodium Potassium Chloride Carbon Dioxide Anion Gap BUN Creatinine Estim Creat Clear Calc Est GFR (MDRD) Af Amer Est GFR (MDRD) Non-Af BUN/Creatinine Ratio Glucose Calcium Urine Opiates Screen Urine Methadone Screen Ur Barbiturates Screen NEGATIVE Ur Phencyclidine Scrn Cancelled NEGATIVE Ur Amphetamines Screen Cancelled NEGATIVE MDMA (Ecstasy) Screen Cancelled U Benzodiazepines Scrn Urine Cocaine Screen U Cannabinoids Screen Ur Drug Screen Comment Ethyl Alcohol 01/17/24 01/17/24 01/17/24 18:45 18:45 18:45 WBC RBC Hgb Hct MCV MCH MCHC RDW Std Deviation RDW Coeff of Servando Plt Count MPV Immature Gran % (Auto) Neut % (Auto) Lymph % (Auto) [place] % (Auto) Eos % (Auto) Baso % (Auto) Absolute Neuts (auto) Absolute Lymphs (auto) Nucleated RBC % Sodium Potassium Chloride Carbon Dioxide Anion Gap BUN Creatinine Estim Creat Clear Calc Est GFR (MDRD) Af Amer Est GFR (MDRD) Non-Af BUN/Creatinine Ratio Glucose Calcium Urine Opiates Screen Urine Methadone Screen Ur Barbiturates Screen Ur Phencyclidine Scrn Ur Amphetamines Screen MDMA (Ecstasy) Screen NEGATIVE U Benzodiazepines Scrn Cancelled NEGATIVE Urine Cocaine Screen Cancelled NEGATIVE U Cannabinoids Screen Cancelled Ur Drug Screen Comment Ethyl Alcohol 01/17/24 01/17/24 01/17/24 18:45 18:45 19:17 WBC 11.3 H RBC 4.44 Hgb 13.5 Hct 40.5 MCV 91.2 MCH 30.4 MCHC 33.3 RDW Std Deviation 46.1 H RDW Coeff of Servando 13.7 Plt Count 486 H MPV 8.8 Immature Gran % (Auto) 0.300 Neut % (Auto) 68.4 Lymph % (Auto) 22.7 [place] % (Auto) 8.1 Eos % (Auto) 0.1 Baso % (Auto) 0.4 Absolute Neuts (auto) 7.7 Absolute Lymphs (auto) 2.56 Nucleated RBC % 0 Sodium 139 Potassium 3.7 Chloride 110 H Carbon Dioxide 22.0 Anion Gap 7 BUN 11 Creatinine 0.88 Estim Creat Clear Calc 53.77 Est GFR (MDRD) Af Amer 84 Est GFR (MDRD) Non-Af 69 BUN/Creatinine Ratio 12.4 Glucose 128 H Calcium 10.2 H Urine Opiates Screen Urine Methadone Screen Ur Barbiturates Screen Ur Phencyclidine Scrn Ur Amphetamines Screen MDMA (Ecstasy) Screen U Benzodiazepines Scrn Urine Cocaine Screen U Cannabinoids Screen POSITIVE H Ur Drug Screen Comment Cancelled Ethyl Alcohol 7.0 Discharge Plan Triage Chief Complaint: Mental Health ED Provider: Gonzalo Sorensen Dx/Rx/DC Orders Clinical Impression: Acute paranoia, Delusions, History of marijuana use, Hallucinations Prescriptions: No Action vitamin B complex Tablet 1 tab PO DAILY melatonin 10 mg capsule 10 mg PO HS folmszyd-dzhw-mredb-oreg-capry 100 mg-150 mg- 50 mg-150 mg capsule 1 cap PO DAILY multivitamin with folic acid [Thera] 400 mcg tablet 1 tab PO DAILY Qty: 90 3RF cholecalciferol (vitamin D3) 25 mcg (1,000 unit) capsule 25 mcg PO DAILY Qty: 90 3RF albuterol sulfate 90 mcg/actuation HFA aerosol inhaler 2 puff inhalation Q6H PRN (Reason: shortness of breath or wheezing) Qty: 8.5 3RF omeprazole 40 mg capsule,delayed release(DR/EC) 40 mg PO DAILY Qty: 90 3RF acyclovir 400 mg tablet 400 mg PO PRN PRN (Reason: COLD SORES) Qty: 30 1RF Rx Instructions: Take two tabs at the onset of cold sores, then one tab 8 hours later. clonazepam 1 mg tablet 1 mg PO 4X/DAY PRN (Reason: anxiety) Patient Comments: TAKE 1 TABLET BY MOUTH up to FOUR TIMES DAILY NEEDED FOR ANXIETY meloxicam 7.5 mg tablet 7.5 mg PO DAILY Patient Comments: TAKE 1 TABLET BY MOUTH DAILY duloxetine 30 mg capsule,delayed release(DR/EC) 30 mg PO DAILY Patient Comments: TAKE 1 CAPSULE BY MOUTH ONCE DAILY hydroxyzine pamoate 50 mg capsule 50 mg PO TID PRN (Reason: anxiety) Patient Comments: Take 1 Capsule By Oral Route 3 times per day as needed,for anxiety ondansetron 4 mg tablet,disintegrating 4 mg PO Q6H PRN (Reason: nausea and vomiting) Qty: 12 0RF levothyroxine 88 mcg tablet 88 mcg PO DAILY Qty: 90 1RF Primary Care Provider: Jasmyn Phillips Referrals: Jasmyn Phillips MD [Primary Care Provider] - Disposition Disposition: Psychiatric Hospital or Unit What to do if you have Problems For any increased pain, shortness of breath, bleeding, nausea or vomiting, chestpain, or any unexpected problems, contact your Primary Care Provider. Call [facility] ([phone]) or report to the closest Emergency Room. Call 911 if necessary. 01/17/24 7932 <Electronically signed by Gonzalo Sorensen MD> Cosigner Signature (if applicable): CC: Dr. Jasmyn Phillips MD ~ Signed [facility] Work Phone: [phone]) 740-531802-16-2024 Miscellaneous Notes* Telephone Encounter - Nicolas Soto MSW - 01/06/2024 3:02 PM EST Geno-SANDRA,MARTY called this Sw as above patient had called her and said that she sees [facility] provider. Geno noted that above individual would not tell her who or what doctor she sees. This Sw did not confirm or deny patient seeing any CC provider. Geno notes below concerns of above individual thinking people are checking in on her and or watching her. Reports people watching her constantly on camera and they can even see through blankets. Thinks hermessages go to daughters phone and not receiving [...] aware of this information. [facility] Discharge summary Author Juwan Lane [facility] November 02, 2023 5:20am Note Date/Time November 02, 2023 2:43am [facility] Medical Records Department [address] [place] [id number] Emergency Department Summary 11/02/23 MR#: [id number] Acct: [id number] Name: TIANNA MAYS Rep #:[id number] : 1965 57 From: Juwan Lane MD PCP: Dr. Jasmyn Phillips MD Status:REG ER Location: ED HPI HPI - Psych History of Present Illness Chief Complaint: Mental Health Informant: patient and police/civil engineer's aide Narrative Narrative: Police flaquito slipped this patient here after she called 911 multiple times in themiddle of the night out of concerns that she was being watched, people were plotting against her, and other paranoid reasons. They brought her to the emergency department after they had to intervene when she was out in the parkinglot with her car, having a hallucination according to police that she saw somebody around her car that was not there and she was going to move her car to a different parking lot entirely in order to avoid the hallucination. There is a small hole in her wall, she states that is one of the cameras that they are using to spy on her. History is very limited from the patient due toher being very tangential, paranoid, and having flight of ideas. She has a hardtime answering direct questions appropriately due to her thoughts being very tangential. [facility] Medical History Anxiety Bleeding disorder Bone fracture Breast cancer screening Breast lump Cervical cancer screening Colon cancer screening COPD (chronic obstructive pulmonary disease) DDD (degenerative disc disease), cervical Depression Ectopic Elevated WBC count Flank pain Former smoker Frequent headaches GERD (gastroesophageal reflux disease) Heart murmur History of abnormality of cervix History of colon polyps Hyperlipidemia Hypothyroidism Low TSH level Migraines Neck pain PTSD (post-traumatic stress disorder) Rheumatoid arthritis Stroke Thyroid disease Vitamin D deficiency Home Medications vitamin B complex 1 tab PO DAILY 06/09/22 [History Last Taken Unknown] multivitamin with folic acid 400 mcg tablet (Thera) 1 tab PO DAILY #90 tabs 09/13/22 [Rx Last Taken Unknown] levothyroxine 75 mcg tablet 75 mcg PO DAILY #90 tabs 12/22/22 [Rx Last Taken Unknown] acyclovir 400 mg tablet 400 mg PO PRN PRN COLD SORES #30 tabs 03/21/23 [Rx Last Taken Unknown] albuterol sulfate 90 mcg/actuation aerosol inhaler 2 puff inhalation Q6H PRN shortness of breath or wheezing #8.5 grams 03/21/23 [Rx Last Taken Unknown] cholecalciferol (vitamin D3) 25 mcg (1,000 unit) capsule 25 mcg PO DAILY #90 caps 03/21/23 [Rx Last Taken Unknown] melatonin 10 mg capsule 10 mg PO HS 03/21/23 [History Last Taken Unknown] omeprazole 40 mg capsule,delayed release 40 mg PO DAILY #90 caps 03/21/23 [Rx Last Taken Unknown] rosuvastatin 40 mg tablet 40 mg PO DAILY #90 tabs 03/21/23 [Rx Last Taken Unknown] ondansetron 4 mg disintegrating tablet 4 mg PO Q6H PRN nausea and vomiting #12 tabs 05/28/23 [Rx Last Taken Unknown] clonazepam 1 mg tablet 1 mg PO 4X/DAY PRN 06/20/23 [History Last Taken Unknown] tumeric 100 mg-glenn 150 mg-olive 50 mg-oreg 150 mg-caprylate capsule 1 cap PO DAILY 06/20/23 [History Last Taken Unknown] Allergy/AdvReac Type Severity Reaction Status Date / Time amitriptyline Allergy Rash Verified 11/02/23 02:29 cigarette smoke AdvReac Upset Verified 11/02/23 02:29 Stomach perfume AdvReac Other Verified 11/02/23 02:29 Phenylpiperazine AdvReac PT UNABLE Verified 11/02/23 02:29 Antidepressant TO RESPOND-NEEDS F/U Tetracyclic Antidepressants AdvReac PT UNABLE Verified 11/02/23 02:29 TO RESPOND-NEEDS F/U Tricyclic Antidepressants AdvReac PT UNABLE Verified 11/02/23 02:29 and Tricy TO RESPOND-NEEDS F/U muscle relaxers Allergy Intermediate other Uncoded 06/20/23 14:38 Family History Other Alcoholism Arthritis Cancer Colon cancer High cholesterol Mental disorder Parkinsons Surgical History H/O skin graft Social History Smoking Status: Never smoker substance use type: does not use ROS ROS ED Constitutional Constitutional ED: Denies chills or fever(s) Eyes Eyes: Denies change in vision or diplopia ENT ENT ED: Denies rhinorrhea or sore throat Cardiovascular Cardiovascular: Denies chest pain or palpitations Respiratory/Chest Respiratory/Chest: Denies cough or dyspnea Gastrointestinal Gastrointestinal: Denies abdominal pain, diarrhea, nausea or vomiting Genitourinary Genitourinary ED: Denies dysuria or hematuria Musculoskeletal Musculoskeletal: Denies back pain or neck pain Integumentary Denies abscess or rash Neurologic Neurologic: Denies headache(s), paresthesias or weakness Psychiatric Psychiatric: Reports as per HPI, anxiety and paranoia; Denies suicidal thoughts EXAM Physical Exam Const Vital Signs: 11/02/23 02:28 Temperature 97.7 F L Temperature Source Temporal Pulse Rate 109 H Respiratory Rate 16 Blood Pressure 142/95 H Blood Pressure Mean 110 Pulse Ox 98 Oxygen Delivery Method Room Air Positive well nourished and well developed General Appearance ED: well developed and NAD HEENT Reports moist mucous membranes normocephalic and atraumatic Eyes PERRL and EOMs intact bilaterally Neck full ROM, no lymphadenopathy and supple Neck Narrative: no thyromegaly or thyroid tenderness General: Negative for tenderness Resp normal respiratory effort and clear to auscultation bilaterally Cardio regular rate, regular rhythm and no murmurs GI non-tender and non-distended Auscultation: normoactive bowel sounds Palpation: soft Back/Spine no CVA tenderness General Back: other FROM Extremity normal to inspection General Extremety ED: Negative for edema, pulses abnormal or tenderness General Extremity: Negative for edema or pulses abnormal Neuro oriented x3, CN's II-XII intact bilaterally and no sensory deficits noted Sensorium / Orientation: awake and alert Motor Exam: strength 5/5 throughout Psych Attitude: paranoid Activity / Motor Behavior: appropriate eye contact Speech: normal speech Thought Process: flight of ideas, loose associations and tangential Thought Content: No suicidality, No homicidality and hallucination(s) Insight: poor Judgement: questionable Skin no rashes or lesions noted and no wounds MDM MDM MDM Narrative Medical decision making narrative: Patient seems to be having likely psychiatric illness. In ruling out medical/organic causes, basic labs, head CT, alcohol, drug screen, TSH were obtained. Her TSH is high, suggesting that she is hypothyroid, not hyperthyroid, the latter of which more commonly causes acute psychosis. Alcoholand drugs noted, she is medically cleared and I asked crisis to evaluate her. They agree she needs to be placed for urgent evaluation and treatment. Will seek psychiatric placement. Lab Data Attestation: I reviewed the patient's lab results. Labs: Laboratory Results - last 24 hr 11/02/23 11/02/23 02:49 04:25 WBC 10.1 RBC 4.50 Hgb 13.8 Hct 41.5 MCV 92.2 MCH 30.7 MCHC 33.3 RDW Std Deviation 46.4 H RDW Coeff of Servando 13.7 Plt Count 425 MPV 9.0 Immature Gran % (Auto) 0.200 Neut % (Auto) 38.2 L Lymph % (Auto) 50.5 H [place] % (Auto) 9.3 Eos % (Auto) 1.2 Baso % (Auto) 0.6 Absolute Neuts (auto) 3.9 Absolute Lymphs (auto) 5.12 H Nucleated RBC % 0 Differential Comment SCANNED Sodium 140 Potassium 3.5 Chloride 106 Carbon Dioxide 25.0 Anion Gap 9 BUN 27 H Creatinine 1.04 H Estim Creat Clear Calc 46.07 Est GFR (MDRD) Af Amer 70 Est GFR (MDRD) Non-Af 58 L BUN/Creatinine Ratio 26.0 H Glucose 144 H Calcium 9.1 Total Bilirubin 0.40 AST 14 L ALT 23 Alkaline Phosphatase 97 Total Protein 7.2 Albumin 3.9 Globulin 3.3 Albumin/Globulin Ratio 1.2 TSH 12.50 H Urine Opiates Screen NEGATIVE Urine Methadone Screen NEGATIVE Ur Barbiturates Screen NEGATIVE Ur Phencyclidine Scrn NEGATIVE Ur Amphetamines Screen POSITIVE H MDMA (Ecstasy) Screen NEGATIVE U Benzodiazepines Scrn POSITIVE H Urine Cocaine Screen NEGATIVE U Cannabinoids Screen POSITIVE H Ur Drug Screen Comment Ethyl Alcohol < 3.0 Radiography Diagnostic Testing: Clinical Impression(s) from Imaging Studies Brain CT 11/02/23 02:39 IMPRESSION: No CT evidence for mass or acute intracranial hemorrhage. Electronically Signed: Julianna Sloan MD at 3:30 EST Reading Location ID and State: [address] [place] [address] , Service support , CT of the head was obtained in order to rule out intracranial injury, I reviewedthe images and report which I agree with, negative for anything acute. 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 healthcare provider: order worker/Case management Discharge Plan Triage Chief Complaint: Mental Health ED Provider: Juwan Lane Dx/Rx/DC Orders Clinical Impression: Acute psychogenic paranoid psychosis Prescriptions: No Action vitamin B complex Tablet 1 tab PO DAILY melatonin 10 mg capsule 10 mg PO HS iubgfoh-ddfc-jrede-oreg-capryl 100 mg-150 mg- 50 mg-150 mg capsule 1 cap PO DAILY multivitamin with folic acid [Thera] 400 mcg tablet 1 tab PO DAILY Qty: 90 3RF cholecalciferol (vitamin D3) 25 mcg (1,000 unit) capsule 25 mcg PO DAILY Qty: 90 3RF albuterol sulfate 90 mcg/actuation HFA aerosol inhaler 2 puff inhalation Q6H PRN (Reason: shortness of breath or wheezing) Qty: 8.5 3RF omeprazole 40 mg capsule,delayed release(DR/EC) 40 mg PO DAILY Qty: 90 3RF rosuvastatin 40 mg tablet 40 mg PO DAILY Qty: 90 3RF acyclovir 400 mg tablet 400 mg PO PRN PRN (Reason: COLD SORES) Qty: 30 1RF Rx Instructions: Take two tabs at the onset of cold sores, then one tab 8 hours later. clonazepam 1 mg tablet 1 mg PO 4X/DAY PRN Patient Comments: TAKE 1 TABLET BY MOUTH up to FOUR TIMES DAILY NEEDED FOR ANXIETY ondansetron 4 mg tablet,disintegrating 4 mg PO Q6H PRN (Reason: nausea and vomiting) Qty: 12 0RF levothyroxine 75 mcg tablet 75 mcg PO DAILY Qty: 90 3RF Primary Care Provider: Jasmyn Phillips Referrals: Jasmyn Phillips MD [Primary Care Provider] - Disposition Disposition: Psychiatric Hospital or Unit What to do if you have Problems For any increased pain, shortness of breath, bleeding, nausea or vomiting, chestpain, or any unexpected problems, contact your Primary Care Provider. Call [facility] ([phone]) or report to the closest Emergency Room. Call 911 if necessary. 11/02/23 0520 <Electronically signed by Juwan Lane MD> Cosigner Signature (if applicable): CC: Dr. Jasmyn Phillips MD ~ Signed [facility] Work Phone: [phone]) 320-318607-08-2023 Discharge summary Author Dominguez Osman [facility] May 28, 2023 8:01pm Note Date/Time May 28, 2023 4:58p m [facility] Medical Records Department [address] [place] [address] Emergency Department Summary 05/28/23 MR#: [id number] Acct: [id number] Name: TIANNA MAYS Rep #:[id number] : 1965 57 From: Dominguez Osman MD PCP: Dr. Jasmyn Phillips MD Status:REG ER Location: ED HPI History of Present Illness Chief Complaint: Chest Pain Narrative Narrative: 57-year-old female past medical history of anxiety, PTSD, states she had a stroke when she was 13 years old presents with chest pain that she has had relatively constantly for the last few weeks. She states its getting worse. She does admit that it may be stress related and she is concerned about her heart because her sister 3 years ago from heart problems. She states that she has pain over her left chest and that her heart hurts. She denies any exacerbating or alleviating factors. She has had nausea and vomiting intermittently over the last few weeks, but none in the last 24 hours. She describes it as a sharp pain on the left side of her chest. No shortness of breath or diaphoresis. [facility] Medical History Anxiety Bleeding disorder Bone fracture Breast lump COPD (chronic obstructive pulmonary disease) DDD (degenerative disc disease), cervical Depression Ectopic Former smoker GERD (gastroesophageal reflux disease) Heart murmur Hypothyroidism Migraines PTSD (post-traumatic stress disorder) Rheumatoid arthritis Stroke Thyroid disease Home Medications tumeric 100 mg-glenn 150 mg-olive 50 mg-oreg 150 mg-caprylate capsule cap PO 06/09/22 [History Last Taken Unknown] vitamin B complex 1 tab PO DAILY 06/09/22 [History Last Taken Unknown] hydroxyzine pamoate 50 mg capsule 50 mg PO QHS PRN stress #30 caps 09/13/22 [Rx Last Taken Unknown] multivitamin with folic acid 400 mcg tablet (Thera) 1 tab PO DAILY #90 tabs 09/13/22 [Rx Last Taken Unknown] levothyroxine 75 mcg tablet 75 mcg PO DAILY #90 tabs 12/22/22 [Rx Last Taken Unknown] acyclovir 400 mg tablet 400 mg PO PRN PRN COLD SORES #30 tabs 03/21/23 [Rx Last Taken Unknown] albuterol sulfate 90 mcg/actuation aerosol inhaler 2 puff inhalation Q6H PRN shortness of breath or wheezing #8.5 grams 03/21/23 [Rx Last Taken Unknown] cholecalciferol (vitamin D3) 25 mcg (1,000 unit) capsule 25 mcg PO DAILY #90 caps 03/21/23 [Rx Last Taken Unknown] melatonin 10 mg capsule 10 mg PO HS 03/21/23 [History Last Taken Unknown] omeprazole 40 mg capsule,delayed release 40 mg PO DAILY #90 caps 03/21/23 [Rx Last Taken Unknown] rosuvastatin 40 mg tablet 40 mg PO DAILY #90 tabs 03/21/23 [Rx Last Taken Unknown] ondansetron 4 mg disintegrating tablet 4 mg PO Q6H PRN nausea and vomiting #12 tabs 05/28/23 [Rx Last Taken Unknown] Allergy/AdvReac Type Severity Reaction Status Date / Time amitriptyline Allergy Rash Verified 05/28/23 16:42 cigarette smoke AdvReac Upset Verified 05/28/23 16:42 Stomach perfume AdvReac Other Verified 05/28/23 16:42 Phenylpiperazine AdvReac PT UNABLE Verified 05/28/23 16:42 Antidepressant TO RESPOND-NEEDS F/U Tetracyclic Antidepressants AdvReac PT UNABLE Verified 05/28/23 16:42 TO RESPOND-NEEDS F/U Tricyclic Antidepressants AdvReac PT UNABLE Verified 05/28/23 16:42 and Tricy TO RESPOND-NEEDS F/U muscle relaxers Allergy Intermediate other Uncoded 03/21/23 11:03 Family History Other Alcoholism Arthritis Cancer Colon cancer High cholesterol Mental disorder Parkinsons Surgical History H/O skin graft Social History Smoking Status: Never smoker substance use type: does not use ROS ROS ED ROS Narrative Constitutional: No fever, no chills. HEENT: No sore throat. No neck pain. No loss of vision. No rhinorrhea. Cardiovascular: Left-sided chest pain. No palpitations. No pedal edema. Respiratory: No cough, no shortness of breath. Abdominal: No abdominal pain. Positive nausea and vomiting. Genitourinary: No dysuria. No hematuria. Musculoskeletal: No myalgias. No arthralgias. Neurologic: No headaches. No dizziness. No lightheadedness. Skin: No rash. No change in color. Psychiatric: No depression. No anxiety. Positive stress. EXAM Physical Exam Narrative Exam Narrative: Afebrile. Vital signs noted. HEENT: Normocephalic. Atraumatic. PERRL, EOMI. Neck soft and supple. No pointtenderness or step off. Cardiovascular: Regular rate and rhythm with intermittent tachycardia. No murmurs, rubs, or gallops appreciated. Respiratory: No tachypnea. Lungs clear to auscultation bilaterally. Gastrointestinal: Abdomen soft, nontender, with normoactive bowel sounds. No rebound or guarding. Neurological: Awake. Alert. Nonfocal, nonlateralizing. Skin: No rash. Normal color. No pallor. Musculoskeletal: No pedal edema. Full range of motion extremities. Psychiatric: Tearful on examination. Const Vital Signs: 05/28/23 16:39 Temperature 98.0 F Temperature Source Temporal Pulse Rate 100 Respiratory Rate 18 Blood Pressure 144/91 H Blood Pressure Mean 108 Pulse Ox 98 Oxygen Delivery Method Room Air Heart Score History: Slightly/Non-Suspicious ECG: Normal Age: >45 - <65 years Risk Factors: 1 or 2 Risk Factors Score: 2 MDM MDM MDM Narrative Medical decision making narrative: I reviewed the patient's prior records. She has been seen previously for heart palpitations which she has had in the past. There was no signs of ischemia. I have low suspicion for acute coronary syndrome. I do feel that some of her chest pain may be related to anxiety. Regardless, comprehensive work-up was pursued to help with rule out ACS with serial troponins. Pulse ox is 98% on room air and I have low suspicion for pulmonary embolism as her history is not consistent with this. EKG was obtained and interpreted by myself independently as normal sinus rhythm at 95 bpm without ectopy or acute ST changes. No STEMI. I reviewed her laboratory work and she has slightly elevated white count of 16.5 which I think may be demargination from her reported vomiting. Hemoglobin slightly hemoconcentrated at 15.2 with hematocrit 45.4 normal. Platelet count normal at 435. Review of her electrolytes show normal sodium of 136 with normal potassiumof 4.1, chloride normal at 105, BUN slightly elevated at 20 with a normal creatinine of 0.9, while glucose is appropriately elevated at 128, she has a normal anion gap of 8, D-dimer normal at 0.36 and I have low suspicion for pulmonary embolism. High-sensitivity troponin initially is less than 3. Repeatis normal at 4 for a delta less than 7. I interpreted her x-ray independently and see no evidence of pneumothorax or pneumonia. I reviewed the radiology report which confirms my independent interpretation. I do not feel that she requires observation. She was reassured. She states she started having nausea again so she was written for Zofran and given a dose of Zofran 4 mg here in the emergency department. She states that she is stressed, so she will be given Ativan 0.5 mg intravenously here prior to discharge. I feel she be discharged safely home with follow-up. I feel a lot of her pain may be related to anxiety and PTSD. Regardless, she was referred to the paint mixer on-call for further outpatient evaluation and work-up. Return instructions to the emergency department were reviewed. Disposition is discharged home in stable condition. History & Record Review Discussion w/independent historian: Patient and Family Additional record(s) reviewed:: Prior ED visit and Prior labs Lab Data Attestation: I reviewed the patient's lab results. Labs: Laboratory Results - last 24 hr 05/28/23 05/28/23 16:50 19:05 WBC 16.5 H RBC 4.93 Hgb 15.2 H Hct 45.4 MCV 92.1 MCH 30.8 MCHC 33.5 RDW Std Deviation 55.1 H RDW Coeff of Servando 16.1 H Plt Count 435 MPV 9.2 Immature Gran % (Auto) 0.300 Neut % (Auto) 63.6 Lymph % (Auto) 26.9 [place] % (Auto) 8.4 Eos % (Auto) 0.4 Baso % (Auto) 0.4 Absolute Neuts (auto) 10.5 H Absolute Lymphs (auto) 4.45 Nucleated RBC % 0 D-Dimer Quant (PE/DVT) 0.36 Sodium 136 Potassium 4.1 Chloride 107 Carbon Dioxide 21.0 Anion Gap 8 BUN 20 H Creatinine 0.92 Estim Creat Clear Calc 50.41 Est GFR (MDRD) Af Amer 81 Est GFR (MDRD) Non-Af 67 BUN/Creatinine Ratio 21.8 H Glucose 128 H Calcium 9.6 Troponin I High Sens < 3 L 4 Radiography Diagnostic Testing: Clinical Impression(s) from Imaging Studies Chest X-Ray 05/28/23 16:55 IMPRESSION: Nonacute portable x-ray examination of the chest. Electronically Signed: Thaddeus Vargas (Brooks), at 17:20 EDT , Discharge Plan Triage Chief Complaint: Chest Pain ED Provider: Dominguez Osman Dx/Rx/DC Orders Clinical Impression: Chest pain, Anxiety, Nausea Instructions: ED Anxiety Reaction, ED Chest Pain, Uncertain Cause, ED Pain, Acute, Uncertain Cause Prescriptions: New ondansetron 4 mg tablet,disintegrating 4 mg PO Q6H PRN (Reason: nausea and vomiting) Qty: 12 0RF No Action vitamin B complex Tablet 1 tab PO DAILY ewcphmi-mkoe-tkedh-oreg-capryl 100 mg-150 mg- 50 mg-150 mg capsule PO melatonin 10 mg capsule 10 mg PO HS hydroxyzine pamoate 50 mg capsule 50 mg PO QHS PRN (Reason: stress) Qty: 30 1RF multivitamin with folic acid [Thera] 400 mcg tablet 1 tab PO DAILY Qty: 90 3RF cholecalciferol (vitamin D3) 25 mcg (1,000 unit) capsule 25 mcg PO DAILY Qty: 90 3RF albuterol sulfate 90 mcg/actuation HFA aerosol inhaler 2 puff inhalation Q6H PRN (Reason: shortness of breath or wheezing) Qty: 8.5 3RF omeprazole 40 mg capsule,delayed release(DR/EC) 40 mg PO DAILY Qty: 90 3RF rosuvastatin 40 mg tablet 40 mg PO DAILY Qty: 90 3RF acyclovir 400 mg tablet 400 mg PO PRN PRN (Reason: COLD SORES) Qty: 30 1RF Rx Instructions: Take two tabs at the onset of cold sores, then one tab 8 hours later. levothyroxine 75 mcg tablet 75 mcg PO DAILY Qty: 90 3RF Primary Care Provider: Jasmyn Phillips Referrals: Jasmyn Phillips MD [Primary Care Provider] - 3-5 Days Taylor Sanchez MD [Med Staff - Active Staff] - As soon as possible Disposition Disposition: Home, Self Care What to do if you have Problems For any increased pain, shortness of breath, bleeding, nausea or vomiting, chestpain, or any unexpected problems, contact your Primary Care Provider. Call [facility] ([phone]) or report to the closest Emergency Room. Call 911 if necessary. 05/28/232000 <Electronically signed by Dominguez Osman MD> Cosigner Signature (if applicable): CC: Dr. Jasmyn Phillips MD ~ Signed [facility] Work Phone: 1(859) 258-934704-02-[address] Roper [facility] February 20, 2023 9:40pm Note Date/Time February 20, 2023 7:49 pm [facility] Medical Records Department [address] [place] [address] Emergency Department Summary 02/20/23 MR#: [id number] Acct: [id number] Name: TIANNA MAYS Rep #:[id number] : 1965 57 From: Aj Roper DO PCP: Dr. Jasmyn Phillips MD Status:REG ER Location: ED HPI History of Present Illness Chief Complaint: Mental Status Change Narrative Narrative: Patient presenting with headache. She states she has had headaches for years. She states this was been present for most of the day. She states that Tuesday she had elevated carbon oxide in her house. Today it was tested and was negative but she still has headaches. She states has been smelling gas for 5 years or so. She has not had a fever or cough. She does feel short of breath sometimes. She is not coughing or producing sputum. She also states that her right great toe has been spasming. She states she drinks plenty of water, but not too much. She not have any chest pain. [facility] Medical History Anxiety Bleeding disorder Bone fracture Breast lump COPD (chronic obstructive pulmonary disease) DDD (degenerative disc disease), cervical Depression Ectopic Former smoker GERD (gastroesophageal reflux disease) Heart murmur Hypothyroidism Migraines PTSD (post-traumatic stress disorder) Rheumatoid arthritis Stroke Thyroid disease Home Medications acyclovir 400 mg tablet 400 mg PO PRN PRN COLD SORES 08/07/17 [History Last Taken Unknown] cholecalciferol (vitamin D3) 25 mcg (1,000 unit) capsule 25 mcg PO DAILY 06/09/22 [History Last Taken Unknown] melatonin 10 mg capsule 10 mg PO HS PRN 06/09/22 [History Last Taken Unknown] tumeric 100 mg-glenn 150 mg-olive 50 mg-oreg 150 mg-caprylate capsule cap PO 06/09/22 [History Last Taken Unknown] vitamin B complex 1 tab PO DAILY 06/09/22 [History Last Taken Unknown] albuterol sulfate 90 mcg/actuation aerosol inhaler 2 puff inhalation Q6H PRN shortness of breath or wheezing #8.5 grams 09/13/22 [Rx Last Taken Unknown] gabapentin 100 mg capsule 300 mg PO TID #270 caps 09/13/22 [Rx Last Taken Unknown] hydroxyzine pamoate 50 mg capsule 50 mg PO QHS PRN stress #30 caps 09/13/22 [Rx Last Taken Unknown] multivitamin with folic acid 400 mcg tablet (Thera) 1 tab PO DAILY #90 tabs 09/13/22 [Rx Last Taken Unknown] omeprazole 40 mg capsule,delayed release 40 mg PO DAILY #90 caps 09/13/22 [Rx Last Taken Unknown] levothyroxine 75 mcg tablet 75 mcg PO DAILY #90 tabs 12/22/22 [Rx Last Taken Unknown] Allergy/AdvReac Type Severity Reaction Status Date / Time amitriptyline Allergy Rash Verified 02/20/23 19:24 cigarette smoke AdvReac Upset Verified 02/20/23 19:24 Stomach perfumes Allergy Intermediate Other Uncoded 02/20/23 19:24 anitdepressants AdvReac Severe Other Uncoded 02/20/23 19:24 Family History Other Alcoholism Arthritis Cancer Colon cancer High cholesterol Mental disorder Parkinsons Surgical History H/O skin graft Social History Smoking Status: Never smoker substance use type: does not use ROS ROS ED Constitutional Constitutional ED: Denies chills or fever(s) Eyes Eyes: Denies change in vision or diplopia ENT ENT ED: Denies rhinorrhea or sore throat Cardiovascular Cardiovascular: Denies chest pain or palpitations Respiratory/Chest Respiratory/Chest: Reports dyspnea Gastrointestinal Gastrointestinal: Reports nausea; Denies abdominal pain or vomiting Genitourinary Genitourinary ED: Denies dysuria or hematuria Musculoskeletal Musculoskeletal: Denies arthralgias or back pain Integumentary Denies abscess Neurologic Neurologic: Reports headache(s); Denies paresthesias or weakness Psychiatric Psychiatric: Denies suicidal ideation or suicidal thoughts EXAM Physical Exam Const Vital Signs: 02/20/23 19:21 02/20/23 19:27 02/20/23 20:05 Temperature 98.2 F Temperature Source Temporal Pulse Rate 95 88 Respiratory Rate 15 17 Respiratory Effort Short of Breath Labored Respiratory Depth Shallow Respiratory Pattern Irregular Blood Pressure 153/97 H 127/84 H Blood Pressure Mean 115 98 Pulse Ox 98 97 Oxygen Delivery Method Room Air Room Air Room Air 02/20/23 21:36 Temperature Temperature Source Pulse Rate Respiratory Rate 16 Respiratory Effort Respiratory Depth Respiratory Pattern Blood Pressure 113/79 Blood Pressure Mean Pulse Ox Oxygen Delivery Method Positive well nourished General Appearance ED: NAD HEENT Reports moist mucous membranes Eyes PERRL and EOMs intact bilaterally Chest Wall inspection of chest normal Resp normal respiratory effort and clear to auscultation bilaterally Auscultation: Negative for rales, rhonchi or wheezes Cardio regular rate and regular rhythm GI normal to inspection, nondistended, normoactive bowel sounds Neuro oriented x3 and CN's II-XII intact bilaterally Motor Exam: strength 5/5 throughout Psych mental status grossly normal Skin no rashes or lesions noted and no wounds MDM MDM MDM Narrative Medical decision making narrative: 57-year-old female presenting with multiple complaints. She stated that she short of breath. She was concerned that that her CO2 might be high at home eventhough she had tested and it was negative. Obtained a chest x-ray because he was complaining of dyspnea this is negative for acute findings on my interpretation. EKG was not interpretable myself and shows sinus rhythm with a ventricularof 92 bpm outside of ischemic change or dysrhythmia. CBC and CMP Are unremarkable. EtOH negative. Drug abuse screen positive for cannabinoids and benzodiazepine. Urinalysis negative. CT brain shows no acute intracranial process. Patient's headache improved with Reglan and Benadryl. I did also do acarboxyhemoglobin today and this is 3.7. I do not believe this is the issue. Patient states she had her home checked today and her carbon oxide levels are normal. At this point feel the patient is safe for discharge. Return precautions discussed. Impression: 1. Headache 2. Dyspnea Lab Data Labs: Laboratory Results - last 24 hr 02/20/23 02/20/23 02/20/23 20:00 20:00 20:00 WBC 7.9 RBC 4.71 Hgb 14.1 Hct 42.6 MCV 90.4 MCH 29.9 MCHC 33.1 RDW Std Deviation 47.2 H RDW Coeff of Servando 14.4 Plt Count 447 MPV 8.9 Immature Gran % (Auto) 0.300 Neut % (Auto) 54.5 Lymph % (Auto) 34.5 [place] % (Auto) 9.6 Eos % (Auto) 0.6 Baso % (Auto) 0.5 Absolute Neuts (auto) 4.3 Absolute Lymphs (auto) 2.73 Nucleated RBC % 0 Sodium 139 Potassium 3.6 Chloride 107 Carbon Dioxide 27.0 Anion Gap 5 BUN 15 Creatinine 0.91 Estim Creat Clear Calc 52.65 Est GFR (MDRD) Af Amer 81 Est GFR (MDRD) Non-Af 67 BUN/Creatinine Ratio 16.5 Glucose 132 H Calcium 9.5 Total Bilirubin 0.40 AST 15 ALT 24 Alkaline Phosphatase 86 Troponin I High Sens 3 Total Protein 7.4 Albumin 4.2 Globulin 3.2 Albumin/Globulin Ratio 1.3 Urine Color Urine Clarity Urine pH Ur Specific [place] Urine Protein Urine Glucose (UA) Urine Ketones Urine Occult Blood Urine Nitrite Urine Bilirubin Urine Urobilinogen Ur Leukocyte Esterase Urine RBC Urine WBC Ur Squamous Epith Cells Urine Bacteria Urine Mucus Urine Opiates Screen Urine Methadone Screen Ur Barbiturates Screen Ur Phencyclidine Scrn Ur Amphetamines Screen MDMA (Ecstasy) Screen U Benzodiazepines Scrn Urine Cocaine Screen U Cannabinoids Screen Ur Drug Screen Comment Ethyl Alcohol < 3.0 02/20/23 02/20/23 20:40 20:40 WBC RBC Hgb Hct MCV MCH MCHC RDW Std Deviation RDW Coeff of Servando Plt Count MPV Immature Gran % (Auto) Neut % (Auto) Lymph % (Auto) [place] % (Auto) Eos % (Auto) Baso % (Auto) Absolute Neuts (auto) Absolute Lymphs (auto) Nucleated RBC % Sodium Potassium Chloride Carbon Dioxide Anion Gap BUN Creatinine Estim Creat Clear Calc Est GFR (MDRD) Af Amer Est GFR (MDRD) Non-Af BUN/Creatinine Ratio Glucose Calcium Total Bilirubin AST ALT Alkaline Phosphatase Troponin I High Sens Total Protein Albumin Globulin Albumin/Globulin Ratio Urine Color Yellow Urine Clarity Clear Urine pH 6.0 Ur Specific [place] 1.010 Urine Protein Negative Urine Glucose (UA) Normal Urine Ketones Negative Urine Occult Blood Negative Urine Nitrite Negative Urine Bilirubin Negative Urine Urobilinogen Normal Ur Leukocyte Esterase Negative Urine RBC 0 SEEN Urine WBC 0 SEEN Ur Squamous Epith Cells 0-5 SEEN Urine Bacteria 0 SEEN Urine Mucus 0 SEEN Urine Opiates Screen NEGATIVE Urine Methadone Screen NEGATIVE Ur Barbiturates Screen NEGATIVE Ur Phencyclidine Scrn NEGATIVE Ur Amphetamines Screen NEGATIVE MDMA (Ecstasy) Screen NEGATIVE U Benzodiazepines Scrn POSITIVE H Urine Cocaine Screen NEGATIVE U Cannabinoids Screen POSITIVE H Ur Drug Screen Comment Ethyl Alcohol ABG Data ABG results: ABG 02/20/23 20:00 VBG Carboxyhemoglobin 3.7 H Radiography Diagnostic Testing: Clinical Impression(s) from Imaging Studies Brain CT 02/20/23 19:45 IMPRESSION: Negative Brain CT without contrast. Electronically Signed: Krista La DO at 20:39 EDT , Chest X-Ray 02/20/23 20:25 IMPRESSION: 1. No radiographic evidence of acute cardiopulmonary disease. Electronically Signed: Krista La DO at 20:40 EDT , Discharge Plan Triage Chief Complaint: Mental Status Change ED Provider: Aj Roper Dx/Rx/DC Orders Prescriptions: No Action cholecalciferol (vitamin D3) 25 mcg (1,000 unit) capsule 25 mcg PO DAILY vitamin B complex Tablet 1 tab PO DAILY pcmfjgc-mcrp-jwxem-oreg-capryl 100 mg-150 mg- 50 mg-150 mg capsule PO melatonin 10 mg capsule 10 mg PO HS PRN omeprazole 40 mg capsule,delayed release(DR/EC) 40 mg PO DAILY Qty: 90 1RF albuterol sulfate 90 mcg/actuation HFA aerosol inhaler 2 puff inhalation Q6H PRN (Reason: shortness of breath or wheezing) Qty: 8.5 0RF gabapentin 100 mg capsule 300 mg PO TID Qty: 270 1RF hydroxyzine pamoate 50 mg capsule 50 mg PO QHS PRN (Reason: stress) Qty: 30 1RF multivitamin with folic acid [Thera] 400 mcg tablet 1 tab PO DAILY Qty: 90 3RF acyclovir 400 MG tablet 400 mg PO PRN PRN (Reason: COLD SORES) levothyroxine 75 mcg tablet 75 mcg PO DAILY Qty: 90 3RF Primary Care Provider: Jasmyn Phillips Referrals: Jasmyn Phillips MD [Primary Care Provider] - What to do if you have Problems For any increased pain, shortness of breath, bleeding, nausea or vomiting, chestpain, or any unexpected problems, contact your Primary Care Provider. Call [facility] ([phone]) or report to the closest Emergency Room. Call 911 if necessary. 02/20/232139 <Electronically signed by Aj Roper DO> Cosigner Signature (if applicable): CC: Dr. Jasmyn Phillips MD ~ Signed [facility] Work Phone: [phone] History of Past illness Narrative* Problem Noted Date Diagnosed Date Resolved Date Myalgia 10/26/2013 08/27/2016 External hemorrhoid 10/10/2013 01/06/20 17 Lumbago with sciatica 06/29/20132016 Cramping of hands 12/05/2012 08/27/2016 Onychia and paronychia of toe 05/01/2012 08/27/2016 Bursitis of left shoulder 08/12/2011 Cutaneous horn 01/06/2011 11/24/2017 Anemia, unspecified 02/21/2009 08/27/20 16 CHANGE OF BOWEL HABITS 02/17/200908/27 Other benign neoplasm of con nective and other soft tissue of unspecified site 12/16/2008 08/27/20 16 documented as of this encounter (statuses as of 01/06/2024) [facility] Aubrey Duran [facility] Note Date/Time May 07, 2025 10:5 3am [facility] Medical Records Department [address] [place] [address] Pre-Anesthesia Evaluation 05/07/25 1049 MR#: [id number] Acct: [id number] Name: YOUSIFTIANNARL PONCE Rep #:[id number] : 1965 59 From: Aubrey Duran MD PCP: Dr. Jasmyn Phillips MD Status:REG SDC Y Race: C Location: [place] [address] ASA Classification* ASA Classification ASA Classification: 2 (ACTIVE schizophrenic. RA, Thyroid, PTSD, depression, GERD) Assessment & Plan Anesthesia* Anesthesia Assessment Anesthesia Assessment: Discussed sedation and/or anesthesia options, risks, benefits, and alternatives with patient/parents/legal guardian/POA. Questions invited. The patient/parents/legal guardian/POA seems to understand and agrees to proceedwith anesthesia plan. Reviewed the physical assessment, medical history, allergy history and patient home medications list prior to surgery/procedure/anesthetic and documented any changes. Performed airway and anesthesia risk assessments. Anesthesia Type Anesthesia Type: General History Source History Obtained from:: Patient and Chart Anesthesia Focused Assessment* Temperature: 98.4 F Pulse Rate: 80 Blood Pressure: 117/87 Respiratory Rate: 18 Pulse Ox: 98 Oxygen Delivery Method: Room Air Airway Assessment Mouth opens: >3 cm Mallampati Score: II Teeth Condition: Dentures Neck Range of motion (ROM): Full ROM Labs Anesthesia Preop lab: CBC WBC 11.4 K/mm3 (4.4-11.0) H 03/25/25 14: 5 RBC 4.46 M/mm3 (4.2-5.4) 03/25/25 14:18 03/25/25 Hgb 13.9 g/dL (12.0-15.0) 03/25/25 14:18 03/25/25 Hct 40.8 % (37-47) 03/25/25 14:18 03/25/25 Plt Count 420 K/mm3 (150-450) 03/25/25 14:18 03/25/25 CHEMISTRY Potassium 3.7 mmol/L (3.3-5.1) 03/25/25 14:18 03/25/25 Sodium 139 mmol/L (133-145) 03/25/25 14:18 03/25/25 Magnesium 2.2 mg/dL (1.6-2.6) 07/04/24 14:16 07/04/24 BUN 14 mg/dL (4-19) 03/25/25 14:18 03/25/25 Creatinine 0.80 mg/dL (0.70-1.20) 03/25/25 14:18 03/25/25 Glucose 122 mg/dL (70-99) H 03/25/25 14:18 03/25/25 TSH 8.460 uIU/mL (0.300-4.200) H 03/25/25 14:18 COAG Pre-Assessment Diagnosis/Proposed Procedure Planned Operative Procedure(s): EGD Anesthesia History 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 When Was Last Pacemaker Check QUESTION #4 FULL TEXT: You/Your Family Experience fever (hyperthermia) with Anesthesia Last Oral Intake Last Oral intake: Last Oral Intake NPO since 00:00 05/07/25 10:44 Meds taken in AM with sips of No 05/07/25 10:44 water? Meds patient instructed to take am of surgery PONV PONV - ground wood supervisor: PONV - ground wood supervisor Female Yes 05/07/25 10:39 HX of Motion Sickness Yes 05/07/25 10:39 HX of N/V After Surgery No 05/07/25 10:39 Non-Smoker Yes 05/07/25 10:39 Duration of Surgery greater No 05/07/25 10:39 than 60 minutes Number of Risk Factors 3 05/07/25 10:39 PONV Score Moderate Risk 05/07/25 10:39 Height & Weight Height & Weight: Anesthesia: Height & Weight Height 5 ft 2 in 05/07/25 10:44 Weight: 55 kg 05/07/25 10:44 Body Mass Index (BMI) 22.1 05/07/25 10:44 Respiratory Assessment Respiratory Assessment - ground wood supervisor: Respiratory Tract Infection Hx - ground wood supervisor Hx Respiratory Tract Infection No 05/07/25 10:39 STOP Sleep Apnea STOP Sleep Apnea - ground wood supervisor: STOP Sleep Apnea - ground wood supervisor Hx Hypertension No 05/07/25 10:39 Hx Sleep Apnea No 05/07/25 10:39 CPAP BIPAP Do you snore loudly (louder No 05/07/25 10:39 than talking or can be heard Do you often feel tired/ Yes 05/07/25 10:39 fatigued/ sleepy during daytime? Has anyone observed you stop No 05/07/25 10:39 breathing during sleep? STOP Results Negative 05/07/25 10:39 QUESTION #5 FULL TEXT : Do you snore loudly (louder than talking or can be heard through closed doors)? 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 Specify any problems Hx of Preganancy in last 3 No 05/07/25 10:39 Months Nurse Filling Out Transfusion [id number] 05/07/25 10:39 & Questions: Date: 05/07/25 05/07/25 10:39 Time: 10:42 05/07/25 10:39 Patient unable to answer at this time (ie. confused, unrespo /Reproduction History /Reproductive History - ground wood supervisor: /Reproductive Hx- ground wood supervisor Hx Now No 05/07/25 10:39 Gestational Age (in weeks): EDC: Hx Hx Para Hx Section SAB No 05/07/25 10:39 Active Medications Active Medications: Current Medications Generic Name Dose Route Start Last Admin Trade Name Freq PRN Reason Stop Dose Admin Lactated Ringer's 1,000 mls @ 15 mls/hr 05/07/25 10:15 IV .Q48H JEANETTE PFSH Medical History Upper abdominal pain Vitamin D deficiency Hyperlipidemia Cervical cancer screening History of colon polyps Flank pain Elevated WBC count Low TSH level Frequent headaches Neck pain Colon cancer screening History of abnormality of cervix Breast cancer screening Ectopic Heart murmur Thyroid disease Stroke GERD (gastroesophageal reflux disease) Migraines Breast lump Bleeding disorder Bone fracture Hypothyroidism DDD (degenerative disc disease), cervical Rheumatoid arthritis Former smoker COPD (chronic obstructive pulmonary disease) PTSD (post-traumatic stress disorder) Anxiety Depression Home Medications ?Medication ?Instructions ?Recorded ?Last Taken ?Type clonazepam 1 mg tablet 1 mg PO 4X/DAY PRN anxiety 0 06/20/23 Unknown History turmeric 100 mg-glenn 150 1 cap PO DAILY 06/20/23 Unk nown History mg-olive 50 mg-oreg 150 mg-capryl capsule hydroxyzine pamoate 50 mg capsule 50 mg PO TID PRN anx iety 01/09/24 Unknown History cholecalciferol (vitamin D3) 25 25 mcg PO DAILY #90 ca ps 09/27/24 Unknown Rx mcg (1,000 unit) capsule albuterol sulfate 90 mcg/actuation 2 puff inhalation Q 6H PRN 12/04/24 Unknown Rx aerosol inhaler shortness of breath or wheez ing #8.5 grams multivitamin with folic acid 400 1 tab PO DAILY #90 ta bs 12/04/24 Unknown Rx mcg tablet (Thera) omeprazole 40 mg capsule,delayed 40 mg PO DAILY #90 ca ps 12/04/24 Unknown Rx release levothyroxine 88 mcg tablet 88 mcg PO DAILY #90 tabs 0 04/01/25 Unknown Rx melatonin 10 mg capsule 10 mg PO HS #90 caps 5 Unknown Rx meloxicam 7.5 mg tablet 7.5 mg PO DAILY #90 tabs 11/14 Unknown Rx ondansetron 4 mg disintegrating 4 mg PO Q6H PRN nausea and 04/01/25 05/03/25 Rx tablet vomiting #12 tabs vitamin B complex 1 tab PO DAILY #90 tabs 03/21 01/15 Unknown Rx acyclovir 400 mg tablet 400 mg PO PRN PRN COLD SORES #30 04/04/25 Unknown Rx tabs omega 1-krx-agh-fish oil 1,200 mg 1 cap PO DAILY 05/03 Unknown History (144 mg-216 mg) capsule (Fish Oil) Allergy/AdvReac Type Severity Reaction Status Date / Time amitriptyline Allergy Rash Verified 05/07/25 10:37 cigarette smoke AdvReac Upset Verified 05/07/25 10:37 Stomach perfume AdvReac Other Verified 05/07/25 10:37 Phenylpiperazine AdvReac PT UNABLE Verified 05/07/25 10:37 Antidepressant TO RESPOND-NEEDS F/U Tetracyclic Antidepressants AdvReac PT UNABLE Verified 05/07/25 10:37 TO RESPOND-NEEDS F/U Tricyclic Antidepressants AdvReac PT UNABLE Verified 05/07/25 10:37 and Tricy TO RESPOND-NEEDS F/U Family History Other Alcoholism Arthritis Cancer Colon cancer High cholesterol Mental disorder Parkinsons Surgical History H/O skin graft Social History Smoking Status: Never smoker substance use type: does not use Review of Systems (Anesthesia) ROS Narrative System reviewed and no additional complaints, except as documented. Physical Exam Const alert, oriented x3 and average body habitus Resp normal respiratory effort, normal air movement and clear to auscultation bilaterally Cardio regular rate, regular rhythm, no murmurs and diaphoretic 05/07/25 1053 <Electronically signed by Aubrey Duran MD> Date _ Aubrey Duran MD Cosigner Signature: Date CC: ~ Signed [facility] Work Phone: Consult note Author Delroy Marquez [facility] Note Date/Time May 07, 2025 11:5 9am [facility] Medical Records Department [facility] [place] [address] Anesthesia Postop Eval I 05/07/25 1112 MR#: [id number] Acct: [id number] Name: TIANNA MAYS Rep #:[id number] : 1965 59 From: Delroy Marquez PCP: Dr. Jasmyn Phillips MD Status:REG SDC Y Race: C Location: [place] [address] Anesthesia: Postop Eval I Current Vital Signs Temperature: 97.7 F Pulse Rate: 67 Blood Pressure: 105/72 Respiratory Rate: 16 Pulse Ox: 97 Oxygen Delivery Method: Room Air Assessment Airway patent: Yes Spontaneous unlabored respirations: Yes Mental status: Asleep nausea: No Vomiting: No Anesthesia Complication: No Fluid Hydration Crystalloid volume administer (ml): 300 Total IV fluid infused: 300 Progress Note Anesthesia document: Postop Eval 1 completed: Yes 05/07/25 1112 <Electronically signed by Delroy Marquez > Date _ Delroy Montesinos Signature: Date CC: ~ Signed [facility] Work Phone: evaluation noteNo assessment information available [facility] Work Phone: evaluation note* Diagnosis Onset Date Resolution Status Anxiety acute Breast cancer screening acut e Hypothyroidism acute PTSD (post-traumatic stress disorder) acute [facility] Work Phone: Evaluation note* Diagnosis Onset Date Resolution Status Anxiety acute Hyperlipidemia acute Hypothyroidism acute PTSD (post-traumatic stress disorder) acute Vitamin D deficiency acute [facility] Work Phone: Evaluation note* Diagnosis Onset Date Resolution Status Anxiety chronic Chronic back pain chronic Hyperlipidemia chronic Hypothyroidism chronic PTSD (post-traumatic stress disorder) chronic [facility] Work Phone: evaluation note* Diagnosis Onset Date Resolution Status Admit Date GERD (gastroesophageal reflu x disease) acute April 10, 2025 1 :27pm [facility] Work Phone: History and physical note Author Shahid Fontaine [facility] Note Date/Time May 07, 2025 10:1 1am [facility] Medical Records Department [address] [place] [address] History & Physical Exam 05/07/25 1010 MR#: [id number] Acct: [id number] Name: TIANNA MAYS Rep #:[id number] : 1965 59 From: Shahid nolasco MD PCP: Dr. Jasmyn Phillips MD Status:REG [facility] Location: [place] [address] History and Physical Date of Admission: 05/07/25 Intake Vital Signs 12/04/2510:50 04/10/2513:50 Height 5 ft 2 in 5 ft 2 in Weight: 116 lb BMI 21.2 BP 103/62 Blood Pressure Location Rt brachial Position Sitting Respiration 17 Pulse 79 Pulse Source Monitor Pulse Oximetry (%) 98 Oxygen Delivery Method room air Intake Visit Reasons: Gastroesophageal reflux disease (GERD) Chief Complaint: gerd/abdominal pain/bloatin Is patient in pain?: No Allergies amitriptyline Allergy (Verified 04/10/25 13:51) Rashcigarette smoke Adverse Reaction (Verified 04/10/25 13:51) Upset Stomachperfume Adverse Reaction (Verified 04/10/25 13:51) OtherPhenylpiperazine Antidepressant Adverse Reaction (Verified 04/10/25 13:51) PT UNABLE TO RESPOND-NEEDS F/UTetracyclic Antidepressants Adverse Reaction (Verified 04/10/25 13:51) PT UNABLE TO RESPOND-NEEDS F/UTricyclic Antidepressants and Tricy Adverse Reaction (Verified 04/10/25 13:51) PT UNABLE TO RESPOND-NEEDS F/U Medications ?Medication ?Instructions ?Recorded ?Confirmed ?Type clonazepam 1 mg tablet 1 mg PO 4X/DAY PRN anxiety 06/20/23 05/12/15 History turmeric 100 mg-glenn 150 1 cap PO DAILY 06/20/23 04/10/25 History mg-olive 50 mg-oreg 150 mg-capryl capsule hydroxyzine pamoate 50 mg capsule 50 mg PO TID PRN anxiety 01/09/24 History cholecalciferol (vitamin D3) 25 25 mcg PO DAILY #90 caps 09/27/24 Rx mcg (1,000 unit) capsule albuterol sulfate 90 mcg/actuation 2 puff inhalation Q6H PRN 12/04/2404/10 Rx aerosol inhaler shortness of breath or wheezing #8.5 grams multivitamin with folic acid 400 1 tab PO DAILY #90 tabs 12/04/24 5 Rx mcg tablet (Thera) omeprazole 40 mg capsule,delayed 40 mg PO DAILY #90 caps 12/04/24 5 Rx release levothyroxine 88 mcg tablet 88 mcg PO DAILY #90 tabs 04/01/25 Rx melatonin 10 mg capsule 10 mg PO HS #90 caps 04/01/25 04/10/25 R x meloxicam 7.5 mg tablet 7.5 mg PO DAILY #90 tabs 04/01/25 Rx ondansetron 4 mg disintegrating 4 mg PO Q6H PRN nausea and 04/01/2503/22 Rx tablet vomiting #12 tabs vitamin B complex 1 tab PO DAILY #90 tabs 04/01/25 5 Rx acyclovir 400 mg tablet 400 mg PO PRN PRN COLD SORES #30 5 04/10/25 Rx tabs PFSH Medical History Upper abdominal pain Vitamin D deficiency Hyperlipidemia Cervical cancer screening History of colon polyps Flank pain Elevated WBC count Low TSH level Frequent headaches Neck pain Colon cancer screening History of abnormality of cervix Breast cancer screening Ectopic Heart murmur Thyroid disease Stroke GERD (gastroesophageal reflux disease) Migraines Breast lump Bleeding disorder Bone fracture Hypothyroidism DDD (degenerative disc disease), cervical Rheumatoid arthritis Former smoker COPD (chronic obstructive pulmonary disease) PTSD (post-traumatic stress disorder) Anxiety Depression Surgical History H/O skin graft Family History Other Alcoholism Arthritis Cancer Colon cancer High cholesterol Mental disorder Parkinsons Social History Smoking Status: Never smoker substance use type: does not use HPI HPI HPI: Patient is a 59-year-old female here for the epigastric pain. The patient reports that it is continuous. She reports that she has been on a PPI which help with the reflux but is not helping with her abdominal pain. ROS General General: Yes fatigue; No weight change, appetite, colon cancer, breast cancer or weakness HEENT HEENT: Yes difficulty swallowing and swollen glands; No eye injury, eye surgery or hoarseness Endo Endocrine: Yes thyroid disease; No diabetes mellitus, thyroid cancer, Hair loss, heat intolerance or cold intolerance Skin Skin: Yes changing moles; No rash Musc Musculoskeletal: Yes back problems, arthritis and rheumatoid arthritis; No gout or joint pain Cardio Cardiovascular: No murmur, pacemaker, heart disease, atrial fibrillation, high blood pressure, heart attack, heart stent, palpitations, shortness of breath with exertion or chest pain Psych Psychiatric: Yes anxiety; No depression or hearing voices Resp Respiratory: No shortness of breath, Yes sleep apnea, Yes cough, Yes COPD, No asthma, No emphysema and No wheezing Gastro Gastrointestinal: Yes abdominal pain, Yes nausea or vomiting, No diarrhea, No constipation, Yes blood in stool, Yes acid reflux, No hemorrhoids, Yes ulcers, No gallbladder problem and No black,tarry stools [place] Hematologic: No blood thinners, No blood disorders, No bleeding, No anemia and No blood clots Neuro Neurologic: No system reviewed and no additional complaints, except as documented, No as per HPI, No abnormal gait, No abnormal hearing, No abnormal movements, No abnormal speech, No behavioral changes, No burning sensations, No confusion, No convulsions, No disequilibrium, No dizziness, No localized weakness, No frequent falls, No headache(s), No lack of coordination, No loss ofvision, No memory loss, No numbness, No other visual disturbances, No radicular pain, No restless legs, No sensory deficit, No syncope, No tingling, No tremor(s), No weakness and No other Exam Const General: cooperative Orientation: alert and oriented x3 HENRI Head: normal to inspection Neck Neck: normal visual inspection and full ROM Chest Chest palpation & inspection: normal inspection of the chest Resp Effort & Inspection: normal respiratory effort Auscultation: clear to auscultation bilaterally Cardio Rate: regular rate Rhythm: regular rhythm GI Inspection: non-distended Palpation: soft and nontender Skin General: no rashes or lesions noted Neuro General: patient alert and patient oriented x3 Extrem General: full ROM Psych Appearance: grossly normal Mental Status: mental status grossly normal Assessment and Plan Assessment and Plan (1) GERD (gastroesophageal reflux disease): Status: Acute Plan: The patient is having epigastric pain which she is concerned for stomach issues. She would like an EGD to evaluate. I discussed this with her in detail. I explained endoscopy in detail to the patient. I explained the risks including but not limited to stroke or heart attack with anesthesia, perforation of the GItract, bleeding, infection. I explained that any of these could necessitate further emergency surgery. The patient understands and all questions were answered sufficiently. The patient wishes to proceed with procedure. Shahid Fontaine MD Pager: [facility] [address] [place] [address], [address] [place] [phone] Office: I have examined the patient and the H&P has been reviewed. There are no clinicalchanges since date of exam. 05/07/25 1011 <Electronically signed by Shahid Fontaine MD> Cosigner Signature (if applicable): CC: Dr. Shahid Fontaine MD; Dr. Jasmyn Phillips MD~ Signed [facility] Work Phone: Reason for referral (narrative)No reason for referral information availableWSt. [facility] Work Phone: Summary Purpose Family History No Family History Records Found Relationship Condition Age at Onset Recorded Date/T luda Not Specified Malignant neoplasm of colon Unknown High blood cholesterol Unknown Alcoholism Unknown Arthritis Unknown Mental disorder Unknown Malignant neoplasm Unknown Parkinson's disease Unknown Advance Directives No Advanced Directives Records Found Advance Directive Response Recorded Date/ Time Living Will No October 12 1:29pm Power of Hand Etcher Helper No October 12, 2021 1:29pm Advance Directive Response Recorded Date/ Time Living Will No July 30 11:59am Power of Hand Etcher Helper No July 30, 2022 11:59am Advance Directive Response Recorded Date/ Time Living Will No July 30 10:59am Power of Hand Etcher Helper No July 30, 2022 10:59am Advance Directive Response Recorded Date/ Time Living Will No February 20, 2023 7:24pm Power of Hand Etcher Helper No February 20 7:24pm Advance Directive Response Recorded Date/ Time Living Will No May 28, 2023 4 :49pm Power of Hand Etcher Helper No May 28, 2023 4:49pm Advance Directive Response Recorded Date/ Time Living Will No May 28, 2023 3 :49pm Power of Hand Etcher Helper No May 28, 2023 3:49pm Advance Directive Response Recorded Date/ Time Living Will No January 17 6:40pm Power of Hand Etcher Helper No January 17, 2024 6:40pm Advance Directive Response Recorded Date/ Time Do you have a Healthcare Power of Hand Etcher Helper? No May 07, 2025 10:39am Chief Complaint and Reason for Visit Chief Complaint 3 M FU Reason for Visit Anxiety Breast cancer screening Hypothyroidism PTSD (post-traumatic stress disorder) Chief Complaint 3 M FU E ORDER Reason for Visit Anxiety Breast cancer screening Hypothyroidism PTSD (post-traumatic stress disorder) Chief Complaint E ORDER FLANK PAIN Chief Complaint E ORDER FLANK PAIN mental status change Chief Complaint E ORDER FLANK PAIN mental status change 6 M FU E ORDERS Reason for Visit Anxiety Hyperlipidemia Hypothyroidism PTSD (post-traumatic stress disorder) Vitamin D deficiency Chief Complaint FLANK PAIN mental status change 6 M FU E ORDERS CP Reason for Visit Anxiety Hyperlipidemia Hypothyroidism PTSD (post-traumatic stress disorder) Vitamin D deficiency Chief Complaint CP Chief Complaint mental health Chief Complaint mental health 6 M FU INT LABS Reason for Visit Anxiety Chronic back pain Hyperlipidemia Hypothyroidism PTSD (post-traumatic stress disorder) Chief Complaint mental health 6 M FU INT LABS MENTAL HEALTH Reason for Visit Anxiety Chronic back pain Hyperlipidemia Hypothyroidism PTSD (post-traumatic stress disorder) Chief Complaint Admit Date NECK RX HERE January 14, 2025 12:53pm Chief Complaint Admit Date NECK RX HERE January 14, 2025 12:53pm INT LAB ORDERS March 25, 2025 1:43pm Chief Complaint Admit Date NECK RX HERE January 14, 2025 12:53pm INT LAB ORDERS March 25, 2025 1:43pm Gastroesophageal reflux disease (GERD) 2024 1:27pm Reason for Visit Admit Date GERD (gastroesophageal reflux disease) 2024 1:27pm Additional Source Comments INFORMATION SOURCE (unrecogn ized section and content) DATE CREATED AUTHOR 08/26/2019 [facility] DATE CREATED AUTHOR AUTHOR'S SURENDRA ATARLETH 2019 [facility] DATE CREATED AUTHOR AUTHOR'S ORGANIZ ATION 01/08/2024 [facility] DATE CREATED AUTHOR AUTHOR'S ORGANIZ ATION 05/15/2025 [facility] Goals (unrecognized section and content) Goals may be documented in a n alternate sectionGoals may be documented in an alternate sectionGoals may be documented in an alternate sectionGoals may be documented in an alternate sectionGoals may be documented in an alternate sectionGoals may be documented in an alternate sectionGoals may be documented in an alternate sectionGoals may be documented in an alternate sectionGoals may be documented in an alternate sectionGoals may be documented in an alternate sectionGoals may be documented in an alternate sectionGoals may be documented in an alternate sectionGoals may be documented in an alternate sectionGoals may be documented in an alternate section Care Teams (unrecognized sec tion and content) Team Status: Active Member Role Status Dates Dr. Jr Ferreira DO Family Provider Active Dr. Dandy Albarado MD Primary Care Provider Active Team Status: Inactive Member Role Status Dates Dr. Dandy Albarado MD Primary Care Provider Active Dr. Jasmyn Phillips MD Attending Provider Active Team Status: Inactive Member Role Status Dates Dr. Dandy Albarado MD Primary Care Provider Active Dr. Jasmyn Phillips MD Attending Provider, Referring Provider Active Team Status: Active Member Role Status Dates Dr. Jr Ferreira DO Family Provider Active Dr. Jasmyn Phillips MD Primary Care Provider Active Team Status: Inactive Member Role Status Dates Dr. Jasmyn Phillips MD Primary Care Pro vider, Attending Provider, Referring Provider Active Team Status: Inactive Member Role Status Dates Dr. Jasmyn Phillips MD Primary Care Provider Active Dr. Aj Roper DO Emergency Provider Active Team Status: Inactive Member Role Status Dates Dr. Jasmyn Phillips MD Primary Care Provider, Attendi ng Provider Active Team Status: Inactive Member Role Status Dates Dr. Jasmyn Phillips MD Primary Care Provider Active Dr. Aj Roper DO Attending Provider, Emergency Provider Active Team Status: Inactive Member Role Status Dates Dr. Jasmyn Phillips MD Primary Care Provider Active Dominguez Osman MD Emergency Provider Active Team Status: Inactive Member Role Status Dates Dr. Jasmyn Phillips MD Primary Care Provider Active Dominguez Osman MD Attending Provider, Emergency Provid er Active Team Status: Inactive Member Role Status Dates Dr. Jasmyn Phillips MD Primary Care Provider Active Dr. Lennox Robles MD Attending Provider, Referring Pr ovider Active Team Status: Inactive Member Role Status Dates Dr. Jasmyn Phillips MD Primary Care Provider Active Dr. Juwan Lane MD Emergency Provider Active Cartography Teacher Relationship Specialty Start Date End Date Dandy Albarado Chi [address] [place] [address] PCP - General Gerontology 05/13/20 Team Status: Inactive Member Role Status Dates Dr. Jasmyn Phillips MD Primary Care Provider Active Dr. Juwan Lane MD Attending Provider, Emergency Provider Active Team Status: Inactive Member Role Status Dates Dr. Jasmyn Phillips MD Primary Care Provider Active Dr. Gonzalo Sorensen MD Emergency Provider Active Team Status: Active Member Role Status Dates Dr. Jasmyn Phillips MD Primary Care Provider Active Team Status: Inactive Member Role Status Dates Dr. Jasmyn Phillips MD Primary Care Provider Active Start: January 14, 2025 End: January 14, 2025 Dr. Jasmyn Phillips MD Attending Provider Active Start: January 14, 2025 End: January 14, 2025 Dr. Jasmyn Phillips MD Referring Provider Active Start: January 14, 2025 End: January 14, 2025 Team Status: Inactive Member Role Status Dates Dr. Jasmyn Phillips MD Primary Care Provider Active Start: March 25, 2025 End: March 25, 2025 Dr. Lennox Robles MD Attending Provider Active Start: March 25, 2025 End: March 25, 2025 Dr. Lennox Robles MD Referring Provider Active Start: March 25, 2025 End: March 25, 2025 Team Status: Inactive Member Role Status Dates Dr. Jasmyn Phillips MD Primary Care Provider Active Start: April 10, 2025 End: April 10, 2025 Dr. Jasmyn Phillips MD Referring Provider Active Start: April 10, 2025 End: April 10, 2025 Dr. Shahid Fontaine MD Attending Provider Active Start: April 10, 2025 End: April 10, 2025 Team Status: Inactive Member Role Status Dates Dr. Jasmyn Phillips MD Primary Care Provider Active Start: May 07, 2025 End: May 07, 2025 Dr. Jasmyn Phillips MD Referring Provider Active Start: May 07, 2025 End: May 07, 2025 Dr. Shahid Fontaine MD Attending Provider Active Start: May 07, 2025 End: May 07, 2025 Team Status: Active Member Role Status Dates Dr. Jasmyn Phillips MD Primary Care Provider Active Start: May 07, 2025 Dr. Jasmyn Phillips MD Referring Provider Active Start: May 07, 2025 Dr. Shahid Fontaine MD Attending Provider Active Start: May 07, 2025 Dr. Shahid Fontaine MD Other Provider Active Start: May 07, 2025 Team Status: Inactive Member Role Status Dates Dr. Jasmyn Phillips MD Primary Care Provider Active Start: May 07, 2025 End: May 07, 2025 Dr. Jasmyn Phillips MD Attending Provider Active Start: May 07, 2025 End: May 07, 2025 Dr. Jasmyn Phillips MD Referring Provider Active Start: May 07, 2025 End: May 07, 2025 Source Comments (unrecognize d section and content) In the event this informatio n is protected by the Federal Confidentiality of Alcohol and Drug Abuse Patient Records regulations: The Federal rules restrict any use of the information to criminally investigate or prosecute any alcohol or drug abuse patient.[facility] FOR RECORDS PERTAINING TO PATIENTS WHO ARE [...] BE BASED ON THE PRIMARY CLINICAL RECORDS. [facility]. provides no warranty or guarantee of the accuracy or completeness of information in this document.
--- NOTE | 2025-06-25 00:39 | EDS_ITS ---
HPI History of Present Illness Chief Complaint: General Illness Informant: patient Narrative Narrative: Patient is a 59-year-old female with past medical history of anxiety hypothyroidism and PTSD. She states that she has been feeling very tired and fatigued for quite some time. She states that she has followed up with her family doctor and has had outpatient testing that has not revealed a cause of her symptoms. She states she does not know if there has been any known sick contacts and she states there has been no symptoms such as cough congestion fevers or chills. However she is concerned that the fatigue could be from COVID and secondary to this comes in for evaluation. [facility] Medical History Upper abdominal pain Vitamin D deficiency Hyperlipidemia Cervical cancer screening History of colon polyps Flank pain Elevated WBC count Low TSH level Frequent headaches Neck pain Colon cancer screening History of abnormality of cervix Breast cancer screening Ectopic Heart murmur Thyroid disease Stroke GERD (gastroesophageal reflux disease) Migraines Breast lump Bleeding disorder Bone fracture Hypothyroidism DDD (degenerative disc disease), cervical Rheumatoid arthritis Former smoker COPD (chronic obstructive pulmonary disease) PTSD (post-traumatic stress disorder) Anxiety Depression Home Medications ?Medication ?Instructions ?Recorded ?Last Taken ?Type clonazepam 1 mg tablet 1 mg PO 4X/DAY PRN anxiety 0 06/20/23 Unknown History turmeric 100 mg-glenn 150 1 cap PO DAILY 06/20/23 Unk nown History mg-olive 50 mg-oreg 150 mg-capryl capsule hydroxyzine pamoate 50 mg capsule 50 mg PO TID PRN anx iety 01/09/24 Unknown History cholecalciferol (vitamin D3) 25 25 mcg PO DAILY #90 ca ps 09/27/24 Unknown Rx mcg (1,000 unit) capsule albuterol sulfate 90 mcg/actuation 2 puff inhalation Q 6H PRN 12/04/24 Unknown Rx aerosol inhaler shortness of breath or wheez ing #8.5 grams multivitamin with folic acid 400 1 tab PO DAILY #90 ta bs 12/04/24 Unknown Rx mcg tablet (Thera) omeprazole 40 mg capsule,delayed 40 mg PO DAILY #90 ca ps 12/04/24 Unknown Rx release levothyroxine 88 mcg tablet 88 mcg PO DAILY #90 tabs 0 04/01/25 Unknown Rx melatonin 10 mg capsule 10 mg PO HS #90 caps 5 Unknown Rx meloxicam 7.5 mg tablet 7.5 mg PO DAILY #90 tabs 11/14 Unknown Rx ondansetron 4 mg disintegrating 4 mg PO Q6H PRN nausea and 04/01/25 05/03/25 Rx tablet vomiting #12 tabs vitamin B complex 1 tab PO DAILY #90 tabs 03/21 01/15 Unknown Rx acyclovir 400 mg tablet 400 mg PO PRN PRN COLD SORES #30 04/04/25 Unknown Rx tabs omega 4-pbt-bdo-fish oil 1,200 mg 1 cap PO DAILY 05/03 Unknown History (144 mg-216 mg) capsule (Fish Oil) Allergy/AdvReac Type Severity Reaction Status Date / Time amitriptyline Allergy Rash Verified 06/24/25 23:58 cigarette smoke AdvReac Upset Verified 06/24/25 23:58 Stomach perfume AdvReac Other Verified 06/24/25 23:58 Phenylpiperazine AdvReac PT UNABLE Verified 06/24/25 23:58 Antidepressant TO RESPOND-NEEDS F/U Tetracyclic Antidepressants AdvReac PT UNABLE Verified 06/24/25 23:58 TO RESPOND-NEEDS F/U Tricyclic Antidepressants AdvReac PT UNABLE Verified 06/24/25 23:58 and Tricy TO RESPOND-NEEDS F/U Family History Other Alcoholism Arthritis Cancer Colon cancer High cholesterol Mental disorder Parkinsons Surgical History H/O skin graft Social History Smoking Status: Never smoker substance use type: does not use ROS ROS ED Constitutional Constitutional ED: Reports other Details: Positive generalized fatigue ; Denies chills or fever(s) Eyes Eyes: Denies change in vision ENT ENT ED: Denies rhinorrhea or sore throat Respiratory/Chest Respiratory/Chest: Denies cough or dyspnea Gastrointestinal Gastrointestinal: Denies abdominal pain, diarrhea, nausea or vomiting Genitourinary Genitourinary ED: Denies dysuria Musculoskeletal Musculoskeletal: Denies myalgias Integumentary Denies rash Neurologic Neurologic: Reports weakness EXAM Physical Exam Const Vital Signs: 06/24/25 23:57 06/25/25 00:04 Temperature 97.7 F L Temperature Source Oral Pulse Rate 72 Respiratory Rate 16 Respiratory Effort Normal Non-Labored Respiratory Pattern Normal Blood Pressure 135/94 H Blood Pressure Mean 107 Pulse Ox 100 Oxygen Delivery Method Room Air Positive well nourished and well developed General Appearance ED: well developed; Negative for pallor HEENT HEENT Narrative: Normocephalic atraumatic No tongue or lip swelling no oral lesions no airway edema or compromise; no secondary findings in the posterior pharynx to suggest infection Eyes PERRL and EOMs intact bilaterally General Eye ED: Negative for pale conjunctiva or scleral icterus Neck supple Neck Narrative: No nuchal rigidity or meningeal signs noted Resp normal respiratory effort and clear to auscultation bilaterally Resp Narrative: No nasal flaring retractions tachypnea or accessory muscle use Cardio regular rate and regular rhythm Extremity normal to inspection Neuro oriented x3, CN's II-XII intact bilaterally and no sensory deficits noted Sensorium / Orientation: alert Motor Exam: strength 5/5 throughout Psych Psych Narrative: Patient has a depressed/flat affect No homicidal or suicidal ideation Mood & Affect: depressed Skin no rashes or lesions noted and no wounds General Skin Exam: Negative for jaundice or pallor MDM MDM MDM Narrative Medical decision making narrative: Patient presented to the ER overall stable vitals. She reported sensation of generalized fatigue that has been ongoing for multiple months with reportedly negative outpatient workup. Her physical exam does not offer any obvious source of fatigue such as acute blood loss anemia UTI acute kidney injury or electrolyte abnormality. I discussed with patient potential workup to assess for these or checking TSH value to see if her levothyroxine dose is sufficient. Patient states her only concern is for COVID and therefore does not want any further testing such as imaging or blood work. Therefore COVID swab was ordered. The patient also stated she did not want to wait in the hospital for its results. At this time she is overall hemodynamically stable without signs of respiratory distress or potential sepsis. Neurologic exam is normal and even though she has a depressed/flat affect she is not homicidal or suicidal so therefore there is no need for psychiatric evaluation. Therefore at this time as patient's overall exam is nonfocal and vital stable and she does not want to wait in the ER for her results of her COVID test she will be discharged home and can follow-up with her family doctor as an outpatient History & Record Review Discussion w/independent historian: Patient Discharge Plan Triage Chief Complaint: General Illness ED Provider: Franko Brito Dx/Rx/DC Orders Clinical Impression: Fatigue, Hypothyroidism, Hyperlipidemia, Anxiety, PTSD (post-traumatic stress disorder) Instructions: ED Weakness Uncertain Cause Prescriptions: No Action ocslzroh-kwhj-ljrsg-oreg-capry 100 mg-150 mg- 50 mg-150 mg capsule 1 cap PO DAILY clonazepam 1 mg tablet 1 mg PO 4X/DAY PRN (Reason: anxiety) Patient Comments: TAKE 1 TABLET BY MOUTH up to FOUR TIMES DAILY NEEDED FOR ANXIETY hydroxyzine pamoate 50 mg capsule 50 mg PO TID PRN (Reason: anxiety) Patient Comments: Take 1 Capsule By Oral Route 3 times per day as needed,for anxiety omega 2-blf-nto-fish oil [Fish Oil] 1,200 (144-216) mg capsule 1 cap PO DAILY cholecalciferol (vitamin D3) 25 mcg (1,000 unit) capsule 25 mcg PO DAILY Qty: 90 3RF albuterol sulfate 90 mcg/actuation HFA aerosol inhaler 2 puff inhalation Q6H PRN (Reason: shortness of breath or wheezing) Qty: 8.5 3RF multivitamin with folic acid [Thera] 400 mcg tablet 1 tab PO DAILY Qty: 90 3RF omeprazole 40 mg capsule,delayed release(DR/EC) 40 mg PO DAILY Qty: 90 3RF levothyroxine 88 mcg tablet 88 mcg PO DAILY Qty: 90 1RF melatonin 10 mg capsule 10 mg PO HS Qty: 90 1RF meloxicam 7.5 mg tablet 7.5 mg PO DAILY Qty: 90 1RF ondansetron 4 mg tablet,disintegrating 4 mg PO Q6H PRN (Reason: nausea and vomiting) Qty: 12 0RF vitamin B complex Tablet 1 tab PO DAILY Qty: 90 1RF acyclovir 400 mg tablet 400 mg PO PRN PRN (Reason: COLD SORES) Qty: 30 1RF Rx Instructions: Take two tabs at the onset of cold sores, then one tab 8 hours later. Primary Care Provider: Jasmyn Phillips Referrals: Jasmyn Phillips MD [Primary Care Provider] - Activity Restrictions/Additional Instructions: Please contact medical records tomorrow to find the result of your COVID test. Continue all of your home medications that were prescribed by your family doctor and return to the ER should you have any further concerns Print Language: Latvian Disposition Disposition: Home, Self Care Discharge Date/Time: 06/25/25 00:44
== END 2025-06-25 00:44 | disposition home or self-care (01) ==
PROVIDERS: Emergency Provider Emergency Medicine; PCP Internal Medicine; Visit Provider Emergency Medicine
DX: R53.83 Other fatigue (principal); J44.9 Chronic obstructive pulmonary disease, unspecified; F43.10 Post-traumatic stress disorder, unspecified; E78.5 Hyperlipidemia, unspecified; E03.9 Hypothyroidism, unspecified; F41.9 Anxiety disorder, unspecified; K21.9 Gastro-esophageal reflux disease without esophagitis
CPT/HCPCS: 87631; 99282

== ENCOUNTER → 2025-07-01 | Outpatient (CLI) | payer MEDICAID, SELFPAY ==
[2025-07-01 16:23] LABS: Hematocrit 38.6 % (37-47); Hemoglobin 12.9 g/dL (12.0-15.0); Immature Granulocytes Count 0.020 X10^3/uL (0.0-0.0); Mean Corp Hgb Conc 33.4 g/dL (32-36); Mean Corpuscular Volume 94.8 fL (81-99); Mean Platelet Vol. 9.9 fl (6.2-12.0); NRBC Flagged by Analyzer 0 % (0-5); Platelet Count 409 K/mm3 (150-450); RBC Distribution Width CV 13.2 % (11.6-14.6); RBC Distribution Width SD 46.2 fl (35.1-43.9); Red Blood Count 4.07 M/mm3 (4.2-5.4); White Blood Count 7.5 K/mm3 (4.4-11.0)
[2025-07-01 17:05] LABS: AST(SGOT) 18 U/L (<=31); Alanine Aminotransfer ALT/SGPT 16 U/L (<=34); Albumin, Serum 4.4 g/dL (3.4-4.8); Alkaline Phosphatase 101 U/L (35-104); Anion Gap 13 (5-15); BUN 14 mg/dL (4-19); BUN/Creat Ratio 19.0 RATIO (10-20); Calcium,Total 9.6 mg/dL (7.6-11.0); Carbon Dioxide 23.1 mmol/L (21.0-32.0); Chloride 104 mmol/L (98-108); Globulin 2.4 g/dL (2.2-4.2); Glucose 107 mg/dL (70-99); Magnesium 2.3 mg/dL (1.5-2.2); Potassium 4.0 mmol/L (3.3-5.1)
[2025-07-01 17:08] LABS: Free T3 2.5 pg/mL (2.18-3.98); Vitamin B12 521 pg/mL (180-914); Vitamin D,25 Hydroxy 39.1 ng/mL (30-100)
[2025-07-03 05:07] LABS: CRP, High Sensitivity 1.38 mg/L (0.00-3.00)
== END | disposition home or self-care (01) ==
LOC: LAB 13:56
PROVIDERS: PCP Internal Medicine; Referring Provider Internal Medicine; Visit Provider Internal Medicine
DX: E03.9 Hypothyroidism, unspecified (principal); R53.83 Other fatigue; F43.10 Post-traumatic stress disorder, unspecified; E55.9 Vitamin D deficiency, unspecified
CPT/HCPCS: 36415; 80053; 82306; 82607; 83735; 84439; 84443; 84481; 85025; 85652; 86141

== ENCOUNTER 2025-08-07 11:06 | Emergency (ER) | payer MEDICAID, SELFPAY ==
[2025-08-07 11:07] VITALS: BP 140/90; PULSE 111; RESP 16; TEMP 36.6; O2SAT 98; BMI 22.1
--- NOTE | 2025-08-07 11:12 | EKG12_ITS ---
Test Reason : Blood Pressure : */* mmHG Vent. Rate : 88 BPM Atrial Rate : 88 BPM P-R Int : 158 ms QRS Dur : 100 ms QT Int : 344 ms P-R-T Axes : 53 -11 35 degrees QTcB Int : 416 ms Normal sinus rhythm Incomplete right bundle branch block Borderline ECG Confirmed by NELSY GAITAN MD ([id number]), visual effects editor CHERIE NEAL ([id number]) on 08/09/2025 10:32:12 AM Referred By: TB Confirmed By: NELSY GAITAN MD
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
[2025-08-07 11:29] LABS: Hematocrit 42.0 % (37-47); Hemoglobin 14.1 g/dL (12.0-15.0); Immature Granulocytes Count 0.070 X10^3/uL (0.0-0.0); Mean Corp Hgb Conc 33.6 g/dL (32-36); Mean Corpuscular Volume 93.5 fL (81-99); Mean Platelet Vol. 8.9 fl (6.2-12.0); NRBC Flagged by Analyzer 0 % (0-5); Platelet Count 413 K/mm3 (150-450); RBC Distribution Width CV 13.8 % (11.6-14.6); RBC Distribution Width SD 47.3 fl (35.1-43.9); Red Blood Count 4.49 M/mm3 (4.2-5.4); White Blood Count 15.1 K/mm3 (4.4-11.0)
[2025-08-07] MEDS: 0.9% Normal Saline (1000mL) 1,000 ML 999 ML IV (11:36)
--- NOTE | 2025-08-07 11:50 | CT_ITS ---
PROCEDURE: BRAIN/HEAD WITHOUT CONTRAST 08/07/2025 REASON FOR EXAM: FALL Head injury due to a fall. TECHNIQUE: Procedure Code: CTBR Modality: CT Procedure: BRAIN/HEAD WITHOUT CONTRAST Coronal and Sagittal reconstruction series were provided. One or more dose reduction techniques were used (e.g., Automated exposure control, adjustment of the mA and/or kV according to patient size, use of iterative reconstruction technique. RADIATION DOSE SUMMARY: CTDlvol: 44.9 mGy DLP: 796.11 mGycm COMPARISON: Prior study dated November 02, 2023. FINDINGS: Brain: Within normal limits for age CSF Spaces: Normal Sinuses/Mastoids: Clear at visualized levels Bones: No fracture. CT/Brain/Head without Contrast IMPRESSION: NO ACUTE FINDINGS Reading Location: [place] [address]
--- NOTE | 2025-08-07 11:50 | CT_ITS ---
PROCEDURE: SPINE CERVICAL WITHOUT CONTRAS 08/07/2025 REASON FOR EXAM: FALL TECHNIQUE: Procedure Code: CTSPC Modality: CT Procedure: SPINE CERVICAL WITHOUT CONTRAS Coronal and Sagittal reconstruction series were provided. One or more dose reduction techniques were used (e.g., Automated exposure control, adjustment of the mA and/or kV according to patient size, use of iterative reconstruction technique. RADIATION DOSE SUMMARY: CTDlvol: 12.25 mGy DLP: 194.95 mGycm COMPARISON: None FINDINGS: Alignment: Straightening of the normal cervical lordosis. Vertebrae: No evidence of vertebral fracture. Soft Tissues: No prevertebral soft tissue swelling. Other: C1-2: Mild degree of degenerative changes of the atlantoaxial joint. C2-3: Facet joint osteoarthritis and hypertrophy. No significant stenosis seen. C3-4: The disc space is relatively well-maintained. Facet joint osteoarthritis and hypertrophy. Uncovertebral arthrosis. No significant neural foraminal stenosis is seen. Minimal anterior listhesis of C3 on C4 due to the facet joint osteoarthritis. C4-5: Mild degree of disc space narrowing. Facet joint hypertrophy and degenerative changes. No significant neural foraminal stenosis. C5-6: Moderate degree of disc space narrowing. Spondylosis. Uncovertebral arthrosis. Mild degree of bilateral neural foraminal stenosis. C6-7: Moderate degree of disc space narrowing. Spondylosis. Facet joint osteoarthritis. No significant stenosis. C7-T1: Unremarkable CT/Spine Cervical without Contras IMPRESSION: DEGENERATIVE CHANGES OF THE CERVICAL SPINE. NO EVIDENCE OF SIGNIFICANT OSSEOUS CENTRAL CANAL OR NEURAL FORAMINAL STENOSIS. Reading Location: [place] [address]
[2025-08-07 11:55] LABS: AST(SGOT) 24 U/L (<=31); Alanine Aminotransfer ALT/SGPT 18 U/L (<=34); Albumin, Serum 5.0 g/dL (3.4-4.8); Alkaline Phosphatase 107 U/L (35-104); Anion Gap 14 (5-15); BUN 13 mg/dL (4-19); BUN/Creat Ratio 14.6 RATIO (10-20); Calcium,Total 10.1 mg/dL (7.6-11.0); Carbon Dioxide 23.7 mmol/L (21.0-32.0); Chloride 101 mmol/L (98-108); Estimated Creatinine Clearance 53.10 ml/min (50-250); Globulin 2.9 g/dL (2.2-4.2); Glucose 114 mg/dL (70-99); Potassium 4.2 mmol/L (3.3-5.1)
[2025-08-07 12:32] LABS: Alcohol, Blood (Medical)-Serum < 10.1 mg/dL (<=10.0)
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
[2025-08-07 12:57] LABS: Mucous, Urine 0 SEEN /hpf (<or=2+); Red Blood Cells-Urine 0 SEEN /hpf (0-5); Squamous Epithelial Cells - UA 0 SEEN /hpf (5-10)
[2025-08-07 13:07] VITALS: BP 128/88; PULSE 108; RESP 18; O2SAT 95
[2025-08-07 13:08] LABS: Color, Urine Yellow (Yellow); Glucose, Dipstick Normal (Normal); Ketone-Dipstick Negative (Negative); Leukocyte Esterase-Dipstick Negative /ul (Negative); Nitrite-Dipstick Negative (Negative); Occult Blood-Urine Negative /ul (Negative); Protein-Dipstick Negative (Negative); Specific Gravity, Urine 1.005 (1.002-1.030); Urine Bilirubin Dipstick Negative (Negative)
[2025-08-07 13:21] LABS: Barbiturate Urine NEGATIVE (< 200 ng/mL); Benzodiazepine Urine NEGATIVE (< 200 ng/mL); PCP Urine NEGATIVE (< 25 ng/mL); THC Urine PRESUMPTIVE POSITIVE (< 50 ng/mL)
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
[2025-08-07] MEDS: Ziprasidone IM 20 MG/ML VIAL IM (13:39)
--- NOTE | 2025-08-07 14:12 | PCA ---
CALLED [facility] @ [phone] REACHED OUT TO [facility]
--- NOTE | 2025-08-07 14:37 | ED.RN ---
[facility] called and gave this RN accepting information at this time. transport to be scheduled for 3 hours from 1430.
--- NOTE | 2025-08-07 17:18 | PCA ---
PHYSICIANS OUTSOURCED THE RIDE FOR [facility], YUNIEL WILL BE HERE @ [phone]
--- NOTE | 2025-08-07 17:45 | ED.RN ---
pt was seen by staff throwing self on the floor. when staff asks pt to get off of the floor pt refuses. pt was assisted back into the bed by security. charge nurse notified of patients behavior.
--- NOTE | 2025-08-07 18:27 | ED.RN ---
pt requested that this rn call her mother Lynnette Arndt to update her. this rn called pts mother and message left at this time.
[2025-08-07 21:31] VITALS: BP 133/93; PULSE 85; RESP 16; TEMP 36.7; O2SAT 100
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
--- NOTE | 2025-08-07 21:40 | ED.RN ---
[facility] CALLED BACK FOR ANOTHER PATIENT'S INFORMATION. WHEN ASKED IF THIS NURSE COULD GIVEN REPORT ON THIS PATIENT THEY STATED THAT THE NURSE WAS STILL NOT AVAILABLE.
--- NOTE | 2025-08-07 22:39 | ED.RN ---
Tara from [facility] called for report. Report given at this time.
== END 2025-08-07 21:39 ==
PROVIDERS: Emergency Provider Emergency Medicine; PCP Internal Medicine; Visit Provider Emergency Medicine
DX: R44.3 Hallucinations, unspecified (principal); J44.9 Chronic obstructive pulmonary disease, unspecified; F41.9 Anxiety disorder, unspecified; E78.5 Hyperlipidemia, unspecified; F32.A Depression, unspecified; Z86.73 Personal history of transient ischemic attack (TIA), and cerebral infarction without residual deficits; K21.9 Gastro-esophageal reflux disease without esophagitis; E03.9 Hypothyroidism, unspecified; Z12.31 Encounter for screening mammogram for malignant neoplasm of breast
CPT/HCPCS: 70450; 72125; 77063; 77067; 80053; 80307; 81001; 82077; 85025; 93005; 96360; 96361; 96372; 99285; A4216

== ENCOUNTER → 2025-08-07 | Outpatient (CLI) | payer MEDICAID, SELFPAY ==
--- NOTE | 2025-08-07 10:33 | BI_ITS ---
EXAM: SCRN MAMM (CAD)W/ASYA BILAT DATE: 08/07/2025 CLINICAL HISTORY: F, Age 59 y/o , BREAST CANCER SCREENING No family history. History of prior left excisional breast biopsy. TECHNIQUE: Procedure Code: [id number] Modality: MG Procedure: SCRN MAMM (CAD)W/ASYA BILAT COMPARISON: Prior exam(s) dated August 03, 2024.. FINDINGS: TISSUE DENSITY: The breasts are extremely dense, which lowers the sensitivity of mammography. Bilateral Breast Mammographic Findings: No significant masses, calcifications or other abnormalities are identified. No suspicious masses, areas of developing architectural distortion, or suspicious calcifications. There has been no significant interval change. BI/SCRN MAMM (CAD)W/ASYA BILAT IMPRESSION: Stable bilateral screening mammogram. OVERALL FINAL ASSESSMENT BI-RADS 1: NEGATIVE. RECOMMENDATION: Routine annual follow-up in 1 Year A letter with findings and recommendations will be mailed to the patient. Reading Location: [place] [address]
== END | disposition home or self-care (01) ==
LOC: OPBI 10:31
PROVIDERS: PCP Internal Medicine; Referring Provider Internal Medicine; Visit Provider Internal Medicine
DX: Z12.31 Encounter for screening mammogram for malignant neoplasm of breast (principal)
CPT/HCPCS: 77063; 77067